=== PATIENT | male | born 1950 | race African-American/Black ===

== ENCOUNTER 2016-12-07 13:49 | Inpatient (IN) | payer BC, MEDICAID ==
[~2016-12-07] VITALS: Ht 170.2 cm; Wt 86.2 kg
[~2016-12-07 13:49] MED LIST: AMLODIPINE BESYL5 MG ORAL; ASPIRIN EC81 MG ORAL; CARVEDILOL3.125 MG ORAL; DICLOFENAC SODI75 MG ORAL; ERYTHROMYCIN3.5 GM LEFT EYE; FUROSEMIDE40 MG ORAL; IBUPROFEN600 MG ORAL; KLOR-CON 88 MEQ ORAL; LASIX40 MG ORAL; LISINOPRIL20 MG ORAL; NORCO 10/3251 EA ORAL; OMEPRAZOLE40 M1 ORAL; SOMA350 MG PO
--- NOTE | 2016-12-07 14:28 | Emergency Room Report ---
History of Present Illness General Chief Complaint: Dyspnea/Respdistress Source: Patient Present Illness HPI Patient is a 66-year-old male presented after increased difficulty breathing. Patient gradual onset of symptoms. Patient was noted to have prior history of congestive heart failure. Patient has been taking diuretics but had not taken his Lasix as per usual patient had previous a similar symptoms and was hospitalized approximately one month ago for similar episode. Patient noted have some increased leg swelling as well as increased difficulty breathing. He had some increased orthopnea. Allergies: Coded Allergies: No Known Allergies (Verified Allergy, Unknown, 09/19/07) Patient History Reviewed Nursing Documentation: PMH: Agreed, PSxH: Agreed Nursing Documentation-PMH Past Medical History: No History, Except For Hx Cardiac Problems: Yes Hx Hypertension: Yes Hx Pacemaker: Yes - AICD 09/16/2014 Hx COPD: Yes Hx Cancer: No Hx Gastrointestinal Problems: Yes - hernia Hx Neurological Problems: Yes Hx Cerebrovascular Accident: Yes - POSSIBLE MILD STROKE Review of Systems All Other Systems: negative except mentioned in HPI Physical Exam Vital Signs Date Time Temp Pulse Resp B/P Pulse Ox O2 Delivery O2 Flow Rate FiO2 12/07/16 14:06 97.5 123 22 104/55 97 Room Air Sp02 EP Interpretation: reviewed, normal General Appearance: normal inspection, alert, GCS 15, mild distress Head: atraumatic ENT: normal ENT inspection, hearing grossly normal, normal voice Neck: normal inspection, full range of motion, supple, no bony tend Respiratory: normal inspection, no respiratory distress, no retraction, no wheezing, rales Cardiovascular #1: tachycardia, edema Gastrointestinal: normal inspection, normal bowel sounds, non tender, soft, no guarding, no hernia Genitourinary: no CVA tenderness Musculoskeletal: normal inspection, back normal, normal range of motion Neurologic: normal inspection, alert, oriented x3, responsive, planning rn III-XII nml as tested, speech normal Psychiatric: normal inspection, judgement/insight normal, mood/affect normal Skin: normal inspection, normal color, no rash Medical Decision Making Diagnostic Impression: Primary Impression: CHF (congestive heart failure) Additional Impression: Atrial fibrillation with RVR ER Course Patient presented for shortness of breath.Differential included but was not limited to anemia, pneumonia, pneumothorax, myocardial infarction, pericardial effusion, congestive heart failure, acidosis. Because of complexity of patient' s case laboratory testing and imaging studies were ordered. Patient was noted to have evidence of heart failure as well as atrial fibrillation with rapid ventricular response. The patient was given IV digoxin as well as diuretics.The patient will be admitted for further control of atrial fibrillation as well as management of congestive heart failure. The patient was noted to have Dr. Guan primary. Dr. Nixon was contacted for inpatient management. Labs Test 12/07/16 14:46 12/07/16 14:53 White Blood Count 8.1 K/UL (4.8-10.8) Red Blood Count 4.05 M/UL (4.70-6.10) Hemoglobin 12.7 G/DL (14.2-18.0) Hematocrit 39.4 % (42.0-52.0) Mean Corpuscular Volume 97 FL (80-99) Mean Corpuscular Hemoglobin 31.3 PG (27.0-31.0) Mean Corpuscular Hemoglobin Concent 32.2 G/DL (32.0-36.0) Red Cell Distribution Width 13.0 % (11.6-14.8) Platelet Count 195 K/UL (150-450) Mean Platelet Volume 8.3 FL (6.5-10.1) Neutrophils (%) (Auto) 58.1 % (45.0-75.0) Lymphocytes (%) (Auto) 29.3 % (20.0-45.0) Monocytes (%) (Auto) 7.6 % (1.0-10.0) Eosinophils (%) (Auto) 4.2 % (0.0-3.0) Basophils (%) (Auto) 0.8 % (0.0-2.0) Sodium Level 140 mEQ/L (135-145) Potassium Level 4.8 mEQ/L (3.4-4.9) Chloride Level 102 mEQ/L (98-107) Carbon Dioxide Level 22 mEQ/L (20-30) Anion Gap 16 (5-15) Blood Urea Nitrogen 40 mg/dL (7-23) Creatinine 2.0 mg/dL (0.7-1.2) Estimat Glomerular Filtration Rate 40.6 mL/min (>60) Glucose Level 121 mg/dL (74-106) Calcium Level 10.3 mg/dL (8.6-10.2) Total Bilirubin 0.3 mg/dL (0.0-1.2) Aspartate Amino Transf (AST/SGOT) 35 U/L (5-40) Alanine Aminotransferase (ALT/SGPT) 45 U/L (3-41) Alkaline Phosphatase 70 U/L (40-129) Total Creatine Kinase 111 U/L (38-174) Creatine Kinase MB 3.6 ng/mL (< 6.7) Creatine Kinase MB Relative Index 3.2 Troponin I < 0.30 ng/mL (<=0.30) Pro-B-Type Natriuretic Peptide 25096 pg/mL (0-125) Total Protein 7.4 g/dL (6.6-8.7) Albumin 3.7 g/dL (3.5-5.2) Globulin 3.7 g/dL Albumin/Globulin Ratio 1.0 (1.0-2.7) Prothrombin Time 11.0 SEC (9.30-11.50) Prothromb Time International Ratio 1.1 (0.9-1.1) Activated Partial Thromboplast Time 26 SEC (23-33) EKG Diagnostic Results Rate: tachycardiac Rhythm: other - afib ST Segments: no acute changes ASA given to the pt in ED: No Rhythm Strip Diag. Results EP Interpretation: yes Rhythm: no PVC's, other - afib rvr, 130s Last Vital Signs Date Time Temp Pulse Resp B/P Pulse Ox O2 Delivery O2 Flow Rate FiO2 12/07/16 14:06 97.5 123 22 104/55 97 Room Air Status: improved Disposition: ADMITTED INPATIENT Condition: Serious Cory Julian Dec 07, 2016 14:27
[2016-12-07] MEDS ORDERED: Digoxin 0.5mg/2ml Inj IVP ONE (14:30)
[2016-12-07] MEDS ORDERED: Aspirin Baby 81mg ORAL ONE ×2 (14:30→19:00)
[2016-12-07 14:45] VITALS: BP 113/83
[2016-12-07] MEDS ORDERED: POTASSIUM CHLOR8 ME3 PO ×2 (15:06→15:20)
[2016-12-07 15:10] LABS: BASOPHILS % (AUTO) 0.8 % (0.0-2.0); EOSINOPHILS % (AUTO) 4.2 % (0.0-3.0); LYMPHOCYTES % (AUTO) 29.3 % (20.0-45.0); MEAN CORPUSCULAR HEMOGLOBIN 31.3 PG (27.0-31.0); MEAN CORPUSCULAR HGB CONC 32.2 G/DL (32.0-36.0); MEAN CORPUSCULAR VOLUME 97 FL (80-99); MEAN PLATELET VOLUME 8.3 FL (6.5-10.1); MONOCYTES % (AUTO) 7.6 % (1.0-10.0); NEUTROPHILS % (AUTO) 58.1 % (45.0-75.0); PLATELET COUNT 195 K/UL (150-450); RED BLOOD COUNT 4.05 M/UL (4.70-6.10); WHITE BLOOD COUNT 8.1 K/UL (4.8-10.8)
[2016-12-07 15:20] LABS: CALCIUM 10.3 mg/dL (8.6-10.2); GLOMERULAR FILTRATION RATE 40.6 mL/min (>60); POTASSIUM 4.8 mEQ/L (3.4-4.9); TOTAL PROTEIN 7.4 g/dL (6.6-8.7); TROPONIN I < 0.30 ng/mL (<=0.30)
[2016-12-07] MEDS ORDERED: OMEPRAZOLE40 M1 ORAL (15:21)
[2016-12-07] MEDS ORDERED: ALLOPURINOL100 M1 ORAL (15:22)
[2016-12-07] MEDS ORDERED: METOLAZONE5 MG PO (15:23)
[2016-12-07] MEDS ORDERED: DOCUSATE SODIU250 MG ORAL (15:25)
[2016-12-07] MEDS ORDERED: PROAIR HFA8.5 GM INH (15:29)
[2016-12-07 15:30] LABS: CKMB 3.6 ng/mL (< 6.7)
[2016-12-07] MEDS ORDERED: Diltiazem 25mg/5ml IV ONE (15:30)
[2016-12-07] MEDS ORDERED: PROMETH-CODEIN 65 ML PO (15:34)
[2016-12-07 15:37] VITALS: BP 118/75
[2016-12-07 15:39] LABS: INR 1.1 (0.9-1.1)
--- NOTE | 2016-12-07 17:11 | Diagnostic Imaging Report ---
Indication: Shortness of breath Technique: One view of the chest Comparison: 11/04/2015 Findings: There is a left chest bifocal AICD again demonstrated. Heart remains borderline enlarged. Lungs and pleural spaces are clear. No significant change Impression: No acute process
[2016-12-07] MEDS ORDERED: Norco 10mg/325mg tab ORAL PRN (18:00)
[2016-12-07] MEDS ORDERED: Promethazine/Codeine 5ml UD ORAL PRN (18:00)
[2016-12-07 18:27] VITALS: BP 121/97
[2016-12-07] MEDS ORDERED: Lisinopril 10mg tab ORAL ONE (18:30)
[2016-12-07] MEDS ORDERED: Allopurinol 100mg Tab ORAL ONE (19:00)
[2016-12-07] MEDS ORDERED: Docusate 250mg cap ORAL ONE (19:00)
[2016-12-07 20:00] VITALS: BP 144/99
[2016-12-07 20:01] VITALS: BP 112/91
[2016-12-07] MEDS ORDERED: Heparin 5000 units/ml inj SUBQ ONE (21:00)
[2016-12-08 00:23] VITALS: BP 134/76
[2016-12-08 04:20] VITALS: BP 139/75
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
[2016-12-08 08:00] VITALS: BP 120/66
[2016-12-08] MEDS: Carvedilol 6.25mg Tab ORAL SCH ×2 (09:00→21:34)
[2016-12-08] MEDS ORDERED: Heparin 5000 units/ml inj SUBQ SCH (09:00)
[2016-12-08] MEDS: Lisinopril 20mg tab ORAL SCH (09:36)
[2016-12-08 12:00] VITALS: BP 120/72
[2016-12-08] MEDS: Allopurinol 100mg Tab ORAL SCH (14:57)
[2016-12-08 16:00] VITALS: BP 124/68
[2016-12-08 20:00] VITALS: BP 136/71
--- NOTE | 2016-12-08 20:11 | Cardiology Report ---
APPROVED REPORT EXAM: Two-dimensional and M-mode echocardiogram with Doppler and color Doppler. INDICATION Congestive Heart Failure M-Mode DIMENSIONS IVSd1.5 (0.7-1.1cm)Left Atrium (MM)4.1 (1.6-4.0cm) LVDd6.1 (3.5-5.6cm)Aortic Root3.2 (2.0-3.7cm) PWd1.0 (0.7-1.1cm)Aortic Cusp Exc.2.1 (1.5-2.0cm) LVDs5.0 (2.5-4.0cm) PWs1.3 cm Technically difficult study due to poor acoustic windows. Mild left ventricular enlargement. Global left ventricular hypokinesis. Mid anterior and mid lateral akinesis. Left ventricular ejection fraction estimated to be 30%. Mild left ventricular hypertrophy. No evidence of pericardial fat or effusion. Moderate bi-atrial enlargement by 2D. Focal aortic valve sclerosis with adequate cusp excursion Thickened mitral valve leaflets with normal excursion. Mitral annulus and aortic root calcification. Pulmonic valve not well visualized. Normal tricuspid valve structure. IVC dilated at 2.3cm with physiologic collapse. RA pressure of 10mmHg. Probable pacemaker wire present in the right side chambers possibley in coronary sinus . A color flow and spectral Doppler study was performed and revealed: Trace aortic regurgitation. Moderate mitral regurgitation. Left ventricular diastolic dysfunction not obtainable due to arrhythmia. Mild tricuspid regurgitation. Tricuspid systolic velocities suggests peak right ventricular systolic pressure of 44 mmHg Consistent with mild pulmonary hypertension.
[2016-12-09] VITALS: BP 107/74
[2016-12-09 04:19] VITALS: BP 123/79
[2016-12-09 06:10] LABS: BASOPHILS % (AUTO) 0.5 % (0.0-2.0); EOSINOPHILS % (AUTO) 6.2 % (0.0-3.0); LYMPHOCYTES % (AUTO) 22.2 % (20.0-45.0); MEAN CORPUSCULAR HEMOGLOBIN 31.2 PG (27.0-31.0); MEAN CORPUSCULAR VOLUME 97 FL (80-99); MEAN PLATELET VOLUME 8.5 FL (6.5-10.1); MONOCYTES % (AUTO) 8.1 % (1.0-10.0); NEUTROPHILS % (AUTO) 63.1 % (45.0-75.0); PLATELET COUNT 164 K/UL (150-450); RED BLOOD COUNT 3.54 M/UL (4.70-6.10); RED CELL DISTRIBUTION WIDTH 13.2 % (11.6-14.8); WHITE BLOOD COUNT 7.4 K/UL (4.8-10.8)
[2016-12-09 07:24] LABS: ALANINE AMINOTRANSFERASE 29 U/L (3-41); ANION GAP 17 (5-15); ASPARTATE AMINO TRANSFERASE 16 U/L (5-40); CALCIUM 9.4 mg/dL (8.6-10.2); CARBON DIOXIDE 24 mEQ/L (20-30); CHLORIDE 100 mEQ/L (98-107); CREATININE 2.1 mg/dL (0.7-1.2); GLOMERULAR FILTRATION RATE 38.4 mL/min (>60); HEMOLYSIS 12; MAGNESIUM 1.5 mg/dL (1.7-2.5); POTASSIUM 3.9 mEQ/L (3.4-4.9); SODIUM 141 mEQ/L (135-145); TOTAL PROTEIN 6.2 g/dL (6.6-8.7)
[2016-12-09 07:58] VITALS: BP 113/72
[2016-12-09] MEDS: Carvedilol 6.25mg Tab ORAL SCH (08:50)
[2016-12-09] MEDS: Allopurinol 100mg Tab ORAL SCH (08:50)
[2016-12-09] MEDS: Lisinopril 20mg tab ORAL SCH (08:51)
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
[2016-12-09 11:28] VITALS: BP 120/70
[2016-12-09] MEDS ORDERED: Furosemide 40mg tab ORAL SCH (11:30)
[2016-12-09] MEDS ORDERED: LISINOPRIL20 MG ORAL (11:48)
[2016-12-09] MEDS ORDERED: COREG6.25 MG ORAL (11:48)
[2016-12-09] MEDS ORDERED: FUROSEMIDE40 MG ORAL (11:48)
[2016-12-09] MEDS ORDERED: Tubing IV Secondary IV ONE (13:54)
[2016-12-09] MEDS ORDERED: NS 275ml ONE (13:54)
--- NOTE | 2016-12-10 01:08 | Progress Note ---
DATE: 12/09/2016 CARDIOLOGY PROGRESS NOTE SUBJECTIVE: The patient is without shortness of breath. He was able to sleep last night. His diuretic dose was held yesterday due to rising renal function, but it is resumed today. OBJECTIVE: VITAL SIGNS: Blood pressure 124/68, pulse 60, respiratory rate 18, and afebrile. Monitored rhythm pace. NECK: Supple. Jugular venous pressure is slightly elevated. LUNGS: Clear. CARDIAC: Regular rhythm rate. Normal S1, S2. A 1/6 systolic apical murmur. ABDOMEN: Soft. EXTREMITIES: Without edema. LABORATORY DATA: Pro-natriuretic peptide has decreased from admission 10,000 to 3000 today. BUN 49 and creatinine 2.1. Potassium 3.9. White count 7.4 and hemoglobin 11. Echocardiogram yesterday confirmed ejection fraction of about 30% with global hypokinesis. IMPRESSION: 1. Acute on chronic systolic congestive heart failure. 2. Chronic kidney disease with exacerbation due to diuresis. 3. Hypertensive heart disease. 4. Cardiac defibrillator. 5. Anemia due to chronic kidney disease. PLAN: Oral diuretic maintenance dose with furosemide . Continue beta-aria and angiotensin-converting enzyme inhibitor. Outpatient interrogation of defibrillator. The patient was counseled again regarding salt restriction, fluid restriction, and medication compliance as well as diuretic titration with daily weights. Ronnell Nixon M.D. DR: PETER JOB#: [id number] CC:
--- NOTE | 2016-12-10 08:48 | Progress Note ---
CARDIOLOGY PROGRESS NOTE Late entry for 12/08/2016 SUBJECTIVE: The patient is up in chair. He feels better. He is anxious to go home. The patient states that his defibrillator has not been checked for at least a year. He has not had any shock. The patient is unaware of how to restrict his salt intake at home and has recently been changing the dose of his diuretic therapy. He is unsure what to do about that to keep from fluid buildup. OBJECTIVE: VITAL SIGNS: Blood pressure is 120/72, pulse 66, respirations 18, afebrile, and room air oxygen 98%. NECK: Jugular venous pressure slightly elevated. LUNGS: Few rales. CARDIAC: Regular rhythm and rate. Normal S1 and paradoxically split S2, 1/6 systolic apical murmur. ABDOMEN: Soft. EXTREMITIES: Trace edema. IMPRESSION: 1. Acute on chronic systolic congestive heart failure. 2. Cardiac defibrillator. 3. Hypertensive heart disease. 4. Chronic kidney disease. PLAN: 1. Continue diuresis. 2. Recheck renal function before next dose of furosemide. 3. We will titrate 01:27 and antihypertensives. 4. Defibrillator interrogation may be considered. 5. We will try to find out the type of device he has, otherwise it will be arranged as an outpatient. 6. The patient was counseled extensively regarding fluid restriction, salt restriction, and diuretic titration. Ronnell Nixon M.D. DR: BROOKS JOB#: [id number] CC:
--- NOTE | 2016-12-10 15:24 | Discharge Summary ---
Discharge Summary Hospital Course Date of Admission Dec 07, 2016 at 14:54 Date of Discharge Dec 09, 2016 at 13:55 Admitting Diagnosis atrial fibrillation with rapid ventricular rate HPI Juan Rod is a 66 year old male who was admitted on Dec 07, 2016 at 14:54 for Atrial Fibrillation With Rapid Ventricular Rate Hospital Course [id number] Discharge Discharge Disposition Patient was discharged to Home (01) Discharge Diagnoses: Nuiba Crawford NP Dec 10, 2016 15:24
--- NOTE | 2016-12-11 02:38 | Discharge Summary 2 SIG ---
DATE OF ADMISSION: 12/07/2016 DATE OF DISCHARGE: 12/09/2016 BRIEF HOSPITAL COURSE: The patient is a 66-year-old male with history of congestive heart failure, hypertension, and asthma. He presented with complaints of shortness of breath and palpitations. He was noted to be in atrial fibrillation with rapid ventricular response and converted after being given Cardizem. He was noted to have a renal insufficiency on presentation. He has a known history of dilated nonischemic cardiomyopathy and has a biventricular cardiac defibrillator. He admits to eating salty foods and drink lots of fluids. He has not had any chest pain or shock from his device. He was given diuresis. Anti-failure regimen was maximized. He was given dietary counseling and fluid restriction and compliance with medications as well as diuretic titration and daily weights. He was eventually discharged home. FINAL DIAGNOSES: 1. Acute on chronic systolic congestive heart failure. 2. Cardiac defibrillator. 3. Hypertensive heart disease. 4. Chronic kidney disease. 5. Anemia due to chronic kidney disease. 6. Paroxysmal atrial fibrillation with rapid ventricular response. Ronnell Nixon M.D. I have been assigned to dictate discharge summary on this account and I was not involved in the patient's management. Nubia Crawford N.P. DR: EMILY JOB#: [id number] CC:
[2016-12-27] MEDS ORDERED: DIGOXIN125 MCG ORAL (09:35)
[2016-12-27] MEDS ORDERED: XARELTO10 MG ORAL (09:35)
[2016-12-27] MEDS ORDERED: COREG25 MG ORAL (09:35)
[2016-12-27] MEDS ORDERED: SPIRONOLACTONE25 MG ORAL (09:35)
== END 2016-12-09 13:55 | disposition home or self-care (01) | DRG 291 ==
LOC: EMR 14:25 → 2E 14:54 → EDBEDREQ 19:45
DX: I13.0 Hypertensive heart and chronic kidney disease with heart failure and stage 1 through stage 4 chronic kidney disease, or unspecified chronic kidney disease (principal); I50.43 Acute on chronic combined systolic (congestive) and diastolic (congestive) heart failure; N17.0 Acute kidney failure with tubular necrosis; I48.91 Unspecified atrial fibrillation; J45.909 Unspecified asthma, uncomplicated; N18.9 Chronic kidney disease, unspecified; Z95.810 Presence of automatic (implantable) cardiac defibrillator; D63.1 Anemia in chronic kidney disease; I48.0 Paroxysmal atrial fibrillation; N40.0 Benign prostatic hyperplasia without lower urinary tract symptoms; Z91.11 Patient's noncompliance with dietary regimen; I42.0 Dilated cardiomyopathy
CPT/HCPCS: 36415; 71010; 80053; 82550; 82553; 83735; 83880; 84484; 85025; 85610; 85730; 93005; 93306

== ENCOUNTER 2016-12-22 12:36 | Inpatient (IN) | payer BC, MEDICAID ==
[~2016-12-22] VITALS: Ht 172.7 cm; Wt 86.6 kg
[2016-12-22] VITALS (7 sets, daily range): BP systolic 96–150; BP diastolic 55–89
[~2016-12-22 12:36] MED LIST changes: +ALLOPURINOL100 M1 ORAL; +COREG6.25 MG ORAL; +DOCUSATE SODIU250 MG ORAL; +METOLAZONE5 MG PO; +POTASSIUM CHLOR8 ME3 PO; +PROAIR HFA8.5 GM INH; +PROMETH-CODEIN 65 ML PO
[2016-12-22] MEDS ORDERED: Calcium Gluconate 1gm/10ml vial IVP ONE (13:15)
[2016-12-22] MEDS ORDERED: Diltiazem 25mg/5ml IV ONE (13:15)
[2016-12-22 13:16] LABS: BASOPHILS % (AUTO) 0.5 % (0.0-2.0); EOSINOPHILS % (AUTO) 3.5 % (0.0-3.0); LYMPHOCYTES % (AUTO) 21.1 % (20.0-45.0); MEAN CORPUSCULAR HEMOGLOBIN 30.4 PG (27.0-31.0); MEAN CORPUSCULAR HGB CONC 30.2 G/DL (32.0-36.0); MEAN CORPUSCULAR VOLUME 101 FL (80-99); MEAN PLATELET VOLUME 7.9 FL (6.5-10.1); MONOCYTES % (AUTO) 7.4 % (1.0-10.0); NEUTROPHILS % (AUTO) 67.5 % (45.0-75.0); PLATELET COUNT 203 K/UL (150-450); RED BLOOD COUNT 3.98 M/UL (4.70-6.10); RED CELL DISTRIBUTION WIDTH 13.9 % (11.6-14.8); WHITE BLOOD COUNT 7.3 K/UL (4.8-10.8)
[2016-12-22 13:29] LABS: ALBUMIN/GLOBULIN RATIO 1.1 (1.0-2.7); CALCIUM 9.9 mg/dL (8.6-10.2); CREATININE 1.8 mg/dL (0.7-1.2); GLOMERULAR FILTRATION RATE 45.8 mL/min (>60); POTASSIUM 4.3 mEQ/L (3.4-4.9); TOTAL PROTEIN 6.6 g/dL (6.6-8.7); TROPONIN I < 0.30 ng/mL (<=0.30)
[2016-12-22 13:40] LABS: CKMB 4.4 ng/mL (< 6.7)
--- NOTE | 2016-12-22 15:15 | Emergency Room Report ---
History of Present Illness General Chief Complaint: Upper Respiratory Illness Source: Patient Present Illness HPI 66-year-old male presents to ED for evaluation. States the last 2 days he's been having increased shortness of breath while at rest. Denies any chest pain. Notes leg swelling. States the last time this happened he had "fluid" in the lungs. Denies any fevers or chills. Denies cough. PMD is Dr. Guan. Notes history of CHF and A. fib. States he is compliant with his medications. No other aggravating or relieving factors. Denies any other associated symptoms Allergies: Coded Allergies: No Known Allergies (Verified Allergy, Unknown, 09/19/07) Patient History Past Medical History: HTN, CHF, AFib, CVA/TIA Past Surgical History: pacemaker, other - hernia Pertinent Family History: none Social History: Denies: alcohol use, drug use, smoking Immunizations: UTD Reviewed Nursing Documentation: PMH: Agreed, PSxH: Agreed Nursing Documentation-PMH Hx Cardiac Problems: Yes Hx Hypertension: Yes Hx Pacemaker: Yes - AICD 09/16/2014 Hx COPD: Yes Hx Cancer: No Hx Gastrointestinal Problems: Yes - ventral hernia (repaired) Hx Neurological Problems: Yes Hx Cerebrovascular Accident: Yes - POSSIBLE MILD STROKE Review of Systems All Other Systems: negative except mentioned in HPI Physical Exam Vital Signs Date Time Temp Pulse Resp B/P Pulse Ox O2 Delivery O2 Flow Rate FiO2 12/22/16 12:49 97.5 94 20 125/84 99 Room Air Sp02 EP Interpretation: reviewed, normal General Appearance: no apparent distress, alert, GCS 15, non-toxic Head: normocephalic, atraumatic Eyes: bilateral eye PERRL, bilateral eye normal inspection ENT: hearing grossly normal, normal pharynx, no angioedema, normal voice Neck: full range of motion, supple/symm/no masses Respiratory: chest non-tender, lungs clear, normal breath sounds, speaking full sentences Cardiovascular #1: regular rate, rhythm, no edema Cardiovascular #2: 2+ carotid (R), 2+ carotid (L), 2+ radial (R), 2+ radial (L) , 2+ dorsalis pedis (R), 2+ dorsalis pedis (L) Gastrointestinal: normal bowel sounds, non tender, soft, non-distended, no guarding, no rebound Rectal: deferred Genitourinary: normal inspection, no CVA tenderness Musculoskeletal: back normal, gait/station normal, normal range of motion, non- tender, swelling - 1+ pitting edema b/l LE Neurologic: alert, oriented x3, responsive, motor strength/tone normal, sensory intact, speech normal Psychiatric: judgement/insight normal, memory normal, mood/affect normal, no suicidal/homicidal ideation Reflexes: 3+ bicep (R), 3+ bicep (L), 3+ tricep (R), 3+ tricep (L), 3+ knee (R) , 3+ knee (L) Skin: normal color, no rash, warm/dry, well hydrated Lymphatic: no adenopathy Medical Decision Making Diagnostic Impression: Primary Impression: Atrial fibrillation with rapid ventricular response Additional Impressions: CHF exacerbation Qualified Codes: I50.9 - Heart failure, unspecified CKD (chronic kidney disease) Qualified Codes: N18.9 - Chronic kidney disease, unspecified ER Course Hospital Course 66-year-old M presents ED complaining of SOB, leg swelling Differential diagnoses include: NC/unstable angina, CHF, PTX Clinical course Patient placed on stretcher. on cardiac surgeon which shows A. fib with RVR. 10mg Cardizem given with cardioversion. After initial history and physical I ordered labs, EKG, chest x-ray labs reviewed- no leukocytosis, hemoglobin/hematocrit ok, BUN/Cr 36/1.8, troponins negative, BNP > 11,000 EKG-atrial fibrillation with RVR, no acute changes Chest x-ray- cardiomegaly. pacemaker because of insurance patient will be treated I. I feel this is a highly complex case requiring extensive working including EKG/Rhythm strip, Xray/CT/US, Blood/urine lab work, repeat exams while in ED, and administration of strong opiates/narcotics for pain control, admission to hospital or close patient follow up. Diagnosis - afib with RVR, CHF exacerbation, CKD Transferred in serious condition Labs Test 12/22/16 13:00 White Blood Count 7.3 K/UL (4.8-10.8) Red Blood Count 3.98 M/UL (4.70-6.10) Hemoglobin 12.1 G/DL (14.2-18.0) Hematocrit 40.0 % (42.0-52.0) Mean Corpuscular Volume 101 FL (80-99) Mean Corpuscular Hemoglobin 30.4 PG (27.0-31.0) Mean Corpuscular Hemoglobin Concent 30.2 G/DL (32.0-36.0) Red Cell Distribution Width 13.9 % (11.6-14.8) Platelet Count 203 K/UL (150-450) Mean Platelet Volume 7.9 FL (6.5-10.1) Neutrophils (%) (Auto) 67.5 % (45.0-75.0) Lymphocytes (%) (Auto) 21.1 % (20.0-45.0) Monocytes (%) (Auto) 7.4 % (1.0-10.0) Eosinophils (%) (Auto) 3.5 % (0.0-3.0) Basophils (%) (Auto) 0.5 % (0.0-2.0) Sodium Level 145 mEQ/L (135-145) Potassium Level 4.3 mEQ/L (3.4-4.9) Chloride Level 107 mEQ/L (98-107) Carbon Dioxide Level 23 mEQ/L (20-30) Anion Gap 15 (5-15) Blood Urea Nitrogen 36 mg/dL (7-23) Creatinine 1.8 mg/dL (0.7-1.2) Estimat Glomerular Filtration Rate 45.8 mL/min (>60) Glucose Level 134 mg/dL (74-106) Calcium Level 9.9 mg/dL (8.6-10.2) Total Bilirubin 0.5 mg/dL (0.0-1.2) Aspartate Amino Transf (AST/SGOT) 42 U/L (5-40) Alanine Aminotransferase (ALT/SGPT) 63 U/L (3-41) Alkaline Phosphatase 70 U/L (40-129) Total Creatine Kinase 89 U/L (38-174) Creatine Kinase MB 4.4 ng/mL (< 6.7) Creatine Kinase MB Relative Index 4.9 Troponin I < 0.30 ng/mL (<=0.30) Pro-B-Type Natriuretic Peptide 47542 pg/mL (0-125) Total Protein 6.6 g/dL (6.6-8.7) Albumin 3.5 g/dL (3.5-5.2) Globulin 3.1 g/dL Albumin/Globulin Ratio 1.1 (1.0-2.7) EKG Diagnostic Results Rate: tachycardiac Rhythm: other - afib with RVR ST Segments: no acute changes ASA given to the pt in ED: No Rhythm Strip Diag. Results EP Interpretation: yes Rhythm: no PVC's, no ectopy Chest X-Ray Diagnostic Results EP Interpretation: Yes Findings: no pneumothorax, no acute cardiopulmonary disease, other - cardiomegaly. pacemaker. effusion Number of Views: 1 Last Vital Signs Date Time Temp Pulse Resp B/P Pulse Ox O2 Delivery O2 Flow Rate FiO2 12/22/16 15:08 120 19 96/55 99 Room Air 12/22/16 14:11 97.5 Status: improved Disposition: XFER SHT-TRM HOSP Condition: Serious Referrals: [facility],REFERRING (PCP) IWONA SCHMID M.D. Dec 22, 2016 15:15
[2016-12-22] MEDS ORDERED: NORCO 10-325 T1 EACH ORAL (15:23)
[2016-12-22] MEDS ORDERED: CARVEDILOL3.125 MG ORAL (15:39)
--- NOTE | 2016-12-22 16:16 | Diagnostic Imaging Report ---
Indication: SOB Technique: One view of the chest Comparison: 12/07/2016 Findings: Patient's chin slightly obscures the upper mediastinum. The heart is enlarged. Left hemidiaphragm is elevated. Lungs and pleural spaces are clear. There is a left chest AICD again demonstrated. No significant change Impression: No acute process. Findings as noted
[2016-12-22] MEDS ORDERED: Zolpidem 5mg tab ORAL PRN (19:15)
[2016-12-22] MEDS ORDERED: Norco 5mg/325mg tab ORAL PRN (19:15)
[2016-12-22] MEDS ORDERED: Digoxin 0.5mg/2ml Inj IVP ONE (19:30)
[2016-12-22] MEDS ORDERED: Heparin 5000 units/ml inj SUBQ SCH (21:00)
[2016-12-23] MEDS ORDERED: Digoxin 0.5mg/2ml Inj IVP ONE (00:30)
[2016-12-23 00:36] VITALS: BP 135/76
[2016-12-23] MEDS: Xarelto 15mg tab ORAL SCH ×2 (00:45→17:48)
--- NOTE | 2016-12-23 01:58 | History and Physical Report ---
DATE OF ADMISSION: 12/22/2016 REASON FOR CONSULT: Atrial fibrillation with rapid ventricular response. HISTORY OF PRESENT ILLNESS: This is a 66-year-old, male with a known history of an ischemic and hypertensive cardiomyopathy with cardiac defibrillator and chronic systolic congestive heart failure. The patient notes compliance with his medications. He was last seen here in this hospital approximately two weeks ago. He is yet to get Cardiology follow up even though it was stressed by me that this was required at time of discharge. The patient has had increasing shortness of breath and palpitations for the past day or two. He has had a little bit of leg swelling. He was seen in the emergency room and noted to have a rapid atrial fibrillation. PAST MEDICAL HISTORY: Hypertension, ischemic heart disease, cardiac defibrillator, chronic obstructive pulmonary disease and prior cerebrovascular accident status post repair of ventral hernia. SOCIAL HISTORY: No current smoking, alcohol, or substance abuse. FAMILY HISTORY: Noncontributory. MEDICATIONS: Reviewed and reconciled. ALLERGIES: None known. REVIEW OF SYSTEMS: A 10-point review of systems was performed, pertinent data outlined above. Otherwise all systems negative. He did have an echocardiogram here two weeks ago confirming an ejection fraction of 30% to 35%. His defibrillator was placed in 2013. It has not been interrogated for sometime but he has not had any discharges/shock. PHYSICAL EXAMINATION: GENERAL: He is in mild respiratory distress. VITAL SIGNS: Blood pressure 100/74, pulse 121, respirations 20, and afebrile. Oxygen saturation on room air 96%. HEENT: Normocephalic and atraumatic. Conjunctivae are pink. Oropharynx is clear. Mucous membranes are moist. NECK: Supple. Jugular venous pressure elevated. LUNGS: With diminished breath sounds. Few rales. CARDIAC: Irregularly irregular. Normal S1, paradoxically split S2. A 1/6 early systolic apical murmur. ABDOMEN: Soft and nontender. EXTREMITIES: Trace bilateral lower extremity edema. LABORATORY AND DIAGNOSTIC DATA: White count 7.3 and hemoglobin 12. Potassium 4.3, BUN 36, and creatinine 1.8. Pro-natriuretic peptide is 11,600. Troponin is negative. Chest x-ray reveals cardiomegaly and mild pulmonary venous congestion. EKG reveals atrial fibrillation with rapid ventricular response and nonspecific ST-T wave change. IMPRESSIONS: 1. Paroxysmal atrial fibrillation now with rapid ventricular response. 2. Cardiomyopathy with acute on chronic systolic congestive heart failure. 3. Cardiac defibrillator. 4. Acute on chronic kidney injury. PLAN: 1. Digitalize for rate control. 2. Intravenous diuresis and maximization of anti-failure regimen with beta blockers and angiotensin-converting enzyme inhibitors. 3. Cardioembolic prophylaxis with Rivaroxaban. Ronnell Nixon M.D. DR: CORRIE JOB#: [id number] CC:
[2016-12-23 04:00] VITALS: BP 126/59
[2016-12-23 07:50] LABS: BASOPHILS % (AUTO) 0.7 % (0.0-2.0); EOSINOPHILS % (AUTO) 4.9 % (0.0-3.0); LYMPHOCYTES % (AUTO) 20.4 % (20.0-45.0); MEAN CORPUSCULAR HEMOGLOBIN 31.3 PG (27.0-31.0); MEAN CORPUSCULAR HGB CONC 31.4 G/DL (32.0-36.0); MEAN CORPUSCULAR VOLUME 99 FL (80-99); MEAN PLATELET VOLUME 8.3 FL (6.5-10.1); MONOCYTES % (AUTO) 8.6 % (1.0-10.0); NEUTROPHILS % (AUTO) 65.4 % (45.0-75.0); PLATELET COUNT 197 K/UL (150-450); RED BLOOD COUNT 3.74 M/UL (4.70-6.10); RED CELL DISTRIBUTION WIDTH 13.9 % (11.6-14.8); WHITE BLOOD COUNT 6.7 K/UL (4.8-10.8)
[2016-12-23 08:05] LABS: CALCIUM 9.6 mg/dL (8.6-10.2); CREATININE 1.9 mg/dL (0.7-1.2); MAGNESIUM 1.7 mg/dL (1.7-2.5); POTASSIUM 4.2 mEQ/L (3.4-4.9); TOTAL PROTEIN 6.6 g/dL (6.6-8.7)
[2016-12-23 08:19] LABS: THYROID STIMULATING HORMONE 1.14 uIU/mL (0.300-4.500)
[2016-12-23] MEDS: Allopurinol 100mg Tab ORAL SCH (08:29)
[2016-12-23] MEDS: Digoxin 0.125mg tab ORAL SCH (08:30)
[2016-12-23] MEDS: Spironolactone 25mg tab ORAL SCH (08:30)
[2016-12-23] MEDS: Carvedilol 12.5mg tab ORAL SCH ×2 (08:30→20:31)
[2016-12-23] MEDS: Lisinopril 20mg tab ORAL SCH (08:30)
[2016-12-23 08:38] VITALS: BP 130/88
[2016-12-23] MEDS ORDERED: Aspirin Baby 81mg ORAL SCH (09:00)
[2016-12-23 11:52] VITALS: BP 131/77
[2016-12-23 16:00] VITALS: BP 115/70
[2016-12-23 20:00] VITALS: BP 136/89
[2016-12-24] VITALS: BP 136/79
--- NOTE | 2016-12-24 03:18 | Progress Note ---
DATE: 12/23/2016 CARDIOLOGY PROGRESS NOTE SUBJECTIVE: The patient with digitalized rate control achieved. She remains with atrial fibrillation and ventricular pacing. Shortness of breath is better, but not resolved. Leg swelling persists. OBJECTIVE: VITAL SIGNS: Blood pressure 136/79, pulse 102, respiration 20, and afebrile. NECK: Supple. LUNGS: With diminished breath sounds and few rales. CARDIAC: Irregularly irregular. Normal S1 and paradoxically split S2. A 1/6 systolic apical murmur. ABDOMEN: Soft. EXTREMITIES: A 1+ dependent edema. LABORATORY DATA: White count 6.7 and hemoglobin 11.7. Potassium 4.2, BUN 37, and creatinine 1.9. Pro-natriuretic peptide 9900. IMPRESSION: 1. Acute on chronic systolic congestive heart failure. 2. Cardiac defibrillator. 3. Paroxysmal atrial fibrillation with rapid ventricular response. 4. Ischemic and hypertensive cardiomyopathy. PLAN: 1. Rivaroxaban for cardioembolic prophylaxis. 2. Digitalize and titrate beta-aria for rate control. 3. Diuresis by IV route until euvolemic. Ronnell Nixon M.D. DR: Luúl JOB#: [id number] CC:
[2016-12-24 04:00] VITALS: BP 130/78
[2016-12-24 08:13] VITALS: BP 121/72
[2016-12-24] MEDS: Allopurinol 100mg Tab ORAL SCH (09:02)
[2016-12-24] MEDS: Digoxin 0.125mg tab ORAL SCH (09:02)
[2016-12-24] MEDS: Lisinopril 20mg tab ORAL SCH (09:02)
[2016-12-24] MEDS: Spironolactone 25mg tab ORAL SCH (09:02)
[2016-12-24] MEDS: Carvedilol 12.5mg tab ORAL SCH (09:02)
[2016-12-24 11:21] VITALS: BP 120/78
[2016-12-24 16:00] VITALS: BP 114/82
[2016-12-24] MEDS ORDERED: Carvedilol 25mg Tab ORAL SCH (21:00)
[2016-12-24] MEDS ORDERED: Furosemide 40mg tab ORAL SCH (21:00)
--- NOTE | 2016-12-25 00:47 | Progress Note ---
DATE: 12/24/2016 CARDIOLOGY PROGRESS NOTE SUBJECTIVE: The patient has less shortness of breath. No chest pain. Less leg swelling. No palpitations. Monitored rhythm, atrial fibrillation with demand pacing, rate controlled. PHYSICAL EXAMINATION: . Jugular venous pressure is slightly elevated. CARDIAC: Irregularly irregular. Normal S1, paradoxically split S2, and 1/6 early systolic apical murmur. ABDOMEN: Soft. No ascites. EXTREMITIES: With trace to 1+ pretibial edema. IMPRESSION: 1. Leltr-vc-[id number] systolic congestive heart failure. 2. Atrial fibrillation with rapid ventricular response, now rate controlled. 3. Severe cardiomyopathy with cardiac defibrillator. 4. History of ventricular arrhythmias. 5. Hyperuricemia. PLAN: 1. Transition from IV to oral diuretics. 2. Furosemide b.i.d. now 40 mg. 3. Discussed with . 4. Aldactone for potassium-sparing effect. 5. Rivaroxaban for cardioembolic prophylaxis. 6. Digitalis maintenance for rate control including carvedilol at advanced dosage as well for anti-failure and rate control benefit. 7. Outpatient followup. 8. Strict dietary and restriction of sodium and fluid. 9. All discussed in detail with the patient and his . Ronnell Nixon M.D. DR: DELMIS JOB#: [id number] CC:
--- NOTE | 2016-12-27 09:31 | Discharge Summary ---
Discharge Summary Hospital Course Date of Admission Dec 22, 2016 at 15:30 Date of Discharge Dec 24, 2016 at 16:20 Admitting Diagnosis atrial fibrillation EVE Rod is a 66 year old male who was admitted on Dec 22, 2016 at 15:30 for Atrial Fibrillation Hospital Course dc summary #[id number] Discharge Medications New Medications: Carvedilol (Coreg) 25 Mg Tablet 25 MG ORAL EVERY 12 HOURS, #60 TAB Digoxin* (Digoxin*) 125 Mcg Tablet 125 MCG ORAL DAILY, #30 TAB Rivaroxaban (Xarelto*) 10 Mg Tablet 15 MG ORAL DAILY, #30 TAB 0 Refills Spironolactone* (Aldactone*) 25 Mg Tablet 25 MG ORAL DAILY, #30 TAB Continued Medications: Allopurinol* (Allopurinol*) 100 Mg Tablet 100 MG ORAL DAILY, TAB Docusate Sodium* (Docusate Sodium*) 250 Mg Capsule 250 MG ORAL TWICE A DAY, CAP Furosemide* (Lasix*) 40 Mg Tablet 40 MG ORAL DAILY, TAB Hydrocodone/Acetaminophen (Hydrocodon-Acetaminophn 10-325) 1 Ea Tab 1 TAB ORAL BID PRN for For Pain, #30 TAB 0 Refills Lisinopril (Lisinopril*) 20 Mg Tablet 20 MG ORAL DAILY, TAB Omeprazole (Omeprazole) 40 Mg Capsule.dr 40 MG ORAL DAILY, CAP Discontinued Medications: Carvedilol* (Carvedilol*) 3.125 Mg Tablet 3.125 MG ORAL EVERY 12 HOURS, % Potassium Chloride (Potassium Chloride) 8 Meq Tablet.er 8 MEQ PO DAILY, TAB Discharge Condition Upon Discharge: stable Discharge Disposition Patient was discharged to Home () Discharge Diagnoses: Discharge Instructions Discharge Instructions Special Instructions I have been assigned to complete a D/C Summary on this account. I was not involved in the patient management Tala Reyes NP (Vanchtein) Dec 27, 2016 09:31
[2016-12-27] MEDS ORDERED: DIGOXIN125 MCG ORAL (09:35)
[2016-12-27] MEDS ORDERED: COREG25 MG ORAL (09:35)
[2016-12-27] MEDS ORDERED: XARELTO10 MG ORAL (09:35)
[2016-12-27] MEDS ORDERED: SPIRONOLACTONE25 MG ORAL (09:35)
--- NOTE | 2016-12-28 01:18 | Discharge Summary 2 SIG ---
DATE OF ADMISSION: 12/22/2016 DATE OF DISCHARGE: 12/24/2016 REASON FOR ADMISSION: 66-year-old male presented to emergency room with increased shortness of breath for two days while at rest. He denied chest pain. He noted leg swelling. The patient has a known history of hypertensive and ischemic cardiomyopathy. Last ejection fraction on 12/08/2016 was 30%. The patient has a defibrillator. In emergency room, it was found the patient has atrial fibrillation with rapid ventricular response. The patient was given 10 mg Cardizem with cardioversion. No leukocytosis. Stable hemoglobin and hematocrit. Troponin negative. Pro BNP was above 11,000. BUN -36 and creatinine -1.8. Chest x-ray revealed cardiomyopathy and pacemaker. The patient admitted for further management. ADMITTING DIAGNOSES: 1. Atrial fibrillation with rapid ventricular response. 2. Acute congestive heart failure exacerbation. 3. Chronic kidney disease. 4. Cardiomyopathy. HOSPITAL COURSE: The patient admitted to telemetry floor. The patient started on Cardizem for rate control. Digoxin added to achieve rate control, which was achieved with Cardizem, beta-aria, and digoxin. Antiembolic prophylaxis with Xarelto was continued. The patient initially on intravenous diuretic. Intake and output , renal parameters and electrolytes were closely monitored. When the patient was euvolemic, IV Lasix was changed to oral Lasix. Aldactone was added for potassium sparing effect. The patient was continued on the medical management for systolic heart failure , which was optimized as per linen supervisor , including beta aria , BRITNI inhibitor, diuretic, Lasix, Aldactone, and digoxin. The patient to follow up as outpatient with his primary medical doctor. The patient was advised to be compliant with the medication regimen as well as the strict dietary instruction and restriction of sodium and fluid. Allopurinol was continued. at the bedside was given detailed explanation by the doctor. DISCHARGE DIAGNOSES: 1. Atrial fibrillation with rapid ventricular response, - now controlled. 2. Acute on chronic systolic congestive heart failure. 3. Severe cardiomyopathy, ischemic and hypertensive. 4. AICD. 5. History of ventricular arrhythmia. 6. Hyperuremia. DISCHARGE MEDICATIONS: See medication reconciliation list. DISCHARGE INSTRUCTIONS: The patient to follow up with the primary medical doctor. Ronnell Nixon M.D. I have been assigned to dictate discharge summary on this account and I was not involved in the patient's management. Tala Reyes (Vanchtein) NMeghana DR: ABIGAIL JOB#: [id number] CC: HERIBERTO
== END 2016-12-24 16:20 | disposition home or self-care (01) | DRG 308 ==
LOC: EMR 12:56 → 2E 15:30 → EDBEDREQ 17:09
DX: I48.0 Paroxysmal atrial fibrillation (principal); I50.23 Acute on chronic systolic (congestive) heart failure; N17.9 Acute kidney failure, unspecified; I13.0 Hypertensive heart and chronic kidney disease with heart failure and stage 1 through stage 4 chronic kidney disease, or unspecified chronic kidney disease; I25.5 Ischemic cardiomyopathy; Z95.810 Presence of automatic (implantable) cardiac defibrillator; N18.9 Chronic kidney disease, unspecified; J44.9 Chronic obstructive pulmonary disease, unspecified; Z86.73 Personal history of transient ischemic attack (TIA), and cerebral infarction without residual deficits
CPT/HCPCS: 36415; 71010; 80053; 82550; 82553; 83735; 83880; 84443; 84484; 84550; 85025; 87081; 93005

== ENCOUNTER 2019-05-03 08:52 | Emergency (ER) | payer MEDICARE, MEDICAID ==
[~2019-05-03] VITALS: Ht 172.7 cm; Wt 81.6 kg
[~2019-05-03 08:52] MED LIST changes: +COREG25 MG ORAL; +DIGOXIN125 MCG ORAL; +NORCO 10-325 T1 EACH ORAL; +SPIRONOLACTONE25 MG ORAL; +XARELTO10 MG ORAL
[2019-05-03] MEDS ORDERED: UNOBMED (09:10)
[2019-05-03 09:14] VITALS: BP 123/67
--- NOTE | 2019-05-03 09:30 | Emergency Room Report ---
History of Present Illness General Chief Complaint: Pain Source: Patient Present Illness HPI Disclaimer: Please note that this report is being documented using DRAGON technology. This can lead to erroneous entry secondary to incorrect interpretation by the dictating instrument. HPI: 69-year-old male with a history of cardiomyopathy status post pacemaker, systolic and diastolic heart failure on Lasix, hypertension, hyperlipidemia. Gout presents for evaluation of right ankle pain and swelling. Patient was recently admitted to [facility] on 04/28 for CHF exacerbation and discharged home on 04/30. He notes that he had some right ankle pain and swelling beginning prior to his admission and is been present for approximately 7 days. He is able to ambulate though notes worsening pain. Initially believed it was a gout flare and was treating himself with NSAIDs the pain is worsening over the past few days. He currently denies any chest pain, shortness of breath, cough, fever, chills, vomiting, diarrhea, skin rash. He does note some warmth over the medial aspect of the right ankle. Cannot recall a specific trauma or injury. States he has been compliant with his medications. PMH: Gout, hypertension, hyperlipidemia, cardiomyopathy, CHF PSH: Pacemaker placement Allergies: Denies Social Hx: Denies drug or alcohol abuse Allergies: Coded Allergies: No Known Allergies (Verified Allergy, Unknown, 09/19/07) Nursing Documentation-PMH Past Medical History: No History, Except For Hx Cardiac Problems: Yes Hx Hypertension: Yes Hx Pacemaker: Yes - AICD 09/16/2014 Hx COPD: Yes Hx Cancer: No Hx Gastrointestinal Problems: Yes - ventral hernia (repaired) Hx Neurological Problems: Yes Hx Cerebrovascular Accident: Yes - POSSIBLE MILD STROKE Review of Systems All Other Systems: negative except mentioned in HPI Physical Exam Vital Signs Date Time Temp Pulse Resp B/P (MAP) Pulse Ox O2 Delivery O2 Flow Rate FiO2 05/03/19 09:03 98.1 62 18 117/76 (90) 97 Room Air General: Awake and alert, no acute distress HEENT: NC/AT. EOMI. moist mucous membranes Neck: Supple, trachea midline Chest Wall: No tenderness, no deformity. Pacemaker palpable in left upper chest wall Cardiovascular: Bradycardia, rate in the 50s. S1 and S2 normal. No murmur appreciated Resp: Normal work of breathing. No cough, wheezing or crackles appreciated Abdomen: Abdomen is soft, nondistended. Nontender Skin: Intact. No abrasions, laceration or rash over the exposed skin. There is warmth over the medial aspect of the right ankle just proximal to the medial malleolus. No overlying skin breakdown or lesion MSK: Normal tone and bulk. Moving all extremities. No obvious deformity. The dorsum of the right foot as well as the ankle and distal gottlieb of the right leg are circumferentially enlarged and show nonpitting edema. Palpable DP and PT pulses bilaterally. Left lower extremity shows no significant edema, has full range of motion. The right lower extremity does have full range of motion of there is some tenderness palpation over the medial aspect just above the medial malleolus. No tenderness over the foot, lateral malleolus. No limitation of range of motion of the hips or knees. Homans sign is positive. There is no significant tenderness in the deep vein distribution. Neuro: Awake and alert. Mentating appropriately. Sensation is intact over the dermatomes of the lower extremity bilaterally. Medical Decision Making Diagnostic Impression: Primary Impression: Cellulitis of right leg Additional Impressions: HTN (hypertension) CHF (congestive heart failure) CKD (chronic kidney disease) ER Course 69-year-old male with a history of CHF and cardiomyopathy status post pacemaker presents for evaluation of right leg pain and swelling of approximately 1 week duration. Patient states his symptoms started prior to his hospital admission for CHF exacerbation but has been worsening. He cannot recall specific injury. He does have circumferential swelling of the right lower extremity. Differential includes but is not limited to occult fracture, abscess, cellulitis , gout, DVT. The patient states he was receiving DVT prophylaxis while he was admitted to the hospital he does not recall whether or not he is taking an anticoagulant at home for his atrial fibrillation. States his usually handles the medications. Review of his previous medications show that he was taking Xarelto. Unknown if this is continued or not. Will obtain a lower extremity Doppler, x-ray of the right leg though my strong suspicion is for an early cellulitis. If lab work and imaging are negative he may be discharged home with outpatient antibiotics. He is otherwise stable and no other complaints at this time. No respiratory distress and is denying chest pain. Laboratory Tests Test 05/03/19 09:40 White Blood Count 6.6 K/UL (4.8-10.8) Red Blood Count 3.56 M/UL (4.70-6.10) L Hemoglobin 11.2 G/DL (14.2-18.0) L Hematocrit 35.2 % (42.0-52.0) L Mean Corpuscular Volume 99 FL (80-99) Mean Corpuscular Hemoglobin 31.6 PG (27.0-31.0) H Mean Corpuscular Hemoglobin Concent 31.9 G/DL (32.0-36.0) L Red Cell Distribution Width 12.8 % (11.6-14.8) Platelet Count 197 K/UL (150-450) Mean Platelet Volume 8.3 FL (6.5-10.1) Neutrophils (%) (Auto) 68.2 % (45.0-75.0) Lymphocytes (%) (Auto) 16.9 % (20.0-45.0) L Monocytes (%) (Auto) 10.5 % (1.0-10.0) H Eosinophils (%) (Auto) 3.9 % (0.0-3.0) H Basophils (%) (Auto) 0.5 % (0.0-2.0) Sodium Level 142 MMOL/L (136-145) Potassium Level 4.4 MMOL/L (3.5-5.1) Chloride Level 109 MMOL/L (98-107) H Carbon Dioxide Level 28 MMOL/L (21-32) Anion Gap 5 mmol/L (5-15) Blood Urea Nitrogen 49 mg/dL (7-18) H Creatinine 2.4 MG/DL (0.55-1.30) H Estimat Glomerular Filtration Rate 32.6 mL/min (>60) Glucose Level 118 MG/DL (74-106) H Calcium Level 9.8 MG/DL (8.5-10.1) Total Bilirubin 0.4 MG/DL (0.2-1.0) Aspartate Amino Transf (AST/SGOT) 20 U/L (15-37) Alanine Aminotransferase (ALT/SGPT) 22 U/L (12-78) Alkaline Phosphatase 64 U/L (46-116) Troponin I 0.060 ng/mL (0.000-0.056) Pro-B-Type Natriuretic Peptide 1617 pg/mL (0-125) H Total Protein 7.4 G/DL (6.4-8.2) Albumin 3.3 G/DL (3.4-5.0) L Globulin 4.1 g/dL Albumin/Globulin Ratio 0.8 (1.0-2.7) L EKG Diagnostic Results EKG Time: : Other Impression Paced rhythm. Bradycardia, rate in the 50s. Wide QRS 136 ms. Normal axis. Rhythm Strip Diag. Results Rhythm Strip Time: Rate: 50s Other Impression Paced rhythm. Bradycardic. Chest X-Ray Diagnostic Results Chest X-Ray Diagnostic Results : # of Views/Limited/Complete: 1 View Indication: Shortness of Breath EP Interpretation: Yes Interpretation: no consolidation, no effusion, no pneumothorax Impression: No acute disease Electronically Signed by: Electronically signed by Dr. Elder Adair Other X-Ray Diagnostic Results Other X-Ray Diagnostic Results : X-Ray ordered: Right ankle # of Views/Limited Vs Complete: 3 View Indication: Pain EP Interpretation: Yes Impression: No acute disease Electronically Signed by: Electronically signed by Dr. Elder Adair Reevaluation Time: 13:22 Last Vital Signs Date Time Temp Pulse Resp B/P (MAP) Pulse Ox O2 Delivery O2 Flow Rate FiO2 05/03/19 09:14 98.1 66 18 123/67 98 Room Air Reevaluation Impression Ultrasound negative for DVT but did show some local edema possibly consistent with cellulitis. Lab work showed an elevated creatinine consistent with the patient's disease as well as a slightly elevated troponin just above the upper limit of normal. Obtained lab results from [facility] on his recent discharge. His creatinine is near his baseline and his troponin is improved today as compared to his discharge. Troponin on discharge was 1.35 () with an upper limit of normal at 0.056. The patient is denying any chest pain or shortness of breath. No infiltrate on chest x-ray. His peptide is elevated though the patient has no respiratory complaints and is denying any chest pain at this time. I do believe he has a cellulitis over the medial aspect of the left lower leg and will require antibiotics. Will start on Keflex. His renal creatinine credence does not require dose adjustment at this time will go home on 500 mg 4 times daily for 10 days. I have updated his by telephone. She will arrange wade follow-up with his PMD and he already has an appoint with his contract manager. The patient was bradycardic throughout his emergency department stay in the 50s and is paced. This is his baseline and states that his contract manager is aware of his bradycardia. There are no plans to change his rate at this time and he is asymptomatic. We did discuss reasons for return to the emergency department and I have discussed these reasons with his as well. They both understand and agree with treatment plan will be discharged home. Disposition: HOME, SELF-CARE Condition: Improved Scripts Cephalexin* (KEFLEX*) 500 Mg Capsule 500 MG ORAL EVERY 6 HOURS for 10 Days, #40 CAP Prov: Elder Adair MD 05/03/19 Referrals: NON PHYSICIAN (PCP) Elder Adair MD May 03, 2019 09:30
[2019-05-03 09:51] LABS: BASOPHILS % (AUTO) 0.5 % (0.0-2.0); EOSINOPHILS % (AUTO) 3.9 % (0.0-3.0); HEMATOCRIT 35.2 % (42.0-52.0); HEMOGLOBIN 11.2 G/DL (14.2-18.0); LYMPHOCYTES % (AUTO) 16.9 % (20.0-45.0); MEAN CORPUSCULAR VOLUME 99 FL (80-99); MONOCYTES % (AUTO) 10.5 % (1.0-10.0); NEUTROPHILS % (AUTO) 68.2 % (45.0-75.0); PLATELET COUNT 197 K/UL (150-450); RED BLOOD COUNT 3.56 M/UL (4.70-6.10); RED CELL DISTRIBUTION WIDTH 12.8 % (11.6-14.8); WHITE BLOOD COUNT 6.6 K/UL (4.8-10.8)
[2019-05-03 10:04] LABS: ANION GAP 5 mmol/L (5-15); BLOOD UREA NITROGEN 49 mg/dL (7-18); CALCIUM 9.8 MG/DL (8.5-10.1); CARBON DIOXIDE 28 MMOL/L (21-32); CHLORIDE 109 MMOL/L (98-107); CREATININE 2.4 MG/DL (0.55-1.30); POTASSIUM 4.4 MMOL/L (3.5-5.1); SODIUM 142 MMOL/L (136-145)
[2019-05-03 10:15] LABS: ALANINE AMINOTRANSFERASE 22 U/L (12-78); ALBUMIN 3.3 G/DL (3.4-5.0); ALBUMIN/GLOBULIN RATIO 0.8 (1.0-2.7); ALKALINE PHOSPHATASE 64 U/L (46-116); ASPARTATE AMINO TRANSFERASE 20 U/L (15-37); BILIRUBIN,TOTAL 0.4 MG/DL (0.2-1.0)
[2019-05-03 11:20] VITALS: BP 131/68
--- NOTE | 2019-05-03 11:49 | Diagnostic Imaging Report ---
Indication: Right leg swelling and right leg pain Technique: Grayscale and duplex images of the right lower extremity veins Comparison: none Findings: On the right, grayscale and duplex images demonstrate no evidence of intraluminal thrombus. Normal phasic Doppler waveforms, demonstrating normal augmentation response and no evidence of valvular insufficiency. Normal compressibility. There is some edema of the subcutaneous fat distally Impression: Negative for evidence of right lower extremity venous thrombosis
--- NOTE | 2019-05-03 11:50 | Diagnostic Imaging Report ---
Indication: Right ankle pain and swelling Technique: 3 views of the right ankle Comparison: none Findings: There is some edema of the subcutaneous fat. No acute fractures. No dislocations. No osteolytic lesion or osseous erosion. Impression: Negative
[2019-05-03 13:19] VITALS: BP 118/71
[2019-05-03] MEDS ORDERED: CEPHALEXIN500 MG ORAL (13:21)
[2019-05-03 13:42] VITALS: BP 122/76
--- NOTE | 2019-05-03 17:03 | Diagnostic Imaging Report ---
Indication: Chest pain Technique: One view of the chest Comparison: 12/22/2016 Findings: Left hemidiaphragm is elevated. There is a left chest bifocal AICD. Lungs and pleural spaces are clear. The heart is borderline enlarged. Impression: No acute process
--- NOTE | 2019-05-05 14:55 | Cardiology Report ---
APPROVED REPORT EKG Measurement Heart [id number] A-paced rhythm with occasional premature ventricular complexes Nonspecific intraventricular block T wave abnormality, consider lateral ischemia Abnormal ECG
== END 2019-05-03 13:42 | disposition home or self-care (01) ==
LOC: EMR 09:21
DX: L03.115 Cellulitis of right lower limb (principal); I12.9 Hypertensive chronic kidney disease with stage 1 through stage 4 chronic kidney disease, or unspecified chronic kidney disease; I11.0 Hypertensive heart disease with heart failure; I50.9 Heart failure, unspecified; N18.9 Chronic kidney disease, unspecified; J44.9 Chronic obstructive pulmonary disease, unspecified; Z95.810 Presence of automatic (implantable) cardiac defibrillator; E78.5 Hyperlipidemia, unspecified; M10.9 Gout, unspecified; I48.91 Unspecified atrial fibrillation; R07.9 Chest pain, unspecified; M79.89 Other specified soft tissue disorders
CPT/HCPCS: 36415; 71045; 80053; 83880; 84484; 85025; 93005; 93971; 99284

== ENCOUNTER 2019-06-27 09:56 | Emergency (ER) | payer BC, MEDICAID ==
[~2019-06-27] VITALS: Ht 172.7 cm; Wt 81.6 kg
[~2019-06-27 09:56] MED LIST changes: +CEPHALEXIN500 MG ORAL; +UNOBMED
[2019-06-27 09:59] VITALS: BP 112/79
--- NOTE | 2019-06-27 10:05 | NUR ---
ED Nurse Note: Patient walked into ED from home c/o right knee pain and swelling radiating down to his right foot for 1 week. patient denies any injury or trauma. patient reports his PMD wanted him to follow in ED. patient is alert awake x4 ambulatory without assistance, breathing unlabored and even, speaking in full sentences. patient placed on hospital gown.
[2019-06-27] MEDS ORDERED: Acetaminophen 500mg (ES) tab PO ONE (10:30)
[2019-06-27] MEDS ORDERED: TYLENOL EXTRA500 MG ORAL (11:48)
[2019-06-27] MEDS ORDERED: CEPHALEXIN500 MG ORAL (11:48)
[2019-06-27 11:53] VITALS: BP 128/75
--- NOTE | 2019-06-27 11:53 | NUR ---
ER DISCHARGE NOTE: Patient is cleared to be discharged per ERMD, pt is aox4, on room air, with stable vital signs. pt was given dc and prescription instructions, pt was able to verbalize understanding, pt id band removed without complications. pt is able to ambulate with steady gait. pt took all belongings.
--- NOTE | 2019-06-27 15:17 | Emergency Room Report ---
History of Present Illness General Chief Complaint: Abdominal Pain Source: Patient Present Illness HPI 46-year-old male presents ED for evaluation. Complaining of swelling to the right lower extremity and right knee. Started a few days ago. States that his right leg feels warm. He is a diabetic. States that he was seen here a few months ago for similar presentation. Was prescribed a "green pill" and states that it cleared up. Denies fevers or chills. Patient also notes swelling to the right knee. Denies any fall or injury. Denies any pain. No other aggravating relieving factors. Denies any other associated symptoms Allergies: Coded Allergies: No Known Allergies (Verified Allergy, Unknown, 09/19/07) Patient History Past Medical History: HTN, CVA/TIA Past Surgical History: none, other - AICD Pertinent Family History: none Social History: Denies: smoking, alcohol use, drug use Immunizations: UTD Reviewed Nursing Documentation: PMH: Agreed; PSxH: Agreed Nursing Documentation-PMH Past Medical History: No History, Except For Hx Cardiac Problems: Yes Hx Hypertension: Yes Hx Pacemaker: Yes - AICD 09/16/2014 Hx COPD: Yes Hx Cancer: No Hx Gastrointestinal Problems: Yes - ventral hernia (repaired) Hx Neurological Problems: Yes Hx Cerebrovascular Accident: Yes - POSSIBLE MILD STROKE Review of Systems All Other Systems: negative except mentioned in HPI Physical Exam Vital Signs Date Time Temp Pulse Resp B/P (MAP) Pulse Ox O2 Delivery O2 Flow Rate FiO2 06/27/19 09:59 98.1 58 16 112/79 (90) 96 Room Air Sp02 EP Interpretation: reviewed, normal General Appearance: no apparent distress, alert, GCS 15, non-toxic Head: normocephalic Eyes: bilateral eye normal inspection, bilateral eye PERRL ENT: normal ENT inspection Neck: normal inspection Respiratory: normal inspection Cardiovascular #1: normal inspection Gastrointestinal: normal inspection Rectal: deferred Musculoskeletal: normal range of motion, swelling - RLE, R knee Neurologic: alert, oriented x3, responsive, motor strength/tone normal, sensory intact, speech normal Psychiatric: normal inspection Skin: other - erythema/induration RLE Lymphatic: normal inspection Medical Decision Making Diagnostic Impression: Primary Impression: Arthritis Additional Impression: Cellulitis of right leg ER Course Hospital Course 69 yo M presents to ED c/o R knee/leg swellling Differential diagnoses include: Fracture, dislocation, sprain, contusion Clinical course Patient placed on stretcher. After initial history, reveals elderly male in no acute distress. On exam there is some mild erythema and induration to the right lower extremity. Some swelling has been noted in the right knee. Denies pain. Not pitting. No calf tenderness. Vital stable. Afebrile. Nontoxic-appearing. Patient was seen here 2 months ago with similar presentation. Had a extensive work-up at that time including a venous duplex which was negative. Patient was discharged on Keflex which she states resolved his symptoms. Knee x-ray shows no evidence of fracture or dislocation. However significant DJD Findings with patient. Will discharge to home with prescription for Keflex. Also provide Ortho referrals. Safe for discharge with close outpatient follow- up Diagnosis - arthritis, cellulitis of R leg Stable and discharged to home with prescription for Keflex, Tylenol. weight bear as tolerated. Followup with PMD/ortho. Return to ED if symptoms recur or worsen Other X-Ray Diagnostic Results Other X-Ray Diagnostic Results : X-Ray ordered: R knee # of Views/Limited Vs Complete: 3 View Indication: Pain EP Interpretation: Yes Interpretation: no dislocation, no soft tissue swelling, no fractures Impression: Other - DJD R knee Electronically Signed by: Electronically signed by Roger Blanc MD Last Vital Signs Date Time Temp Pulse Resp B/P (MAP) Pulse Ox O2 Delivery O2 Flow Rate FiO2 06/27/19 11:53 98.6 68 15 128/75 100 Room Air Status: improved Disposition: HOME, SELF-CARE Condition: Stable Scripts Acetaminophen* (TYLENOL EXTRA STRENGTH*) 500 Mg Tablet 500 MG ORAL Q8H PRN for Prn Headache/Temp > 101, #30 TAB 0 Refills Prov: Roger Blanc MD 06/27/19 Cephalexin* (KEFLEX*) 500 Mg Capsule 500 MG ORAL EVERY 6 HOURS for 7 Days, CAP Prov: Roger Blanc MD 06/27/19 Referrals: Ronnell Nieto MD NON PHYSICIAN (PCP) Patient Instructions: Arthritis, [id number] Roger Blanc MD Jun 27, 2019 15:17
== END 2019-06-27 12:00 | disposition home or self-care (01) ==
LOC: EMR 11:15
DX: L03.115 Cellulitis of right lower limb (principal); M13.861 Other specified arthritis, right knee; I10 Essential (primary) hypertension; Z95.810 Presence of automatic (implantable) cardiac defibrillator; J44.9 Chronic obstructive pulmonary disease, unspecified
CPT/HCPCS: 99283

== ENCOUNTER 2020-01-21 12:58 | Inpatient (IN) | payer MEDICARE, MEDICAID ==
[~2020-01-21] VITALS: Ht 172.7 cm; Wt 84.8 kg
[~2020-01-21 12:58] MED LIST changes: +TYLENOL EXTRA500 MG ORAL
--- NOTE | 2020-01-21 13:17 | NUR ---
ED Nurse Note: pt walked in to ed for C/O palpitation and feels dizzy when he stands up and walk. pt been feeing this way since 01/17/20. HR at triage is 44. 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
--- NOTE | 2020-01-21 13:22 | Emergency Room Report ---
History of Present Illness General Chief Complaint: Palpitations Source: Patient Present Illness HPI Patient presents with complaints of palpitation sensation Reports that 3 days ago he had a sharp shocking pain was concerned that his defibrillator had shocked him Since then he has been feeling somewhat lightheaded and dizzy at times denies any active chest pain denies any shortness of breath Denies any vomiting or diarrhea denies any fevers or chills Patient has significant cardiac disease with atrial fibrillation Allergies: Coded Allergies: No Known Allergies (Verified Allergy, Unknown, 09/19/07) COVID-19 Screening Contact w/high risk pt: No Recent Travel to affected area: No Experienced COVID-19 symptoms?: No Patient History Past Medical History: see triage record Reviewed Nursing Documentation: PMH: Agreed; PSxH: Agreed Nursing Documentation-PMH Hx Cardiac Problems: Yes - defib 08/2014 Hx Hypertension: Yes Hx Pacemaker: Yes - AICD 09/16/2014 Hx COPD: Yes Hx Diabetes: Yes Hx Cancer: No Hx Gastrointestinal Problems: Yes - ventral hernia (repaired) Hx Neurological Problems: Yes Hx Cerebrovascular Accident: Yes - POSSIBLE MILD STROKE Review of Systems All Other Systems: negative except mentioned in HPI Physical Exam Vital Signs Date Time Temp Pulse Resp B/P (MAP) Pulse Ox O2 Delivery O2 Flow Rate FiO2 01/21/20 13:04 98.2 44 18 110/64 (79) 97 Room Air Sp02 EP Interpretation: reviewed, normal General Appearance: well appearing, no apparent distress Head: normocephalic, atraumatic Eyes: bilateral eye PERRL, bilateral eye EOMI ENT: hearing grossly normal, normal pharynx, TMs + canals normal, uvula midline Neck: full range of motion, supple, no meningismus, no bony tend Respiratory: lungs clear, normal breath sounds, no rhonchi, no respiratory distress, no retraction, no accessory muscle use Cardiovascular #1: normal peripheral pulses, no gallop, no JVD, no murmur, irregularly irregular Gastrointestinal: normal bowel sounds, non tender, soft, no mass, no organomegaly, non-distended, no guarding, no hernia, no pulsatile mass, no rebound Genitourinary: no CVA tenderness Musculoskeletal: normal inspection Neurologic: motor strength/tone 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, 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, oriented x3 , sensory intact, responsive Psychiatric: mood/affect normal Skin: no rash, other - Some edema noted Lymphatic: normal inspection, no adenopathy Procedures Critical Care Time Critical Care Time 40 minutes for multiple re-evaluations critical presentation with concerning EKG findings multiple discussions with consultants not including any procedural time Medical Decision Making Diagnostic Impression: Primary Impression: Arrhythmia Additional Impression: A-fib ER Course Patient is a fairly complex patient with multiple differential to consideration including but not limited to cardiac cardiopulmonary and vascular emergencies Patient's EKG shows nonspecific ST changes with atrial fibrillation EKG was shared with the patient's primary operations clerk Blood work also reveals worsening renal function Patient's heart rate is better controlled Remains hemodynamically improved and at this time admitted for further care Labs Test 01/21/20 13:46 White Blood Count 7.4 K/UL (4.8-10.8) Red Blood Count 3.74 M/UL (4.70-6.10) Hemoglobin 11.0 G/DL (14.2-18.0) Hematocrit 33.2 % (42.0-52.0) Mean Corpuscular Volume 89 FL (80-99) Mean Corpuscular Hemoglobin 29.4 PG (27.0-31.0) Mean Corpuscular Hemoglobin Concent 33.1 G/DL (32.0-36.0) Red Cell Distribution Width 14.6 % (11.6-14.8) Platelet Count 191 K/UL (150-450) Mean Platelet Volume 6.2 FL (6.5-10.1) Neutrophils (%) (Auto) 70.2 % (45.0-75.0) Lymphocytes (%) (Auto) 18.7 % (20.0-45.0) Monocytes (%) (Auto) 8.7 % (1.0-10.0) Eosinophils (%) (Auto) 1.8 % (0.0-3.0) Basophils (%) (Auto) 0.6 % (0.0-2.0) Sodium Level 148 MMOL/L (136-145) Potassium Level 3.7 MMOL/L (3.5-5.1) Chloride Level 108 MMOL/L (98-107) Carbon Dioxide Level 33 MMOL/L (21-32) Anion Gap 7 mmol/L (5-15) Blood Urea Nitrogen 56 mg/dL (7-18) Creatinine 2.8 MG/DL (0.55-1.30) Estimat Glomerular Filtration Rate 27.3 mL/min (>60) Glucose Level 103 MG/DL (74-106) Calcium Level 9.6 MG/DL (8.5-10.1) Total Bilirubin 0.4 MG/DL (0.2-1.0) Aspartate Amino Transf (AST/SGOT) 34 U/L (15-37) Alanine Aminotransferase (ALT/SGPT) 71 U/L (12-78) Alkaline Phosphatase 65 U/L (46-116) Total Creatine Kinase 110 U/L (26-308) Troponin I 0.052 ng/mL (0.000-0.056) Pro-B-Type Natriuretic Peptide 7650 pg/mL (0-125) Total Protein 7.2 G/DL (6.4-8.2) Albumin 3.2 G/DL (3.4-5.0) Globulin 4.0 g/dL Albumin/Globulin Ratio 0.8 (1.0-2.7) Lipase 253 U/L (73-393) EKG Diagnostic Results Rate: normal Rhythm: other - Irregularly irregular ST Segments: other - Nonspecific ST changes Rhythm Strip Diag. Results EP Interpretation: yes Rate: 88 Rhythm: no PVC's, no ectopy, other - Irregularly irregular Chest X-Ray Diagnostic Results Chest X-Ray Diagnostic Results : Chest X-Ray Ordered: Yes # of Views/Limited/Complete: 1 View Indication: Chest Pain EP Interpretation: Yes Interpretation: no consolidation, no effusion, no pneumothorax, other - Mild pulmonary congestion cardiomegaly Impression: Other - CHF Electronically Signed by: Diego West DO Last Vital Signs Date Time Temp Pulse Resp B/P (MAP) Pulse Ox O2 Delivery O2 Flow Rate FiO2 01/21/20 13:04 98.2 44 18 110/64 (79) 97 Room Air Status: improved Disposition: ADMITTED INPATIENT Condition: Critical Referrals: NON PHYSICIAN (PCP) Diego Wets DO January 21, 2020 13:22
[2020-01-21] MEDS ORDERED: ISOSORBIDE DINIT5 MG ORAL (13:26)
[2020-01-21] MEDS ORDERED: HYDRALAZINE HCL50 MG ORAL (13:26)
[2020-01-21] MEDS ORDERED: ELIQUIS2.5 MG PO (13:26)
[2020-01-21] MEDS ORDERED: DOCUSATE SODIU100 MG ORAL (13:26)
[2020-01-21] MEDS ORDERED: FUROSEMIDE40 MG ORAL (13:26)
[2020-01-21] MEDS ORDERED: JANUVIA25 MG ORAL (13:26)
[2020-01-21] MEDS ORDERED: CARVEDILOL3.125 MG ORAL (13:26)
--- NOTE | 2020-01-21 13:48 | NUR ---
ED Nurse Note: All labs sent
[2020-01-21 13:49] VITALS: BP 97/68
[2020-01-21 13:58] LABS: BASOPHILS % (AUTO) 0.6 % (0.0-2.0); EOSINOPHILS % (AUTO) 1.8 % (0.0-3.0); HEMATOCRIT 33.2 % (42.0-52.0); LYMPHOCYTES % (AUTO) 18.7 % (20.0-45.0); MEAN CORPUSCULAR VOLUME 89 FL (80-99); MONOCYTES % (AUTO) 8.7 % (1.0-10.0); NEUTROPHILS % (AUTO) 70.2 % (45.0-75.0); PLATELET COUNT 191 K/UL (150-450); RED BLOOD COUNT 3.74 M/UL (4.70-6.10); RED CELL DISTRIBUTION WIDTH 14.6 % (11.6-14.8); WHITE BLOOD COUNT 7.4 K/UL (4.8-10.8)
--- NOTE | 2020-01-21 13:58 | NUR ---
ED Nurse Note: HR 51 on manual. HR 91 on opal miner.
[2020-01-21 14:18] LABS: ANION GAP 7 mmol/L (5-15); BLOOD UREA NITROGEN 56 mg/dL (7-18); CALCIUM 9.6 MG/DL (8.5-10.1); CARBON DIOXIDE 33 MMOL/L (21-32); CHLORIDE 108 MMOL/L (98-107); CREATININE 2.8 MG/DL (0.55-1.30); POTASSIUM 3.7 MMOL/L (3.5-5.1); SODIUM 148 MMOL/L (136-145)
--- NOTE | 2020-01-21 14:23 | Diagnostic Imaging Report ---
Indication: Chest pain Technique: One view of the chest Comparison: 05/03/2019 Findings: The heart is enlarged. There is elevation of the left hemidiaphragm minimal atelectasis at the left lung base.. There is a left chest AICD. Lungs and pleural spaces are clear. There is no significant interim change Impression: Cardiomegaly. Elevated left hemidiaphragm with minimal resultant atelectasis. No definite acute process
--- NOTE | 2020-01-21 14:26 | Cardiac Electrophysiology PN ---
Subjective Subjective [id number] Objective Last 24 Hour Vital Signs Date Time Temp Pulse Resp B/P (MAP) Pulse Ox O2 Delivery O2 Flow Rate FiO2 01/21/20 13:49 98.2 51 22 97/68 97 Room Air 01/21/20 13:04 98.2 44 18 110/64 (79) 97 Room Air Laboratory Tests Test 01/21/20 13:46 White Blood Count 7.4 K/UL (4.8-10.8) Red Blood Count 3.74 M/UL (4.70-6.10) L Hemoglobin 11.0 G/DL (14.2-18.0) L Hematocrit 33.2 % (42.0-52.0) L Mean Corpuscular Volume 89 FL (80-99) Mean Corpuscular Hemoglobin 29.4 PG (27.0-31.0) Mean Corpuscular Hemoglobin Concent 33.1 G/DL (32.0-36.0) Red Cell Distribution Width 14.6 % (11.6-14.8) Platelet Count 191 K/UL (150-450) Mean Platelet Volume 6.2 FL (6.5-10.1) L Neutrophils (%) (Auto) 70.2 % (45.0-75.0) Lymphocytes (%) (Auto) 18.7 % (20.0-45.0) L Monocytes (%) (Auto) 8.7 % (1.0-10.0) Eosinophils (%) (Auto) 1.8 % (0.0-3.0) Basophils (%) (Auto) 0.6 % (0.0-2.0) Sodium Level 148 MMOL/L (136-145) H Potassium Level 3.7 MMOL/L (3.5-5.1) Chloride Level 108 MMOL/L (98-107) H Carbon Dioxide Level 33 MMOL/L (21-32) H Anion Gap 7 mmol/L (5-15) Blood Urea Nitrogen 56 mg/dL (7-18) H Creatinine 2.8 MG/DL (0.55-1.30) H Estimat Glomerular Filtration Rate 27.3 mL/min (>60) Glucose Level 103 MG/DL (74-106) Calcium Level 9.6 MG/DL (8.5-10.1) Total Bilirubin Pending Aspartate Amino Transf (AST/SGOT) Pending Alanine Aminotransferase (ALT/SGPT) Pending Alkaline Phosphatase Pending Total Creatine Kinase Pending Troponin I 0.052 ng/mL (0.000-0.056) Pro-B-Type Natriuretic Peptide Pending Total Protein Pending Albumin Pending Globulin Pending Lipase Pending Cruz Donovan MD January 21, 2020 14:26
[2020-01-21 14:28] LABS: ALANINE AMINOTRANSFERASE 71 U/L (12-78); ALBUMIN 3.2 G/DL (3.4-5.0); ALBUMIN/GLOBULIN RATIO 0.8 (1.0-2.7); ALKALINE PHOSPHATASE 65 U/L (46-116); ASPARTATE AMINO TRANSFERASE 34 U/L (15-37); BILIRUBIN,TOTAL 0.4 MG/DL (0.2-1.0); CREATINE KINASE 110 U/L (26-308)
[2020-01-21] MEDS ORDERED: Milk of Magnesia 30ml Ud ORAL PRN (15:00)
[2020-01-21] MEDS ORDERED: Miralax 17gm pkt ORAL PRN (15:00)
--- NOTE | 2020-01-21 15:12 | History and Physical ---
History of Present Illness General Reason for Hospitalization: Palpitations Present Illness HPI 69-year-old male with PMH of COPD, A. fib, CHF s/p ICD who presents with palpitations and SOB. Pt notes for the last 5-7 days increasing LUKE with walking and worsening b/l LE edema. Pt was brushing his teeth on 01/16 and felt his AICD shock him. Pt sat down and proceeded to "rest" and did not come to the ED at that time. Pt stated he saw his PCP who gave him metolazone. He stated metolazone and lasix significantly improved his LE edema however he continues to feel SOB, palpitations with ambulations. Pt denies any f/c, n/v, diaphoresis or CP. Patient does note he has been eating very poorly, consuming foods with high sodium content. Patient denies any recent sick contacts, TORIBIO, vision changes, abdominal pain, dysuria, hematuria/hematochezia. On admission, EKG was done which revealed atrial flutter with variable AV block with PVCs, HR 91. Cr elevated 2.9. Pt admitted for further treatment and evaluation. Cardiology: Dr. Donovan PCP/Administrative Services Specialist: Dr. Hdz PMH: COPD, A. fib, CHF s/p ICD FH: Reviewed and not pertinent Sx: ventral hernia repain,AICD placement 2013 SH: denies tobacco/ETOH allergies: NKDA Allergies: Coded Allergies: No Known Allergies (Verified Allergy, Unknown, 09/19/07) COVID-19 Screening Contact w/high risk pt: No Recent Travel to affected area: No Experienced COVID-19 symptoms?: No Medication History Scheduled Allopurinol* (Allopurinol*), 100 MG ORAL DAILY, (Reported) Aspirin Ec* (Aspirin Ec*), 81 MG ORAL DAILY, (Reported) Carvedilol (Coreg), 25 MG ORAL EVERY 12 HOURS Carvedilol* (Carvedilol*), 10 MG ORAL DAILY, (Reported) Cephalexin* (Keflex*), 500 MG ORAL EVERY 6 HOURS Cephalexin* (Keflex*), 500 MG ORAL EVERY 6 HOURS Digoxin* (Digoxin*), 125 MCG ORAL DAILY Docusate Sodium* (Docusate Sodium*), 250 MG ORAL TWICE A DAY, (Reported) Docusate Sodium* (Docusate Sodium*), 100 MG ORAL TWICE A DAY, (Reported) Furosemide* (Lasix*), 40 MG ORAL DAILY, (Reported) Furosemide* (Lasix*), 40 MG ORAL DAILY, (Reported) Hydralazine Hcl* (Hydralazine Hcl*), 50 MG ORAL BID, (Reported) Isosorbide Dinitrate (Isosorbide Dinitrate*), 20 MG ORAL BID, (Reported) Lisinopril (Lisinopril*), 20 MG ORAL DAILY, (Reported) Omeprazole (Omeprazole), 40 MG ORAL DAILY, (Reported) Rivaroxaban (Xarelto*), 15 MG ORAL DAILY Sitagliptin* (Januvia*), 25 MG ORAL DAILY, (Reported) Spironolactone* (Aldactone*), 25 MG ORAL DAILY Scheduled PRN Acetaminophen* (Tylenol Extra Strength*), 500 MG ORAL Q8H PRN for Prn Headache/ Temp > 101 Hydrocodone/Acetaminophen (Hydrocodon-Acetaminophn 10-325), 1 TAB ORAL BID PRN for For Pain, (Reported) Miscellaneous Medications Apixaban (Eliquis), 2.5 MG PO, (Reported) Unable to Obtain Medications (Unable To Obtain Meds), (Reported) Patient History Healthcare decision maker Resuscitation status Advanced Directive on File Review of Systems Constitutional: Denies: no symptoms, see HPI, chills, sweats, fever, malaise, weakness, other Eye: Denies: no symptoms, see HPI, eye pain, blurred vision, tearing, double vision, nose pain, nose congestion, acuity changes, discharge, other ENT: Denies: no symptoms, see HPI, ear pain, ear discharge, nose pain, nose congestion, throat pain, throat swelling, mouth pain, hearing loss, nasal discharge, other Respiratory: Reports: shortness of breath, LUKE Cardiovascular: Reports: palpitations Gastrointestinal: Denies: no symptoms, see HPI, abdominal pain, constipation, diarrhea, nausea, vomiting, melena, hematemesis, other Genitourinary: Denies: no symptoms, see HPI, discharge, dysuria, frequency, hematuria, pain, retention, incontinence, urgency, vag bleed/dc, other Musculoskeletal: Denies: no symptoms, see HPI, back pain, gout, joint pain, joint swelling, muscle pain, muscle stiffness, other Skin: Denies: no symptoms, see HPI, rash, change in color, change in hair/nails , dryness, lesions, other Psychiatric: Denies: no symptoms, see HPI, prior hx, anxiety, depressed feelings, emotional problems, SI, HI, hallucinations, other Neurological: Denies: no symptoms, see HPI, headache, numbness, paresthesia, seizure, tingling, tremors, focal weakness, syncope, dizziness, other Endocrine: Denies: no symptoms, see HPI, excessive sweating, flushing, intolerance to temperature, increased thirst, increased urine, unexplained weight loss, other Hematologic/Lymphatic: Denies: no symptoms, see HPI, anemia, blood clots, easy bleeding, easy bruising, swollen glands, diathesis, other Physical Exam Physical Exam Narrative General: NAD, A&O x 3, lying comfortably in bed HEENT: NCAT, EOMi, MMM CV: Irregularly irregular, no murmurs appreciated Pulm: CTAB, No wheezes, rhonchi, or rales, no accessory muscle usage or conversational dyspnea GI: Soft, nontender, nondistended, bowel sounds present Ext: Trace LE edema b/l Skin: no rashes lesions or ulcers Msk: Joints symmetrical in upper extremity and lower extremity bilaterally, no joint swelling. Neuro: CN 2-12 grossly intact bilaterally, no focal signs. Last 24 Hour Vital Signs Date Time Temp Pulse Resp B/P (MAP) Pulse Ox O2 Delivery O2 Flow Rate FiO2 01/21/20 13:49 98.2 51 22 97/68 97 Room Air 01/21/20 13:04 98.2 44 18 110/64 (79) 97 Room Air Laboratory Tests Test 01/21/20 13:46 White Blood Count 7.4 K/UL (4.8-10.8) Red Blood Count 3.74 M/UL (4.70-6.10) L Hemoglobin 11.0 G/DL (14.2-18.0) L Hematocrit 33.2 % (42.0-52.0) L Mean Corpuscular Volume 89 FL (80-99) Mean Corpuscular Hemoglobin 29.4 PG (27.0-31.0) Mean Corpuscular Hemoglobin Concent 33.1 G/DL (32.0-36.0) Red Cell Distribution Width 14.6 % (11.6-14.8) Platelet Count 191 K/UL (150-450) Mean Platelet Volume 6.2 FL (6.5-10.1) L Neutrophils (%) (Auto) 70.2 % (45.0-75.0) Lymphocytes (%) (Auto) 18.7 % (20.0-45.0) L Monocytes (%) (Auto) 8.7 % (1.0-10.0) Eosinophils (%) (Auto) 1.8 % (0.0-3.0) Basophils (%) (Auto) 0.6 % (0.0-2.0) Sodium Level 148 MMOL/L (136-145) H Potassium Level 3.7 MMOL/L (3.5-5.1) Chloride Level 108 MMOL/L (98-107) H Carbon Dioxide Level 33 MMOL/L (21-32) H Anion Gap 7 mmol/L (5-15) Blood Urea Nitrogen 56 mg/dL (7-18) H Creatinine 2.8 MG/DL (0.55-1.30) H Estimat Glomerular Filtration Rate 27.3 mL/min (>60) Glucose Level 103 MG/DL (74-106) Calcium Level 9.6 MG/DL (8.5-10.1) Total Bilirubin 0.4 MG/DL (0.2-1.0) Aspartate Amino Transf (AST/SGOT) 34 U/L (15-37) Alanine Aminotransferase (ALT/SGPT) 71 U/L (12-78) Alkaline Phosphatase 65 U/L (46-116) Total Creatine Kinase 110 U/L (26-308) Troponin I 0.052 ng/mL (0.000-0.056) Pro-B-Type Natriuretic Peptide 7650 pg/mL (0-125) H Total Protein 7.2 G/DL (6.4-8.2) Albumin 3.2 G/DL (3.4-5.0) L Globulin 4.0 g/dL Albumin/Globulin Ratio 0.8 (1.0-2.7) L Lipase 253 U/L (73-393) Height (Feet): 5 Height (Inches): 8.00 Weight (Pounds): 180 Medications Current Medications Medications (Trade) Dose Ordered Sig/Kena Route PRN Reason Start Time Stop Time Status Last Admin Dose Admin Acetaminophen (Tylenol) 650 mg Q4H PRN ORAL Mild Pain (Pain Scale 1-3) 01/21/20 15:00 02/20/20 14:59 UNV Acetaminophen (Tylenol) 650 mg Q4H PRN ORAL Temp >100.5 01/21/20 15:00 02/20/20 14:59 UNV Bisacodyl (Dulcolax) 10 mg DAILYPRN PRN RECTAL Constipation 01/21/20 15:00 04/20/20 14:59 UNV Dextrose (Dextrose 50%) 25 ml Q30M PRN IV Hypoglycemia 01/21/20 15:00 04/20/20 14:59 UNV Dextrose (Dextrose 50%) 50 ml Q30M PRN IV Hypoglycemia 01/21/20 15:00 04/20/20 14:59 UNV Docusate Sodium (Colace) 100 mg EVERY 12 HOURS ORAL 01/21/20 21:00 02/20/20 20:59 UNV Enoxaparin Sodium (Lovenox) 40 mg Q24H SUBQ 01/21/20 16:00 04/20/20 15:59 UNV Magnesium Hydroxide (Mom) 30 ml HSPRN PRN ORAL Constipation 01/21/20 15:00 02/20/20 14:59 UNV Ondansetron HCl (Zofran) 4 mg Q6H PRN IVP Nausea & Vomiting 01/21/20 15:00 02/20/20 14:59 UNV Polyethylene Glycol (Miralax) 17 gm DAILYPRN PRN ORAL Constipation 01/21/20 15:00 02/20/20 14:59 UNV Assessment/Plan Assessment/Plan: 69-year-old male with PMH of COPD, A. 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 On admission, EKG was done which revealed atrial flutter with variable AV block with PVCs, HR 91. Cr elevated 2.9. Pt admitted for further treatment and evaluation. #Palpitations #Atrial Flutter #Atrial Fibrillation #Acute on Chronic Systolic Heart Failure -admit to tele -EKG reviewed, atrial flutter -CXR cardiomegaly, elevated left hemidiaphragm with minimal resultant atelectasis, no definite acute process -BNP 7000 -trop 0.053, cont. to monitor -currently rate controlled -cont. lasix 40 IV BID -cont. home Eliquis 2.5 mg PO BID, carvedilol 3.125 mg BID -2d echo ordered -AICD interrogation -Cardio following, Dr. Donovan #CARMEN on CKD -Cr 2.9 on admission -last Cr 2.3, unknown b/l -Nephro consulted, recs appreciated #Hypernatremia -Na 146 on admission -Nephro consulted, recs appreciated #COPD -does not appear to be in COPD exacerbation at this time -Pulm, Dr Langston consulted, recs appreciated #DMT2 -Cont. home sitagliptan -ISS, victor manuel qac/hs #HTN -cont home hydralazine 50 mg PO BID, carvediolol, lasix -clonidine 0.1 PRN for SBP >160 DVT PPx: eliquis Time spent on encounter: 76 mins, >50% on counseling, coordination of care. Additional 31 mins spent discussing case w/Dr. Donovan, Dr. Hdz, and Dr. Tipton. Time of note doesn't reflect time of encounter. Tyra Gooden M.D. January 21, 2020 15:12
--- NOTE | 2020-01-21 16:47 | Consultation ---
History of Present Illness General Chief Complaint: Palpitations Present Illness HPI This is a 69 year old male with past medical history of COPD, A. fib, CHF s/p ICD who presents with palpitations and SOB. Pt notes for the last 5-7 days increasing LUKE with walking and worsening b/l LE edema. Pt was brushing his teeth on 01/16 and felt his AICD shock him. Pt sat down and proceeded to "rest" and did not come to the ED at that time. Pt stated he saw his PCP who gave him metolazone. He stated metolazone and lasix significantly improved his LE edema however he continues to feel SOB, palpitations with ambulations. He has been noncompliant with low sodium diet. I had instructed him to add metolazone 5mg daily last week.-- baseline cr in mid 2s. I Allergies: Coded Allergies: No Known Allergies (Verified Allergy, Unknown, 09/19/07) Medication History Scheduled Allopurinol* (Allopurinol*), 100 MG ORAL DAILY, (Reported) Aspirin Ec* (Aspirin Ec*), 81 MG ORAL DAILY, (Reported) Carvedilol (Coreg), 25 MG ORAL EVERY 12 HOURS Carvedilol* (Carvedilol*), 10 MG ORAL DAILY, (Reported) Cephalexin* (Keflex*), 500 MG ORAL EVERY 6 HOURS Cephalexin* (Keflex*), 500 MG ORAL EVERY 6 HOURS Digoxin* (Digoxin*), 125 MCG ORAL DAILY Docusate Sodium* (Docusate Sodium*), 250 MG ORAL TWICE A DAY, (Reported) Docusate Sodium* (Docusate Sodium*), 100 MG ORAL TWICE A DAY, (Reported) Furosemide* (Lasix*), 40 MG ORAL DAILY, (Reported) Furosemide* (Lasix*), 40 MG ORAL DAILY, (Reported) Hydralazine Hcl* (Hydralazine Hcl*), 50 MG ORAL BID, (Reported) Isosorbide Dinitrate (Isosorbide Dinitrate*), 20 MG ORAL BID, (Reported) Lisinopril (Lisinopril*), 20 MG ORAL DAILY, (Reported) Omeprazole (Omeprazole), 40 MG ORAL DAILY, (Reported) Rivaroxaban (Xarelto*), 15 MG ORAL DAILY Sitagliptin* (Januvia*), 25 MG ORAL DAILY, (Reported) Spironolactone* (Aldactone*), 25 MG ORAL DAILY Scheduled PRN Acetaminophen* (Tylenol Extra Strength*), 500 MG ORAL Q8H PRN for Prn Headache/ Temp > 101 Hydrocodone/Acetaminophen (Hydrocodon-Acetaminophn 10-325), 1 TAB ORAL BID PRN for For Pain, (Reported) Miscellaneous Medications Apixaban (Eliquis), 2.5 MG PO, (Reported) Unable to Obtain Medications (Unable To Obtain Meds), (Reported) Patient History Healthcare decision maker Resuscitation status Advanced Directive on File Review of Systems All Other Systems: negative except mentioned in HPI Physical Exam General Appearance: WD/WN, no apparent distress Lines, tubes and drains: peripheral HEENT: normocephalic, atraumatic Cardiovascular/Chest: normal peripheral pulses, JVD, bradycardia, gallop/S3 Abdomen: normal bowel sounds, non tender Extremities: non-tender, normal inspection, moderate edema Neurologic: alert, oriented x 3 Last 24 Hour Vital Signs Date Time Temp Pulse Resp B/P (MAP) Pulse Ox O2 Delivery O2 Flow Rate FiO2 01/21/20 13:49 98.2 51 22 97/68 97 Room Air 01/21/20 13:04 98.2 44 18 110/64 (79) 97 Room Air Laboratory Tests Test 01/21/20 13:46 White Blood Count 7.4 K/UL (4.8-10.8) Red Blood Count 3.74 M/UL (4.70-6.10) L Hemoglobin 11.0 G/DL (14.2-18.0) L Hematocrit 33.2 % (42.0-52.0) L Mean Corpuscular Volume 89 FL (80-99) Mean Corpuscular Hemoglobin 29.4 PG (27.0-31.0) Mean Corpuscular Hemoglobin Concent 33.1 G/DL (32.0-36.0) Red Cell Distribution Width 14.6 % (11.6-14.8) Platelet Count 191 K/UL (150-450) Mean Platelet Volume 6.2 FL (6.5-10.1) L Neutrophils (%) (Auto) 70.2 % (45.0-75.0) Lymphocytes (%) (Auto) 18.7 % (20.0-45.0) L Monocytes (%) (Auto) 8.7 % (1.0-10.0) Eosinophils (%) (Auto) 1.8 % (0.0-3.0) Basophils (%) (Auto) 0.6 % (0.0-2.0) Sodium Level 148 MMOL/L (136-145) H Potassium Level 3.7 MMOL/L (3.5-5.1) Chloride Level 108 MMOL/L (98-107) H Carbon Dioxide Level 33 MMOL/L (21-32) H Anion Gap 7 mmol/L (5-15) Blood Urea Nitrogen 56 mg/dL (7-18) H Creatinine 2.8 MG/DL (0.55-1.30) H Estimat Glomerular Filtration Rate 27.3 mL/min (>60) Glucose Level 103 MG/DL (74-106) Calcium Level 9.6 MG/DL (8.5-10.1) Total Bilirubin 0.4 MG/DL (0.2-1.0) Aspartate Amino Transf (AST/SGOT) 34 U/L (15-37) Alanine Aminotransferase (ALT/SGPT) 71 U/L (12-78) Alkaline Phosphatase 65 U/L (46-116) Total Creatine Kinase 110 U/L (26-308) Troponin I 0.052 ng/mL (0.000-0.056) Pro-B-Type Natriuretic Peptide 7650 pg/mL (0-125) H Total Protein 7.2 G/DL (6.4-8.2) Albumin 3.2 G/DL (3.4-5.0) L Globulin 4.0 g/dL Albumin/Globulin Ratio 0.8 (1.0-2.7) L Lipase 253 U/L (73-393) Height (Feet): 5 Height (Inches): 8.00 Weight (Pounds): 180 Medications Current Medications Medications (Trade) Dose Ordered Sig/Kena Route PRN Reason Start Time Stop Time Status Last Admin Dose Admin Acetaminophen (Tylenol) 650 mg Q4H PRN ORAL Mild Pain (Pain Scale 1-3) 01/21/20 15:00 02/20/20 14:59 Acetaminophen (Tylenol) 650 mg Q4H PRN ORAL Temp >100.5 01/21/20 15:00 02/20/20 14:59 Apixaban (Eliquis) 2.5 mg BID ORAL 01/21/20 18:00 04/20/20 17:59 UNV Bisacodyl (Dulcolax) 10 mg DAILYPRN PRN RECTAL Constipation 01/21/20 15:00 04/20/20 14:59 Carvedilol (Coreg) 3.125 mg DAILY ORAL 01/22/20 09:00 02/21/20 08:59 UNV Dextrose (Dextrose 50%) 25 ml Q30M PRN IV Hypoglycemia 01/21/20 15:00 04/20/20 14:59 Dextrose (Dextrose 50%) 50 ml Q30M PRN IV Hypoglycemia 01/21/20 15:00 04/20/20 14:59 Docusate Sodium (Colace) 100 mg EVERY 12 HOURS ORAL 01/21/20 21:00 02/20/20 20:59 Enoxaparin Sodium (Lovenox) 30 mg Q24H SUBQ 01/21/20 18:00 04/20/20 17:59 Furosemide (Lasix) 40 mg BID IV 01/21/20 18:00 02/20/20 17:59 Hydralazine HCl (Apresoline) 50 mg BID ORAL 01/21/20 18:00 04/20/20 17:59 Magnesium Hydroxide (Mom) 30 ml HSPRN PRN ORAL Constipation 01/21/20 15:00 02/20/20 14:59 Ondansetron HCl (Zofran) 4 mg Q6H PRN IVP Nausea & Vomiting 01/21/20 15:00 02/20/20 14:59 Polyethylene Glycol (Miralax) 17 gm DAILYPRN PRN ORAL Constipation 01/21/20 15:00 02/20/20 14:59 Sitagliptin Phosphate (Januvia) 25 mg DAILY ORAL 01/22/20 09:00 02/21/20 08:59 UNV Assessment/Plan Diagnosis [place] I: #CARMEN on CKD due to CRS1 #acute on chronic combined decompensated CHF #hypernatremia due to free water deficit #s/p AICD #COPD #HTN #HLD #DM - check urine chem - continue lasix 40 IV BID - strict I&Os - daily weights - avoid nephrotoxins - target net neg 1-1.5L daily - hold lisinopril and aldactone - consider staring entresto when cr close to baseline - resume coreg - resume hydralazine with holding parameters - cardiology eval - pulm eval - ICD interrogation - continue coreg - BG control Total time spent 70 min- greater than 50% on care coordination and counseling Prateek Hdz M.D. January 21, 2020 16:47
[2020-01-21] MEDS: HydrALAZINE 50mg tab ORAL SCH (17:52)
[2020-01-21] MEDS ORDERED: Enoxaparin 30mg Inj SUBQ SCH (18:00)
--- NOTE | 2020-01-21 18:09 | NUR ---
ED Nurse Note: dinner tray provided to the patient. patient tolerated without complications.
[2020-01-21] MEDS: Eliquis 2.5mg tablet ORAL SCH (18:54)
--- NOTE | 2020-01-21 19:10 | NUR ---
HAND-OFF: Report given to JACIEL Rodriguez.
[2020-01-21 19:15] VITALS: BP 109/83
--- NOTE | 2020-01-21 19:15 | NUR ---
ED Nurse Note: Report received from JACIEL Cuello. Pt is resting in bed. NAD. Pt VSS. Safety measures in place, will cont. to monitor.
--- NOTE | 2020-01-21 19:30 | Consultation ---
DATE OF CONSULTATION: 01/21/2020 CARDIOLOGY CONSULTATION CONSULTING PHYSICIAN: Cruz Donovan MD. REFERRING PHYSICIAN: Dr. Gooden. ADDITIONAL REFERRING PHYSICIAN: Marcio Jones MD. REASON FOR CONSULTATION: Evaluation of the patient's defibrillator and management of congestive heart failure. HISTORY OF PRESENT ILLNESS: The patient is a very pleasant gentleman who I am quite familiar from multiple previous hospitalizations. He is 69 years old and he has history of severe cardiomyopathy as well as history of paroxysmal atrial flutter as well as ventricular tachycardia that I implanted defibrillator for him in [facility]. The patient reported to me that he is having palpitation and feels that he get shock from his defibrillator and he was sent to the emergency room. The patient states that three days ago he had sharp pain that he was concerned about his defibrillator. He saw his general wafer mounter as an outpatient who had some laboratory work done for atrial fibrillation as well as ventricular tachycardia. However, because of his symptoms, he was sent to the emergency room for further evaluation. REVIEW OF SYSTEMS: Review of systems was negative other than what was mentioned in the history of present illness. PAST MEDICAL HISTORY: As mentioned above. FAMILY HISTORY: Noncontributory. SOCIAL HISTORY: He lives at home with the family. Does not smoke or drink alcohol. MEDICATIONS: Per reconciliation. PHYSICAL EXAMINATION: VITAL SIGNS: Show blood pressure of 97/68, pulse is 51, respirations 18, and temperature 98.2. HEAD AND NECK: Mild JVD. LUNGS: Decreased breath sounds. CARDIOVASCULAR: Irregular S1 and S2 with no gallop or murmur. Defibrillator in the left subclavian. ABDOMEN: Soft. EXTREMITIES: A 2+ pitting edema. ASSESSMENT AND PLAN: 1. Status post defibrillator shock per patient. We will interrogate defibrillator after we interrogate device. We will also repeat the echocardiogram to evaluate for ejection fraction and wall motion abnormality. Resume Lasix 40 mg IV b.i.d. as well as his Coreg, , and nitrate. 2. Atrial fibrillation. Resume Coreg 25 mg b.i.d. The patient is also on anticoagulation with Xarelto, it will be resumed. 3. History of hypertension. Continue current heart failure therapy first. 4. History of ventricular tachycardia, ICD was interrogated. Of note, the patient is on Eliquis 2.5 mg b.i.d. His laboratories also show creatinine of 2.8 and we will hold off on the BRITNI inhibitor and angiotensin-receptor blockers. 5. Hypernatremia. Sodium 148. Thank very much for allowing me to participate in the care of this patient. Please do not hesitate to contact me for any questions regarding my evaluation. Sincerely, Cruz Donovan M.D. DR: Demetrio JOB#: [id number] CC:
[2020-01-21 21:00] VITALS: BP 113/80
--- NOTE | 2020-01-21 21:00 | NUR ---
ED Nurse Note: Pt is sitting in chair bedside talking on phone with family member. No acute distress noted. Pt denies any pain. Pt remains connected to satellite project site monitor. Will cont. to monitor. VSS.
[2020-01-21] MEDS: Docusate 100mg cap ORAL SCH (21:22)
[2020-01-21 23:15] VITALS: BP 116/78
--- NOTE | 2020-01-21 23:15 | NUR ---
ED Nurse Note: Pt ambulated with steady gait and placed back into bed with safety measures in place. Pt repositioned and given warm blankets. No acute distress noted. Will cont. to monitor. Vitals signs stable.
--- NOTE | 2020-01-21 23:30 | NUR ---
ED Nurse Note: Pt placed in marshall bed.
[2020-01-22] VITALS (8 sets, daily range): BP systolic 96–133; BP diastolic 66–103
--- NOTE | 2020-01-22 01:30 | NUR ---
ED Nurse Note: Pt is sleeping in bed, appears comfortable. Pt is in no distress. Will continue monitoring.
--- NOTE | 2020-01-22 03:30 | NUR ---
ED Nurse Note: Pt used urinal at bedside without complications. Pt then repositioned in bed. VSGraciela. BHARTI.
--- NOTE | 2020-01-22 03:50 | NUR ---
ED Nurse Note: AM labs drawn by RN and sent to lab. Urine specimen also sent to lab.
[2020-01-22 04:06] LABS: BASOPHILS % (AUTO) 0.9 % (0.0-2.0); EOSINOPHILS % (AUTO) 3.4 % (0.0-3.0); HEMATOCRIT 32.3 % (42.0-52.0); HEMOGLOBIN 10.7 G/DL (14.2-18.0); MEAN CORPUSCULAR VOLUME 89 FL (80-99); MONOCYTES % (AUTO) 10.3 % (1.0-10.0); NEUTROPHILS % (AUTO) 56.4 % (45.0-75.0); PLATELET COUNT 182 K/UL (150-450); RED BLOOD COUNT 3.63 M/UL (4.70-6.10); RED CELL DISTRIBUTION WIDTH 14.8 % (11.6-14.8); WHITE BLOOD COUNT 6.7 K/UL (4.8-10.8)
[2020-01-22 04:26] LABS: % IRON SATURATION 9 % (15-50); IRON 23 ug/dL (50-175); TOTAL IRON BINDING CAPACITY 262 ug/dL (250-450)
[2020-01-22 04:40] LABS: ANION GAP 8 mmol/L (5-15); BLOOD UREA NITROGEN 53 mg/dL (7-18); CALCIUM 9.3 MG/DL (8.5-10.1); CARBON DIOXIDE 31 MMOL/L (21-32); CHLORIDE 111 MMOL/L (98-107); CREATININE 2.6 MG/DL (0.55-1.30); FERRITIN 17 NG/ML (8-388); POTASSIUM 4.1 MMOL/L (3.5-5.1); SODIUM 150 MMOL/L (136-145)
--- NOTE | 2020-01-22 05:35 | NUR ---
ED Nurse Note: Pt is awake and alert, resting in bed. No acute distress. Pt is breathing normal, VSS.
--- NOTE | 2020-01-22 06:10 | NUR ---
ED Nurse Note: Pt own meds locked in medication box in ED med room.
--- NOTE | 2020-01-22 07:10 | NUR ---
HAND-OFF: Report given to JACIEL King and endorsed plan of care for admission. Pt is aaox4, sitting in chair. No acute distress.
--- NOTE | 2020-01-22 07:11 | NUR ---
ED Nurse Note: Handoff report received from Jennifer GRISSOM. Patient resting in bed, no s/s of acute distress. Patient AxO x 4, breathing even and unlabored. VSS stable, will continue to monitor.
--- NOTE | 2020-01-22 07:15 | NUR ---
ED Nurse Note: gear milling machine set up operator showing A-fib/A-flutter, HR fluctuating between 80s and mid 90s. Patient had short 3 beat run of non-sustained v-tach, patient asymptomatic. Will continue to monitor.
--- NOTE | 2020-01-22 08:10 | NUR ---
ED Nurse Note: Report given to certified professional ergonomist Faye on Telemetry.
--- NOTE | 2020-01-22 08:15 | NUR ---
TRANSFER TO FLOOR: Patient transferred to Telemetry by RN and digital performance analyst. Patient stable upon transfer, no s/s of acute distress. Patient VSS. Patient received by Mandy GRISSOM. Belongings sent with patient.
[2020-01-22] MEDS ORDERED: Furosemide 40mg tab ORAL SCH (09:00)
--- NOTE | 2020-01-22 09:09 | NUR ---
NURSE NOTES: ok to have off tele order from Dr. Gooden Addendum: 01/22/20 at 0927 by Mandy Harper RN NURSE NOTES: pt arrived via gurney in stable condition. pt AOx4. belonging signed by pt. pt has cell phone LG rhinestone setter and head set by side table. pt is on polymerization oven tender no signs of cardiac or respiratory distress at this time. Bed is locked and in lowest position. Call light is within reach. Reported latest labs to DR. Flores Will continue to monitor.
--- NOTE | 2020-01-22 09:29 | General Progress Note ---
Assessment/Plan Assessment/Plan: 69-year-old male with PMH of COPD, A. fib, CHF s/p ICD who presents with palpitations and SOB, pt noted ACID shock 3 days HOSPICE TEAM LEAD. On admission, EKG was done which revealed atrial flutter with variable AV block with PVCs, HR 91. Cr elevated 2.9. Pt admitted for further treatment and evaluation. #Palpitations #Atrial Flutter #Atrial Fibrillation #Acute on Chronic Systolic Heart Failure #Vtach -cont. in-pt medical care -on admission EKG w/atrial flutter -now rate controlled -CXR cardiomegaly, elevated left hemidiaphragm with minimal resultant atelectasis, no definite acute process -BNP 7000, trop 0.053, 0.071, likely due to demand ischemia/CHF -TTE EF 15-20% -cont. lasix 40 IV BID -cont. home Eliquis 2.5 mg PO BID, carvedilol 3.125 mg BID, hydralazine 25 BID and isordil -hold ACEi 2/2 CARMEN -AICD interrogation pending -Cardio following, Dr. Donovan #CARMEN on CKD -Cr 2.9 on admission -unknown b/l -Nephro consulted, recs appreciated #Hypernatremia -Na 146 on admission -Nephro consulted, recs appreciated #COPD -does not appear to be in COPD exacerbation at this time -Pulm, Dr Langston consulted, recs appreciated #DMT2 -Cont. home sitagliptan -ISS, accuchecks qac/hs #HTN -cont home hydralazine 50 mg PO BID, carvediolol, lasix -clonidine 0.1 PRN for SBP >160 DVT PPx: eliquis Time spent on encounter: 36 mins, >50% on counseling, coordination of care. Time of note doesn't reflect time of encounter. Subjective Allergies: Coded Allergies: No Known Allergies (Verified Allergy, Unknown, 09/19/07) Subjective F/u for AICD shock. Pt denies any pain, SOB, or shocks at this time. Tele w/Vtach 12 pt ROS neg except as above Objective Last 24 Hour Vital Signs Date Time Temp Pulse Resp B/P (MAP) Pulse Ox O2 Delivery O2 Flow Rate FiO2 01/22/20 08:15 97.2 92 19 111/86 100 Room Air 01/22/20 07:11 97.2 80 20 109/83 100 Room Air 01/22/20 05:30 97.2 105 20 106/86 99 Room Air 01/22/20 03:30 97.2 91 22 132/96 100 Room Air 01/22/20 01:30 66 18 96/66 97 Room Air 01/21/20 23:15 98.4 78 18 116/78 100 Room Air 01/21/20 21:00 98.2 95 22 113/80 100 Room Air 01/21/20 19:15 98.2 86 22 109/83 100 Room Air 01/21/20 17:52 97/57 01/21/20 13:49 98.2 51 22 97/68 97 Room Air 01/21/20 13:04 98.2 44 18 110/64 (79) 97 Room Air Laboratory Tests 01/21/20 13:46: White Blood Count 7.4, Red Blood Count 3.74L, Hemoglobin 11.0L, Hematocrit 33.2L , Mean Corpuscular Volume 89, Mean Corpuscular Hemoglobin 29.4, Mean Corpuscular Hemoglobin Concent 33.1, Red Cell Distribution Width 14.6, Platelet Count 191, Mean Platelet Volume 6.2L, Neutrophils (%) (Auto) 70.2, Lymphocytes ( %) (Auto) 18.7L, Monocytes (%) (Auto) 8.7, Eosinophils (%) (Auto) 1.8, Basophils (%) (Auto) 0.6, Sodium Level 148H, Potassium Level 3.7, Chloride Level 108H, Carbon Dioxide Level 33H, Anion Gap 7, Blood Urea Nitrogen 56H, Creatinine 2.8H, Estimat Glomerular Filtration Rate 27.3, Glucose Level 103, Calcium Level 9.6, Total Bilirubin 0.4, Aspartate Amino Transf (AST/SGOT) 34, Alanine Aminotransferase (ALT/SGPT) 71, Alkaline Phosphatase 65, Total Creatine Kinase 110, Troponin I 0.052, Pro-B-Type Natriuretic Peptide 7650H, Total Protein 7.2, Albumin 3.2L, Globulin 4.0, Albumin/Globulin Ratio 0.8L, Lipase 253 01/22/20 03:55: White Blood Count 6.7, Red Blood Count 3.63L, Hemoglobin 10.7L, Hematocrit 32.3L , Mean Corpuscular Volume 89, Mean Corpuscular Hemoglobin 29.6, Mean Corpuscular Hemoglobin Concent 33.3, Red Cell Distribution Width 14.8, Platelet Count 182, Mean Platelet Volume 6.4L, Neutrophils (%) (Auto) 56.4, Lymphocytes ( %) (Auto) 29.0, Monocytes (%) (Auto) 10.3H, Eosinophils (%) (Auto) 3.4H, Basophils (%) (Auto) 0.9, Sodium Level 150H, Potassium Level 4.1, Chloride Level 111H, Carbon Dioxide Level 31, Anion Gap 8, Blood Urea Nitrogen 53H, Creatinine 2.6H, Estimat Glomerular Filtration Rate 29.7, Glucose Level 87, Calcium Level 9.3, Troponin I 0.071H, Phosphorus Level 3.6, Ferritin 17, Digoxin Level < 0.2L 01/22/20 04:00: Urine Creatinine 73.1, Iron Level 23L, Total Iron Binding Capacity 262, Percent Iron Saturation 9L, Unsaturated Iron Binding 239 01/22/20 04:14: Pro-B-Type Natriuretic Peptide 6745H, Urine Osmolality 416L, Urine Random Total Protein 8, Urine Random Sodium 71 01/22/20 06:50: Calcium (Send out) [Pending], Vitamin D 25-Hydroxy [Pending], 25-Hydroxy Vitamin D2 [Pending], 25-Hydroxy Vitamin D3 [Pending], Parathyroid Hormone ( Intact) [Pending] Height (Feet): 5 Height (Inches): 8.00 Weight (Pounds): 180 Tyra Gooden M.D. January 22, 2020 09:29
[2020-01-22] MEDS: Docusate 100mg cap ORAL SCH ×2 (10:01→21:23)
[2020-01-22] MEDS: sitaGLIPtin 25mg tab ORAL SCH (10:02)
[2020-01-22] MEDS: HydrALAZINE 50mg tab ORAL SCH ×2 (10:02→17:54)
[2020-01-22] MEDS: Eliquis 2.5mg tablet ORAL SCH ×2 (10:02→17:54)
--- NOTE | 2020-01-22 10:06 | NUR ---
*-* INSURANCE *-* ALL AVAILABLE CLINICALS HAVE BEEN FAXED TO: [facility] # [phone] fax#[phone] Addendum: 01/22/20 at 1320 by [address] CM [facility] ref#[id number] TOM: Moe # [phone] fax#[phone]
--- NOTE | 2020-01-22 10:44 | NUR ---
CASE MANAGEMENT:REVIEW 69 YR OLD MALE WALKED IN TO ER CC: PALPITATIONS AND DIZZINESS WITH STANDING AND WALKING PMH: SEVERE CARDIOMYOPATHY W/ICD SI: PALPITATIONS. VENTRICULAR ARRHYTHMIA 98.2 44 22 97/68 97% ON RA H/H-11.0/33.2 NA+148 CO2+33 BUN+56 CR+2.8 BNP+7650 TROPONIN(-) IS: ASA PO X1 IV LASIX HYDRALAZINE PO LOVENOX SQ ELIQUIS PO : ADMITTED TO TELEMETRY DCP: FROM HOME 01/22/20 SI: S/P ICD SHOCK. AFIB 97.2 92 19 133/103 100% ON RA NA+150 BUN+53 CR+2.6 TROPONIN(+) 0.071 BNP+6745 IS: IV VENOFER QHS COREG PO QD ELIQUIS PO BID HYDRALAZINE PO BID IV LASIX BID : TELEMETRY STATUS DCP: FROM HOME Addendum: 01/22/20 at 1105 by LAURA ENCINAS LVN LVN PLAN: INTERROGATE ICD CONTINUOUS CARDIAC MONITORING
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
--- NOTE | 2020-01-22 11:04 | Cardiac Electrophysiology PN ---
Assessment/Plan Assessment/Plan 1. Status post Biotronic ICD ( implanted at [facility] by Dr Arreguin in [address] Jarvis) shock per patient. We will interrogate defibrillator. 2. CHF exacerbation with EF 15%. On Lasix 40 mg IV b.i.d. Coreg 3.125 bid, Hydralazine 25 bid and isordil 2. Atrial fibrillation. On Coreg 3.125 mg b.i.d. and eliquis 2.5 bid 3. History of hypertension. Continue current heart failure therapy first. 4. History of ventricular tachycardia, ICD will be interrogated. 5. Renal failure with creatinine of 2.8 and we will hold off on the BRITNI inhibitor and angiotensin-receptor blockers. 6. Hypernatremia. Sodium 148. Subjective Subjective Had VT again overnight. No CP. Less SOB Objective Last 24 Hour Vital Signs Date Time Temp Pulse Resp B/P (MAP) Pulse Ox O2 Delivery O2 Flow Rate FiO2 01/22/20 10:02 133/103 01/22/20 09:58 98.1 63 20 133/103 (113) 98 01/22/20 08:15 97.2 92 19 111/86 100 Room Air 01/22/20 07:11 97.2 80 20 109/83 100 Room Air 01/22/20 05:30 97.2 105 20 106/86 99 Room Air 01/22/20 03:30 97.2 91 22 132/96 100 Room Air 01/22/20 01:30 66 18 96/66 97 Room Air 01/21/20 23:15 98.4 78 18 116/78 100 Room Air 01/21/20 21:00 98.2 95 22 113/80 100 Room Air 01/21/20 19:15 98.2 86 22 109/83 100 Room Air 01/21/20 17:52 97/57 01/21/20 13:49 98.2 51 22 97/68 97 Room Air 01/21/20 13:04 98.2 44 18 110/64 (79) 97 Room Air Laboratory Tests Test 01/21/20 13:46 01/22/20 03:55 01/22/20 04:00 01/22/20 04:14 White Blood Count 7.4 K/UL (4.8-10.8) 6.7 K/UL (4.8-10.8) Red Blood Count 3.74 M/UL (4.70-6.10) L 3.63 M/UL (4.70-6.10) L Hemoglobin 11.0 G/DL (14.2-18.0) L 10.7 G/DL (14.2-18.0) L Hematocrit 33.2 % (42.0-52.0) L 32.3 % (42.0-52.0) L Mean Corpuscular Volume 89 FL (80-99) 89 FL (80-99) Mean Corpuscular Hemoglobin 29.4 PG (27.0-31.0) 29.6 PG (27.0-31.0) Mean Corpuscular Hemoglobin Concent 33.1 G/DL (32.0-36.0) 33.3 G/DL (32.0-36.0) Red Cell Distribution Width 14.6 % (11.6-14.8) 14.8 % (11.6-14.8) Platelet Count 191 K/UL (150-450) 182 K/UL (150-450) Mean Platelet Volume 6.2 FL (6.5-10.1) L 6.4 FL (6.5-10.1) L Neutrophils (%) (Auto) 70.2 % (45.0-75.0) 56.4 % (45.0-75.0) Lymphocytes (%) (Auto) 18.7 % (20.0-45.0) L 29.0 % (20.0-45.0) Monocytes (%) (Auto) 8.7 % (1.0-10.0) 10.3 % (1.0-10.0) H Eosinophils (%) (Auto) 1.8 % (0.0-3.0) 3.4 % (0.0-3.0) H Basophils (%) (Auto) 0.6 % (0.0-2.0) 0.9 % (0.0-2.0) Sodium Level 148 MMOL/L (136-145) H 150 MMOL/L (136-145) H Potassium Level 3.7 MMOL/L (3.5-5.1) 4.1 MMOL/L (3.5-5.1) Chloride Level 108 MMOL/L (98-107) H 111 MMOL/L (98-107) H Carbon Dioxide Level 33 MMOL/L (21-32) H 31 MMOL/L (21-32) Anion Gap 7 mmol/L (5-15) 8 mmol/L (5-15) Blood Urea Nitrogen 56 mg/dL (7-18) H 53 mg/dL (7-18) H Creatinine 2.8 MG/DL (0.55-1.30) H 2.6 MG/DL (0.55-1.30) H Estimat Glomerular Filtration Rate 27.3 mL/min (>60) 29.7 mL/min (>60) Glucose Level 103 MG/DL (74-106) 87 MG/DL (74-106) Calcium Level 9.6 MG/DL (8.5-10.1) 9.3 MG/DL (8.5-10.1) Total Bilirubin 0.4 MG/DL (0.2-1.0) Aspartate Amino Transf (AST/SGOT) 34 U/L (15-37) Alanine Aminotransferase (ALT/SGPT) 71 U/L (12-78) Alkaline Phosphatase 65 U/L (46-116) Total Creatine Kinase 110 U/L (26-308) Troponin I 0.052 ng/mL (0.000-0.056) 0.071 ng/mL (0.000-0.056) Pro-B-Type Natriuretic Peptide 7650 pg/mL (0-125) H 6745 pg/mL (0-125) H Total Protein 7.2 G/DL (6.4-8.2) Albumin 3.2 G/DL (3.4-5.0) L Globulin 4.0 g/dL Albumin/Globulin Ratio 0.8 (1.0-2.7) L Lipase 253 U/L (73-393) Phosphorus Level 3.6 MG/DL (2.5-4.9) Ferritin 17 NG/ML (8-388) Digoxin Level < 0.2 NG/ML (0.5-2.0) L Urine Creatinine 73.1 MG/DL (30.0-125.0) Iron Level 23 ug/dL (50-175) L Total Iron Binding Capacity 262 ug/dL (250-450) Percent Iron Saturation 9 % (15-50) L Unsaturated Iron Binding 239 ug/dL (112-346) Urine Osmolality 416 mOsm/kg (429-449) L Urine Random Total Protein 8 MG/DL (< 11.9) Urine Random Sodium 71 mmol/L (20-110) Test 01/22/20 06:50 Calcium (Send out) Pending Vitamin D 25-Hydroxy Pending 25-Hydroxy Vitamin D2 Pending 25-Hydroxy Vitamin D3 Pending Parathyroid Hormone (Intact) Pending Objective HEAD AND NECK: Mild JVD. LUNGS: Decreased breath sounds. CARDIOVASCULAR: Irregular S1 and S2 with no gallop or murmur. Defibrillator in the left subclavian. ABDOMEN: Soft. EXTREMITIES: 2+ pitting edema. Cruz Donovan MD January 22, 2020 11:04
[2020-01-22] MEDS ORDERED: Albuterol/Ipratropium 3ml neb HHN PRN (11:15)
--- NOTE | 2020-01-22 12:51 | Nephrology Progress Note ---
Assessment/Plan Plan #CARMEN on CKD due to CRS1 #acute on chronic combined decompensated CHF #hypernatremia due to free water deficit #s/p AICD #COPD #HTN #HLD #DM - check urine chem - continue lasix 40 IV BID - strict I&Os - daily weights - avoid nephrotoxins - target net neg 1-1.5L daily - hold lisinopril and aldactone - consider staring entresto when cr close to baseline - resume coreg - resume hydralazine with holding parameters - cardiology eval - pulm eval - ICD interrogation - continue coreg - BG control Total time spent 70 min- greater than 50% on care coordination and counseling Subjective ROS Limited/Unobtainable: No Constitutional: Denies: no symptoms, chills, diaphoresis, fever, malaise, weakness, other HEENT: Denies: no symptoms, eye pain, blurred vision, tearing, double vision, ear pain, ear discharge, nose pain, nose congestion, throat pain, throat swelling, mouth pain, mouth swelling, other Genitourinary: Denies: no symptoms, burning, discharge, frequency, flank pain, hematuria, incontinence, pain, urgency, other Neurologic/Psychiatric: Denies: no symptoms, anxiety, depressed, emotional problems, headache, numbness, paresthesia, pre-existing deficit, seizure, tingling, tremors, weakness, other Objective Objective Last 24 Hour Vital Signs Date Time Temp Pulse Resp B/P (MAP) Pulse Ox O2 Delivery O2 Flow Rate FiO2 01/22/20 10:02 133/103 01/22/20 09:58 98.1 63 20 133/103 (113) 98 01/22/20 08:15 97.2 92 19 111/86 100 Room Air 01/22/20 07:11 97.2 80 20 109/83 100 Room Air 01/22/20 05:30 97.2 105 20 106/86 99 Room Air 01/22/20 03:30 97.2 91 22 132/96 100 Room Air 01/22/20 01:30 66 18 96/66 97 Room Air 01/21/20 23:15 98.4 78 18 116/78 100 Room Air 01/21/20 21:00 98.2 95 22 113/80 100 Room Air 01/21/20 19:15 98.2 86 22 109/83 100 Room Air 01/21/20 17:52 97/57 01/21/20 13:49 98.2 51 22 97/68 97 Room Air 01/21/20 13:04 98.2 44 18 110/64 (79) 97 Room Air Laboratory Tests 01/21/20 13:46: White Blood Count 7.4, Red Blood Count 3.74L, Hemoglobin 11.0L, Hematocrit 33.2L , Mean Corpuscular Volume 89, Mean Corpuscular Hemoglobin 29.4, Mean Corpuscular Hemoglobin Concent 33.1, Red Cell Distribution Width 14.6, Platelet Count 191, Mean Platelet Volume 6.2L, Neutrophils (%) (Auto) 70.2, Lymphocytes ( %) (Auto) 18.7L, Monocytes (%) (Auto) 8.7, Eosinophils (%) (Auto) 1.8, Basophils (%) (Auto) 0.6, Sodium Level 148H, Potassium Level 3.7, Chloride Level 108H, Carbon Dioxide Level 33H, Anion Gap 7, Blood Urea Nitrogen 56H, Creatinine 2.8H, Estimat Glomerular Filtration Rate 27.3, Glucose Level 103, Calcium Level 9.6, Total Bilirubin 0.4, Aspartate Amino Transf (AST/SGOT) 34, Alanine Aminotransferase (ALT/SGPT) 71, Alkaline Phosphatase 65, Total Creatine Kinase 110, Troponin I 0.052, Pro-B-Type Natriuretic Peptide 7650H, Total Protein 7.2, Albumin 3.2L, Globulin 4.0, Albumin/Globulin Ratio 0.8L, Lipase 253 01/22/20 03:55: White Blood Count 6.7, Red Blood Count 3.63L, Hemoglobin 10.7L, Hematocrit 32.3L , Mean Corpuscular Volume 89, Mean Corpuscular Hemoglobin 29.6, Mean Corpuscular Hemoglobin Concent 33.3, Red Cell Distribution Width 14.8, Platelet Count 182, Mean Platelet Volume 6.4L, Neutrophils (%) (Auto) 56.4, Lymphocytes ( %) (Auto) 29.0, Monocytes (%) (Auto) 10.3H, Eosinophils (%) (Auto) 3.4H, Basophils (%) (Auto) 0.9, Sodium Level 150H, Potassium Level 4.1, Chloride Level 111H, Carbon Dioxide Level 31, Anion Gap 8, Blood Urea Nitrogen 53H, Creatinine 2.6H, Estimat Glomerular Filtration Rate 29.7, Glucose Level 87, Calcium Level 9.3, Troponin I 0.071H, Phosphorus Level 3.6, Ferritin 17, Digoxin Level < 0.2L 01/22/20 04:00: Urine Creatinine 73.1, Iron Level 23L, Total Iron Binding Capacity 262, Percent Iron Saturation 9L, Unsaturated Iron Binding 239 01/22/20 04:14: Pro-B-Type Natriuretic Peptide 6745H, Urine Osmolality 416L, Urine Random Total Protein 8, Urine Random Sodium 71 01/22/20 06:50: Calcium (Send out) [Pending], Vitamin D 25-Hydroxy [Pending], 25-Hydroxy Vitamin D2 [Pending], 25-Hydroxy Vitamin D3 [Pending], Parathyroid Hormone ( Intact) [Pending] Height (Feet): 5 Height (Inches): 8.00 Weight (Pounds): 180 Prateek Hdz M.D. January 22, 2020 12:51
--- NOTE | 2020-01-22 13:08 | Nephrology Progress Note ---
Assessment/Plan Plan #CARMEN on CKD due to CRS1 #acute on chronic combined decompensated CHF #hypernatremia due to free water deficit #s/p AICD #COPD #HTN #HLD #DM - continue lasix 40 IV BID - strict I&Os - daily weights - avoid nephrotoxins - target net neg 1-1.5L daily - hold lisinopril and aldactone - consider staring entresto when cr close to baseline - resume coreg - resume hydralazine with holding parameters - cardiology eval - pulm eval - ICD interrogation - continue coreg - BG control -on sitagliptin 25mg daily - continue IV iron Subjective ROS Limited/Unobtainable: No Constitutional: Denies: no symptoms, chills, diaphoresis, fever, malaise, weakness, other Genitourinary: Denies: no symptoms, burning, discharge, frequency, flank pain, hematuria, incontinence, pain, urgency, other Neurologic/Psychiatric: Denies: no symptoms, anxiety, depressed, emotional problems, headache, numbness, paresthesia, pre-existing deficit, seizure, tingling, tremors, weakness, other Subjective Breathing stable no chest pain Cr 2.6 iron def noted Objective Objective Last 24 Hour Vital Signs Date Time Temp Pulse Resp B/P (MAP) Pulse Ox O2 Delivery O2 Flow Rate FiO2 01/22/20 10:02 133/103 01/22/20 09:58 98.1 63 20 133/103 (113) 98 01/22/20 08:15 97.2 92 19 111/86 100 Room Air 01/22/20 07:11 97.2 80 20 109/83 100 Room Air 01/22/20 05:30 97.2 105 20 106/86 99 Room Air 01/22/20 03:30 97.2 91 22 132/96 100 Room Air 01/22/20 01:30 66 18 96/66 97 Room Air 01/21/20 23:15 98.4 78 18 116/78 100 Room Air 01/21/20 21:00 98.2 95 22 113/80 100 Room Air 01/21/20 19:15 98.2 86 22 109/83 100 Room Air 01/21/20 17:52 97/57 01/21/20 13:49 98.2 51 22 97/68 97 Room Air 5/4/20 13:04 98.2 44 18 110/64 (79) 97 Room Air Laboratory Tests 01/21/20 13:46: White Blood Count 7.4, Red Blood Count 3.74L, Hemoglobin 11.0L, Hematocrit 33.2L , Mean Corpuscular Volume 89, Mean Corpuscular Hemoglobin 29.4, Mean Corpuscular Hemoglobin Concent 33.1, Red Cell Distribution Width 14.6, Platelet Count 191, Mean Platelet Volume 6.2L, Neutrophils (%) (Auto) 70.2, Lymphocytes ( %) (Auto) 18.7L, Monocytes (%) (Auto) 8.7, Eosinophils (%) (Auto) 1.8, Basophils (%) (Auto) 0.6, Sodium Level 148H, Potassium Level 3.7, Chloride Level 108H, Carbon Dioxide Level 33H, Anion Gap 7, Blood Urea Nitrogen 56H, Creatinine 2.8H, Estimat Glomerular Filtration Rate 27.3, Glucose Level 103, Calcium Level 9.6, Total Bilirubin 0.4, Aspartate Amino Transf (AST/SGOT) 34, Alanine Aminotransferase (ALT/SGPT) 71, Alkaline Phosphatase 65, Total Creatine Kinase 110, Troponin I 0.052, Pro-B-Type Natriuretic Peptide 7650H, Total Protein 7.2, Albumin 3.2L, Globulin 4.0, Albumin/Globulin Ratio 0.8L, Lipase 253 01/22/20 03:55: White Blood Count 6.7, Red Blood Count 3.63L, Hemoglobin 10.7L, Hematocrit 32.3L , Mean Corpuscular Volume 89, Mean Corpuscular Hemoglobin 29.6, Mean Corpuscular Hemoglobin Concent 33.3, Red Cell Distribution Width 14.8, Platelet Count 182, Mean Platelet Volume 6.4L, Neutrophils (%) (Auto) 56.4, Lymphocytes ( %) (Auto) 29.0, Monocytes (%) (Auto) 10.3H, Eosinophils (%) (Auto) 3.4H, Basophils (%) (Auto) 0.9, Sodium Level 150H, Potassium Level 4.1, Chloride Level 111H, Carbon Dioxide Level 31, Anion Gap 8, Blood Urea Nitrogen 53H, Creatinine 2.6H, Estimat Glomerular Filtration Rate 29.7, Glucose Level 87, Calcium Level 9.3, Troponin I 0.071H, Phosphorus Level 3.6, Ferritin 17, Digoxin Level < 0.2L 01/22/20 04:00: Urine Creatinine 73.1, Iron Level 23L, Total Iron Binding Capacity 262, Percent Iron Saturation 9L, Unsaturated Iron Binding 239 01/22/20 04:14: Pro-B-Type Natriuretic Peptide 6745H, Urine Osmolality 416L, Urine Random Total Protein 8, Urine Random Sodium 71 01/22/20 06:50: Calcium (Send out) [Pending], Vitamin D 25-Hydroxy [Pending], 25-Hydroxy Vitamin D2 [Pending], 25-Hydroxy Vitamin D3 [Pending], Parathyroid Hormone ( Intact) [Pending] Height (Feet): 5 Height (Inches): 8.00 Weight (Pounds): 180 General Appearance: no apparent distress, alert EENT: PERRL/EOMI, normal ENT inspection Neck: non-tender, normal alignment Cardiovascular: normal rate, regular rhythm, bradycardia Respiratory/Chest: chest wall non-tender, lungs clear Extremities: normal range of motion, non-tender Neurologic: alert, oriented x 3 Prateek Hdz M.D. January 22, 2020 13:08
--- NOTE | 2020-01-22 19:26 | NUR ---
NURSE NOTES: Received report from JACIEL Galvan. Pt is AAOX4, resting in bed at this time. Megan well. No sob, no apparent acute CV c/o noted at this time. updated board info, instructed to call anytime for assistance.
--- NOTE | 2020-01-22 19:45 | NUR ---
HAND-OFF: Report given to Johnny/rn, pt in stable condition.
[2020-01-22] MEDS: Iron Sucrose 100 MG in NS 55 ML IV SCH (22:02)
[2020-01-23] VITALS (7 sets, daily range): BP systolic 108–137; BP diastolic 66–79
--- NOTE | 2020-01-23 01:30 | NUR ---
NURSE NOTES: Pt has episode of 8 and 10 run in VTachs, pt c/o dizziness and sob when getting up. 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 12 lead EKG obtained A Flutter, BP 137/77, HR 86, resp 20, temp 98.1, O2 sat 97%, BG 120. blood draw for AM labs w/ chem is drawing.Pt remains AAOX4, sitting up on bed, place O2 2L NC. Christin, charge nurse placed a call and texted Dr. Donovan. continuen to monitor pt.
--- NOTE | 2020-01-23 01:35 | NUR ---
Placed a call out and texted Dr. Donovan regarding pt's episode of symptomatic, sustained run in [facility]. No return call received from him. However, Dr. Copeland was in the unit and addressed meds /electrolytes replacement ordered and reviewed EKG and strips. Pt recovered to his baseline A-Flutter 85-95 HR, denies chest pain and remains AAOX4 w/ VS in normal range.
[2020-01-23 02:05] LABS: BASOPHILS % (AUTO) 0.3 % (0.0-2.0); HEMATOCRIT 32.9 % (42.0-52.0); HEMOGLOBIN 11.1 G/DL (14.2-18.0); LYMPHOCYTES % (AUTO) 19.3 % (20.0-45.0); MEAN CORPUSCULAR VOLUME 89 FL (80-99); MONOCYTES % (AUTO) 10.6 % (1.0-10.0); NEUTROPHILS % (AUTO) 66.8 % (45.0-75.0); PLATELET COUNT 194 K/UL (150-450); RED BLOOD COUNT 3.71 M/UL (4.70-6.10); RED CELL DISTRIBUTION WIDTH 14.7 % (11.6-14.8); WHITE BLOOD COUNT 7.5 K/UL (4.8-10.8)
--- NOTE | 2020-01-23 02:08 | NUR ---
NURSE NOTES: Spoke to Dr. Copeland who was in the unit regarding pt's sustained run in VTachs episode, informed MD of BLUEPRINT CUTTER seen & evaluated pt as he was c/o of SOB and dizziness getting up to the bathroom. MD reviewed 12 leads EKG and strips. latest rhythm is on AFlutter 103. pt remains AAOX4, resp even, c/o palpitation earlier but denies chest pain. MD ordered Ativan 1 mg PO X1, will continue to monitor pt.
[2020-01-23 02:15] LABS: ANION GAP 9 mmol/L (5-15); BLOOD UREA NITROGEN 56 mg/dL (7-18); CALCIUM 9.5 MG/DL (8.5-10.1); CARBON DIOXIDE 30 MMOL/L (21-32); CHLORIDE 108 MMOL/L (98-107); CREATININE 2.7 MG/DL (0.55-1.30); POTASSIUM 3.4 MMOL/L (3.5-5.1); SODIUM 147 MMOL/L (136-145)
[2020-01-23] MEDS ORDERED: LORazepam 1mg tab ORAL SCH (02:30)
--- NOTE | 2020-01-23 07:32 | NUR ---
NURSE NOTES: pt in stable condition on shelter monitor, no signs of cardiac or respiratory distress. Call light within reach, bed in lowest position and locked. pt reports no pain. educated pt on staying in bed and using call light and urinal. Pt stated last night he gets dizzy when he gets up from bed and starts having Vtach. Will continue to monitor pt.
[2020-01-23] MEDS: Eliquis 2.5mg tablet ORAL SCH ×2 (09:38→18:01)
[2020-01-23] MEDS: Docusate 100mg cap ORAL SCH ×2 (09:39→21:08)
[2020-01-23] MEDS: sitaGLIPtin 25mg tab ORAL SCH (09:39)
[2020-01-23] MEDS: HydrALAZINE 50mg tab ORAL SCH ×2 (09:39→18:00)
--- NOTE | 2020-01-23 09:45 | General Progress Note ---
Assessment/Plan Assessment/Plan: 69-year-old male with PMH of COPD, A. 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 On admission, EKG was done which revealed atrial flutter with variable AV block with PVCs, HR 91. Cr elevated 2.9. Pt admitted for further treatment and evaluation. #Palpitations #Atrial Flutter #Atrial Fibrillation #Acute on Chronic Systolic Heart Failure #Vtach -cont. in-pt medical care -on admission EKG w/atrial flutter -now rate controlled -CXR cardiomegaly, elevated left hemidiaphragm with minimal resultant atelectasis, no definite acute process -BNP 7000, trop 0.053, 0.071, likely due to demand ischemia/CHF -TTE EF 15-20% -cont. lasix 40 IV BID -cont. home Eliquis 2.5 mg PO BID, carvedilol 3.125 mg BID, hydralazine 25 BID and isordil -hold ACEi 2/2 CARMEN -AICD interrogation - v tach -Cardio following, Dr. Donovan - plan for transfer to [facility] for higher level of care, pt will need ablation #CARMEN on CKD -Cr 2.9 on admission -unknown b/l -Nephro consulted, recs appreciated #Hypernatremia -Na 146 on admission -Nephro consulted, recs appreciated #COPD -does not appear to be in COPD exacerbation at this time -Pulm, Dr Langston consulted, recs appreciated #DMT2 -Cont. home sitagliptan -ISS, accuchecks qac/hs #HTN -cont home hydralazine 50 mg PO BID, carvediolol, lasix -clonidine 0.1 PRN for SBP >160 DVT PPx: eliquis Time spent on encounter: 36 mins, >50% on counseling, coordination of care. Time of note doesn't reflect time of encounter. Subjective Allergies: Coded Allergies: No Known Allergies (Verified Allergy, Unknown, 09/19/07) Subjective F/u for AICD shock. Pt w/rapid response overnight, noted 30 secs of V tach/atrial flutter. D/w dr Donovan, plan for transfer to [facility] for ablation 12 pt ROS neg except as above Objective Last 24 Hour Vital Signs Date Time Temp Pulse Resp B/P (MAP) Pulse Ox O2 Delivery O2 Flow Rate FiO2 01/23/20 09:39 94 120/76 01/23/20 09:39 120/76 01/23/20 08:00 97.9 114 20 108/70 (83) 97 01/23/20 04:00 Room Air 01/23/20 04:00 97 01/23/20 04:00 97.1 74 18 119/66 (83) 99 01/23/20 01:30 98.1 86 20 137/79 (98) 97 01/23/20 00:00 Room Air 01/23/20 00:00 75 01/23/20 00:00 98.1 79 18 128/75 (92) 98 01/22/20 21:24 75 113/77 01/22/20 21:00 97.9 75 18 113/77 (89) 98 01/22/20 21:00 Room Air 01/22/20 20:00 104 01/22/20 17:54 117/76 01/22/20 16:00 97.1 126 20 125/93 (104) 98 01/22/20 16:00 109 01/22/20 12:56 105 120/91 01/22/20 12:00 105 01/22/20 12:00 98.1 63 20 133/103 (113) 98 01/22/20 10:02 133/103 01/22/20 09:58 98.1 63 20 133/103 (113) 98 Intake and Output 01/22/20 01/23/20 19:00 07:00 Intake Total 324 ml 600 ml Balance 324 ml 600 ml Intake Oral 324 ml 600 ml # Voids 3 3 # Bowel Movements 1 Laboratory Tests 01/23/20 02:01: White Blood Count 7.5, Red Blood Count 3.71L, Hemoglobin 11.1L, Hematocrit 32.9L , Mean Corpuscular Volume 89, Mean Corpuscular Hemoglobin 30.0, Mean Corpuscular Hemoglobin Concent 33.9, Red Cell Distribution Width 14.7, Platelet Count 194, Mean Platelet Volume 5.8L, Neutrophils (%) (Auto) 66.8, Lymphocytes ( %) (Auto) 19.3L, Monocytes (%) (Auto) 10.6H, Eosinophils (%) (Auto) 3.0, Basophils (%) (Auto) 0.3, Sodium Level 147H, Potassium Level 3.4L, Chloride Level 108H, Carbon Dioxide Level 30, Anion Gap 9, Blood Urea Nitrogen 56H, Creatinine 2.7H, Estimat Glomerular Filtration Rate 28.5, Glucose Level 147H, Calcium Level 9.5, Phosphorus Level 3.2, Magnesium Level 1.9 Height (Feet): 5 Height (Inches): 8.00 Weight (Pounds): 177 Tyra Gooden M.D. January 23, 2020 09:45
--- NOTE | 2020-01-23 09:54 | NUR ---
TRANSFER UPDATE TRANSFER TO [facility] ORDER NOTED THIS PATIENT BELONGS TO [facility] AND IS CAPITATED TO [facility] CALLED THE IPA'S ENVIRONMENT COORDINATOR AND REQUESTED TRANSFER FOR ABLATION. [facility] TOP TILE DECORATOR WILL REVIEW THE REQUEST AND CALL EITHER DR GRACE OR DR GODFREY DOUBT THEY WILL AUTHORIZE CEDARS TRANSFER
--- NOTE | 2020-01-23 10:22 | NUR ---
TRANSFER UPDATE FAXED FACESHEET AND CLINICALS TO [facility] T: [phone] CALLED [facility], SPOKE WITH SEAN, AND OBTAINED AUTHORIZATION TO TRANSFER TO [facility] TRANSFER AUTH # [id number] [place] AMBULANCE AUTH # [id number] [place] 02 CALLED [facility] AND SPOKE WITH KISHOR WHO STATED PATIENT HAS NOT BEEN PLACED ON THE LIST BY A PHYSICIAN OF YET MESSAGE LEFT FOR DR GRACE
--- NOTE | 2020-01-23 10:48 | Nephrology Progress Note ---
Assessment/Plan Plan #CARMEN on CKD due to CRS1 #acute on chronic combined decompensated CHF #hypernatremia due to free water deficit #s/p AICD #COPD #HTN #HLD #DM - continue lasix 40 IV BID - strict I&Os - daily weights - avoid nephrotoxins - target net neg 1-1.5L daily - hold lisinopril and aldactone - consider staring entresto when cr close to baseline Interrogated the ICD that showed he had slow VT that did not terminate with the shock but terminated on its own-> plan to transfer to [facility] - resume coreg - resume hydralazine with holding parameters - cardiology eval - pulm eval - BG control -on sitagliptin 25mg daily - continue IV iron Subjective ROS Limited/Unobtainable: No Constitutional: Denies: no symptoms, chills, diaphoresis, fever, malaise, weakness, other Genitourinary: Denies: no symptoms, burning, discharge, frequency, flank pain, hematuria, incontinence, pain, urgency, other Neurologic/Psychiatric: Denies: no symptoms, anxiety, depressed, emotional problems, headache, numbness, paresthesia, pre-existing deficit, seizure, tingling, tremors, weakness, other Subjective Breathing stable no chest pain Cr 2.6 iron def noted Interrogated the ICD that showed he had slow VT that did not terminate with the shock but terminated on its own Objective Objective Last 24 Hour Vital Signs Date Time Temp Pulse Resp B/P (MAP) Pulse Ox O2 Delivery O2 Flow Rate FiO2 01/23/20 09:39 94 120/76 01/23/20 09:39 120/76 01/23/20 08:00 97.9 114 20 108/70 (83) 97 01/23/20 04:00 Room Air 01/23/20 04:00 97 01/23/20 04:00 97.1 74 18 119/66 (83) 99 01/23/20 01:30 98.1 86 20 137/79 (98) 97 01/23/20 00:00 Room Air 01/23/20 00:00 75 01/23/20 00:00 98.1 79 18 128/75 (92) 98 01/22/20 21:24 75 113/77 01/22/20 21:00 97.9 75 18 113/77 (89) 98 01/22/20 21:00 Room Air 01/22/20 20:00 104 01/22/20 17:54 117/76 01/22/20 16:00 97.1 126 20 125/93 (104) 98 01/22/20 16:00 109 01/22/20 12:56 105 120/91 01/22/20 12:00 105 01/22/20 12:00 98.1 63 20 133/103 (113) 98 Intake and Output 01/22/20 01/23/20 19:00 07:00 Intake Total 324 ml 600 ml Balance 324 ml 600 ml Intake Oral 324 ml 600 ml # Voids 3 3 # Bowel Movements 1 Laboratory Tests 01/23/20 02:01: White Blood Count 7.5, Red Blood Count 3.71L, Hemoglobin 11.1L, Hematocrit 32.9L , Mean Corpuscular Volume 89, Mean Corpuscular Hemoglobin 30.0, Mean Corpuscular Hemoglobin Concent 33.9, Red Cell Distribution Width 14.7, Platelet Count 194, Mean Platelet Volume 5.8L, Neutrophils (%) (Auto) 66.8, Lymphocytes ( %) (Auto) 19.3L, Monocytes (%) (Auto) 10.6H, Eosinophils (%) (Auto) 3.0, Basophils (%) (Auto) 0.3, Sodium Level 147H, Potassium Level 3.4L, Chloride Level 108H, Carbon Dioxide Level 30, Anion Gap 9, Blood Urea Nitrogen 56H, Creatinine 2.7H, Estimat Glomerular Filtration Rate 28.5, Glucose Level 147H, Calcium Level 9.5, Phosphorus Level 3.2, Magnesium Level 1.9 Height (Feet): 5 Height (Inches): 8.00 Weight (Pounds): 177 Prateek Hdz M.D. January 23, 2020 10:48
--- NOTE | 2020-01-23 11:14 | NUR ---
CASE MANAGEMENT:REVIEW 01/23/20 SI: AC/CHR RENAL FAILURE AC/CHR CHF. AFLUTTER/FIB. COPD 97.9 114 20 108/70 97% ON RA IS: IV VENOFER QHS COREG PO Q12 JANUVIA PO QD ELIQUIS PO BID HYDRALAZINE PO BID IV LASIX BID : TELEMETRY STATUS PLAN: CLINICALS FAXED TO [facility] ~ NEEDS TRANSFER FOR ABLATION RECEIVED TRANSFER AUTHORIZATION FROM [facility] WILL TRANSFER AUTH ~ [id number] AMBULANCE AUTH ~ [id number]
[2020-01-23] MEDS ORDERED: LORazepam 0.5mg tab ORAL PRN (11:15)
--- NOTE | 2020-01-23 11:48 | Cardiac Electrophysiology PN ---
Assessment/Plan Assessment/Plan 1. Status post Biotronic ICD ( implanted at [facility] by Dr Arreguin in [address] Jarvis) shock per patient. Interrogated the ICD that showed he had slow VT that did not terminate with the shock but terminated on its own 2. CHF exacerbation with EF 15%. On Lasix 40 mg IV b.i.d. Coreg 3.125 bid, Hydralazine 25 bid and isordil 3. Recurrent Atrial flutter. On Coreg 3.125 mg b.i.d. and Eliquis 2.5 bid. Will transfer to [facility] for flutter ablation Insurance authorized per case management 4. History of hypertension. Continue current heart failure therapy first. 5. Recurrent ventricular tachycardia, will start Amiodarone 400 daily 6. Renal failure with creatinine of 2.8 and we will hold off on the BRITNI inhibitor and angiotensin-receptor blockers. 7. Hypernatremia. Sodium 148. DW Dr Gooden and [facility] Subjective Subjective Had VT again overnight as well as persistent atrial flutter. No CP. Less SOB Objective Last 24 Hour Vital Signs Date Time Temp Pulse Resp B/P (MAP) Pulse Ox O2 Delivery O2 Flow Rate FiO2 01/23/20 09:39 94 120/76 01/23/20 09:39 120/76 01/23/20 09:00 Room Air 01/23/20 08:00 97.9 114 20 108/70 (83) 97 01/23/20 04:00 Room Air 01/23/20 04:00 97 01/23/20 04:00 97.1 74 18 119/66 (83) 99 01/23/20 01:30 98.1 86 20 137/79 (98) 97 01/23/20 00:00 Room Air 01/23/20 00:00 75 01/23/20 00:00 98.1 79 18 128/75 (92) 98 01/22/20 21:24 75 113/77 01/22/20 21:00 97.9 75 18 113/77 (89) 98 01/22/20 21:00 Room Air 01/22/20 20:00 104 01/22/20 17:54 117/76 01/22/20 16:00 97.1 126 20 125/93 (104) 98 01/22/20 16:00 109 01/22/20 12:56 105 120/91 01/22/20 12:00 105 01/22/20 12:00 98.1 63 20 133/103 (113) 98 Intake and Output 01/22/20 01/23/20 19:00 07:00 Intake Total 324 ml 600 ml Balance 324 ml 600 ml Intake Oral 324 ml 600 ml # Voids 3 3 # Bowel Movements 1 Laboratory Tests Test 01/23/20 02:01 White Blood Count 7.5 K/UL (4.8-10.8) Red Blood Count 3.71 M/UL (4.70-6.10) L Hemoglobin 11.1 G/DL (14.2-18.0) L Hematocrit 32.9 % (42.0-52.0) L Mean Corpuscular Volume 89 FL (80-99) Mean Corpuscular Hemoglobin 30.0 PG (27.0-31.0) Mean Corpuscular Hemoglobin Concent 33.9 G/DL (32.0-36.0) Red Cell Distribution Width 14.7 % (11.6-14.8) Platelet Count 194 K/UL (150-450) Mean Platelet Volume 5.8 FL (6.5-10.1) L Neutrophils (%) (Auto) 66.8 % (45.0-75.0) Lymphocytes (%) (Auto) 19.3 % (20.0-45.0) L Monocytes (%) (Auto) 10.6 % (1.0-10.0) H Eosinophils (%) (Auto) 3.0 % (0.0-3.0) Basophils (%) (Auto) 0.3 % (0.0-2.0) Sodium Level 147 MMOL/L (136-145) H Potassium Level 3.4 MMOL/L (3.5-5.1) L Chloride Level 108 MMOL/L (98-107) H Carbon Dioxide Level 30 MMOL/L (21-32) Anion Gap 9 mmol/L (5-15) Blood Urea Nitrogen 56 mg/dL (7-18) H Creatinine 2.7 MG/DL (0.55-1.30) H Estimat Glomerular Filtration Rate 28.5 mL/min (>60) Glucose Level 147 MG/DL (74-106) H Calcium Level 9.5 MG/DL (8.5-10.1) Phosphorus Level 3.2 MG/DL (2.5-4.9) Magnesium Level 1.9 MG/DL (1.8-2.4) Objective HEAD AND NECK: Mild JVD. LUNGS: Decreased breath sounds. CARDIOVASCULAR: Irregular S1 and S2 with no gallop or murmur. Defibrillator in the left subclavian. ABDOMEN: Soft. EXTREMITIES: 2+ pitting edema. Cruz Donovan MD January 23, 2020 11:48
--- NOTE | 2020-01-23 13:37 | Pulmonology Progress Note ---
Tala Reyes CUFF SETTER OVERLOCK 01/23/20 1337: Assessment/Plan Assessment/Plan ASSESSMENT SOB Acute on chronic systolic and diastolic CHF COPD ( no evidence of exacerbation ) History of respiratory failure, s/p tracheostomy ( now closed) Severe cardiomyopathy Moderate pulmonary HTN A Fib with RVR HTN CARMEN, possibly on CKI DM Anemia PLAN OF CARE tele supplemental O2 titrate to keep sat above 90%, pulm toilet as needed no evidence of COPD exacerbation at this time CXR reviewed, minimal ATX, no acute process otehrwise / no evidence of infectious process agree with diuresis, monitor volumes, cardiorenal parameters, electrolytes ECHO with severely rEF 15-20%; moderate MR, grade 3 diastolic dysfunction, moderate pulmonary HTN guideline directed medical therapy as per cardio ( no ARB/BRITNI given renal failure) BB, Hydralazine, nitrates SOB most likely due to CHF exacerbation, edema BLE subsided a/coagulation for A fib rate control with BB BP management with current regimen-per cardio AICD interrogation - done, see cardio notes monitor renal parameters, avoid nephrotoxics; nephro follows anemia w/up revealed low ferritin, started on IV Venofer monitor HH with goal to keep Hgb above 7 GI prophylaxis BS management with Januvia, diabetic diet supportive care student success counselor on abstinence from illicit street drugs case discussed and evaluated by supervising physician Subjective ROS Limited/Unobtainable: No Allergies: Coded Allergies: No Known Allergies (Verified Allergy, Unknown, 09/19/07) Subjective on RA no signs of resp distress on IV diuresis no further palpitations, no CP Objective Last 24 Hour Vital Signs Date Time Temp Pulse Resp B/P (MAP) Pulse Ox O2 Delivery O2 Flow Rate FiO2 01/23/20 09:39 94 120/76 01/23/20 09:39 120/76 01/23/20 09:00 Room Air 01/23/20 08:00 97.9 114 20 108/70 (83) 97 01/23/20 04:00 Room Air 01/23/20 04:00 97 01/23/20 04:00 97.1 74 18 119/66 (83) 99 01/23/20 01:30 98.1 86 20 137/79 (98) 97 01/23/20 00:00 Room Air 01/23/20 00:00 75 01/23/20 00:00 98.1 79 18 128/75 (92) 98 01/22/20 21:24 75 113/77 01/22/20 21:00 97.9 75 18 113/77 (89) 98 01/22/20 21:00 Room Air 01/22/20 20:00 104 01/22/20 17:54 117/76 01/22/20 16:00 97.1 126 20 125/93 (104) 98 01/22/20 16:00 109 Intake and Output 01/22/20 01/23/20 19:00 07:00 Intake Total 324 ml 600 ml Balance 324 ml 600 ml Intake Oral 324 ml 600 ml # Voids 3 3 # Bowel Movements 1 Objective General Appearance: awake, alert, responsive male in NAD Lines, tubes and drains: peripheral HEENT: normocephalic, atraumatic, EOMI, supple, status post trach - now closed Neck: non-tender, supple Respiratory/Chest: lungs clear, no respiratory distress, no accessory muscle use, Left chest AICD Cardiovascular/Chest: normal peripheral pulses, normal rate, other - A flutter on tele Abdomen: normal bowel sounds, non tender, soft Extremities: normal range of motion, no calf tenderness, normal capillary refill, no peripheral edema Skin Exam: normal pigmentation, warm/dry, healed abdominal scar Musculoskeletal: normal muscle bulk Laboratory Tests 01/23/20 02:01: White Blood Count 7.5, Red Blood Count 3.71L, Hemoglobin 11.1L, Hematocrit 32.9L , Mean Corpuscular Volume 89, Mean Corpuscular Hemoglobin 30.0, Mean Corpuscular Hemoglobin Concent 33.9, Red Cell Distribution Width 14.7, Platelet Count 194, Mean Platelet Volume 5.8L, Neutrophils (%) (Auto) 66.8, Lymphocytes ( %) (Auto) 19.3L, Monocytes (%) (Auto) 10.6H, Eosinophils (%) (Auto) 3.0, Basophils (%) (Auto) 0.3, Sodium Level 147H, Potassium Level 3.4L, Chloride Level 108H, Carbon Dioxide Level 30, Anion Gap 9, Blood Urea Nitrogen 56H, Creatinine 2.7H, Estimat Glomerular Filtration Rate 28.5, Glucose Level 147H, Calcium Level 9.5, Phosphorus Level 3.2, Magnesium Level 1.9 Current Medications Medications (Trade) Dose Ordered Sig/Kena Route PRN Reason Start Time Stop Time Status Last Admin Dose Admin Acetaminophen (Tylenol) 650 mg Q4H PRN ORAL Mild Pain (Pain Scale 1-3) 01/21/20 15:00 02/20/20 14:59 Acetaminophen (Tylenol) 650 mg Q4H PRN ORAL Temp >100.5 01/21/20 15:00 02/20/20 14:59 Albuterol/ Ipratropium (Albuterol/ Ipratropium) 3 ml Q4H PRN HHN Shortness of Breath 01/22/20 11:15 01/27/20 11:14 Apixaban (Eliquis) 2.5 mg BID ORAL 01/21/20 19:00 04/20/20 18:59 01/23/20 09:38 Bisacodyl (Dulcolax) 10 mg DAILYPRN PRN RECTAL Constipation 01/21/20 15:00 04/20/20 14:59 Carvedilol (Coreg) 3.125 mg Q12HR ORAL 01/22/20 12:25 02/21/20 12:24 01/23/20 09:39 Dextrose (Dextrose 50%) 25 ml Q30M PRN IV Hypoglycemia 01/21/20 15:00 04/20/20 14:59 Dextrose (Dextrose 50%) 50 ml Q30M PRN IV Hypoglycemia 01/21/20 15:00 04/20/20 14:59 Docusate Sodium (Colace) 100 mg EVERY 12 HOURS ORAL 01/21/20 21:00 02/20/20 20:59 01/23/20 09:39 Furosemide (Lasix) 40 mg BID IV 01/21/20 18:00 02/20/20 17:59 01/23/20 09:38 Hydralazine HCl (Apresoline) 50 mg BID ORAL 01/21/20 18:00 04/20/20 17:59 01/23/20 09:39 Iron Sucrose 100 mg/Sodium Chloride 60 ml @ 240 mls/hr BEDTIME IV 01/22/20 21:00 01/26/20 21:14 01/22/20 22:02 Lorazepam (Ativan) 0.5 mg Q4H PRN ORAL For Anxiety 01/23/20 11:15 01/30/20 11:14 Magnesium Hydroxide (Mom) 30 ml HSPRN PRN ORAL Constipation 01/21/20 15:00 02/20/20 14:59 Ondansetron HCl (Zofran) 4 mg Q6H PRN IVP Nausea & Vomiting 01/21/20 15:00 02/20/20 14:59 Polyethylene Glycol (Miralax) 17 gm DAILYPRN PRN ORAL Constipation 01/21/20 15:00 02/20/20 14:59 Sitagliptin Phosphate (Januvia) 25 mg DAILY ORAL 01/22/20 09:00 02/21/20 08:59 01/23/20 09:39 Shoaib Tipton MD 01/23/20 1827: Assessment/Plan Assessment/Plan PATIENT SEEN AND EXAMINED WITH CUFF SETTER OVERLOCK, AGREE WITH ABOVE A&P IT REFLECTS OUR JOINT DELIBERATIONS. Subjective Allergies: Coded Allergies: No Known Allergies (Verified Allergy, Unknown, 09/19/07) Tala Reyes NP January 23, 2020 13:37 Shoaib Tipton MD January 23, 2020 18:27
[2020-01-23] MEDS ORDERED: COREG3.125 MG ORAL (14:26)
--- NOTE | 2020-01-23 14:28 | Discharge Summary ---
Discharge Summary Hospital Course Date of Admission January 21, 2020 at 16:04 Date of Discharge 01/23/20 Admitting Diagnosis afib rvr, acs tele HPI Juan Rod is a 69 year old male who was admitted on January 21, 2020 at 16: 04 for Atrial Fibrillation With Rapid Ventricular Respons Hospital Course 69-year-old male with PMH of COPD, A. fib, CHF s/p ICD who presents with palpitations and SOB, pt noted ACID shock 3 days TUBE MOLDER FIBERGLASS. On admission, EKG was done which revealed atrial flutter with variable AV block with PVCs, HR 91. Cr elevated 2.9. CXR negative for signs of infection, BNP 7000, TTE showed EF 15-20 %, pt started on lasix 40 BID. Overnight pt had 30 seconds of v tach. AICD was interogated which showed V tach and afib. Cardio, Dr. Donovan, on board and recommended transfer to [facility] for higher level of care, pt will need an ablation. D/c diagnosis: #Palpitations #Atrial Flutter #Atrial Fibrillation #Acute on Chronic Systolic Heart Failure #Vtach #CARMEN on CKD #Hypernatremia #COPD #DMT2 #HTN D/c planing >30 mins. Spent an additional 30 mins discussing POC w/pt and family member over the phone. Discharge Medications New Medications: Carvedilol (Coreg) 3.125 Mg Tablet 3.125 MG ORAL Q12HR for 30 Days, #30 TAB 3 Refills Continued Medications: Allopurinol* (Allopurinol*) 100 Mg Tablet 100 MG ORAL DAILY, TAB Apixaban (Eliquis) 2.5 Mg Tablet 2.5 MG PO for A FLUTTER, TAB Aspirin Ec* (Aspirin Ec*) 81 Mg Tablet.dr 81 MG ORAL DAILY, TAB Docusate Sodium* (Docusate Sodium*) 250 Mg Capsule 250 MG ORAL TWICE A DAY, CAP Furosemide* (Lasix*) 40 Mg Tablet 40 MG ORAL DAILY for , TAB Hydralazine Hcl* (Hydralazine Hcl*) 50 Mg Tablet 50 MG ORAL BID for HTN, TAB Hydrocodone/Acetaminophen (Hydrocodon-Acetaminophn 10-325) 1 Ea Tab 1 TAB ORAL BID PRN for For Pain, #30 TAB 0 Refills Isosorbide Dinitrate (Isosorbide Dinitrate*) 5 Mg Tablet 20 MG ORAL BID for ANGINA, #30 TAB 0 Refills Lisinopril (Lisinopril*) 20 Mg Tablet 20 MG ORAL DAILY, TAB Omeprazole (Omeprazole) 40 Mg Capsule.dr 40 MG ORAL DAILY, CAP Sitagliptin* (Januvia*) 25 Mg Tablet 25 MG ORAL DAILY for DM, TAB Spironolactone* (Aldactone*) 25 Mg Tablet 25 MG ORAL DAILY, #30 TAB Discontinued Medications: Acetaminophen* (Tylenol Extra Strength*) 500 Mg Tablet 500 MG ORAL Q8H PRN for Prn Headache/Temp > 101, #30 TAB 0 Refills Carvedilol (Coreg) 25 Mg Tablet 25 MG ORAL EVERY 12 HOURS, #60 TAB Carvedilol* (Carvedilol*) 3.125 Mg Tablet 10 MG ORAL DAILY for HTN, TAB Cephalexin* (Keflex*) 500 Mg Capsule 500 MG ORAL EVERY 6 HOURS for 10 Days, #40 CAP Cephalexin* (Keflex*) 500 Mg Capsule 500 MG ORAL EVERY 6 HOURS for 7 Days, CAP Digoxin* (Digoxin*) 125 Mcg Tablet 125 MCG ORAL DAILY, #30 TAB Docusate Sodium* (Docusate Sodium*) 100 Mg Capsule 100 MG ORAL TWICE A DAY for BM MANAGE, CAP Furosemide* (Lasix*) 40 Mg Tablet 40 MG ORAL DAILY, TAB Rivaroxaban (Xarelto*) 10 Mg Tablet 15 MG ORAL DAILY, #30 TAB 0 Refills Discharge Condition Upon Discharge: stable Discharge Vital Signs Last Vital Signs Date Time Temp Pulse Resp B/P (MAP) Pulse Ox O2 Delivery O2 Flow Rate FiO2 01/23/20 09:39 94 120/76 01/23/20 09:00 Room Air 01/23/20 08:00 97.9 20 97 Discharge Disposition Patient was discharged to [facility] Tyra Gooden M.D. January 23, 2020 14:28
--- NOTE | 2020-01-23 14:40 | NUR ---
TRANSFER UPDATE PLEASE READ POWER PRESS SUPERVISOR CALLED [facility] AND SPOKE WITH KISHOR WHO CONFIRMED PATIENT HAS CLEARED FINANCIALS AND IS CURRENTLY ON THE LIST TO TRANSFER SOON A TELEMETRY BED BECOMES AVAILABLE [employer] WILL CALL OUR NURSES STATION ONCE WE HAVE A CONFIRMED BED PLEASE CALL [facility] AND [facility]. PROVIDE [facility] WITH AUTHORIZATION NUMBER [id number] ENTIRE CHART NEEDS TO GO WITH PATIENT
--- NOTE | 2020-01-23 14:47 | NUR ---
*-* INSURANCE *-* ALL AVAILABLE CLINICALS HAVE BEEN FAXED TO: [facility] ref#[id number] CM: Moe # [phone] fax#[phone] Addendum: 01/23/20 at 1448 by CHARLENE GROSSMAN CM DISCHARGE SUMMARY FAXED ALSO
--- NOTE | 2020-01-23 20:00 | NUR ---
HAND-OFF: Report given to Ilda/JACIEL, pt in stable condition waiting for a bed to be transfer to [facility].
--- NOTE | 2020-01-23 20:06 | NUR ---
NURSE NOTES: Received report from JACIEL Galvan. Patient is awake lying semi-vaughn's; resting comfortably. No signs of acute distress noted; denies pain at this time. AOx4; able to make needs known. Checked IV site; patent and flushed. No erythema, bleeding, or infiltration noted. Urinal easily accessible. Bed at lowest position, brakes on, siderails up x2. Call light within reach. Will continue to monitor.
[2020-01-23] MEDS: Iron Sucrose 100 MG in NS 55 ML IV SCH (21:07)
--- NOTE | 2020-01-23 22:37 | NUR ---
NURSE NOTES: Received orders from Dr. Copeland for CBC, BMP, Mag, and Phos STAT. Noted and carried out. Addendum: 01/23/20 at 2303 by IVAN SOLANO RN RN Per Dr. Copeland, he will notify Dr. Donovan of the situation.
--- NOTE | 2020-01-23 22:38 | NUR ---
NURSE NOTES: Patient noted to have frequent V-tach, the highest being 40 beats and occurring one minute within of each other on the monitor. Ilda, primary RN, immediately came to assess the patient and noted that patient was complaining of shaking. Patient also observed to be reacting to two shocks from his defibrillator. Rapid response called. V/S taken: bp is 138/105, 100% oxygen saturation on 2L nasal cannula, 107 bpm, 20 breaths per minute, 96.[address] Copeland to inform him of the situation. Awaiting callback.
[2020-01-23 23:00] LABS: BASOPHILS % (AUTO) 1.2 % (0.0-2.0); EOSINOPHILS % (AUTO) 2.5 % (0.0-3.0); HEMATOCRIT 35.6 % (42.0-52.0); HEMOGLOBIN 10.9 G/DL (14.2-18.0); LYMPHOCYTES % (AUTO) 21.6 % (20.0-45.0); MEAN CORPUSCULAR VOLUME 96 FL (80-99); MONOCYTES % (AUTO) 10.7 % (1.0-10.0); PLATELET COUNT 192 K/UL (150-450); RED BLOOD COUNT 3.72 M/UL (4.70-6.10); RED CELL DISTRIBUTION WIDTH 16.6 % (11.6-14.8); WHITE BLOOD COUNT 8.3 K/UL (4.8-10.8)
[2020-01-23 23:12] LABS: ANION GAP 10 mmol/L (5-15); BLOOD UREA NITROGEN 60 mg/dL (7-18); CALCIUM 9.5 MG/DL (8.5-10.1); CARBON DIOXIDE 27 MMOL/L (21-32); CHLORIDE 108 MMOL/L (98-107); CREATININE 2.5 MG/DL (0.55-1.30); POTASSIUM 3.8 MMOL/L (3.5-5.1); SODIUM 145 MMOL/L (136-145)
[2020-01-23 23:15] LABS: PHOSPHORUS 3.6 MG/DL (2.5-4.9)
--- NOTE | 2020-01-23 23:24 | NUR ---
NURSE NOTES: Received callback from Dr. Copeland with an order for 1gm Magnesium. Noted and carried out.
[2020-01-24] VITALS: BP 118/94
--- NOTE | 2020-01-24 01:18 | NUR ---
NURSE NOTES: Received call from [facility] to inform that there is no bed available yet.
--- NOTE | 2020-01-24 03:22 | NUR ---
NURSE NOTES: Patient is asleep lying semi-vaughn's; resting comfortably. No signs of acute distress or pain noted at this time.
[2020-01-24 04:00] VITALS: BP 132/89
--- NOTE | 2020-01-24 07:46 | NUR ---
HAND-OFF: Report given to JACIEL Maradiaga. Patient is awake lying semi-vaughn's; resting comfortably. In stable condition. Addendum: 01/24/20 at 0747 by IVAN SOLANO RN RN Report given to JACIEL Gomez.
[2020-01-24 07:49] LABS: BASOPHILS % (AUTO) 0.5 % (0.0-2.0); EOSINOPHILS % (AUTO) 3.3 % (0.0-3.0); HEMATOCRIT 30.2 % (42.0-52.0); LYMPHOCYTES % (AUTO) 20.5 % (20.0-45.0); MEAN CORPUSCULAR VOLUME 90 FL (80-99); MONOCYTES % (AUTO) 11.2 % (1.0-10.0); NEUTROPHILS % (AUTO) 64.5 % (45.0-75.0); PLATELET COUNT 169 K/UL (150-450); RED BLOOD COUNT 3.35 M/UL (4.70-6.10); RED CELL DISTRIBUTION WIDTH 14.9 % (11.6-14.8); WHITE BLOOD COUNT 7.1 K/UL (4.8-10.8)
[2020-01-24 08:00] VITALS: BP 107/74
--- NOTE | 2020-01-24 08:00 | NUR ---
NURSE NOTES: Patient received from Ilda Fuller RN. Patient stable currently in SR w/ BBB. No more episodes of V tach. AOx4 with no complaints and no s/sx of pain or distress. RR even and unlabored on RA. Side rails upx2, call light within reach, bed low and locked. Will continue to monitor.
[2020-01-24 08:20] LABS: ANION GAP 8 mmol/L (5-15); BLOOD UREA NITROGEN 53 mg/dL (7-18); CALCIUM 9.2 MG/DL (8.5-10.1); CARBON DIOXIDE 29 MMOL/L (21-32); CHLORIDE 111 MMOL/L (98-107); CREATININE 2.4 MG/DL (0.55-1.30); POTASSIUM 3.5 MMOL/L (3.5-5.1); SODIUM 148 MMOL/L (136-145)
[2020-01-24] MEDS: sitaGLIPtin 25mg tab ORAL SCH (08:55)
[2020-01-24 08:56] VITALS: BP 107/74
[2020-01-24] MEDS: HydrALAZINE 50mg tab ORAL SCH (08:56)
[2020-01-24] MEDS: Eliquis 2.5mg tablet ORAL SCH (08:56)
[2020-01-24] MEDS: Docusate 100mg cap ORAL SCH (08:56)
--- NOTE | 2020-01-24 09:03 | Pulmonology Progress Note ---
Subjective ROS Limited/Unobtainable: No Allergies: Coded Allergies: No Known Allergies (Verified Allergy, Unknown, 09/19/07) Subjective on RA no signs of resp distress remains afebrile, no leukocytosis on IV diuresis no further palpitations, no CP creat down to 2.4 Objective Last 24 Hour Vital Signs Date Time Temp Pulse Resp B/P (MAP) Pulse Ox O2 Delivery O2 Flow Rate FiO2 01/24/20 08:56 60 107/74 01/24/20 08:56 107/74 01/24/20 08:00 98.1 60 20 107/74 (85) 97 01/24/20 04:00 60 01/24/20 04:00 96.6 71 18 132/89 (103) 98 01/24/20 00:00 74 01/24/20 00:00 96.4 75 18 118/94 (102) 100 01/23/20 21:08 95 123/75 01/23/20 21:00 Room Air 01/23/20 20:00 103 01/23/20 20:00 97.5 128 20 123/75 (91) 96 01/23/20 18:00 116/81 01/23/20 16:00 94 01/23/20 16:00 98.7 70 20 127/66 (86) 96 01/23/20 12:00 97.6 76 20 121/78 (92) 97 01/23/20 12:00 108 01/23/20 09:39 94 120/76 01/23/20 09:39 120/76 01/23/20 09:00 Room Air Intake and Output 01/23/20 01/24/20 19:00 07:00 Intake Total 960 ml 510 ml Output Total 400 ml 410 ml Balance 560 ml 100 ml Intake Oral 960 ml 350 ml IV Total 160 ml Output Urine Total 400 ml 410 ml # Voids 1 1 Objective General Appearance: awake, alert, responsive male in NAD Lines, tubes and drains: peripheral HEENT: normocephalic, atraumatic, EOMI, supple, status post trach - now closed Neck: non-tender, supple Respiratory/Chest: lungs clear, no respiratory distress, no accessory muscle use, Left chest AICD Cardiovascular/Chest: normal peripheral pulses, normal rate, A flutter on tele Abdomen: normal bowel sounds, non tender, soft Extremities: normal range of motion, no calf tenderness, normal capillary refill, no peripheral edema Skin Exam: normal pigmentation, warm/dry, healed abdominal scar Musculoskeletal: normal muscle bulk Laboratory Tests 01/23/20 22:40: White Blood Count 8.3, Red Blood Count 3.72L, Hemoglobin 10.9L, Hematocrit 35.6L , Mean Corpuscular Volume 96, Mean Corpuscular Hemoglobin 29.2, Mean Corpuscular Hemoglobin Concent 30.6L, Red Cell Distribution Width 16.6H, Platelet Count 192, Mean Platelet Volume 7.8, Neutrophils (%) (Auto) 64.0, Lymphocytes (%) (Auto) 21.6, Monocytes (%) (Auto) 10.7H, Eosinophils (%) (Auto) 2.5, Basophils (%) (Auto) 1.2, Sodium Level 145, Potassium Level 3.8, Chloride Level 108H, Carbon Dioxide Level 27, Anion Gap 10, Blood Urea Nitrogen 60H, Creatinine 2.5H, Estimat Glomerular Filtration Rate 31.1, Glucose Level 148H, Calcium Level 9.5, Phosphorus Level 3.6, Magnesium Level 2.0 01/24/20 07:04: White Blood Count 7.1, Red Blood Count 3.35L, Hemoglobin 10.0L, Hematocrit 30.2L , Mean Corpuscular Volume 90, Mean Corpuscular Hemoglobin 29.8, Mean Corpuscular Hemoglobin Concent 33.1, Red Cell Distribution Width 14.9H, Platelet Count 169, Mean Platelet Volume 6.4L, Neutrophils (%) (Auto) 64.5, Lymphocytes (%) (Auto) 20.5, Monocytes (%) (Auto) 11.2H, Eosinophils (%) (Auto) 3.3H, Basophils (%) (Auto) 0.5, Sodium Level 148H, Potassium Level 3.5, Chloride Level 111H, Carbon Dioxide Level 29, Anion Gap 8, Blood Urea Nitrogen 53H, Creatinine 2.4H, Estimat Glomerular Filtration Rate 32.6, Glucose Level 91 , Calcium Level 9.2, Phosphorus Level [Pending], Magnesium Level [Pending] Current Medications Medications (Trade) Dose Ordered Sig/Kena Route PRN Reason Start Time Stop Time Status Last Admin Dose Admin Acetaminophen (Tylenol) 650 mg Q4H PRN ORAL Mild Pain (Pain Scale 1-3) 01/21/20 15:00 02/20/20 14:59 Acetaminophen (Tylenol) 650 mg Q4H PRN ORAL Temp >100.5 01/21/20 15:00 02/20/20 14:59 Albuterol/ Ipratropium (Albuterol/ Ipratropium) 3 ml Q4H PRN HHN Shortness of Breath 01/22/20 11:15 01/27/20 11:14 Apixaban (Eliquis) 2.5 mg BID ORAL 01/21/20 19:00 04/20/20 18:59 01/24/20 08:56 Bisacodyl (Dulcolax) 10 mg DAILYPRN PRN RECTAL Constipation 01/21/20 15:00 04/20/20 14:59 Carvedilol (Coreg) 3.125 mg Q12HR ORAL 01/22/20 12:25 02/21/20 12:24 01/23/20 21:08 Dextrose (Dextrose 50%) 25 ml Q30M PRN IV Hypoglycemia 01/21/20 15:00 04/20/20 14:59 Dextrose (Dextrose 50%) 50 ml Q30M PRN IV Hypoglycemia 01/21/20 15:00 04/20/20 14:59 Docusate Sodium (Colace) 100 mg EVERY 12 HOURS ORAL 01/21/20 21:00 02/20/20 20:59 01/24/20 08:56 Furosemide (Lasix) 40 mg BID IV 01/21/20 18:00 02/20/20 17:59 01/24/20 08:57 Hydralazine HCl (Apresoline) 50 mg BID ORAL 01/21/20 18:00 04/20/20 17:59 01/23/20 18:00 Iron Sucrose 100 mg/Sodium Chloride 60 ml @ 240 mls/hr BEDTIME IV 01/22/20 21:00 01/26/20 21:14 01/23/20 21:07 Lorazepam (Ativan) 0.5 mg Q4H PRN ORAL For Anxiety 01/23/20 11:15 01/30/20 11:14 01/23/20 23:18 Magnesium Hydroxide (Mom) 30 ml HSPRN PRN ORAL Constipation 01/21/20 15:00 02/20/20 14:59 Ondansetron HCl (Zofran) 4 mg Q6H PRN IVP Nausea & Vomiting 01/21/20 15:00 02/20/20 14:59 Polyethylene Glycol (Miralax) 17 gm DAILYPRN PRN ORAL Constipation 01/21/20 15:00 02/20/20 14:59 Sitagliptin Phosphate (Januvia) 25 mg DAILY ORAL 01/22/20 09:00 02/21/20 08:59 01/24/20 08:55 Assessment/Plan Assessment/Plan ASSESSMENT SOB Acute on chronic systolic and diastolic CHF COPD ( no evidence of exacerbation ) History of respiratory failure, s/p tracheostomy ( now closed) Severe cardiomyopathy Moderate pulmonary HTN A Fib with RVR HTN CARMEN, possibly on CKI DM Anemia of iron deficiency PLAN OF CARE tele supplemental O2 titrate to keep sat above 90%, pulm toilet as needed no evidence of COPD exacerbation at this time CXR reviewed, minimal ATX, no acute process otherwise / no evidence of infectious process agree with diuresis, monitor volumes, cardiorenal parameters, electrolytes ECHO with severely rEF 15-20%; moderate MR, grade 3 diastolic dysfunction, moderate pulmonary HTN guideline directed medical therapy as per cardio ( no ARB/BRITNI given renal failure) BB, Hydralazine, nitrates SOB most likely due to CHF exacerbation, edema BLE subsided, trend pro BNP, edema resolved, no SOB consider switching to routine po diuresis - per cardio a/coagulation for A fib rate control with BB BP management with current regimen-per cardio AICD interrogation - done, see cardio notes monitor renal parameters, avoid nephrotoxics; nephro follows anemia w/up revealed low ferritin, started on IV Venoferx 5 days monitor HH with goal to keep Hgb above 7 GI prophylaxis BS management with Januvia, diabetic diet supportive care prenatal genetic counselor on abstinence from illicit street drugs case discussed and evaluated by supervising physician Tala Reyes NP January 24, 2020 09:03
[2020-01-24 09:18] LABS: PHOSPHORUS 3.6 MG/DL (2.5-4.9)
--- NOTE | 2020-01-24 10:21 | Nephrology Progress Note ---
Assessment/Plan Plan #CARMEN on CKD due to CRS1 #acute on chronic combined decompensated CHF #hypernatremia due to free water deficit #s/p AICD #COPD #HTN #HLD #DM - continue lasix 40 IV BID - strict I&Os - daily weights - avoid nephrotoxins - target net neg 1-1.5L daily - hold lisinopril and aldactone - consider staring entresto when cr close to baseline Interrogated the ICD that showed he had slow VT that did not terminate with the shock but terminated on its own-> plan to transfer to [facility] - resume coreg - resume hydralazine with holding parameters - cardiology eval - pulm eval - BG control -on sitagliptin 25mg daily - continue IV iron Subjective ROS Limited/Unobtainable: No Constitutional: Denies: no symptoms, chills, diaphoresis, fever, malaise, weakness, other HEENT: Denies: no symptoms, eye pain, blurred vision, tearing, double vision, ear pain, ear discharge, nose pain, nose congestion, throat pain, throat swelling, mouth pain, mouth swelling, other Genitourinary: Denies: no symptoms, burning, discharge, frequency, flank pain, hematuria, incontinence, pain, urgency, other Neurologic/Psychiatric: Denies: no symptoms, anxiety, depressed, emotional problems, headache, numbness, paresthesia, pre-existing deficit, seizure, tingling, tremors, weakness, other Subjective Breathing stable no chest pain continues to have episodes of v tach iron def noted Interrogated the ICD that showed he had slow VT that did not terminate with the shock but terminated on its own Objective Objective Last 24 Hour Vital Signs Date Time Temp Pulse Resp B/P (MAP) Pulse Ox O2 Delivery O2 Flow Rate FiO2 01/24/20 08:56 60 107/74 01/24/20 08:56 107/74 01/24/20 08:00 98.1 60 20 107/74 (85) 97 01/24/20 04:00 60 01/24/20 04:00 96.6 71 18 132/89 (103) 98 01/24/20 00:00 74 01/24/20 00:00 96.4 75 18 118/94 (102) 100 01/23/20 21:08 95 123/75 01/23/20 21:00 Room Air 01/23/20 20:00 103 01/23/20 20:00 97.5 128 20 123/75 (91) 96 01/23/20 18:00 116/81 01/23/20 16:00 94 01/23/20 16:00 98.7 70 20 127/66 (86) 96 01/23/20 12:00 97.6 76 20 121/78 (92) 97 01/23/20 12:00 108 Intake and Output 01/23/20 01/24/20 19:00 07:00 Intake Total 960 ml 510 ml Output Total 400 ml 410 ml Balance 560 ml 100 ml Intake Oral 960 ml 350 ml IV Total 160 ml Output Urine Total 400 ml 410 ml # Voids 1 1 Laboratory Tests 01/23/20 22:40: White Blood Count 8.3, Red Blood Count 3.72L, Hemoglobin 10.9L, Hematocrit 35.6L , Mean Corpuscular Volume 96, Mean Corpuscular Hemoglobin 29.2, Mean Corpuscular Hemoglobin Concent 30.6L, Red Cell Distribution Width 16.6H, Platelet Count 192, Mean Platelet Volume 7.8, Neutrophils (%) (Auto) 64.0, Lymphocytes (%) (Auto) 21.6, Monocytes (%) (Auto) 10.7H, Eosinophils (%) (Auto) 2.5, Basophils (%) (Auto) 1.2, Sodium Level 145, Potassium Level 3.8, Chloride Level 108H, Carbon Dioxide Level 27, Anion Gap 10, Blood Urea Nitrogen 60H, Creatinine 2.5H, Estimat Glomerular Filtration Rate 31.1, Glucose Level 148H, Calcium Level 9.5, Phosphorus Level 3.6, Magnesium Level 2.0 01/24/20 07:04: White Blood Count 7.1, Red Blood Count 3.35L, Hemoglobin 10.0L, Hematocrit 30.2L , Mean Corpuscular Volume 90, Mean Corpuscular Hemoglobin 29.8, Mean Corpuscular Hemoglobin Concent 33.1, Red Cell Distribution Width 14.9H, Platelet Count 169, Mean Platelet Volume 6.4L, Neutrophils (%) (Auto) 64.5, Lymphocytes (%) (Auto) 20.5, Monocytes (%) (Auto) 11.2H, Eosinophils (%) (Auto) 3.3H, Basophils (%) (Auto) 0.5, Sodium Level 148H, Potassium Level 3.5, Chloride Level 111H, Carbon Dioxide Level 29, Anion Gap 8, Blood Urea Nitrogen 53H, Creatinine 2.4H, Estimat Glomerular Filtration Rate 32.6, Glucose Level 91 , Calcium Level 9.2, Phosphorus Level 3.6, Magnesium Level 2.3 Height (Feet): 5 Height (Inches): 8.00 Weight (Pounds): 186 Prateek Hdz M.D. January 24, 2020 10:21
--- NOTE | 2020-01-24 10:29 | NUR ---
TRANSFER UPDATE BANQUET SET UP PERSON CALLED [facility] AND SPOKE WITH JADEN THEY ANTICIPATE A BED BECOMING AVAILABLE LATER TODAY SOON A TELEMETRY BED BECOMES AVAILABLE [place]ED[place] WILL CALL OUR NURSES STATION ONCE WE HAVE A CONFIRMED BED PLEASE CALL [facility] AND [facility]. PROVIDE [facility] WITH AUTHORIZATION NUMBER [id number] ENTIRE CHART NEEDS TO GO WITH PATIENT
--- NOTE | 2020-01-24 11:00 | NUR ---
NURSE NOTES: Stat EKG performed per Dr. Marie after it was reported that patient had another episode of v tach at around 0930 and that an LEAD DRIVER was called on him last night for sustained v tach.
--- NOTE | 2020-01-24 11:20 | NUR ---
TRANSFER PLANNED PATIENT IS TRANSFERRING TO [address] T: [phone] FOR NURSE TO GIVE REPORT [facility] HAS BEEN ARRANGED FOR 1230 [employer] SPECIALIST
--- NOTE | 2020-01-24 12:13 | Cardiac Electrophysiology PN ---
Assessment/Plan Assessment/Plan 1. Status post Biotronic ICD ( implanted at [facility] by Dr Arreguin in [address] Jarvis) shock per patient. Interrogated the ICD that showed he had slow VT that did not terminate with the shock but terminated on its own 2. CHF exacerbation with EF 15%. On Lasix 40 mg IV b.i.d. Coreg 3.125 bid, Hydralazine 25 bid and isordil 3. Recurrent Atrial flutter. On Coreg 3.125 mg b.i.d. and Eliquis 2.5 bid. Going to [facility] today for flutter ablation Insurance authorized per case management 4. History of hypertension. Continue current heart failure therapy first. 5. Recurrent ventricular tachycardia, despite Amiodarone 400 daily After flutter ablation, will need VT ablation in a separate session 6. Renal failure with creatinine of 2.8 and we will hold off on the BRITNI inhibitor and angiotensin-receptor blockers. 7. Hypernatremia. Sodium 148. DW Dr Gooden and [facility] Subjective Subjective Had VT again overnight as well as parozysmal atrial flutter. ECG today NSR Objective Last 24 Hour Vital Signs Date Time Temp Pulse Resp B/P (MAP) Pulse Ox O2 Delivery O2 Flow Rate FiO2 01/24/20 09:00 Room Air 01/24/20 08:56 60 107/74 01/24/20 08:56 107/74 01/24/20 08:00 62 01/24/20 08:00 98.1 60 20 107/74 (85) 97 01/24/20 04:00 60 01/24/20 04:00 96.6 71 18 132/89 (103) 98 01/24/20 00:00 74 01/24/20 00:00 96.4 75 18 118/94 (102) 100 01/23/20 21:08 95 123/75 01/23/20 21:00 Room Air 01/23/20 20:00 103 01/23/20 20:00 97.5 128 20 123/75 (91) 96 01/23/20 18:00 116/81 01/23/20 16:00 94 01/23/20 16:00 98.7 70 20 127/66 (86) 96 Intake and Output 01/23/20 01/24/20 19:00 07:00 Intake Total 960 ml 510 ml Output Total 400 ml 410 ml Balance 560 ml 100 ml Intake Oral 960 ml 350 ml IV Total 160 ml Output Urine Total 400 ml 410 ml # Voids 1 1 Laboratory Tests Test 01/23/20 22:40 01/24/20 07:04 White Blood Count 8.3 K/UL (4.8-10.8) 7.1 K/UL (4.8-10.8) Red Blood Count 3.72 M/UL (4.70-6.10) L 3.35 M/UL (4.70-6.10) L Hemoglobin 10.9 G/DL (14.2-18.0) L 10.0 G/DL (14.2-18.0) L Hematocrit 35.6 % (42.0-52.0) L 30.2 % (42.0-52.0) L Mean Corpuscular Volume 96 FL (80-99) 90 FL (80-99) Mean Corpuscular Hemoglobin 29.2 PG (27.0-31.0) 29.8 PG (27.0-31.0) Mean Corpuscular Hemoglobin Concent 30.6 G/DL (32.0-36.0) L 33.1 G/DL (32.0-36.0) Red Cell Distribution Width 16.6 % (11.6-14.8) H 14.9 % (11.6-14.8) H Platelet Count 192 K/UL (150-450) 169 K/UL (150-450) Mean Platelet Volume 7.8 FL (6.5-10.1) 6.4 FL (6.5-10.1) L Neutrophils (%) (Auto) 64.0 % (45.0-75.0) 64.5 % (45.0-75.0) Lymphocytes (%) (Auto) 21.6 % (20.0-45.0) 20.5 % (20.0-45.0) Monocytes (%) (Auto) 10.7 % (1.0-10.0) H 11.2 % (1.0-10.0) H Eosinophils (%) (Auto) 2.5 % (0.0-3.0) 3.3 % (0.0-3.0) H Basophils (%) (Auto) 1.2 % (0.0-2.0) 0.5 % (0.0-2.0) Sodium Level 145 MMOL/L (136-145) 148 MMOL/L (136-145) H Potassium Level 3.8 MMOL/L (3.5-5.1) 3.5 MMOL/L (3.5-5.1) Chloride Level 108 MMOL/L (98-107) H 111 MMOL/L (98-107) H Carbon Dioxide Level 27 MMOL/L (21-32) 29 MMOL/L (21-32) Anion Gap 10 mmol/L (5-15) 8 mmol/L (5-15) Blood Urea Nitrogen 60 mg/dL (7-18) H 53 mg/dL (7-18) H Creatinine 2.5 MG/DL (0.55-1.30) H 2.4 MG/DL (0.55-1.30) H Estimat Glomerular Filtration Rate 31.1 mL/min (>60) 32.6 mL/min (>60) Glucose Level 148 MG/DL (74-106) H 91 MG/DL (74-106) Calcium Level 9.5 MG/DL (8.5-10.1) 9.2 MG/DL (8.5-10.1) Phosphorus Level 3.6 MG/DL (2.5-4.9) 3.6 MG/DL (2.5-4.9) Magnesium Level 2.0 MG/DL (1.8-2.4) 2.3 MG/DL (1.8-2.4) Objective HEAD AND NECK: Mild JVD. LUNGS: Decreased breath sounds. CARDIOVASCULAR: Irregular S1 and S2 with no gallop or murmur. Defibrillator in the left subclavian. ABDOMEN: Soft. EXTREMITIES: 2+ pitting edema. Cruz Donovan MD January 24, 2020 12:13
--- NOTE | 2020-01-24 13:10 | NUR ---
NURSE NOTES: Patient discharged via [facility]. Patient stable. Report given to Patricia at [facility]. IV site left in place. radiation monitor discontinued. All belongings with pt including $20, cell phone and 2 bags of home medications that were not opened from pharmacy.
== END 2020-01-24 13:00 | disposition short-term general hospital (02) | DRG 291 ==
LOC: EMR 13:19 → 2E 16:04 → EDBEDREQ 01-22 05:37 → 2E 01-22 05:50
DX: I13.0 Hypertensive heart and chronic kidney disease with heart failure and stage 1 through stage 4 chronic kidney disease, or unspecified chronic kidney disease (principal); I50.23 Acute on chronic systolic (congestive) heart failure; I48.92 Unspecified atrial flutter; N17.9 Acute kidney failure, unspecified; E87.0 Hyperosmolality and hypernatremia; I47.2 Ventricular tachycardia; I48.91 Unspecified atrial fibrillation; N18.9 Chronic kidney disease, unspecified; I44.30 Unspecified atrioventricular block; J44.9 Chronic obstructive pulmonary disease, unspecified; Z95.810 Presence of automatic (implantable) cardiac defibrillator; I27.20 Pulmonary hypertension, unspecified; I34.0 Nonrheumatic mitral (valve) insufficiency; Z79.01 Long term (current) use of anticoagulants; Z79.82 Long term (current) use of aspirin; D50.9 Iron deficiency anemia, unspecified; E11.22 Type 2 diabetes mellitus with diabetic chronic kidney disease
CPT/HCPCS: 36415; 71045; 80048; 80053; 80162; 82044; 82306; 82550; 82570; 82728; 82962; 83540; 83550; 83690; 83735; 83880; 83935; 83970; 84100; 84300; 84484; 85025; 93005; 93306; 99285; J8499

== ENCOUNTER 2020-02-18 18:56 | Emergency (ER) | payer MEDICARE, MEDICAID ==
[~2020-02-18] VITALS: Ht 172.7 cm; Wt 83.9 kg
[~2020-02-18 18:56] MED LIST changes: +COREG3.125 MG ORAL; +DOCUSATE SODIU100 MG ORAL; +ELIQUIS2.5 MG PO; +HYDRALAZINE HCL50 MG ORAL; +ISOSORBIDE DINIT5 MG ORAL; +JANUVIA25 MG ORAL
[2020-02-18 19:45] VITALS: BP 129/80
--- NOTE | 2020-02-18 19:45 | NUR ---
ED Nurse Note: Pt brought into ED for c/o R groin pain that radiates down R leg. Pt had angiogram done on January 24 and and is reporting increased amounts of pain at the site on R groin. Pt also reports shortness of breath when he walks due to pain. Pt is breathing normal and unlabored, speaking in full sentences. Pt denies trauma to the area. Pt is aaox4, no acute distress. Pt states angiogram [facility]. Safety measures in place, will cont. to monitor.
[2020-02-18] MEDS ORDERED: Morphine Sulfate 2mg/ml Inj(IV/IM USE ONLY) IVP ONE ×2 (20:00→23:30)
--- NOTE | 2020-02-18 20:07 | NUR ---
ED Nurse Note: Blood sample obtained and sent to lab. [facility] bedside.
--- NOTE | 2020-02-18 20:15 | Emergency Room Report ---
History of Present Illness General Chief Complaint: Pain Source: Patient Present Illness HPI Patient is a 70-year-old male presents after increased right lower extremity pain. Reports of increased pain and swelling to the right lower extremity after cardiac catheterization done in middle of January. Patient had noticed some improvement in the swelling over time but had noticed increase swelling to the left lower extremity as well. Any prior history of CHF. Had not been having any shortness of breath except with exertion. Prior history of CHF. Had reportedly had a procedure which sounds like may have been an ablation. Increased pain with ambulation. Allergies: Coded Allergies: No Known Allergies (Verified , 09/19/07) COVID-19 Screening Contact w/high risk pt: No Recent Travel to affected area: No Experienced COVID-19 symptoms?: Yes COVID-19 symptoms experienced: Shortness of Breath COVID-19 Testing performed LEATHER ROLLER: No Patient History Past Medical History: see triage record Reviewed Nursing Documentation: PMH: Agreed; PSxH: Agreed Nursing Documentation-PMH Past Medical History: No History, Except For Hx Cardiac Problems: Yes - CHF Hx Hypertension: Yes Hx Pacemaker: Yes - AICD 09/16/2014 Hx COPD: Yes Hx Diabetes: Yes Hx Cancer: No Hx Gastrointestinal Problems: Yes - ventral hernia (repaired) Hx Neurological Problems: Yes Hx Cerebrovascular Accident: Yes - POSSIBLE MILD STROKE Review of Systems All Other Systems: negative except mentioned in HPI Physical Exam Vital Signs Date Time Temp Pulse Resp B/P (MAP) Pulse Ox O2 Delivery O2 Flow Rate FiO2 02/18/20 18:50 98.4 71 19 129/80 (96) 95 Room Air Sp02 EP Interpretation: reviewed, normal General Appearance: normal inspection, well appearing, no apparent distress, alert, GCS 15, non-toxic Head: atraumatic ENT: normal ENT inspection, hearing grossly normal, normal voice Neck: normal inspection, full range of motion, supple, no bony tend Respiratory: normal inspection, lungs clear, normal breath sounds, no respiratory distress, no retraction, no wheezing Cardiovascular #1: regular rate, rhythm, no edema Gastrointestinal: normal inspection, normal bowel sounds, non tender, soft, no guarding, no hernia Genitourinary: no CVA tenderness Musculoskeletal: back normal, swelling - Right lower extremity swelling greater than left, firm area to the right thigh with diffuse tenderness, normal dorsalis pedis pulse, normal skin color Neurologic: alert, oriented, DTRs symmetric, oriented x3, responsive, speech normal, normal inspection Psychiatric: normal inspection, judgement/insight normal, mood/affect normal Skin: Ecchymosis/Bruising Medical Decision Making Diagnostic Impression: Primary Impression: CKD (chronic kidney disease) Additional Impressions: Acute on chronic congestive heart failure CHF (congestive heart failure) ER Course Patient presented for right-sided lower extremity pain and swelling. Differential diagnosis include is not limited to hematoma, DVT, arterial injury among others. Because of complexity of patient's case laboratory tests and imaging studies were ordered. Patient had prior history of right-sided angiogram and has some concerning risk factors for possible DVT versus arterial injury. Ultrasound of the right lower extremity showed possible hematoma to the right lower extremity. See radiology report for full details. Patient advised risk benefits alternatives of leaving AGAINST MEDICAL ADVICE and he indicated understanding including possible and loss of current lifestyle. He was aware of abdominal aneurysm as well as hematoma. Patient states he wants to leave the hospital. All questions were answered. Patient was advised to return at any time. He was noted to be diuresing in the emergency department. Labs Test 02/18/20 20:05 White Blood Count 9.4 K/UL (4.8-10.8) Red Blood Count 2.95 M/UL (4.70-6.10) Hemoglobin 8.8 G/DL (14.2-18.0) Hematocrit 29.8 % (42.0-52.0) Mean Corpuscular Volume 101 FL (80-99) Mean Corpuscular Hemoglobin 29.7 PG (27.0-31.0) Mean Corpuscular Hemoglobin Concent 29.4 G/DL (32.0-36.0) Red Cell Distribution Width 18.1 % (11.6-14.8) Platelet Count 217 K/UL (150-450) Mean Platelet Volume 7.5 FL (6.5-10.1) Neutrophils (%) (Auto) 78.7 % (45.0-75.0) Lymphocytes (%) (Auto) 10.7 % (20.0-45.0) Monocytes (%) (Auto) 8.6 % (1.0-10.0) Eosinophils (%) (Auto) 1.1 % (0.0-3.0) Basophils (%) (Auto) 1.0 % (0.0-2.0) Sodium Level 144 MMOL/L (136-145) Potassium Level 4.0 MMOL/L (3.5-5.1) Chloride Level 108 MMOL/L (98-107) Carbon Dioxide Level 29 MMOL/L (21-32) Anion Gap 7 mmol/L (5-15) Blood Urea Nitrogen 31 mg/dL (7-18) Creatinine 2.5 MG/DL (0.55-1.30) Estimat Glomerular Filtration Rate 31.0 mL/min (>60) Glucose Level 131 MG/DL (74-106) Calcium Level 9.7 MG/DL (8.5-10.1) Total Bilirubin 0.7 MG/DL (0.2-1.0) Aspartate Amino Transf (AST/SGOT) 22 U/L (15-37) Alanine Aminotransferase (ALT/SGPT) 19 U/L (12-78) Alkaline Phosphatase 66 U/L (46-116) Troponin I 0.040 ng/mL (0.000-0.056) Pro-B-Type Natriuretic Peptide 10870 pg/mL (0-125) Total Protein 7.2 G/DL (6.4-8.2) Albumin 3.0 G/DL (3.4-5.0) Globulin 4.2 g/dL Albumin/Globulin Ratio 0.7 (1.0-2.7) Last Vital Signs Date Time Temp Pulse Resp B/P (MAP) Pulse Ox O2 Delivery O2 Flow Rate FiO2 02/18/20 18:50 98.4 71 19 129/80 (96) 95 Room Air Status: improved Disposition: AGAINST MEDICAL ADVICE Condition: Serious Cory Julian MD Feb 18, 2020 20:15
[2020-02-18 20:27] LABS: EOSINOPHILS % (AUTO) 1.1 % (0.0-3.0); HEMATOCRIT 29.8 % (42.0-52.0); HEMOGLOBIN 8.8 G/DL (14.2-18.0); LYMPHOCYTES % (AUTO) 10.7 % (20.0-45.0); MEAN CORPUSCULAR VOLUME 101 FL (80-99); MONOCYTES % (AUTO) 8.6 % (1.0-10.0); NEUTROPHILS % (AUTO) 78.7 % (45.0-75.0); PLATELET COUNT 217 K/UL (150-450); RED BLOOD COUNT 2.95 M/UL (4.70-6.10); RED CELL DISTRIBUTION WIDTH 18.1 % (11.6-14.8); WHITE BLOOD COUNT 9.4 K/UL (4.8-10.8)
[2020-02-18 20:38] LABS: ANION GAP 7 mmol/L (5-15); BLOOD UREA NITROGEN 31 mg/dL (7-18); CALCIUM 9.7 MG/DL (8.5-10.1); CARBON DIOXIDE 29 MMOL/L (21-32); CHLORIDE 108 MMOL/L (98-107); CREATININE 2.5 MG/DL (0.55-1.30); SODIUM 144 MMOL/L (136-145)
[2020-02-18 20:59] LABS: ALANINE AMINOTRANSFERASE 19 U/L (12-78); ALBUMIN/GLOBULIN RATIO 0.7 (1.0-2.7); ALKALINE PHOSPHATASE 66 U/L (46-116); ASPARTATE AMINO TRANSFERASE 22 U/L (15-37); BILIRUBIN,TOTAL 0.7 MG/DL (0.2-1.0)
[2020-02-18 22:00] VITALS: BP 130/81
--- NOTE | 2020-02-18 22:00 | NUR ---
ED Nurse Note: Pt provided with nourishment, OK'd by KRISTIN.
--- NOTE | 2020-02-18 22:25 | Diagnostic Imaging Report ---
EXAM: US Duplex Right Lower Extremity Veins CLINICAL HISTORY: PAIN TECHNIQUE: Real-time duplex ultrasound scan of the right lower extremity veins integrating B-mode two-dimensional vascular structure, Doppler spectral analysis, color flow Doppler imaging and compression. COMPARISON: No relevant prior studies available. FINDINGS: See Impression. IMPRESSION: 1. No DVT involving the right leg. 2. Possible large incompletely imaged hematoma noted adjacent to the right common femoral vein and artery with no internal flow identified. 3. 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 of the right proximal superficial femoral artery measuring up to 4.3 cm with some internal flow and some thrombus suspected to be present. <MYCVCSECTION> Communications: 02/18/20 22:29 Verify Receipt Verified receipt with SOLOMON Sosa given to Eliel Wei MD on 02/17 22:29 (-07:00)
--- NOTE | 2020-02-18 22:30 | NUR ---
ED Nurse Note: KRISTIN bedside speaking with pt regarding admission with transfer to another hospital. Pt is stating he may want to leave AMA amongst talk with KRISTIN.
--- NOTE | 2020-02-18 22:35 | NUR ---
ED Nurse Note: Pt is resting in bed, NAD.
[2020-02-18 23:45] VITALS: BP 128/78
--- NOTE | 2020-02-18 23:45 | NUR ---
AMA: Pt has made decision to leave AMA at this time. Pt informed of risks related to leaving AMA by KRISTIN. Pt spoke with ERMMaria E and RN multiple times. Pt stated "I want to leave if I can't stay at [facility]". Pt does not want to be transferred to another hospital. Pt is aaox4 and in no acute distress. Pt can make own decisions at this time and vital signs are stable. SEE AMA FORM.
--- NOTE | 2020-02-18 23:45 | NUR ---
ED Nurse Note: Pt IV line removed without complications at this time and ID band removed.
--- NOTE | 2020-02-19 01:30 | NUR ---
ED Nurse Note: Pt assisted into taxi that son called for him by staff.
--- NOTE | 2020-02-19 09:07 | Diagnostic Imaging Report ---
Procedure: XRAY Chest 1v Reason for study: Reason For Exam: SOB Comparison films: 01/21/2020. FINDINGS: ICD remains in place. Left hemidiaphragm is elevated. Vascularity is normal. The lung dumont are clear bilaterally. Cardiac and mediastinal silhouette are within normal limits. CP angles are sharp. The bony thorax appear unremarkable. IMPRESSION: NO SIGNIFICANT CHANGE COMPARED TO PREVIOUS EXAM.
== END 2020-02-18 23:45 | disposition left against medical advice (07) ==
LOC: EDBD 18:56 → EMR 19:45 → CANBEDREQ 23:50
DX: I13.0 Hypertensive heart and chronic kidney disease with heart failure and stage 1 through stage 4 chronic kidney disease, or unspecified chronic kidney disease (principal); E11.22 Type 2 diabetes mellitus with diabetic chronic kidney disease; N18.9 Chronic kidney disease, unspecified; I50.9 Heart failure, unspecified; Z95.810 Presence of automatic (implantable) cardiac defibrillator; J44.9 Chronic obstructive pulmonary disease, unspecified; R06.02 Shortness of breath
CPT/HCPCS: 36415; 71045; 80053; 83880; 84484; 85025; 93005; 93971; 96374; 96375; 96376; 99284; J1940; J2270

== ENCOUNTER 2020-02-23 16:22 | Inpatient (IN) | payer MEDICARE, MEDICAID ==
[~2020-02-23] VITALS: Ht 175.3 cm; Wt 86.6 kg
[2020-02-23] MEDS ORDERED: Morphine Sulfate 4mg/ml Inj (IV USE ONLY) IVP ONE ×2 (16:30→18:45)
--- NOTE | 2020-02-23 16:30 | Emergency Room Report ---
History of Present Illness General Chief Complaint: Pain Source: Patient, Medical Record, EMS Present Illness HPI Patient presents with increased right leg pain. Both legs are swollen but the right leg is more swollen. He had cardiac ablation done at [facility] January 21 or January 24. They accessed through the right groin. He says he sat up too quickly and had a hematoma. He had to be transfused at that time. The underlying rhythm was atrial fibrillation with poor rate control. According to the med recon patient is on Eliquis. Patient rates the pain 9/10, constant worse when the leg is dependent. He says he is taking Eliquis. Also he took 1/2 percocet today which helped minimally. The patient was seen here February 17 for similar symptoms. Doppler was done of the right leg. The patient signed out AGAINST MEDICAL ADVICE. These were the results: IMPRESSION: 1. No DVT involving the right leg. 2. Possible large incompletely imaged hematoma noted adjacent to the right common femoral vein and artery with no internal flow identified. 3. 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 of the right proximal superficial femoral artery measuring up to 4.3 cm with some internal flow and some thrombus suspected to be present. No fevers, chills, sore throat, chest pain, palpitations, nausea, vomiting, diarrhea, dysuria, hematuria, abdominal pain, rashes, depression, anxiety, visual changes, dizziness, headache. Allergies: Coded Allergies: No Known Allergies (Verified , 09/19/07) COVID-19 Screening Contact w/high risk pt: No Recent Travel to affected area: No Experienced COVID-19 symptoms?: No COVID-19 symptoms experienced: Shortness of Breath COVID-19 Testing performed ORGANIZATIONAL EFFECTIVENESS DIRECTOR: No Patient History Past Medical History: see triage record, old chart reviewed Past Surgical History: pacemaker Social History: Reports: smoking - Prior, drug use - Cocaine and marijuana in the past Social History Narrative Patient from home Reviewed Nursing Documentation: PMH: Agreed; PSxH: Agreed Nursing Documentation-PMH Past Medical History: No History, Except For Hx Cardiac Problems: Yes - CHF Hx Hypertension: Yes Hx Pacemaker: Yes - AICD 09/16/2014 Hx COPD: Yes Hx Diabetes: Yes Hx Cancer: No Hx Gastrointestinal Problems: Yes - ventral hernia (repaired) Hx Neurological Problems: Yes Hx Cerebrovascular Accident: Yes - POSSIBLE MILD STROKE Review of Systems All Other Systems: negative except mentioned in HPI Physical Exam Vital Signs Date Time Temp Pulse Resp B/P (MAP) Pulse Ox O2 Delivery O2 Flow Rate FiO2 02/23/20 16:19 98.6 72 18 102/60 (74) 98 Room Air Sp02 EP Interpretation: reviewed, normal General Appearance: no apparent distress, GCS 15, Chronically Ill Head: normocephalic Eyes: bilateral eye PERRL, bilateral eye conjunctivae pale ENT: moist mucus membranes Neck: supple Respiratory: lungs clear, normal breath sounds, other - Barrel chest Cardiovascular #1: normal peripheral pulses, regular rate, rhythm, edema - Right greater than left Cardiovascular #2: 2+ radial (R), 2+ dorsalis pedis (R), 2+ dorsalis pedis (L) Gastrointestinal: normal inspection, normal bowel sounds, non tender, no mass, non-distended, overweight Rectal: heme positive stool - TRACE - brown/orange color Musculoskeletal: normal range of motion, calf tenderness - Right greater than right and the left Neurologic: alert, oriented x3, grossly normal Psychiatric: mood/affect normal - Slightly anxious Skin: warm/dry, pallor, other - Venous disease bilaterally Procedures Critical Care Time Critical Care Time Total Critical Care Time: 45 min bedside evaluation and treatment excludes procedures (EKG). Reason for critical care: critical anemia, evaluation of DVT and GI bleed Possible complications: hypotension, hypertension, ME, shock, arrhythmias, metabolic acidosis, end organ damage, respiratory failure. Interventions: blood transfusions, pain control, repeat evaluations Course: Patient presented with right leg pain and edema. Evaluation for DVT. Review of old records and venous plethysmography. Treatment for pain. Multiple discussions with HMO doctor. Due to critical H&H patient patient made non-transferable. Discussion with blood bank for transfusion. Discussion with patient with informed consent for transfusion. Multiple discussions with patient regarding findings and treatment plan. Repeat evaluation after blood transfusions which were tolerated with improvement. Consultations: nursing staff, EMS, blood bank, HMO physician, admitting physician, identification technician Performed by: Dr. Roman Tolerated well condition = critical but improved Medical Decision Making Diagnostic Impression: Primary Impression: Profound anemia Qualified Codes: D64.9 - Anemia, unspecified Additional Impressions: Pseudoaneurysm Thrombosis Edema Qualified Codes: R60.9 - Edema, unspecified ER Course Patient presents with history of pseudoaneurysm and thrombus in the right femoral region after ablation. His complaint is increased pain and swelling. Differential includes hematoma, DVT, pseudoaneurysm, vascular insufficiency amongst others. Patient will be evaluated with EKG, chest x-ray, noninvasive vascular study of the right leg and labs. The patient will be treated with analgesia. Patient is placed on a document control supervisor. EKG paced and occasional PVCs. Chest x-ray COPD. CMP with chronic renal disease. Troponin negative. BNP elevated. Called with low H/H. Blood transfusion ordered. Patient made transferable. Discussion of this with O physician. Discussion with identification technician. Pseudoaneurysm with thrombus. Leg with edema no evidence of hematoma. Protonix administered for trace positive blood in stool. Discussed with Dr. Hdz who requests admission to him. Blood transfusions completed and patient with decreased dyspnea and clinically improved. Multiple discussions with patient about treatment plan. Laboratory Tests Test 02/23/20 16:45 White Blood Count 14.1 K/UL (4.8-10.8) H Red Blood Count 1.76 M/UL (4.70-6.10) L Hemoglobin 5.1 G/DL (14.2-18.0) *L Hematocrit 17.2 % (42.0-52.0) L Mean Corpuscular Volume 98 FL (80-99) Mean Corpuscular Hemoglobin 29.0 PG (27.0-31.0) Mean Corpuscular Hemoglobin Concent 29.6 G/DL (32.0-36.0) L Red Cell Distribution Width 16.8 % (11.6-14.8) H Platelet Count 275 K/UL (150-450) Mean Platelet Volume 6.5 FL (6.5-10.1) Neutrophils (%) (Auto) % (45.0-75.0) Lymphocytes (%) (Auto) % (20.0-45.0) Monocytes (%) (Auto) % (1.0-10.0) Eosinophils (%) (Auto) % (0.0-3.0) Basophils (%) (Auto) % (0.0-2.0) Differential Total Cells Counted 100 Neutrophils % (Manual) 82 % (45-75) H Lymphocytes % (Manual) 11 % (20-45) L Monocytes % (Manual) 5 % (1-10) Eosinophils % (Manual) 1 % (0-3) Basophils % (Manual) 0 % (0-2) Band Neutrophils 1 % (0-8) Platelet Estimate Adequate Platelet Morphology Normal Hypochromasia 3+ Anisocytosis 1+ Macrocytosis 1+ Prothrombin Time 11.8 SEC (9.30-11.50) H Prothrombin Time INR 1.1 (0.9-1.1) Activated Partial Thromboplast Time 26 SEC (23-33) Sodium Level 145 MMOL/L (136-145) Potassium Level 4.3 MMOL/L (3.5-5.1) Chloride Level 107 MMOL/L (98-107) Carbon Dioxide Level 30 MMOL/L (21-32) Anion Gap 8 mmol/L (5-15) Blood Urea Nitrogen 51 mg/dL (7-18) H Creatinine 2.8 MG/DL (0.55-1.30) H Estimated Glomerular Filtration Rate 27.3 mL/min (>60) Glucose Level 143 MG/DL (74-106) H Calcium Level 9.4 MG/DL (8.5-10.1) Total Bilirubin 0.8 MG/DL (0.2-1.0) Aspartate Amino Transferase (AST) 42 U/L (15-37) H Alanine Aminotransferase (ALT) < 6 U/L (12-78) L Alkaline Phosphatase 52 U/L (46-116) Troponin I 0.040 ng/mL (0.000-0.056) C-Reactive Protein, Quantitative < 0.4 mg/dL (0.00-0.90) Pro-B-Type Natriuretic Peptide 8325 pg/mL (0-125) H Total Protein 7.0 G/DL (6.4-8.2) Albumin 2.5 G/DL (3.4-5.0) L Globulin 4.5 g/dL Albumin/Globulin Ratio 0.6 (1.0-2.7) L EKG Diagnostic Results Rate: normal, other - Paced Rhythm: other - Paced ST Segments: no acute changes Rhythm Strip Diag. Results EP Interpretation: yes Rhythm: other - Paced with PVC and some episodes of sinus Chest X-Ray Diagnostic Results Chest X-Ray Diagnostic Results : Chest X-Ray Ordered: Yes # of Views/Limited/Complete: 1 View Indication: Shortness of Breath EP Interpretation: Yes Interpretation: no consolidation, no effusion, no pneumothorax, other - pacer CT/MRI/US Diagnostic Results CT/MRI/US Diagnostic Results : Imaging Test Ordered: doppler R leg Impression According to tech: pseudoaneurysm with thrombus edema vs hematoma FINDINGS: Deep veins: Unremarkable. No DVT in the visualized common femoral, femoral, proximal deep femoral or popliteal veins. The veins demonstrate normal color flow, are normally compressible, with normal phasic flow and/or augmentation response. Superficial veins: Unremarkable. No thrombus in the visualized great saphenous vein. Soft tissues: Nonspecific edema involving the right lower extremity. No popliteal cyst. IMPRESSION: No ultrasonographic evidence of deep venous thrombosis involving the right lower extremity. Last Vital Signs Date Time Temp Pulse Resp B/P (MAP) Pulse Ox O2 Delivery O2 Flow Rate FiO2 02/23/20 22:05 98.6 76 20 106/68 98 Room Air Status: improved Disposition: ADMITTED INPATIENT Condition: Serious Ronnell Roman MD Feb 23, 2020 16:30
--- NOTE | 2020-02-23 16:35 | NUR ---
ED Nurse Note: Recieved pt BIBA from home with c/o right leg pain and swelling, pain at 8/10 and throbbing, pt was in hospital here and left ama yesterday, pt is awake, alert and oriented x 4, denies cp, no sob or labored breathing noted, immediately assisted to gowning and placed on monitoring, pt has defibrilator, in nsr, also placed IV line and labs drawn, will medicate as ordered and monitor for effeectiveness.
[2020-02-23 17:00] VITALS: BP 103/64
--- NOTE | 2020-02-23 17:04 | Diagnostic Imaging Report ---
EXAM: XR Chest, 1 View CLINICAL HISTORY: PAIN TECHNIQUE: Frontal view of the chest. COMPARISON: 02/18/2020. FINDINGS: Lungs: The bilateral lung dumont are clear. Pleural space: Unremarkable. No pneumothorax. Heart: There is mild cardiomegaly. Mediastinum: Unremarkable. Bones/joints: Degenerative disease of the shoulders and spine noted. Tubes, lines and devices: There is a left-sided dual-lumen catheter in place. Upper abdomen: There is elevation of the left hemidiaphragm. IMPRESSION: No acute cardiopulmonary disease.
[2020-02-23 17:08] LABS: INR 1.1 (0.9-1.1)
[2020-02-23 17:11] LABS: ANION GAP 8 mmol/L (5-15); BLOOD UREA NITROGEN 51 mg/dL (7-18); CALCIUM 9.4 MG/DL (8.5-10.1); CARBON DIOXIDE 30 MMOL/L (21-32); CHLORIDE 107 MMOL/L (98-107); CREATININE 2.8 MG/DL (0.55-1.30); POTASSIUM 4.3 MMOL/L (3.5-5.1); SODIUM 145 MMOL/L (136-145)
[2020-02-23 17:24] LABS: ALBUMIN 2.5 G/DL (3.4-5.0); ALBUMIN/GLOBULIN RATIO 0.6 (1.0-2.7); ALKALINE PHOSPHATASE 52 U/L (46-116); ASPARTATE AMINO TRANSFERASE 42 U/L (15-37); BILIRUBIN,TOTAL 0.8 MG/DL (0.2-1.0)
[2020-02-23 17:27] LABS: HEMATOCRIT 17.2 % (42.0-52.0); MEAN CORPUSCULAR VOLUME 98 FL (80-99); PLATELET COUNT 275 K/UL (150-450); RED BLOOD COUNT 1.76 M/UL (4.70-6.10); RED CELL DISTRIBUTION WIDTH 16.8 % (11.6-14.8); WHITE BLOOD COUNT 14.1 K/UL (4.8-10.8)
[2020-02-23 17:28] LABS: HEMOGLOBIN 5.1 G/DL (14.2-18.0)
--- NOTE | 2020-02-23 17:30 | NUR ---
ED Nurse Note: Pt having bedside ultrasound.
[2020-02-23 17:35] LABS: ALANINE AMINOTRANSFERASE < 6 U/L (12-78)
--- NOTE | 2020-02-23 18:35 | NUR ---
ED Nurse Note: Bedside ultrasound completed, -for DVT,will place larger IV line for blood transfusion, MD aware pt is hard stick, has patent 22g.
[2020-02-23 19:00] VITALS: BP 101/64
--- NOTE | 2020-02-23 19:14 | Diagnostic Imaging Report ---
EXAM: US Duplex Right Lower Extremity Veins CLINICAL HISTORY: DVT TECHNIQUE: Real-time duplex ultrasound scan of the right lower extremity veins integrating B-mode two-dimensional vascular structure, Doppler spectral analysis, color flow Doppler imaging and compression. COMPARISON: 02/18/2020. FINDINGS: Deep veins: Unremarkable. No DVT in the visualized common femoral, femoral, proximal deep femoral or popliteal veins. The veins demonstrate normal color flow, are normally compressible, with normal phasic flow and/or augmentation response. Superficial veins: Unremarkable. No thrombus in the visualized great saphenous vein. Soft tissues: Nonspecific edema involving the right lower extremity. No popliteal cyst. IMPRESSION: No ultrasonographic evidence of deep venous thrombosis involving the right lower extremity.
[2020-02-23] MEDS ORDERED: DiphenhydrAMINE 25mg Tab ORAL PRN (19:30)
[2020-02-23] MEDS ORDERED: Pantoprazole Inj IVP ONE (19:30)
[2020-02-23] MEDS ORDERED: Mylanta II UD 30ml ORAL PRN (19:30)
--- NOTE | 2020-02-23 19:33 | NUR ---
ED Nurse Note: PRBCs infusing per order, VSS. pt sitting in chair for comfort.will continue to monitor.
--- NOTE | 2020-02-23 19:48 | NUR ---
ED Nurse Note: 15min monitoring blood transfusion, pt tolerating well. will continue monitoring
[2020-02-23 21:00] VITALS: BP 106/68
--- NOTE | 2020-02-23 21:23 | NUR ---
ED Nurse Note: 2nd unit or PRBCs started, 15 min monitoring started, pt tolerating well. VSS. will continue to monitor
--- NOTE | 2020-02-23 22:05 | NUR ---
TRANSFER TO FLOOR: Patient transferred to as ordered, per Dr Hdz. Report given to JACIEL Argueta . Belongings and medications given to . Family and or S/O informed of transfer.
--- NOTE | 2020-02-23 22:20 | NUR ---
NURSE NOTES: Received report from SOLOMON Meredith RN. Patient was transferred to Telemetry unit from ER via [facility] without incident. No signs of acute distress noted; denies pain at this time. AOx4; able to make needs known. Checked IV site; patent and flushed. No erythema, bleeding, or infiltration noted. 2nd unit of PRBC's currently running. Patient put on Tele box; sinus rhythm on the monitor (80s). Belongings list checked with patient and transferring RN. Skin assessment performed; skin intact. No wounds noted. Left chest AICD noted. Right leg also noted to be noticeably more edematous than left leg. Bed at lowest position, brakes on, siderails up x3. Call light within reach. Will continue to monitor.
[2020-02-23 22:25] VITALS: BP 105/66
[2020-02-23 22:50] LABS: APPEARANCE,URINE CLEAR; BILIRUBIN, URINE NEGATIVE (NEGATIVE); GLUCOSE, URINE (UA) NEGATIVE (NEGATIVE); KETONES,URINE NEGATIVE (NEGATIVE); LEUKOCYTE ESTERASE ,URINE NEGATIVE (NEGATIVE); NITRITE,URINE NEGATIVE (NEGATIVE); PH,URINE 5 (4.5-8.0); PROTEIN,URINE 2+ (NEGATIVE); UROBILINOGEN,URINE 4 MG/DL (0.0-1.0)
[2020-02-23 23:20] LABS: COLOR,URINE YELLOW
[2020-02-23] MEDS ORDERED: COREG CR10 MG ORAL (23:51)
[2020-02-23] MEDS ORDERED: AMIODARONE HCL400 M1 ORAL (23:51)
[2020-02-24] VITALS: BP 95/56
--- NOTE | 2020-02-24 00:50 | NUR ---
NURSE NOTES: 2nd unit of PRBC's successfully transfused. No adverse reaction noted. Patient appears to have tolerated well.
[2020-02-24 04:00] VITALS: BP 93/55
--- NOTE | 2020-02-24 07:26 | NUR ---
HAND-OFF: Report given to JACIEL Gomez. Patient is awake eating breakfast. In stable condition.
--- NOTE | 2020-02-24 07:32 | NUR ---
NURSE NOTES: Patient stable AOx4 with no complaints and no s/sx of pain or distress. RR even and unlabored on RA. Side rails up x2, call light within reach, bed low and locked. Will continue to monitor.
[2020-02-24 07:45] LABS: HEMATOCRIT 17.4 % (42.0-52.0); MEAN CORPUSCULAR VOLUME 87 FL (80-99); PLATELET COUNT 218 K/UL (150-450); RED BLOOD COUNT 2.01 M/UL (4.70-6.10); RED CELL DISTRIBUTION WIDTH 14.8 % (11.6-14.8); WHITE BLOOD COUNT 11.9 K/UL (4.8-10.8)
[2020-02-24 07:57] LABS: HEMOGLOBIN 5.9 G/DL (14.2-18.0)
[2020-02-24 08:00] VITALS: BP 92/56
--- NOTE | 2020-02-24 08:04 | NUR ---
NURSE NOTES: Dr. Donovan notified of innappropriate pacing. Dr. Hdz called and notified on 5.9 hgb and order received for 1 unit PRBC. Will transfuse as soon as possible.
[2020-02-24 08:18] LABS: ANION GAP 7 mmol/L (5-15); BLOOD UREA NITROGEN 54 mg/dL (7-18); CALCIUM 8.9 MG/DL (8.5-10.1); CARBON DIOXIDE 29 MMOL/L (21-32); CHLORIDE 109 MMOL/L (98-107); CREATININE 2.9 MG/DL (0.55-1.30); SODIUM 145 MMOL/L (136-145)
--- NOTE | 2020-02-24 08:50 | History and Physical ---
History of Present Illness General Date patient seen: Feb 24, 2020 Reason for Hospitalization: Pain Present Illness HPI Juan Monroe a 69 year oldmalewho presents with PMH of HTN,COPD, CHF s/p ICD( implanted [facility] by [facility] Arreguin in [address] Jarvis), A. Fib and A Flutter s/p recent cardiac ablation at [facility] on 01/28/20, presented to ED with complaints of RLE cramping pain, worse with ambulation, worsening edema. Pt recently evaluated in ED for same complaints, US during that time with hematoma and poss R prox superficial femoral artery pseudoaneurysm, pt signed out AMA. Repeat US this admission was negative for hematoma or DVT. Pt noted to have severe anemia, receiving transfusion, and admitted to medicine service for further management. Allergies: Coded Allergies: No Known Allergies (Verified , 09/19/07) COVID-19 Screening Contact w/high risk pt: No Recent Travel to affected area: No Experienced COVID-19 symptoms?: No COVID-19 symptoms experienced: Shortness of Breath Medication History Scheduled Amiodarone Hcl* (Amiodarone Hcl*), 400 MG ORAL DAILY, (Reported) Apixaban (Eliquis), 2.5 MG PO BID, (Reported) Carvedilol Phosphate (Coreg Cr), 10 MG ORAL DAILY, (Reported) Docusate Sodium* (Docusate Sodium*), 100 MG ORAL TWICE A DAY, (Reported) Furosemide* (Lasix*), 40 MG ORAL TWICE A DAY, (Reported) Hydralazine Hcl* (Hydralazine Hcl*), 50 MG ORAL BID, (Reported) Isosorbide Dinitrate (Isosorbide Dinitrate*), 20 MG ORAL BID, (Reported) Sitagliptin* (Januvia*), 25 MG ORAL DAILY, (Reported) Patient History Healthcare decision maker Resuscitation status Advanced Directive on File Review of Systems Musculoskeletal: Reports: other - R thing swelling Physical Exam General Appearance: no apparent distress, alert HEENT: normocephalic, atraumatic Neck: non-tender, normal alignment Respiratory/Chest: chest wall non-tender, lungs clear Cardiovascular/Chest: normal peripheral pulses, normal rate Abdomen: normal bowel sounds, non tender, soft Extremities: other - R thigh swelling, +1 edema in RLE, LLE unremarkable Skin Exam: warm/dry Neurologic: 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 administrator II-XII grossly normal Last 24 Hour Vital Signs Date Time Temp Pulse Resp B/P (MAP) Pulse Ox O2 Delivery O2 Flow Rate FiO2 02/24/20 04:00 71 02/24/20 04:00 98.1 68 18 93/55 (68) 93 02/24/20 02:08 Room Air 02/24/20 00:00 86 02/24/20 00:00 99.7 82 19 95/56 (69) 94 02/23/20 22:54 81 02/23/20 22:25 97.9 85 22 105/66 (79) 93 02/23/20 22:05 98.6 76 20 106/68 98 Room Air 02/23/20 21:00 98.6 76 20 106/68 98 Room Air 02/23/20 19:35 98.6 02/23/20 19:00 98.6 88 18 101/64 98 Room Air 02/23/20 17:30 98.6 02/23/20 17:00 98.6 85 18 103/64 98 Room Air 02/23/20 16:19 98.6 72 18 102/60 (74) 98 Room Air Intake and Output 02/23/20 02/24/20 19:00 07:00 Intake Total 295 ml Output Total 300 ml Balance -5 ml Intake Oral 295 ml Output Urine Total 300 ml Laboratory Tests Test 02/23/20 16:45 02/23/20 21:20 02/24/20 06:40 White Blood Count 14.1 K/UL (4.8-10.8) H 11.9 K/UL (4.8-10.8) H Red Blood Count 1.76 M/UL (4.70-6.10) L 2.01 M/UL (4.70-6.10) L Hemoglobin 5.1 G/DL (14.2-18.0) *L 5.9 G/DL (14.2-18.0) *L Hematocrit 17.2 % (42.0-52.0) L 17.4 % (42.0-52.0) L Mean Corpuscular Volume 98 FL (80-99) 87 FL (80-99) # Mean Corpuscular Hemoglobin 29.0 PG (27.0-31.0) 29.1 PG (27.0-31.0) Mean Corpuscular Hemoglobin Concent 29.6 G/DL (32.0-36.0) L 33.6 G/DL (32.0-36.0) Red Cell Distribution Width 16.8 % (11.6-14.8) H 14.8 % (11.6-14.8) Platelet Count 275 K/UL (150-450) 218 K/UL (150-450) Mean Platelet Volume 6.5 FL (6.5-10.1) 5.4 FL (6.5-10.1) L Neutrophils (%) (Auto) % (45.0-75.0) % (45.0-75.0) Lymphocytes (%) (Auto) % (20.0-45.0) % (20.0-45.0) Monocytes (%) (Auto) % (1.0-10.0) % (1.0-10.0) Eosinophils (%) (Auto) % (0.0-3.0) % (0.0-3.0) Basophils (%) (Auto) % (0.0-2.0) % (0.0-2.0) Differential Total Cells Counted 100 Neutrophils % (Manual) 82 % (45-75) H Pending Lymphocytes % (Manual) 11 % (20-45) L Pending Monocytes % (Manual) 5 % (1-10) Eosinophils % (Manual) 1 % (0-3) Basophils % (Manual) 0 % (0-2) Band Neutrophils 1 % (0-8) Platelet Estimate Adequate Pending Platelet Morphology Normal Pending Hypochromasia 3+ Anisocytosis 1+ Macrocytosis 1+ Prothrombin Time 11.8 SEC (9.30-11.50) H Prothromb Time International Ratio 1.1 (0.9-1.1) Activated Partial Thromboplast Time 26 SEC (23-33) Sodium Level 145 MMOL/L (136-145) 145 MMOL/L (136-145) Potassium Level 4.3 MMOL/L (3.5-5.1) 4.0 MMOL/L (3.5-5.1) Chloride Level 107 MMOL/L (98-107) 109 MMOL/L (98-107) H Carbon Dioxide Level 30 MMOL/L (21-32) 29 MMOL/L (21-32) Anion Gap 8 mmol/L (5-15) 7 mmol/L (5-15) Blood Urea Nitrogen 51 mg/dL (7-18) H 54 mg/dL (7-18) H Creatinine 2.8 MG/DL (0.55-1.30) H 2.9 MG/DL (0.55-1.30) H Estimat Glomerular Filtration Rate 27.3 mL/min (>60) 26.2 mL/min (>60) Glucose Level 143 MG/DL (74-106) H 116 MG/DL (74-106) H Calcium Level 9.4 MG/DL (8.5-10.1) 8.9 MG/DL (8.5-10.1) Total Bilirubin 0.8 MG/DL (0.2-1.0) Aspartate Amino Transf (AST/SGOT) 42 U/L (15-37) H Alanine Aminotransferase (ALT/SGPT) < 6 U/L (12-78) L Alkaline Phosphatase 52 U/L (46-116) Troponin I 0.040 ng/mL (0.000-0.056) C-Reactive Protein, Quantitative < 0.4 mg/dL (0.00-0.90) Pro-B-Type Natriuretic Peptide 8325 pg/mL (0-125) H 9077 pg/mL (0-125) H Total Protein 7.0 G/DL (6.4-8.2) Albumin 2.5 G/DL (3.4-5.0) L Globulin 4.5 g/dL Albumin/Globulin Ratio 0.6 (1.0-2.7) L Urine Color Yellow Urine Appearance Clear Urine pH 5 (4.5-8.0) Urine Specific [place] 1.015 (1.005-1.035) Urine Protein 2+ (NEGATIVE) H Urine Glucose (UA) Negative (NEGATIVE) Urine Ketones Negative (NEGATIVE) Urine Blood Negative (NEGATIVE) Urine Nitrite Negative (NEGATIVE) Urine Bilirubin Negative (NEGATIVE) Urine Urobilinogen 4 MG/DL (0.0-1.0) H Urine Leukocyte Esterase Negative (NEGATIVE) Urine RBC 0-2 /HPF (0 - 0) H Urine WBC 0-2 /HPF (0 - 0) Urine Squamous Epithelial Cells None /LPF (NONE/OCC) Urine Bacteria Few /HPF (NONE) Height (Feet): 5 Height (Inches): 9.00 Weight (Pounds): 190 Medications Current Medications Medications (Trade) Dose Ordered Sig/Kena Route PRN Reason Start Time Stop Time Status Last Admin Dose Admin Acetaminophen (Tylenol) 650 mg Q4H PRN ORAL Mild Pain (Pain Scale 1-3) 02/23/20 19:30 03/24/20 19:29 Acetaminophen (Tylenol) 650 mg Q4H PRN ORAL Temp >100.5 02/23/20 19:30 03/24/20 19:29 Al Hydroxide/Mg Hydroxide (Mylanta II) 30 ml Q6H PRN ORAL dyspepsia 02/23/20 19:30 03/24/20 19:29 Dextrose (Dextrose 50%) 25 ml Q30M PRN IV Hypoglycemia 02/23/20 19:30 05/23/20 19:29 Dextrose (Dextrose 50%) 50 ml Q30M PRN IV Hypoglycemia 02/23/20 19:30 05/23/20 19:29 Diphenhydramine HCl (Benadryl) 25 mg Q6H PRN ORAL Itching/Pruritis 02/23/20 19:30 03/24/20 19:29 Furosemide (Lasix) 40 mg Q12H IV 02/23/20 19:30 03/24/20 19:29 02/24/20 08:15 Ondansetron HCl (Zofran) 4 mg Q6H PRN IVP Nausea & Vomiting 02/23/20 19:30 03/24/20 19:29 Pantoprazole (Protonix) 40 mg DAILY IV 02/24/20 09:00 03/25/20 08:59 Assessment/Plan Assessment/Plan: Juan Monroe a 69 year oldmalewho presents with PMH of HTN,COPD, CHF s/p ICD( [facility] Arreguin in [address] Jarvis), A. Fib and A Flutter s/p recent cardiac ablation at [facility] on 01/28/20, presented to ED admitted for severe anemia suspect 2/2 femoral artery bleed. #Atrial Flutter #Atrial Fibrillation #Acute on Chronic Systolic Heart Failure #Vtach s/p VT ablation #Hx of R groin hematoma #Acute blood loss anemia likely 2/2 R groin hematoma -cont. in-pt medical care -Hemodynamically stable -TTE EF 15-20% -cont. lasix 40 IV BID -Holdhome Eliquis 2.5 mg PO BID. -Coreg/ amiodarone per cardiology -repeat US with no hematoma -Unable to do CTA due to renal function -transfuse with goal HGB >7 -Cardiology consult appreciated -GI consulted -Surgery consulted (Dr. Abad) #CARMEN on CKD3 #CKD3 -Cr 2.9 on admission. -baseline 1.4~1.5 -Nephro consulted, recs appreciated -hold ACEi/ARB -Continue diuresis as above. -Trend BMP daily. -Avoid nephrotoxin medications #COPD -does not appear to be in COPD exacerbation at this time -pulmonary consult Dr. Tipton appreciated. #DMT2 -Holdhome sitagliptan -ISS, accuchecks qac/hs #HTN - -Hold hydralazine 50 mg PO BID, carvediolol- restart once BP improves -clonidine 0.1 PRN for SBP >160 Dispo: home with Reason for Continued Hospitalization: acute anemia 76 minutes spent on this encounter. Discussed with RN at bedside and consultants named above. 29 spent on counseling and care coordination. In additional 36 min in addition to the usual care above I spent additional time reviewing records in the EMR including physician documentation, nursing documentation, laboratory results, imaging and other clinical documentation. Time of note may not reflect time patient was seen. Jelly Ibarra MD Feb 24, 2020 08:50
[2020-02-24] MEDS: Eliquis 2.5mg tablet ORAL SCH ×3 (09:00→11:02)
[2020-02-24] MEDS ORDERED: Docusate 250mg cap ORAL SCH (09:00)
[2020-02-24] MEDS: Pantoprazole Inj IV SCH (09:02)
[2020-02-24] MEDS: Docusate 100mg cap ORAL SCH ×2 (09:30→17:17)
--- NOTE | 2020-02-24 11:45 | Cardiac Electrophysiology PN ---
Subjective Subjective [id number] Objective Last 24 Hour Vital Signs Date Time Temp Pulse Resp B/P (MAP) Pulse Ox O2 Delivery O2 Flow Rate FiO2 02/24/20 04:00 71 02/24/20 04:00 98.1 68 18 93/55 (68) 93 02/24/20 02:08 Room Air 02/24/20 00:00 86 02/24/20 00:00 99.7 82 19 95/56 (69) 94 02/23/20 22:54 81 02/23/20 22:25 97.9 85 22 105/66 (79) 93 02/23/20 22:05 98.6 76 20 106/68 98 Room Air 02/23/20 21:00 98.6 76 20 106/68 98 Room Air 02/23/20 19:35 98.6 02/23/20 19:00 98.6 88 18 101/64 98 Room Air 02/23/20 17:30 98.6 02/23/20 17:00 98.6 85 18 103/64 98 Room Air 02/23/20 16:19 98.6 72 18 102/60 (74) 98 Room Air Intake and Output 02/23/20 02/24/20 19:00 07:00 Intake Total 295 ml Output Total 300 ml Balance -5 ml Intake Oral 295 ml Output Urine Total 300 ml Laboratory Tests Test 02/23/20 16:45 02/23/20 21:20 02/24/20 06:40 White Blood Count 14.1 K/UL (4.8-10.8) H 11.9 K/UL (4.8-10.8) H Red Blood Count 1.76 M/UL (4.70-6.10) L 2.01 M/UL (4.70-6.10) L Hemoglobin 5.1 G/DL (14.2-18.0) *L 5.9 G/DL (14.2-18.0) *L Hematocrit 17.2 % (42.0-52.0) L 17.4 % (42.0-52.0) L Mean Corpuscular Volume 98 FL (80-99) 87 FL (80-99) # Mean Corpuscular Hemoglobin 29.0 PG (27.0-31.0) 29.1 PG (27.0-31.0) Mean Corpuscular Hemoglobin Concent 29.6 G/DL (32.0-36.0) L 33.6 G/DL (32.0-36.0) Red Cell Distribution Width 16.8 % (11.6-14.8) H 14.8 % (11.6-14.8) Platelet Count 275 K/UL (150-450) 218 K/UL (150-450) Mean Platelet Volume 6.5 FL (6.5-10.1) 5.4 FL (6.5-10.1) L Neutrophils (%) (Auto) % (45.0-75.0) % (45.0-75.0) Lymphocytes (%) (Auto) % (20.0-45.0) % (20.0-45.0) Monocytes (%) (Auto) % (1.0-10.0) % (1.0-10.0) Eosinophils (%) (Auto) % (0.0-3.0) % (0.0-3.0) Basophils (%) (Auto) % (0.0-2.0) % (0.0-2.0) Differential Total Cells Counted 100 100 Neutrophils % (Manual) 82 % (45-75) H 82 % (45-75) H Lymphocytes % (Manual) 11 % (20-45) L 11 % (20-45) L Monocytes % (Manual) 5 % (1-10) 6 % (1-10) Eosinophils % (Manual) 1 % (0-3) 1 % (0-3) Basophils % (Manual) 0 % (0-2) 0 % (0-2) Band Neutrophils 1 % (0-8) 0 % (0-8) Platelet Estimate Adequate Adequate Platelet Morphology Normal Normal Hypochromasia 3+ 2+ Anisocytosis 1+ 1+ Macrocytosis 1+ Prothrombin Time 11.8 SEC (9.30-11.50) H Prothromb Time International Ratio 1.1 (0.9-1.1) Activated Partial Thromboplast Time 26 SEC (23-33) Sodium Level 145 MMOL/L (136-145) 145 MMOL/L (136-145) Potassium Level 4.3 MMOL/L (3.5-5.1) 4.0 MMOL/L (3.5-5.1) Chloride Level 107 MMOL/L (98-107) 109 MMOL/L (98-107) H Carbon Dioxide Level 30 MMOL/L (21-32) 29 MMOL/L (21-32) Anion Gap 8 mmol/L (5-15) 7 mmol/L (5-15) Blood Urea Nitrogen 51 mg/dL (7-18) H 54 mg/dL (7-18) H Creatinine 2.8 MG/DL (0.55-1.30) H 2.9 MG/DL (0.55-1.30) H Estimat Glomerular Filtration Rate 27.3 mL/min (>60) 26.2 mL/min (>60) Glucose Level 143 MG/DL (74-106) H 116 MG/DL (74-106) H Calcium Level 9.4 MG/DL (8.5-10.1) 8.9 MG/DL (8.5-10.1) Total Bilirubin 0.8 MG/DL (0.2-1.0) Aspartate Amino Transf (AST/SGOT) 42 U/L (15-37) H Alanine Aminotransferase (ALT/SGPT) < 6 U/L (12-78) L Alkaline Phosphatase 52 U/L (46-116) Troponin I 0.040 ng/mL (0.000-0.056) C-Reactive Protein, Quantitative < 0.4 mg/dL (0.00-0.90) Pro-B-Type Natriuretic Peptide 8325 pg/mL (0-125) H 9077 pg/mL (0-125) H Total Protein 7.0 G/DL (6.4-8.2) Albumin 2.5 G/DL (3.4-5.0) L Globulin 4.5 g/dL Albumin/Globulin Ratio 0.6 (1.0-2.7) L Urine Color Yellow Urine Appearance Clear Urine pH 5 (4.5-8.0) Urine Specific [place] 1.015 (1.005-1.035) Urine Protein 2+ (NEGATIVE) H Urine Glucose (UA) Negative (NEGATIVE) Urine Ketones Negative (NEGATIVE) Urine Blood Negative (NEGATIVE) Urine Nitrite Negative (NEGATIVE) Urine Bilirubin Negative (NEGATIVE) Urine Urobilinogen 4 MG/DL (0.0-1.0) H Urine Leukocyte Esterase Negative (NEGATIVE) Urine RBC 0-2 /HPF (0 - 0) H Urine WBC 0-2 /HPF (0 - 0) Urine Squamous Epithelial Cells None /LPF (NONE/OCC) Urine Bacteria Few /HPF (NONE) Cruz Donovan MD Feb 24, 2020 11:45
[2020-02-24 12:00] VITALS: BP 96/63
--- NOTE | 2020-02-24 13:49 | Consultation ---
History of Present Illness General Chief Complaint: Pain Present Illness HPI This is a 69 year oldmale with past medical history of HTN,COPD, CHF s/p ICD ( [facility] by Dr Arreguin in [address] Jarvis), A. Fib and A Flutter s/p recent cardiac ablation at [facility] on 01/28/20, presented to ED with complaints of RLE cramping pain, worse with ambulation, worsening edema. Pt recently evaluated in ED for same complaints, US during that time with hematoma and poss R prox superficial femoral artery pseudoaneurysm, pt signed out AMA. Repeat US this admission was negative for hematoma or DVT. Pt noted to have severe anemia, receiving transfusion, and admitted to medicine service for further management. Allergies: Coded Allergies: No Known Allergies (Verified , 09/19/07) Medication History Scheduled Amiodarone Hcl* (Amiodarone Hcl*), 400 MG ORAL DAILY, (Reported) Apixaban (Eliquis), 2.5 MG PO BID, (Reported) Carvedilol Phosphate (Coreg Cr), 10 MG ORAL DAILY, (Reported) Docusate Sodium* (Docusate Sodium*), 100 MG ORAL TWICE A DAY, (Reported) Furosemide* (Lasix*), 40 MG ORAL TWICE A DAY, (Reported) Hydralazine Hcl* (Hydralazine Hcl*), 50 MG ORAL BID, (Reported) Isosorbide Dinitrate (Isosorbide Dinitrate*), 20 MG ORAL BID, (Reported) Sitagliptin* (Januvia*), 25 MG ORAL DAILY, (Reported) Patient History Healthcare decision maker Resuscitation status Advanced Directive on File Review of Systems All Other Systems: negative except mentioned in HPI Physical Exam General Appearance: no apparent distress Lines, tubes and drains: peripheral HEENT: normocephalic, atraumatic Neck: non-tender Respiratory/Chest: chest wall non-tender, lungs clear Cardiovascular/Chest: normal peripheral pulses, normal rate, regular rhythm Abdomen: normal bowel sounds, non tender, soft Extremities: other - + right leg pain and tenderness Neurologic: alert, oriented x 3 Lymphatic: anterior cervical Last 24 Hour Vital Signs Date Time Temp Pulse Resp B/P (MAP) Pulse Ox O2 Delivery O2 Flow Rate FiO2 02/24/20 04:00 71 6/7/20 04:00 98.1 68 18 93/55 (68) 93 02/24/20 02:08 Room Air 02/24/20 00:00 86 02/24/20 00:00 99.7 82 19 95/56 (69) 94 02/23/20 22:54 81 02/23/20 22:25 97.9 85 22 105/66 (79) 93 02/23/20 22:05 98.6 76 20 106/68 98 Room Air 02/23/20 21:00 98.6 76 20 106/68 98 Room Air 02/23/20 19:35 98.6 02/23/20 19:00 98.6 88 18 101/64 98 Room Air 02/23/20 17:30 98.6 02/23/20 17:00 98.6 85 18 103/64 98 Room Air 02/23/20 16:19 98.6 72 18 102/60 (74) 98 Room Air Intake and Output 02/23/20 02/24/20 19:00 07:00 Intake Total 295 ml Output Total 300 ml Balance -5 ml Intake Oral 295 ml Output Urine Total 300 ml Laboratory Tests Test 02/23/20 16:45 02/23/20 21:20 02/24/20 06:40 White Blood Count 14.1 K/UL (4.8-10.8) H 11.9 K/UL (4.8-10.8) H Red Blood Count 1.76 M/UL (4.70-6.10) L 2.01 M/UL (4.70-6.10) L Hemoglobin 5.1 G/DL (14.2-18.0) *L 5.9 G/DL (14.2-18.0) *L Hematocrit 17.2 % (42.0-52.0) L 17.4 % (42.0-52.0) L Mean Corpuscular Volume 98 FL (80-99) 87 FL (80-99) # Mean Corpuscular Hemoglobin 29.0 PG (27.0-31.0) 29.1 PG (27.0-31.0) Mean Corpuscular Hemoglobin Concent 29.6 G/DL (32.0-36.0) L 33.6 G/DL (32.0-36.0) Red Cell Distribution Width 16.8 % (11.6-14.8) H 14.8 % (11.6-14.8) Platelet Count 275 K/UL (150-450) 218 K/UL (150-450) Mean Platelet Volume 6.5 FL (6.5-10.1) 5.4 FL (6.5-10.1) L Neutrophils (%) (Auto) % (45.0-75.0) % (45.0-75.0) Lymphocytes (%) (Auto) % (20.0-45.0) % (20.0-45.0) Monocytes (%) (Auto) % (1.0-10.0) % (1.0-10.0) Eosinophils (%) (Auto) % (0.0-3.0) % (0.0-3.0) Basophils (%) (Auto) % (0.0-2.0) % (0.0-2.0) Differential Total Cells Counted 100 100 Neutrophils % (Manual) 82 % (45-75) H 82 % (45-75) H Lymphocytes % (Manual) 11 % (20-45) L 11 % (20-45) L Monocytes % (Manual) 5 % (1-10) 6 % (1-10) Eosinophils % (Manual) 1 % (0-3) 1 % (0-3) Basophils % (Manual) 0 % (0-2) 0 % (0-2) Band Neutrophils 1 % (0-8) 0 % (0-8) Platelet Estimate Adequate Adequate Platelet Morphology Normal Normal Hypochromasia 3+ 2+ Anisocytosis 1+ 1+ Macrocytosis 1+ Prothrombin Time 11.8 SEC (9.30-11.50) H Prothromb Time International Ratio 1.1 (0.9-1.1) Activated Partial Thromboplast Time 26 SEC (23-33) Sodium Level 145 MMOL/L (136-145) 145 MMOL/L (136-145) Potassium Level 4.3 MMOL/L (3.5-5.1) 4.0 MMOL/L (3.5-5.1) Chloride Level 107 MMOL/L (98-107) 109 MMOL/L (98-107) H Carbon Dioxide Level 30 MMOL/L (21-32) 29 MMOL/L (21-32) Anion Gap 8 mmol/L (5-15) 7 mmol/L (5-15) Blood Urea Nitrogen 51 mg/dL (7-18) H 54 mg/dL (7-18) H Creatinine 2.8 MG/DL (0.55-1.30) H 2.9 MG/DL (0.55-1.30) H Estimat Glomerular Filtration Rate 27.3 mL/min (>60) 26.2 mL/min (>60) Glucose Level 143 MG/DL (74-106) H 116 MG/DL (74-106) H Calcium Level 9.4 MG/DL (8.5-10.1) 8.9 MG/DL (8.5-10.1) Total Bilirubin 0.8 MG/DL (0.2-1.0) Aspartate Amino Transf (AST/SGOT) 42 U/L (15-37) H Alanine Aminotransferase (ALT/SGPT) < 6 U/L (12-78) L Alkaline Phosphatase 52 U/L (46-116) Troponin I 0.040 ng/mL (0.000-0.056) C-Reactive Protein, Quantitative < 0.4 mg/dL (0.00-0.90) Pro-B-Type Natriuretic Peptide 8325 pg/mL (0-125) H 9077 pg/mL (0-125) H Total Protein 7.0 G/DL (6.4-8.2) Albumin 2.5 G/DL (3.4-5.0) L Globulin 4.5 g/dL Albumin/Globulin Ratio 0.6 (1.0-2.7) L Urine Color Yellow Urine Appearance Clear Urine pH 5 (4.5-8.0) Urine Specific [place] 1.015 (1.005-1.035) Urine Protein 2+ (NEGATIVE) H Urine Glucose (UA) Negative (NEGATIVE) Urine Ketones Negative (NEGATIVE) Urine Blood Negative (NEGATIVE) Urine Nitrite Negative (NEGATIVE) Urine Bilirubin Negative (NEGATIVE) Urine Urobilinogen 4 MG/DL (0.0-1.0) H Urine Leukocyte Esterase Negative (NEGATIVE) Urine RBC 0-2 /HPF (0 - 0) H Urine WBC 0-2 /HPF (0 - 0) Urine Squamous Epithelial Cells None /LPF (NONE/OCC) Urine Bacteria Few /HPF (NONE) Height (Feet): 5 Height (Inches): 9.00 Weight (Pounds): 190 Medications Current Medications Medications (Trade) Dose Ordered Sig/Kena Route PRN Reason Start Time Stop Time Status Last Admin Dose Admin Acetaminophen (Tylenol) 650 mg Q4H PRN ORAL Mild Pain (Pain Scale 1-3) 02/23/20 19:30 03/24/20 19:29 Acetaminophen (Tylenol) 650 mg Q4H PRN ORAL Temp >100.5 02/23/20 19:30 03/24/20 19:29 Al Hydroxide/Mg Hydroxide (Mylanta II) 30 ml Q6H PRN ORAL dyspepsia 02/23/20 19:30 03/24/20 19:29 Dextrose (Dextrose 50%) 25 ml Q30M PRN IV Hypoglycemia 02/23/20 19:30 05/23/20 19:29 Dextrose (Dextrose 50%) 50 ml Q30M PRN IV Hypoglycemia 02/23/20 19:30 05/23/20 19:29 Diphenhydramine HCl (Benadryl) 25 mg Q6H PRN ORAL Itching/Pruritis 02/23/20 19:30 03/24/20 19:29 Docusate Sodium (Colace) 100 mg TWICE A DAY ORAL 02/24/20 09:15 03/25/20 08:59 02/24/20 09:30 Furosemide (Lasix) 40 mg Q12H IV 02/23/20 19:30 03/24/20 19:29 02/24/20 08:15 Ondansetron HCl (Zofran) 4 mg Q6H PRN IVP Nausea & Vomiting 02/23/20 19:30 03/24/20 19:29 Pantoprazole (Protonix) 40 mg DAILY IV 02/24/20 09:00 03/25/20 08:59 02/24/20 09:02 Assessment/Plan Diagnosis [place] [facility]: #CARMEN on CKD- due to CRS1 and acute anemia #Acute blood loss anemia #HTN #COPD #CHF s/p ICD( implanted at [facility] by Dr Arreguin in [address] Jarvis) #A. Fib and A Flutter s/p recent cardiac ablation at [facility] on 01/28/20 - prbc transfusion - surgery eval - monitor CBC - hold AC - cardiology eval - lasix 40 V BID - monitor cr - GI eval - iron panel - srtict I&Os - daily weights Prateek Hdz M.D. Feb 24, 2020 13:49
--- NOTE | 2020-02-24 14:10 | NUR ---
PT Note Acknowledged order for PT eval/tx. Attempted t see patient for eval/tx but patient was receiving blood transfusion. Will hold off on PT today; check again in AM. RN was notified and agreed.
--- NOTE | 2020-02-24 15:49 | General Progress Note ---
Assessment/Plan Assessment/Plan: GI CONSULT Dictated Patient want to wait / think about having any GI evaluation Thank you Michoacano iraheta MD Subjective Allergies: Coded Allergies: No Known Allergies (Verified , 09/19/07) Objective Last 24 Hour Vital Signs Date Time Temp Pulse Resp B/P (MAP) Pulse Ox O2 Delivery O2 Flow Rate FiO2 02/24/20 13:04 114 02/24/20 12:00 59 02/24/20 12:00 97.9 67 20 96/63 (74) 99 02/24/20 09:00 Room Air 02/24/20 08:00 98.1 68 20 92/56 (68) 98 02/24/20 08:00 66 02/24/20 04:00 71 02/24/20 04:00 98.1 68 18 93/55 (68) 93 02/24/20 02:08 Room Air 02/24/20 00:00 86 02/24/20 00:00 99.7 82 19 95/56 (69) 94 02/23/20 22:54 81 02/23/20 22:25 97.9 85 22 105/66 (79) 93 02/23/20 22:05 98.6 76 20 106/68 98 Room Air 02/23/20 21:00 98.6 76 20 106/68 98 Room Air 02/23/20 19:35 98.6 02/23/20 19:00 98.6 88 18 101/64 98 Room Air 02/23/20 17:30 98.6 02/23/20 17:00 98.6 85 18 103/64 98 Room Air 02/23/20 16:19 98.6 72 18 102/60 (74) 98 Room Air Intake and Output 02/23/20 02/24/20 19:00 07:00 Intake Total 295 ml Output Total 300 ml Balance -5 ml Intake Oral 295 ml Output Urine Total 300 ml Laboratory Tests 02/23/20 16:45: White Blood Count 14.1H, Red Blood Count 1.76L, Hemoglobin 5.1*L, Hematocrit 17.2L, Mean Corpuscular Volume 98, Mean Corpuscular Hemoglobin 29.0, Mean Corpuscular Hemoglobin Concent 29.6L, Red Cell Distribution Width 16.8H, Platelet Count 275, Mean Platelet Volume 6.5, Neutrophils (%) (Auto) , Lymphocytes (%) (Auto) , Monocytes (%) (Auto) , Eosinophils (%) (Auto) , Basophils (%) (Auto) , Differential Total Cells Counted 100, Neutrophils % ( Manual) 82H, Lymphocytes % (Manual) 11L, Monocytes % (Manual) 5, Eosinophils % ( Manual) 1, Basophils % (Manual) 0, Band Neutrophils 1, Platelet Estimate Adequate, Platelet Morphology Normal, Hypochromasia 3+, Anisocytosis 1+, Macrocytosis 1+, Prothrombin Time 11.8H, Prothromb Time International Ratio 1.1 , Activated Partial Thromboplast Time 26, Sodium Level 145, Potassium Level 4.3 , Chloride Level 107, Carbon Dioxide Level 30, Anion Gap 8, Blood Urea Nitrogen 51H, Creatinine 2.8H, Estimat Glomerular Filtration Rate 27.3, Glucose Level 143H, Calcium Level 9.4, Total Bilirubin 0.8, Aspartate Amino Transf (AST/SGOT) 42H, Alanine Aminotransferase (ALT/SGPT) < 6L, Alkaline Phosphatase 52, Troponin I 0.040, C-Reactive Protein, Quantitative < 0.4, Pro-B-Type Natriuretic Peptide 8325H, Total Protein 7.0, Albumin 2.5L, Globulin 4.5, Albumin/Globulin Ratio 0.6L 02/23/20 21:20: Urine Color Yellow, Urine Appearance Clear, Urine pH 5, Urine Specific [place] 1.015, Urine Protein 2+H, Urine Glucose (UA) Negative, Urine Ketones Negative, Urine Blood Negative, Urine Nitrite Negative, Urine Bilirubin Negative, Urine Urobilinogen 4H, Urine Leukocyte Esterase Negative, Urine RBC 0-2H, Urine WBC 0- 2, Urine Squamous Epithelial Cells None, Urine Bacteria Few 02/24/20 06:40: White Blood Count 11.9H, Red Blood Count 2.01L, Hemoglobin 5.9*L, Hematocrit 17.4L, Mean Corpuscular Volume 87#, Mean Corpuscular Hemoglobin 29.1, Mean Corpuscular Hemoglobin Concent 33.6, Red Cell Distribution Width 14.8, Platelet Count 218, Mean Platelet Volume 5.4L, Neutrophils (%) (Auto) , Lymphocytes (%) ( Auto) , Monocytes (%) (Auto) , Eosinophils (%) (Auto) , Basophils (%) (Auto) , Differential Total Cells Counted 100, Neutrophils % (Manual) 82H, Lymphocytes % (Manual) 11L, Monocytes % (Manual) 6, Eosinophils % (Manual) 1, Basophils % ( Manual) 0, Band Neutrophils 0, Platelet Estimate Adequate, Platelet Morphology Normal, Hypochromasia 2+, Anisocytosis 1+, Sodium Level 145, Potassium Level 4.0 , Chloride Level 109H, Carbon Dioxide Level 29, Anion Gap 7, Blood Urea Nitrogen 54H, Creatinine 2.9H, Estimat Glomerular Filtration Rate 26.2, Glucose Level 116H, Calcium Level 8.9, Pro-B-Type Natriuretic Peptide 9077H Height (Feet): 5 Height (Inches): 9.00 Weight (Pounds): 190 Michoacano Iraheta MD Feb 24, 2020 15:49
[2020-02-24 16:00] VITALS: BP 96/58
--- NOTE | 2020-02-24 16:45 | Consultation ---
DATE OF CONSULTATION: 02/24/2020 CARDIOLOGY CONSULTATION CONSULTING PHYSICIAN: Cruz Donovan M.D. REFERRING PHYSICIAN: Prateek Hdz MD REASON FOR CONSULTATION: Management of congestive heart failure, atrial flutter, evaluation of defibrillator. HISTORY OF PRESENT ILLNESS: The patient is a 70-year-old gentleman with history of severe cardiomyopathy, ejection fraction of 50% as well as history of recurrent atrial flutter as well as history of recurrent ventricular tachycardia. The patient also has renal failure and hypernatremia. The patient was then transferred to [facility] and underwent successful right-sided atrial flutter ablation by ok on 01/25/2020. The patient also had left atrial flutter and atrial fib that was cardioverted and was kept on amiodarone and Eliquis. The patient also had recurrent ICD shocks for ventricular tachycardia and underwent ablation of three different ventricular tachycardias all with right bundle-branch block morphology and right inferior axis morphology from left ventricular outflow tract on 01/28/2020. The patient was admitted to the hospital for increasing right leg pain, both legs are swollen. The patient was also on Eliquis. The patient was seen here on 02/18/2020 last week. Doppler of the right lower leg was suggestive of right proximal superficial femoral artery pseudoaneurysm of 4.3 cm; however, the patient signed out against medical advice. The patient was admitted and a Cardiology consultation was requested for further evaluation and management. REVIEW OF SYSTEMS: Review of systems was negative other than what was mentioned in history of present illness. PAST MEDICAL HISTORY: As mentioned above. FAMILY HISTORY: Noncontributory. SOCIAL HISTORY: He lives at home. Does not smoke or drink alcohol. PHYSICAL EXAMINATION: VITAL SIGNS: Blood pressure 93/55, pulse 68, respirations 18, afebrile. HEAD AND NECK: Positive JVD. LUNGS: Clear. CARDIOVASCULAR: Regular S1 and S2 with no gallop or murmur. ABDOMEN: Soft. EXTREMITIES: A 1+ pitting edema. LABORATORY AND DIAGNOSTIC DATA: White count of 11.9, hemoglobin of 5.1 and after two units of blood transfusion was only 5.9, hematocrit of 17, and platelet count of 218. Sodium 144, potassium 4.0, BUN of 54, creatinine of 2.9, and glucose of 116. Troponin negative x2. BNP is 9000. Digoxin level is less than 0.2. ASSESSMENT AND PLAN: 1. History of successful atrial flutter ablation on 01/25/2020 without recurrence. 2. History of left atrial flutter as well as atrial fibrillation that was cardioverted. Continue the patient on amiodarone 100 mg daily. Hold off on Eliquis in view of severe anemia. His hemoglobin of only 5. 3. Recurrent ventricular tachycardia with multiple defibrillator shocks, status post ablation of three different ventricular tachycardia from left ventricular outflow tract and aortic valve by me on 01/28/2020. 4. 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 Resume Coreg, hydralazine, Isordil, Lasix, and Aldactone. 5. Chronic kidney disease with creatinine around 2.5. Followup with Dr. Hdz. 6. Profound anemia. The patient received blood transfusion. I agree with more blood transfusion. Stool OB is pending. 7. History of right femoral artery pseudoaneurysm. A venous duplex from yesterday showed no DVT in the common femoral artery and there was no thrombus. No evidence of DVT. It seems like pseudoaneurysm was reported on 02/18/2020 on the venous duplex, as a result will need vascular surgery to evaluate the patient. Thank you very much for allowing me to participate in the care of this patient. Please do not hesitate to contact me if you have any questions regarding my evaluation. Sincerely, Cruz Donovan M.D. DR: Demetrio JOB#: [id number] CC:
--- NOTE | 2020-02-24 17:20 | Consultation ---
History of Present Illness General Date patient seen: Feb 24, 2020 Reason for Hospitalization: Pain Present Illness HPI This is a pleasant 70-year-old male with history of severe cardiomyopathy EF 50%, recurrent atrial flutter, hx ventricular tachycardia, renal failure and hypernatremia who recently underwent successful right-sided atrial flutter ablation on 01/25/2020. The patient was also on Eliquis post procedure. He was seen here on 02/18/2020 last week. Doppler of the right lower leg was suggestive of right proximal superficial femoral artery pseudoaneurysm of 4.3 cm; however, the patient signed out against medical advice. He now returns with worsening right leg edema. states difficult to walk. cramping pain. no n/v/f/c. severe anemia. transfused. surgery called to evaluate. patient seen, chart reviewed, patient examined. Allergies: Coded Allergies: No Known Allergies (Verified , 09/19/07) COVID-19 Screening Contact w/high risk pt: No Recent Travel to affected area: No Experienced COVID-19 symptoms?: No COVID-19 symptoms experienced: Shortness of Breath Medication History Scheduled Amiodarone Hcl* (Amiodarone Hcl*), 400 MG ORAL DAILY, (Reported) Apixaban (Eliquis), 2.5 MG PO BID, (Reported) Carvedilol Phosphate (Coreg Cr), 10 MG ORAL DAILY, (Reported) Docusate Sodium* (Docusate Sodium*), 100 MG ORAL TWICE A DAY, (Reported) Furosemide* (Lasix*), 40 MG ORAL TWICE A DAY, (Reported) Hydralazine Hcl* (Hydralazine Hcl*), 50 MG ORAL BID, (Reported) Isosorbide Dinitrate (Isosorbide Dinitrate*), 20 MG ORAL BID, (Reported) Sitagliptin* (Januvia*), 25 MG ORAL DAILY, (Reported) Patient History History Provided By: Patient, Medical Record, PMD Healthcare decision maker Resuscitation status Advanced Directive on File Past Medical/Surgical History Past Medical/Surgical History: (1) Ventricular arrhythmia (2) Palpitations (3) Acute on chronic congestive heart failure (4) Edema (5) Thrombosis (6) Pseudoaneurysm (7) Profound anemia (8) Eye problem (9) Corneal injury (10) Adrenal gland lesion (11) Right kidney stone (12) Arrhythmia (13) Hemangioma (14) Toe pain (15) Toe pain, left (16) Bradycardia with 51-60 beats per minute (17) CHF (congestive heart failure) (18) HTN (hypertension) (19) CARMEN (acute kidney injury) (20) CKD (chronic kidney disease) (21) Arthritis (22) Cellulitis of right leg Review of Systems Review of Symptoms General ROS: no weight loss or fever Psychological ROS: no depression or mood changes, no memory loss Ophthalmic ROS: no visual changes or eye irritation ENT ROS: no nasal congestion, hearing loss, dizziness Allergy and Immunology ROS: no allergic symptoms or urticaria Hematological and Lymphatic ROS: no swollen glands, unusual bleeding or bruising Endocrine ROS: no polyuria, polydipsia, weight changes, temperature intolerance Respiratory ROS: no cough, shortness of breath, or wheezing Cardiovascular ROS: no chest pain or dyspnea on exertion Gastrointestinal ROS: denies abdominal pain, bright red blood in stool. Musculoskeletal ROS: no myalgias or arthralgias Neurological ROS: no TIA or stroke symptoms Dermatological ROS: no new or changing skin lesions, rashes or pruritis Physical Exam Physical Exam General appearance: alert, cooperative, no distress, appears stated age Head: Normocephalic, without obvious abnormality, atraumatic Eyes: conjunctivae/corneas clear. PERRL, EOM's intact. Fundi benign Throat: Lips, mucosa, and tongue normal. Teeth and gums normal Neck: supple, symmetrical, trachea midline, no adenopathy, thyroid: not enlarged, symmetric, no tenderness/mass/nodules, no carotid bruit and no JVD Lungs: clear to auscultation bilaterally Heart: regular rate and rhythm, S1, S2 normal, no murmur, click, rub or gallop Abdomen: soft, non-tender. Bowel sounds normal. No masses, no organomegaly Extremities: extremities right with edema from groin to foot. no fluid collection palpable Pulses: 1+ and somewhat symmetric Right less than left Skin: Skin color, texture, turgor normal. No rashes or lesions Neurologic: Grossly normal Last 24 Hour Vital Signs Date Time Temp Pulse Resp B/P (MAP) Pulse Ox O2 Delivery O2 Flow Rate FiO2 02/24/20 13:04 114 02/24/20 12:00 59 02/24/20 12:00 97.9 67 20 96/63 (74) 99 02/24/20 09:00 Room Air 02/24/20 08:00 98.1 68 20 92/56 (68) 98 02/24/20 08:00 66 02/24/20 04:00 71 02/24/20 04:00 98.1 68 18 93/55 (68) 93 02/24/20 02:08 Room Air 02/24/20 00:00 86 02/24/20 00:00 99.7 82 19 95/56 (69) 94 02/23/20 22:54 81 02/23/20 22:25 97.9 85 22 105/66 (79) 93 02/23/20 22:05 98.6 76 20 106/68 98 Room Air 02/23/20 21:00 98.6 76 20 106/68 98 Room Air 02/23/20 19:35 98.6 02/23/20 19:00 98.6 88 18 101/64 98 Room Air 02/23/20 17:30 98.6 Intake and Output 02/23/20 02/24/20 19:00 07:00 Intake Total 295 ml Output Total 300 ml Balance -5 ml Intake Oral 295 ml Output Urine Total 300 ml Laboratory Tests Test 02/23/20 21:20 02/24/20 06:40 Urine Color Yellow Urine Appearance Clear Urine pH 5 (4.5-8.0) Urine Specific [place] 1.015 (1.005-1.035) Urine Protein 2+ (NEGATIVE) H Urine Glucose (UA) Negative (NEGATIVE) Urine Ketones Negative (NEGATIVE) Urine Blood Negative (NEGATIVE) Urine Nitrite Negative (NEGATIVE) Urine Bilirubin Negative (NEGATIVE) Urine Urobilinogen 4 MG/DL (0.0-1.0) H Urine Leukocyte Esterase Negative (NEGATIVE) Urine RBC 0-2 /HPF (0 - 0) H Urine WBC 0-2 /HPF (0 - 0) Urine Squamous Epithelial Cells None /LPF (NONE/OCC) Urine Bacteria Few /HPF (NONE) White Blood Count 11.9 K/UL (4.8-10.8) H Red Blood Count 2.01 M/UL (4.70-6.10) L Hemoglobin 5.9 G/DL (14.2-18.0) *L Hematocrit 17.4 % (42.0-52.0) L Mean Corpuscular Volume 87 FL (80-99) # Mean Corpuscular Hemoglobin 29.1 PG (27.0-31.0) Mean Corpuscular Hemoglobin Concent 33.6 G/DL (32.0-36.0) Red Cell Distribution Width 14.8 % (11.6-14.8) Platelet Count 218 K/UL (150-450) Mean Platelet Volume 5.4 FL (6.5-10.1) L Neutrophils (%) (Auto) % (45.0-75.0) Lymphocytes (%) (Auto) % (20.0-45.0) Monocytes (%) (Auto) % (1.0-10.0) Eosinophils (%) (Auto) % (0.0-3.0) Basophils (%) (Auto) % (0.0-2.0) Differential Total Cells Counted 100 Neutrophils % (Manual) 82 % (45-75) H Lymphocytes % (Manual) 11 % (20-45) L Monocytes % (Manual) 6 % (1-10) Eosinophils % (Manual) 1 % (0-3) Basophils % (Manual) 0 % (0-2) Band Neutrophils 0 % (0-8) Platelet Estimate Adequate Platelet Morphology Normal Hypochromasia 2+ Anisocytosis 1+ Sodium Level 145 MMOL/L (136-145) Potassium Level 4.0 MMOL/L (3.5-5.1) Chloride Level 109 MMOL/L (98-107) H Carbon Dioxide Level 29 MMOL/L (21-32) Anion Gap 7 mmol/L (5-15) Blood Urea Nitrogen 54 mg/dL (7-18) H Creatinine 2.9 MG/DL (0.55-1.30) H Estimat Glomerular Filtration Rate 26.2 mL/min (>60) Glucose Level 116 MG/DL (74-106) H Calcium Level 8.9 MG/DL (8.5-10.1) Pro-B-Type Natriuretic Peptide 9077 pg/mL (0-125) H Height (Feet): 5 Height (Inches): 9.00 Weight (Pounds): 190 Medications Current Medications Medications (Trade) Dose Ordered Sig/Kena Route PRN Reason Start Time Stop Time Status Last Admin Dose Admin Acetaminophen (Tylenol) 650 mg Q4H PRN ORAL Mild Pain (Pain Scale 1-3) 02/23/20 19:30 03/24/20 19:29 Acetaminophen (Tylenol) 650 mg Q4H PRN ORAL Temp >100.5 02/23/20 19:30 03/24/20 19:29 Al Hydroxide/Mg Hydroxide (Mylanta II) 30 ml Q6H PRN ORAL dyspepsia 02/23/20 19:30 03/24/20 19:29 Dextrose (Dextrose 50%) 25 ml Q30M PRN IV Hypoglycemia 02/23/20 19:30 05/23/20 19:29 Dextrose (Dextrose 50%) 50 ml Q30M PRN IV Hypoglycemia 02/23/20 19:30 05/23/20 19:29 Diphenhydramine HCl (Benadryl) 25 mg Q6H PRN ORAL Itching/Pruritis 02/23/20 19:30 03/24/20 19:29 Docusate Sodium (Colace) 100 mg TWICE A DAY ORAL 02/24/20 09:15 03/25/20 08:59 02/24/20 09:30 Furosemide (Lasix) 40 mg Q12H IV 02/23/20 19:30 03/24/20 19:29 02/24/20 08:15 Ondansetron HCl (Zofran) 4 mg Q6H PRN IVP Nausea & Vomiting 02/23/20 19:30 03/24/20 19:29 Pantoprazole (Protonix) 40 mg DAILY IV 02/24/20 09:00 03/25/20 08:59 02/24/20 09:02 Potassium Chloride 40 meq/ Dextrose 570 ml @ 142.5 mls/ hr ONCE IV 02/24/20 20:00 03/25/20 19:59 Assessment/Plan Problem List: (1) Edema ICD Codes: R60.9 - Edema, unspecified SNOMED: 022419611, 325879606 Qualifiers: Qualified Codes: R60.9 - Edema, unspecified (2) Pseudoaneurysm ICD Codes: I72.9 - Aneurysm of unspecified site SNOMED: 120572478, 37356014, [id number] (3) Cellulitis of right leg Assessment & Plan: 70-year-old male right lower extremity significant edema patient recently had cardiac interventional procedure access to right groin on Eliquis developed pseudoaneurysm left AMA prior treatment now returns with significant right lower extremity edema. Diffuse edema from the groin down to the foot. Mainly in the thigh region. Hemoglobin noted severely anemic. There is a possibility that the aneurysm ruptured but currently stable. There is a possibility of persistent bleed and this is diffuse hematoma. No localized fluid collection for drainage identified. Recommend arterial duplex ultrasound. CT scan angio will be discussed with team given renal function. keep leg elevated hold blood thinner is possible / safe keep flat will follow with exam an recs thank you Deep veins: Unremarkable. No DVT in the visualized common femoral, femoral, proximal deep femoral or popliteal veins. The veins demonstrate normal color flow, are normally compressible, with normal phasic flow and/or augmentation response. Superficial veins: Unremarkable. No thrombus in the visualized great saphenous vein. Soft tissues: Nonspecific edema involving the right lower extremity. No popliteal cyst. IMPRESSION: No ultrasonographic evidence of deep venous thrombosis involving the right lower extremity. ICD Codes: L03.115 - Cellulitis of right lower limb SNOMED: 111444879 Jim Abad Feb 24, 2020 17:20
[2020-02-24 17:25] LABS: HEMATOCRIT 22.6 % (42.0-52.0); MEAN CORPUSCULAR VOLUME 94 FL (80-99); PLATELET COUNT 239 K/UL (150-450); WHITE BLOOD COUNT 11.7 K/UL (4.8-10.8)
[2020-02-24 17:30] LABS: MONOCYTES % (AUTO) 9.9 % (1.0-10.0); NEUTROPHILS % (AUTO) 77.6 % (45.0-75.0)
[2020-02-24 17:31] LABS: BASOPHILS % (AUTO) 0.5 % (0.0-2.0)
--- NOTE | 2020-02-24 19:20 | NUR ---
HAND-OFF: Report given to Ilda Fuller RN. Patient stable. Plan of care endorsed. Dr. Hdz notified of Hgb of 7.0. No new orders at this time.
--- NOTE | 2020-02-24 19:28 | NUR ---
NURSE NOTES: Received report from JACIEL Gomez. Patient is awake lying semi-vaughn's; resting comfortably. No signs of acute distress noted; denies pain at this time. AOx4; able to make needs known. Checked IV site; patent and flushed. No erythema, bleeding, or infiltration noted. Left chest AICD in place. Right leg still noticeably more edematous than left leg. Affected extremity elevated and educated patient on the importance of keeping right leg elevated. Urinal easily accessible. Bed at lowest position, brakes on, siderails up x3. Call light within reach. Will continue to monitor.
[2020-02-24 20:00] VITALS: BP 93/60
[2020-02-24] MEDS ORDERED: Potassium Chloride 40 MEQ in D5W 500ml 550 ML IV SCH (20:00)
--- NOTE | 2020-02-24 22:02 | NUR ---
NURSE NOTES: Called Dr. Hdz regarding patient's SBP of 80-83 and that patient is complaining of persistent burning on the IV site during Potassium 40mEq infusion. Received new order for K-Dur 40 mEq PO ONCE and to just monitor patient's blood pressure at this time. Noted and carried out.
[2020-02-25] VITALS: BP 103/75
--- NOTE | 2020-02-25 02:45 | Consultation ---
DATE OF CONSULTATION: 02/24/2020 CHIEF COMPLAINT: I was asked to see this patient by Dr. Hdz for evaluation of anemia. HISTORY OF PRESENT ILLNESS: The patient is a 70-year-old man who comes in to the hospital due to the right colon complications. He underwent a cardiac ablation at [facility] on 01/28/2020 and also developed complications in the right lower extremity arterial system. He was also found to have severe anemia, which generated this consultation. The patient has never had endoscopy or colonoscopy. He denies abdominal pain, nausea, vomiting, diarrhea, constipation, or hematochezia. I advised the patient that he needs to have a colonoscopy at minimum for screening purposes and also for the evaluation of the anemia. PAST MEDICAL HISTORY: History of atrial flutter, atrial fibrillation, heart failure, status post ventricular tachycardia ablation, right groin hematoma, anemia, poor ejection fraction at approximately 15% to 20%, on anticoagulation, which has been discontinued, renal insufficiency, COPD, diabetes, and hypertension. FAMILY HISTORY: Noncontributory. SOCIAL HISTORY: The patient has had a history of cocaine use and marijuana use. ALLERGIES: None. REVIEW OF SYSTEMS: Otherwise negative. MEDICATIONS: See the chart list for details. PHYSICAL EXAMINATION: GENERAL: Well-developed, well-nourished man seen in his room. HEENT: Normocephalic and atraumatic. Sclerae anicteric. Oropharynx is clear. Dentition is poor. NECK: Supple. CHEST: Clear to auscultation. CARDIOVASCULAR: Revealed regular rate. ABDOMEN: Soft and flat. Good bowel sounds. There is an old midline scar from his ventral hernia repair. EXTREMITIES: Revealed trace bilateral edema. NEUROLOGICAL: Grossly nonfocal. LABORATORY DATA: Noted. ASSESSMENT: This patient presents with right groin complication after recent catheterization, which may explain most of the anemia. The patient should be transfused, and if he is, blood count should be followed closely. However, the patient states that he has never had a colonoscopy and therefore at some point, overall clinical health permitting, to have a colonoscopy as well as an endoscopy. The indications for evaluation of the GI tract were explained to the patient at length and all questions were answered. RECOMMENDATIONS: 1. Transfuse as necessary. 2. Follow CBC. 3. Vascular evaluation. 4. Endoscopy and colonoscopy at a later date once the patient gives consent. Thank you for asking me to participate in the care of this patient. Michoacano Stewart M.D. DR: Stuart JOB#: [id number] CC: HERIBERTO
[2020-02-25 04:00] VITALS: BP 113/60
[2020-02-25 06:27] LABS: HEMATOCRIT 19.8 % (42.0-52.0); MEAN CORPUSCULAR VOLUME 87 FL (80-99); PLATELET COUNT 253 K/UL (150-450); RED BLOOD COUNT 2.29 M/UL (4.70-6.10); RED CELL DISTRIBUTION WIDTH 14.6 % (11.6-14.8); WHITE BLOOD COUNT 9.5 K/UL (4.8-10.8)
[2020-02-25] MEDS: NovoLOG Insulin Flexpen SUBQ SCH ×4 (06:30→21:00)
[2020-02-25 06:33] LABS: HEMOGLOBIN 6.7 G/DL (14.2-18.0)
[2020-02-25 06:37] LABS: ANION GAP 4 mmol/L (5-15); BLOOD UREA NITROGEN 51 mg/dL (7-18); CALCIUM 8.8 MG/DL (8.5-10.1); CARBON DIOXIDE 31 MMOL/L (21-32); CHLORIDE 109 MMOL/L (98-107); CREATININE 2.9 MG/DL (0.55-1.30); POTASSIUM 4.5 MMOL/L (3.5-5.1); SODIUM 144 MMOL/L (136-145)
--- NOTE | 2020-02-25 07:26 | NUR ---
HAND-OFF: Report given to JACIEL Gomez. Patient is awake lying semi-vaughn's; resting comfortably. Endorsed to oncoming shift regarding patient's hgb level of 6.7; verbalized understanding.
[2020-02-25 07:42] LABS: PHOSPHORUS 2.9 MG/DL (2.5-4.9)
--- NOTE | 2020-02-25 07:51 | General Progress Note ---
Assessment/Plan Problem List: (1) CKD (chronic kidney disease) ICD Codes: N18.9 - Chronic kidney disease, unspecified SNOMED: 656718300 (2) HTN (hypertension) ICD Codes: I10 - HTN (hypertension) SNOMED: 87157226 (3) CHF (congestive heart failure) ICD Codes: I50.9 - Congestive heart failure SNOMED: 45950569 (4) Arrhythmia ICD Codes: I49.9 - Arrhythmia SNOMED: 86356496 (5) Profound anemia ICD Codes: D64.9 - Anemia, unspecified SNOMED: 544583821 Qualifiers: Qualified Codes: D64.9 - Anemia, unspecified (6) Pseudoaneurysm ICD Codes: I72.9 - Aneurysm of unspecified site SNOMED: 771258354, 58741450, 12671790 Assessment/Plan: no active GIB bleeding most likely from right femoral artery pseudoaneurysm fu stool ob low EF of 15 % will fu Subjective Allergies: Coded Allergies: No Known Allergies (Verified , 09/19/07) Objective Last 24 Hour Vital Signs Date Time Temp Pulse Resp B/P (MAP) Pulse Ox O2 Delivery O2 Flow Rate FiO2 02/25/20 04:00 108 02/25/20 04:00 97.5 104 19 113/60 (77) 100 02/25/20 00:00 112 02/25/20 00:00 98.4 96 18 103/75 (84) 98 02/24/20 21:00 Room Air 02/24/20 20:00 98.1 102 21 93/60 (71) 99 02/24/20 20:00 102 02/24/20 16:00 97.9 79 20 96/58 (71) 98 02/24/20 16:00 106 02/24/20 13:04 114 02/24/20 12:00 59 02/24/20 12:00 97.9 67 20 96/63 (74) 99 02/24/20 09:00 Room Air 02/24/20 08:00 98.1 68 20 92/56 (68) 98 02/24/20 08:00 66 Intake and Output 02/24/20 02/25/20 19:00 07:00 Intake Total 400 ml 720.8 ml Output Total 1000 ml 975 ml Balance -600 ml -254.2 ml Intake Oral 400 ml 450 ml IV Total 270.8 ml Output Urine Total 1000 ml 975 ml # Voids 4 Laboratory Tests 02/24/20 17:00: White Blood Count 11.7H, Red Blood Count 2.40L, Hemoglobin 7.0L, Hematocrit 22.6L, Mean Corpuscular Volume 94#, Mean Corpuscular Hemoglobin 29.2, Mean Corpuscular Hemoglobin Concent 30.9L, Red Cell Distribution Width 16.0H, Platelet Count 239, Mean Platelet Volume 6.5, Neutrophils (%) (Auto) 77.6H, Lymphocytes (%) (Auto) 10.0L, Monocytes (%) (Auto) 9.9, Eosinophils (%) (Auto) 2.0, Basophils (%) (Auto) 0.5 02/25/20 05:35: White Blood Count 9.5, Red Blood Count 2.29L, Hemoglobin 6.7*L, Hematocrit 19.8L , Mean Corpuscular Volume 87, Mean Corpuscular Hemoglobin 29.4, Mean Corpuscular Hemoglobin Concent 33.8, Red Cell Distribution Width 14.6, Platelet Count 253, Mean Platelet Volume 5.1L, Neutrophils (%) (Auto) , Lymphocytes (%) ( Auto) , Monocytes (%) (Auto) , Eosinophils (%) (Auto) , Basophils (%) (Auto) , Neutrophils % (Manual) [Pending], Lymphocytes % (Manual) [Pending], Platelet Estimate [Pending], Platelet Morphology [Pending], Prothrombin Time 11.4, Prothromb Time International Ratio 1.0, Activated Partial Thromboplast Time 30, Sodium Level 144, Potassium Level 4.5, Chloride Level 109H, Carbon Dioxide Level 31, Anion Gap 4L, Blood Urea Nitrogen 51H, Creatinine 2.9H, Estimat Glomerular Filtration Rate 26.2, Glucose Level 110H, Calcium Level 8.8, Phosphorus Level 2.9, Magnesium Level 2.3 Height (Feet): 5 Height (Inches): 9.00 Weight (Pounds): 187 General Appearance: no apparent distress EENT: normal ENT inspection Neck: supple Cardiovascular: normal rate Respiratory/Chest: decreased breath sounds Abdomen: normal bowel sounds, non tender, soft Extremities: non-tender Silas Ramesh MD Feb 25, 2020 07:51
[2020-02-25 08:00] VITALS: BP 95/63
--- NOTE | 2020-02-25 08:13 | NUR ---
NURSE NOTES: Patient AOx4 with no complaints and no s/sx of distress. RR even and unlabored on RA. Dr. Hdz called and reported Hgb of 6.7. Awaiting call back. Side rails upx2, call light within reach, bed low and locked. Will continue to monitor.
--- NOTE | 2020-02-25 08:34 | Consultation ---
EricTala DATA CONVERSION DEVELOPER 02/25/20 0834: History of Present Illness General Date patient seen: Feb 25, 2020 Time patient seen: 07:30 Chief Complaint: Pain Referring physician: Dr Jones Reason for Consultation: COPD. CHF, Present Illness HPI 70 years old male with past medical history of CHF,severe cardiomyopathy, s/p AICD placement , atrial fibrillation/flutter , hypertension, COPD, hx of respiratory failure and tracheostomy, now closed, CKD, DM type 2, history of cocaine abuse, presented with complain of right leg pain and bilateral leg swelling, right more than left. Patient was hospitalized at [facility] from January 20 till January 23 and subsequently was transferred to [facility] for further cardiology work-up due to ongoing atrial fibrillation with rapid ventricular response. Patient undergone cardiac ablation via right groin. Echocardiogram on that admission revealed severe cardiomyopathy with ejection fraction 15 to 20%. Global left ventricular hypokinesia. Increased right atrial pressure. Moderate mitral and [id number] tricuspid regurgitation. Severely elevated left atrial pressure grade 3. Right ventricular systolic pressure of 57 consistent with a moderate pulmonary hypertension Upon current presentation patient required supplemental oxygen due to hypoxia. Patient was afebrile. Laboratory work-up revealed leukocytosis WBC 14.1, profound anemia with hemoglobin 5.1 ,hematocrit 17.2, platelet count 275. INR 1.1. Patient is on Eliquis at home. Stable electrolytes. BUN 51, creatinine 2.8. Glucose 143. Troponin negative, pro BNP 8325. EKG revealed paced rhythm with some PVC . Albumin 2.5. Stable LFT. Chest x-ray revealed no acute cardiopulmonary pathology. UA revealed + 2 protein, no evidence of UTI. Venous duplex right lower extremity revealed no evidence of DVT. Venous Duplex done on 02/17 showed possible large pseudoaneurysm of the right proximal superficial femoral artery measuring up to 4.3 cm with some internal flow and some thrombus suspected to be present. In emergency department patient typed and crossed , and received blood transfusion. Hypoxia improved with blood transfusion Patient subsequently admitted for further management. Allergies: Coded Allergies: No Known Allergies (Verified , 09/19/07) Medication History Scheduled Amiodarone Hcl* (Amiodarone Hcl*), 400 MG ORAL DAILY, (Reported) Apixaban (Eliquis), 2.5 MG PO BID, (Reported) Carvedilol Phosphate (Coreg Cr), 10 MG ORAL DAILY, (Reported) Docusate Sodium* (Docusate Sodium*), 100 MG ORAL TWICE A DAY, (Reported) Furosemide* (Lasix*), 40 MG ORAL TWICE A DAY, (Reported) Hydralazine Hcl* (Hydralazine Hcl*), 50 MG ORAL BID, (Reported) Isosorbide Dinitrate (Isosorbide Dinitrate*), 20 MG ORAL BID, (Reported) Sitagliptin* (Januvia*), 25 MG ORAL DAILY, (Reported) Patient History Healthcare decision maker Resuscitation status Full code Advanced Directive on File Past Medical/Surgical History Past Medical/Surgical History: (1) CKD (chronic kidney disease) (2) HTN (hypertension) (3) CHF (congestive heart failure) (4) Arrhythmia Review of Systems Eye: Reports: acuity changes - chronic ENT: Reports: no symptoms Respiratory: Reports: shortness of breath Cardiovascular: Reports: edema - RUE Gastrointestinal: Reports: no symptoms Genitourinary: Reports: no symptoms Musculoskeletal: Reports: other - leg pain Skin: Reports: see HPI Psychiatric: Reports: no symptoms Neurological: Reports: no symptoms Endocrine: Reports: other - DM Hematologic/Lymphatic: Reports: anemia Physical Exam General Appearance: WD/WN, no apparent distress, alert Lines, tubes and drains: peripheral HEENT: normocephalic, atraumatic, anicteric, mucous membranes moist, PERRL Neck: non-tender, supple Respiratory/Chest: lungs clear, no respiratory distress, no accessory muscle use Cardiovascular/Chest: normal rate Abdomen: normal bowel sounds, non tender, soft Extremities: other - BLE edema R>L +2, R inner thigh hard to touch, TTP Skin Exam: normal pigmentation, warm/dry Neurologic: linking machine operator II-XII grossly normal, no motor/sensory deficits, alert, oriented x 3, responsive Musculoskeletal: normal muscle bulk Last 24 Hour Vital Signs Date Time Temp Pulse Resp B/P (MAP) Pulse Ox O2 Delivery O2 Flow Rate FiO2 02/25/20 04:00 108 02/25/20 04:00 97.5 104 19 113/60 (77) 100 02/25/20 00:00 112 02/25/20 00:00 98.4 96 18 103/75 (84) 98 02/24/20 21:00 Room Air 02/24/20 20:00 98.1 102 21 93/60 (71) 99 02/24/20 20:00 102 02/24/20 16:00 97.9 79 20 96/58 (71) 98 02/24/20 16:00 106 02/24/20 13:04 114 02/24/20 12:00 59 02/24/20 12:00 97.9 67 20 96/63 (74) 99 02/24/20 09:00 Room Air Intake and Output 02/24/20 02/25/20 19:00 07:00 Intake Total 400 ml 720.8 ml Output Total 1000 ml 975 ml Balance -600 ml -254.2 ml Intake Oral 400 ml 450 ml IV Total 270.8 ml Output Urine Total 1000 ml 975 ml # Voids 4 Laboratory Tests Test 02/24/20 17:00 02/25/20 05:35 White Blood Count 11.7 K/UL (4.8-10.8) H 9.5 K/UL (4.8-10.8) Red Blood Count 2.40 M/UL (4.70-6.10) L 2.29 M/UL (4.70-6.10) L Hemoglobin 7.0 G/DL (14.2-18.0) L 6.7 G/DL (14.2-18.0) *L Hematocrit 22.6 % (42.0-52.0) L 19.8 % (42.0-52.0) L Mean Corpuscular Volume 94 FL (80-99) # 87 FL (80-99) Mean Corpuscular Hemoglobin 29.2 PG (27.0-31.0) 29.4 PG (27.0-31.0) Mean Corpuscular Hemoglobin Concent 30.9 G/DL (32.0-36.0) L 33.8 G/DL (32.0-36.0) Red Cell Distribution Width 16.0 % (11.6-14.8) H 14.6 % (11.6-14.8) Platelet Count 239 K/UL (150-450) 253 K/UL (150-450) Mean Platelet Volume 6.5 FL (6.5-10.1) 5.1 FL (6.5-10.1) L Neutrophils (%) (Auto) 77.6 % (45.0-75.0) H % (45.0-75.0) Lymphocytes (%) (Auto) 10.0 % (20.0-45.0) L % (20.0-45.0) Monocytes (%) (Auto) 9.9 % (1.0-10.0) % (1.0-10.0) Eosinophils (%) (Auto) 2.0 % (0.0-3.0) % (0.0-3.0) Basophils (%) (Auto) 0.5 % (0.0-2.0) % (0.0-2.0) Differential Total Cells Counted 100 Neutrophils % (Manual) 72 % (45-75) Lymphocytes % (Manual) 12 % (20-45) L Monocytes % (Manual) 8 % (1-10) Eosinophils % (Manual) 8 % (0-3) H Basophils % (Manual) 0 % (0-2) Band Neutrophils 0 % (0-8) Platelet Estimate Adequate Platelet Morphology Normal Hypochromasia 1+ Anisocytosis 1+ Prothrombin Time 11.4 SEC (9.30-11.50) Prothromb Time International Ratio 1.0 (0.9-1.1) Activated Partial Thromboplast Time 30 SEC (23-33) Sodium Level 144 MMOL/L (136-145) Potassium Level 4.5 MMOL/L (3.5-5.1) Chloride Level 109 MMOL/L (98-107) H Carbon Dioxide Level 31 MMOL/L (21-32) Anion Gap 4 mmol/L (5-15) L Blood Urea Nitrogen 51 mg/dL (7-18) H Creatinine 2.9 MG/DL (0.55-1.30) H Estimat Glomerular Filtration Rate 26.2 mL/min (>60) Glucose Level 110 MG/DL (74-106) H Calcium Level 8.8 MG/DL (8.5-10.1) Phosphorus Level 2.9 MG/DL (2.5-4.9) Magnesium Level 2.3 MG/DL (1.8-2.4) Height (Feet): 5 Height (Inches): 9.00 Weight (Pounds): 187 Medications Current Medications Medications (Trade) Dose Ordered Sig/Kena Route PRN Reason Start Time Stop Time Status Last Admin Dose Admin Acetaminophen (Tylenol) 650 mg Q4H PRN ORAL Mild Pain (Pain Scale 1-3) 02/23/20 19:30 03/24/20 19:29 Acetaminophen (Tylenol) 650 mg Q4H PRN ORAL Temp >100.5 02/23/20 19:30 03/24/20 19:29 Al Hydroxide/Mg Hydroxide (Mylanta II) 30 ml Q6H PRN ORAL dyspepsia 02/23/20 19:30 03/24/20 19:29 Dextrose (Dextrose 50%) 25 ml Q30M PRN IV Hypoglycemia 02/23/20 19:30 05/23/20 19:29 Dextrose (Dextrose 50%) 50 ml Q30M PRN IV Hypoglycemia 02/23/20 19:30 05/23/20 19:29 Diphenhydramine HCl (Benadryl) 25 mg Q6H PRN ORAL Itching/Pruritis 02/23/20 19:30 03/24/20 19:29 Docusate Sodium (Colace) 100 mg TWICE A DAY ORAL 02/24/20 09:15 03/25/20 08:59 02/24/20 17:17 Furosemide (Lasix) 40 mg Q12H IV 02/23/20 19:30 03/24/20 19:29 02/24/20 20:05 Insulin Aspart (NovoLOG) BEFORE MEALS AND HS SUBQ 02/25/20 06:30 05/25/20 06:29 Ondansetron HCl (Zofran) 4 mg Q6H PRN IVP Nausea & Vomiting 02/23/20 19:30 03/24/20 19:29 Pantoprazole (Protonix) 40 mg DAILY IV 02/24/20 09:00 03/25/20 08:59 02/24/20 09:02 Assessment/Plan Assessment/Plan: ASSESSMENT Profound anemia, requiring blood transfusion 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 CHF with systolic and diastolic dysfunction Severe dilated CN /EF 15-20% Moderate pulmonary HTN COPD Hx of respiratory failure with trach( now closed) A fib with RVR, s/p ablation January 2020 Chronic anticoagulation with Eliquis Suspected COVID 19 infection HTN DM type 2 CKD Hx of cocaine abuse PLAN OF CARE tele Eliquis stopped for now O2 titrate to keep sat above 90% pulm toilet CXR stable isolation for now f/up with SARS COV 2 by PCR leukocytosis resolve, possibly was reactive s/p 3 u PRBC, Hgb down to 6.7 this am , need another unit venous Duplex 02/18 with findings of possible large pseudoaneurysm of the right proximal SFA and some thrombus suspected to be present venous Duplex 02/22 NGT for acute DVT, no findings of pseudoaneurysm general surgeon seen and evaluated ; ? aneurysm rupture, elevate legs Arterial Duplex pending vascular surgery eval pending PPI GI on board, stool OB GI procedures-per GI recs guideline directed medical therapy fro CHF monitor volumes and cardiorenal parametrsz nephro on board BS management with SSI case discussed and evaluated by supervising physician Sukhjinder Barcenas MD 02/25/20 1554: History of Present Illness General Chief Complaint: Pain Present Illness Allergies: Coded Allergies: No Known Allergies (Verified , 09/19/07) Medication History Scheduled Amiodarone Hcl* (Amiodarone Hcl*), 400 MG ORAL DAILY, (Reported) Apixaban (Eliquis), 2.5 MG PO BID, (Reported) Carvedilol Phosphate (Coreg Cr), 10 MG ORAL DAILY, (Reported) Docusate Sodium* (Docusate Sodium*), 100 MG ORAL TWICE A DAY, (Reported) Furosemide* (Lasix*), 40 MG ORAL TWICE A DAY, (Reported) Hydralazine Hcl* (Hydralazine Hcl*), 50 MG ORAL BID, (Reported) Isosorbide Dinitrate (Isosorbide Dinitrate*), 20 MG ORAL BID, (Reported) Sitagliptin* (Januvia*), 25 MG ORAL DAILY, (Reported) Assessment/Plan Assessment/Plan: Patient seen and examined with DATA CONVERSION DEVELOPER. Agree with above A&P as it reflects our joint deliberations Tala Reyes NP Feb 25, 2020 08:34 Sukhjinder Barcenas MD Feb 25, 2020 15:54
--- NOTE | 2020-02-25 09:10 | NUR ---
*-* INSURANCE *-* NO INSURANCE INFORMATION IN THE BAR TO WHOM TO SEND CLINICALS OR WHOM TI CONTACT
[2020-02-25] MEDS: Docusate 100mg cap ORAL SCH ×2 (09:11→17:03)
[2020-02-25] MEDS: Pantoprazole Inj IV SCH (09:11)
--- NOTE | 2020-02-25 10:13 | NUR ---
*-* INSURANCE *-* ALL AVAILABLE CLINICALS HAVE BEEN FAXED TO: [facility]: SEAN P:[phone] F:[phone]
--- NOTE | 2020-02-25 10:18 | Cardiac Electrophysiology PN ---
Assessment/Plan Assessment/Plan 1. History of successful atrial flutter ablation on 01/25/2020 without recurrence. 2. History of left atrial flutter as well as atrial fibrillation that was cardioverted. Continue the patient on amiodarone 200 mg daily. Hold off on Eliquis in view of severe anemia. His hemoglobin of only 5. 3. Recurrent ventricular tachycardia with multiple defibrillator shocks, status post ablation of three different ventricular tachycardia from left ventricular outflow tract and aortic valve by me on 01/28/2020. 4. 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 Resume Coreg, hydralazine, Isordil, Lasix, and Aldactone. 5. Chronic kidney disease with creatinine around 2.5. Followup with Dr. Hdz. 6. Profound anemia. The patient received blood transfusion. I agree with more blood transfusion. Stool OB is pending. 7. History of right femoral artery pseudoaneurysm. A venous duplex from yesterday showed no DVT in the common femoral artery and there was no thrombus. No evidence of DVT. Will get Arterial duplex and get vascular surgery to evaluate the patient. DW Dr. Abad and Andreina Subjective Subjective Feeling better. Still has right thigh edema. Evaluated by Dr. Abad Objective Last 24 Hour Vital Signs Date Time Temp Pulse Resp B/P (MAP) Pulse Ox O2 Delivery O2 Flow Rate FiO2 02/25/20 08:00 97.7 114 20 95/63 (74) 100 02/25/20 08:00 110 02/25/20 04:00 108 02/25/20 04:00 97.5 104 19 113/60 (77) 100 02/25/20 00:00 112 02/25/20 00:00 98.4 96 18 103/75 (84) 98 02/24/20 21:00 Room Air 02/24/20 20:00 98.1 102 21 93/60 (71) 99 02/24/20 20:00 102 02/24/20 16:00 97.9 79 20 96/58 (71) 98 02/24/20 16:00 106 02/24/20 13:04 114 02/24/20 12:00 59 02/24/20 12:00 97.9 67 20 96/63 (74) 99 Intake and Output 02/24/20 02/25/20 19:00 07:00 Intake Total 400 ml 720.8 ml Output Total 1000 ml 975 ml Balance -600 ml -254.2 ml Intake Oral 400 ml 450 ml IV Total 270.8 ml Output Urine Total 1000 ml 975 ml # Voids 4 Laboratory Tests Test 02/24/20 17:00 02/25/20 05:35 White Blood Count 11.7 K/UL (4.8-10.8) H 9.5 K/UL (4.8-10.8) Red Blood Count 2.40 M/UL (4.70-6.10) L 2.29 M/UL (4.70-6.10) L Hemoglobin 7.0 G/DL (14.2-18.0) L 6.7 G/DL (14.2-18.0) *L Hematocrit 22.6 % (42.0-52.0) L 19.8 % (42.0-52.0) L Mean Corpuscular Volume 94 FL (80-99) # 87 FL (80-99) Mean Corpuscular Hemoglobin 29.2 PG (27.0-31.0) 29.4 PG (27.0-31.0) Mean Corpuscular Hemoglobin Concent 30.9 G/DL (32.0-36.0) L 33.8 G/DL (32.0-36.0) Red Cell Distribution Width 16.0 % (11.6-14.8) H 14.6 % (11.6-14.8) Platelet Count 239 K/UL (150-450) 253 K/UL (150-450) Mean Platelet Volume 6.5 FL (6.5-10.1) 5.1 FL (6.5-10.1) L Neutrophils (%) (Auto) 77.6 % (45.0-75.0) H % (45.0-75.0) Lymphocytes (%) (Auto) 10.0 % (20.0-45.0) L % (20.0-45.0) Monocytes (%) (Auto) 9.9 % (1.0-10.0) % (1.0-10.0) Eosinophils (%) (Auto) 2.0 % (0.0-3.0) % (0.0-3.0) Basophils (%) (Auto) 0.5 % (0.0-2.0) % (0.0-2.0) Differential Total Cells Counted 100 Neutrophils % (Manual) 72 % (45-75) Lymphocytes % (Manual) 12 % (20-45) L Monocytes % (Manual) 8 % (1-10) Eosinophils % (Manual) 8 % (0-3) H Basophils % (Manual) 0 % (0-2) Band Neutrophils 0 % (0-8) Platelet Estimate Adequate Platelet Morphology Normal Hypochromasia 1+ Anisocytosis 1+ Prothrombin Time 11.4 SEC (9.30-11.50) Prothromb Time International Ratio 1.0 (0.9-1.1) Activated Partial Thromboplast Time 30 SEC (23-33) Sodium Level 144 MMOL/L (136-145) Potassium Level 4.5 MMOL/L (3.5-5.1) Chloride Level 109 MMOL/L (98-107) H Carbon Dioxide Level 31 MMOL/L (21-32) Anion Gap 4 mmol/L (5-15) L Blood Urea Nitrogen 51 mg/dL (7-18) H Creatinine 2.9 MG/DL (0.55-1.30) H Estimat Glomerular Filtration Rate 26.2 mL/min (>60) Glucose Level 110 MG/DL (74-106) H Calcium Level 8.8 MG/DL (8.5-10.1) Phosphorus Level 2.9 MG/DL (2.5-4.9) Magnesium Level 2.3 MG/DL (1.8-2.4) Objective HEAD AND NECK: Positive JVD. LUNGS: Clear. CARDIOVASCULAR: Regular S1 and S2 with no gallop or murmur. ABDOMEN: Soft. EXTREMITIES: Right thigh edema. Cruz Donovan MD Feb 25, 2020 10:18
--- NOTE | 2020-02-25 11:25 | Surgery Progress Note ---
Surgery Progress Note Subjective Additional Comments afebrile tachycardic feels better today no n/v/f/c exam stable h/h noted Objective Last 24 Hour Vital Signs Date Time Temp Pulse Resp B/P (MAP) Pulse Ox O2 Delivery O2 Flow Rate FiO2 02/25/20 09:00 Room Air 02/25/20 08:00 97.7 114 20 95/63 (74) 100 02/25/20 08:00 110 02/25/20 04:00 108 02/25/20 04:00 97.5 104 19 113/60 (77) 100 02/25/20 00:00 112 02/25/20 00:00 98.4 96 18 103/75 (84) 98 02/24/20 21:00 Room Air 02/24/20 20:00 98.1 102 21 93/60 (71) 99 02/24/20 20:00 102 02/24/20 16:00 97.9 79 20 96/58 (71) 98 02/24/20 16:00 106 02/24/20 13:04 114 02/24/20 12:00 59 02/24/20 12:00 97.9 67 20 96/63 (74) 99 I&O Intake and Output 02/24/20 02/25/20 19:00 07:00 Intake Total 400 ml 720.8 ml Output Total 1000 ml 975 ml Balance -600 ml -254.2 ml Intake Oral 400 ml 450 ml IV Total 270.8 ml Output Urine Total 1000 ml 975 ml # Voids 4 Dressing: other Wound: other Drains: other Cardiovascular: RSR Respiratory: decreased breath sounds Abdomen: soft, non-tender, present bowel sounds Extremities: edema, tenderness, no cyanosis, pulses, other - right leg diffuse hematoma stable Laboratory Tests Test 02/24/20 17:00 02/25/20 05:35 White Blood Count 11.7 K/UL (4.8-10.8) H 9.5 K/UL (4.8-10.8) Red Blood Count 2.40 M/UL (4.70-6.10) L 2.29 M/UL (4.70-6.10) L Hemoglobin 7.0 G/DL (14.2-18.0) L 6.7 G/DL (14.2-18.0) *L Hematocrit 22.6 % (42.0-52.0) L 19.8 % (42.0-52.0) L Mean Corpuscular Volume 94 FL (80-99) # 87 FL (80-99) Mean Corpuscular Hemoglobin 29.2 PG (27.0-31.0) 29.4 PG (27.0-31.0) Mean Corpuscular Hemoglobin Concent 30.9 G/DL (32.0-36.0) L 33.8 G/DL (32.0-36.0) Red Cell Distribution Width 16.0 % (11.6-14.8) H 14.6 % (11.6-14.8) Platelet Count 239 K/UL (150-450) 253 K/UL (150-450) Mean Platelet Volume 6.5 FL (6.5-10.1) 5.1 FL (6.5-10.1) L Neutrophils (%) (Auto) 77.6 % (45.0-75.0) H % (45.0-75.0) Lymphocytes (%) (Auto) 10.0 % (20.0-45.0) L % (20.0-45.0) Monocytes (%) (Auto) 9.9 % (1.0-10.0) % (1.0-10.0) Eosinophils (%) (Auto) 2.0 % (0.0-3.0) % (0.0-3.0) Basophils (%) (Auto) 0.5 % (0.0-2.0) % (0.0-2.0) Differential Total Cells Counted 100 Neutrophils % (Manual) 72 % (45-75) Lymphocytes % (Manual) 12 % (20-45) L Monocytes % (Manual) 8 % (1-10) Eosinophils % (Manual) 8 % (0-3) H Basophils % (Manual) 0 % (0-2) Band Neutrophils 0 % (0-8) Platelet Estimate Adequate Platelet Morphology Normal Hypochromasia 1+ Anisocytosis 1+ Prothrombin Time 11.4 SEC (9.30-11.50) Prothromb Time International Ratio 1.0 (0.9-1.1) Activated Partial Thromboplast Time 30 SEC (23-33) Sodium Level 144 MMOL/L (136-145) Potassium Level 4.5 MMOL/L (3.5-5.1) Chloride Level 109 MMOL/L (98-107) H Carbon Dioxide Level 31 MMOL/L (21-32) Anion Gap 4 mmol/L (5-15) L Blood Urea Nitrogen 51 mg/dL (7-18) H Creatinine 2.9 MG/DL (0.55-1.30) H Estimat Glomerular Filtration Rate 26.2 mL/min (>60) Glucose Level 110 MG/DL (74-106) H Calcium Level 8.8 MG/DL (8.5-10.1) Phosphorus Level 2.9 MG/DL (2.5-4.9) Magnesium Level 2.3 MG/DL (1.8-2.4) Plan Problems: (1) Edema (2) Pseudoaneurysm (3) Cellulitis of right leg Assessment & Plan: 70-year-old male right lower extremity significant edema patient recently had cardiac interventional procedure access to right groin on Eliquis developed pseudoaneurysm left AMA prior treatment now returns with significant right lower extremity edema. Diffuse edema from the groin down to the foot. Mainly in the thigh region. Hemoglobin noted severely anemic. There is a possibility that the aneurysm ruptured but currently stable. There is a possibility of persistent bleed and this is diffuse hematoma. No localized fluid collection for drainage identified. Recommend arterial duplex ultrasound. CT scan angio will be discussed with team given renal function. keep leg elevated hold blood thinner is possible / safe keep flat will follow with exam an recs PENDING ARTERIAL DUPLEX thank you Deep veins: Unremarkable. No DVT in the visualized common femoral, femoral, proximal deep femoral or popliteal veins. The veins demonstrate normal color flow, are normally compressible, with normal phasic flow and/or augmentation response. Superficial veins: Unremarkable. No thrombus in the visualized great saphenous vein. Soft tissues: Nonspecific edema involving the right lower extremity. No popliteal cyst. IMPRESSION: No ultrasonographic evidence of deep venous thrombosis involving the right lower extremity. Jim Abad Feb 25, 2020 11:25
[2020-02-25 12:00] VITALS: BP 94/60
--- NOTE | 2020-02-25 12:59 | Nephrology Progress Note ---
Assessment/Plan Plan #CARMEN on CKD- due to CRS1 and acute anemia #Acute blood loss anemia #HTN #COPD #CHF s/p ICD( implanted at [facility] by Dr Arreguin in [address] Jarvis) #A. Fib and A Flutter s/p recent cardiac ablation at [facility] on 01/28/20 - prbc transfusion today - surgery eval - monitor CBC - hold AC - cardiology eval - decrease lasix to 40 daily - monitor cr - GI eval - iron panel - srtict I&Os - daily weights Subjective ROS Limited/Unobtainable: No Constitutional: Denies: no symptoms, chills, diaphoresis, fever, malaise, weakness, other HEENT: Denies: no symptoms, eye pain, blurred vision, tearing, double vision, ear pain, ear discharge, nose pain, nose congestion, throat pain, throat swelling, mouth pain, mouth swelling, other Genitourinary: Denies: no symptoms, burning, discharge, frequency, flank pain, hematuria, incontinence, pain, urgency, other Neurologic/Psychiatric: Denies: no symptoms, anxiety, depressed, emotional problems, headache, numbness, paresthesia, pre-existing deficit, seizure, tingling, tremors, weakness, other Subjective right swelling better prbc low today getting one unit of prbc will decrease lasix to 40 daily Objective Objective Last 24 Hour Vital Signs Date Time Temp Pulse Resp B/P (MAP) Pulse Ox O2 Delivery O2 Flow Rate FiO2 02/25/20 09:00 Room Air 02/25/20 08:00 97.7 114 20 95/63 (74) 100 02/25/20 08:00 110 02/25/20 04:00 108 02/25/20 04:00 97.5 104 19 113/60 (77) 100 02/25/20 00:00 112 02/25/20 00:00 98.4 96 18 103/75 (84) 98 02/24/20 21:00 Room Air 02/24/20 20:00 98.1 102 21 93/60 (71) 99 02/24/20 20:00 102 02/24/20 16:00 97.9 79 20 96/58 (71) 98 02/24/20 16:00 106 02/24/20 13:04 114 Intake and Output 02/24/20 02/25/20 19:00 07:00 Intake Total 400 ml 720.8 ml Output Total 1000 ml 975 ml Balance -600 ml -254.2 ml Intake Oral 400 ml 450 ml IV Total 270.8 ml Output Urine Total 1000 ml 975 ml # Voids 4 Laboratory Tests 02/24/20 17:00: White Blood Count 11.7H, Red Blood Count 2.40L, Hemoglobin 7.0L, Hematocrit 22.6L, Mean Corpuscular Volume 94#, Mean Corpuscular Hemoglobin 29.2, Mean Corpuscular Hemoglobin Concent 30.9L, Red Cell Distribution Width 16.0H, Platelet Count 239, Mean Platelet Volume 6.5, Neutrophils (%) (Auto) 77.6H, Lymphocytes (%) (Auto) 10.0L, Monocytes (%) (Auto) 9.9, Eosinophils (%) (Auto) 2.0, Basophils (%) (Auto) 0.5 02/25/20 05:35: White Blood Count 9.5, Red Blood Count 2.29L, Hemoglobin 6.7*L, Hematocrit 19.8L , Mean Corpuscular Volume 87, Mean Corpuscular Hemoglobin 29.4, Mean Corpuscular Hemoglobin Concent 33.8, Red Cell Distribution Width 14.6, Platelet Count 253, Mean Platelet Volume 5.1L, Neutrophils (%) (Auto) , Lymphocytes (%) ( Auto) , Monocytes (%) (Auto) , Eosinophils (%) (Auto) , Basophils (%) (Auto) , Differential Total Cells Counted 100, Neutrophils % (Manual) 72, Lymphocytes % ( Manual) 12L, Monocytes % (Manual) 8, Eosinophils % (Manual) 8H, Basophils % ( Manual) 0, Band Neutrophils 0, Platelet Estimate Adequate, Platelet Morphology Normal, Hypochromasia 1+, Anisocytosis 1+, Prothrombin Time 11.4, Prothromb Time International Ratio 1.0, Activated Partial Thromboplast Time 30, Sodium Level 144, Potassium Level 4.5, Chloride Level 109H, Carbon Dioxide Level 31, Anion Gap 4L, Blood Urea Nitrogen 51H, Creatinine 2.9H, Estimat Glomerular Filtration Rate 26.2, Glucose Level 110H, Calcium Level 8.8, Phosphorus Level 2.9, Magnesium Level 2.3 Height (Feet): 5 Height (Inches): 9.00 Weight (Pounds): 187 General Appearance: WD/WN, no apparent distress EENT: PERRL/EOMI Neck: non-tender, normal alignment Cardiovascular: normal peripheral pulses, normal rate, regular rhythm Respiratory/Chest: chest wall non-tender, lungs clear, normal breath sounds Abdomen: normal bowel sounds, non tender, soft Neurologic: alert, oriented x 3 Prateek Hdz M.D. Feb 25, 2020 12:59
--- NOTE | 2020-02-25 13:04 | General Progress Note ---
Assessment/Plan Problem List: (1) HTN (hypertension) ICD Codes: I10 - HTN (hypertension) SNOMED: 31183662 (2) CHF (congestive heart failure) ICD Codes: I50.9 - Congestive heart failure SNOMED: 60436438 Assessment/Plan: Juan Monroe a 69 year oldmalewho presents with PMH of HTN,COPD, CHF s/p ICD( implanted [facility] by [facility] Arreguin in [address] Jarvis), A. Fib and A Flutter s/p recent cardiac ablation at [facility] on 01/28/20, presented to ED admitted for severe anemia suspect 2/2 femoral artery bleed. #Atrial Flutter #Atrial Fibrillation #Acute on Chronic Systolic Heart Failure #Vtach s/p VT ablation #Hx of R groin hematoma #Acute blood loss anemia likely 2/2 R groin hematoma -Hemodynamically stable -TTE EF 15-20% -cont. lasix 40 IV BID -Holdhome Eliquis 2.5 mg PO BID. -Coreg/ amiodarone per cardiology -repeat US with no hematoma -Repeat vascular US today. -Will try to arrange x-zaid to [facility]. -Unable to do CTA due to renal function -transfuse with goal HGB >7. 1 more unit today. -Cardiology consult appreciated -GI consulted -Surgery consulted (Dr. Abad) #CARMEN on CKD3 #CKD3 -Cr 2.9 on admission. -baseline 1.4~1.5 -Nephro consulted, recs appreciated -hold ACEi/ARB -Continue diuresis as above. -Trend BMP daily. -Avoid nephrotoxin medications #COPD -does not appear to be in COPD exacerbation at this time -pulmonary consult Dr. Tipton appreciated. #DMT2 -Holdhome sitagliptan -ISS, accuchecks qac/hs #HTN - -Hold hydralazine 50 mg PO BID, carvediolol- restart once BP improves -clonidine 0.1 PRN for SBP >160 Dispo: home with Reason for Continued Hospitalization: acute anemia 36 minutes spent on this encounter. Discussed with RN at bedside and consultants named above. 29 spent on counseling and care coordination. In additional 36 min in addition to the usual care above I spent additional time reviewing records in the EMR including physician documentation, nursing documentation, laboratory results, imaging and other clinical documentation. Time of note may not reflect time patient was seen. Subjective Date patient seen: Feb 25, 2020 Time patient seen: 12:45 ROS Limited/Unobtainable: No Constitutional: Denies: no symptoms, chills, diaphoresis, fever, malaise, weakness, other HEENT: Denies: no symptoms, eye pain, blurred vision, tearing, double vision, ear pain, ear discharge, nose pain, nose congestion, throat pain, throat swelling, mouth pain, mouth swelling, other Cardiovascular: Denies: no symptoms, chest pain, edema, irregular heart rate, lightheadedness, palpitations, syncope, other Respiratory: Denies: no symptoms, cough, orthopnea, shortness of breath, SOB with excertion, SOB at rest, sputum, stridor, wheezing, other Gastrointestinal/Abdominal: Denies: no symptoms, abdomen distended, abdominal pain, black stools, tarry stools, blood in stool, constipated, diarrhea, difficulty swallowing, nausea, poor appetite, poor fluid intake, rectal bleeding , vomiting, other Genitourinary: Denies: no symptoms, burning, discharge, frequency, flank pain, hematuria, incontinence, pain, urgency, other Neurologic/Psychiatric: Denies: no symptoms, anxiety, depressed, emotional problems, headache, numbness, paresthesia, pre-existing deficit, seizure, tingling, tremors, weakness, other Endocrine: Denies: no symptoms, excessive sweating, flushing, intolerance to cold, intolerance to heat, increased hunger, increased thirst, increased urine, unexplained weight gain, unexplained weight loss, other Hematologic/Lymphatic: Denies: no symptoms, anemia, easy bleeding, easy bruising, other Allergies: Coded Allergies: No Known Allergies (Verified , 09/19/07) Subjective feels okay. slight SOB, right thigh tightness > pain. no chest pain, ICD shocks , cough or otherwise. ambulated to bathroom with a walker. Objective Last 24 Hour Vital Signs Date Time Temp Pulse Resp B/P (MAP) Pulse Ox O2 Delivery O2 Flow Rate FiO2 02/25/20 09:00 Room Air 02/25/20 08:00 97.7 114 20 95/63 (74) 100 02/25/20 08:00 110 02/25/20 04:00 108 02/25/20 04:00 97.5 104 19 113/60 (77) 100 02/25/20 00:00 112 02/25/20 00:00 98.4 96 18 103/75 (84) 98 02/24/20 21:00 Room Air 02/24/20 20:00 98.1 102 21 93/60 (71) 99 02/24/20 20:00 102 02/24/20 16:00 97.9 79 20 96/58 (71) 98 02/24/20 16:00 106 02/24/20 13:04 114 Intake and Output 02/24/20 02/25/20 19:00 07:00 Intake Total 400 ml 720.8 ml Output Total 1000 ml 975 ml Balance -600 ml -254.2 ml Intake Oral 400 ml 450 ml IV Total 270.8 ml Output Urine Total 1000 ml 975 ml # Voids 4 Laboratory Tests 02/24/20 17:00: White Blood Count 11.7H, Red Blood Count 2.40L, Hemoglobin 7.0L, Hematocrit 22.6L, Mean Corpuscular Volume 94#, Mean Corpuscular Hemoglobin 29.2, Mean Corpuscular Hemoglobin Concent 30.9L, Red Cell Distribution Width 16.0H, Platelet Count 239, Mean Platelet Volume 6.5, Neutrophils (%) (Auto) 77.6H, Lymphocytes (%) (Auto) 10.0L, Monocytes (%) (Auto) 9.9, Eosinophils (%) (Auto) 2.0, Basophils (%) (Auto) 0.5 02/25/20 05:35: White Blood Count 9.5, Red Blood Count 2.29L, Hemoglobin 6.7*L, Hematocrit 19.8L , Mean Corpuscular Volume 87, Mean Corpuscular Hemoglobin 29.4, Mean Corpuscular Hemoglobin Concent 33.8, Red Cell Distribution Width 14.6, Platelet Count 253, Mean Platelet Volume 5.1L, Neutrophils (%) (Auto) , Lymphocytes (%) ( Auto) , Monocytes (%) (Auto) , Eosinophils (%) (Auto) , Basophils (%) (Auto) , Differential Total Cells Counted 100, Neutrophils % (Manual) 72, Lymphocytes % ( Manual) 12L, Monocytes % (Manual) 8, Eosinophils % (Manual) 8H, Basophils % ( Manual) 0, Band Neutrophils 0, Platelet Estimate Adequate, Platelet Morphology Normal, Hypochromasia 1+, Anisocytosis 1+, Prothrombin Time 11.4, Prothromb Time International Ratio 1.0, Activated Partial Thromboplast Time 30, Sodium Level 144, Potassium Level 4.5, Chloride Level 109H, Carbon Dioxide Level 31, Anion Gap 4L, Blood Urea Nitrogen 51H, Creatinine 2.9H, Estimat Glomerular Filtration Rate 26.2, Glucose Level 110H, Calcium Level 8.8, Phosphorus Level 2.9, Magnesium Level 2.3 Height (Feet): 5 Height (Inches): 9.00 Weight (Pounds): 187 General Appearance: no apparent distress, alert EENT: PERRL/EOMI Neck: supple Cardiovascular: regular rhythm, no gallop/murmur Respiratory/Chest: lungs clear, normal breath sounds Abdomen: non tender, soft Extremities: other - Right thigh edema, mild tenderness Edema: severe edema - right thigh Sonu Ayoub MD Feb 25, 2020 13:04
--- NOTE | 2020-02-25 14:04 | NUR ---
P.T Note: P.T evaluation completed and tx initiated. Please refer to P.T evaluation for current functional status. Pt is alert, O x 4. Pt reports c/o pain and significant swelling of the entire RLE and generalized weakness limiting mobility performance and safety. Pt currently requires MIN A X 1 and extended time for bed mobility and transfer activities. Pt was able to ambulte using the FWW where distance is only limited to 10 ft due RLE pain and fatigue. Skilled P.T service is warranted to increase his strength , balance and endurance to facilitate safety and mobility independence towards return to PLOF. Recommend home P.T at [place]. Pt is cleared for OOB activities with nursing assist and FWW.
--- NOTE | 2020-02-25 14:31 | NUR ---
CASE MANAGEMENT:REVIEW 70 YR OLD MALE BIBA FROM HOME CC: RT LEG PAIN ABD SWELLING X3 WEEKS SI: PROFOUND ANEMIA. EDEMA 98.6 72 18 102/60 98% ON RA WBC+14.1 H/H-5.1/17.2 IS: IV PROTONIX IV MORPHINE X2 IV ZOFRAN TRANSFUSE 3 UNITS PRBC'S COVID 19 SWAB : TO TELEMETRY
--- NOTE | 2020-02-25 14:43 | NUR ---
CASE MANAGEMENT:REVIEW 02/25/20 SI: PROFOUND ANEMIA CHF. COPD AFIB W/RVR. 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
--- NOTE | 2020-02-25 14:51 | NUR ---
COVID TESTING INSURANCE COMPANY ~ [facility] ~ HAS REQUESTED 2 COVID NEGATIVE TEST TO BE DONE PATIENT IS OUT OF NETWORK AND BELONGS AT [facility]
--- NOTE | 2020-02-25 15:56 | NUR ---
NURSE NOTES: Obtained blood consent for JACIEL Russo.
[2020-02-25 16:00] VITALS: BP 113/65
--- NOTE | 2020-02-25 16:45 | NUR ---
NURSE NOTES: Blood administation begun and monitored patient for 15min. No adverse event. No change in status. VSS. Will continue to monitor.
--- NOTE | 2020-02-25 19:24 | NUR ---
HAND-OFF: Report given to Octaviano Macias RN. Patient stable. Plan of care endorsed. Addendum: 02/25/20 at 1927 by TURNER WHITTEN RN Blood completed now.
--- NOTE | 2020-02-25 19:25 | NUR ---
NURSE NOTES: Got report from Rafaela Dinero RN. Pt in stable condition. No s/s of distress or discomfort noted. Pt resting in bed comfortably. Bed in low and locked position, call light within reach, bedside table within reach. Continue to monitor.
[2020-02-25 20:00] VITALS: BP 114/74
[2020-02-26] VITALS: BP 100/65
[2020-02-26 04:00] VITALS: BP 100/61
[2020-02-26] MEDS: NovoLOG Insulin Flexpen SUBQ SCH ×4 (06:29→21:00)
[2020-02-26 06:59] LABS: HEMATOCRIT 21.4 % (42.0-52.0); HEMOGLOBIN 7.4 G/DL (14.2-18.0); MEAN CORPUSCULAR VOLUME 86 FL (80-99); PLATELET COUNT 283 K/UL (150-450); RED BLOOD COUNT 2.48 M/UL (4.70-6.10); RED CELL DISTRIBUTION WIDTH 14.8 % (11.6-14.8); WHITE BLOOD COUNT 11.1 K/UL (4.8-10.8)
--- NOTE | 2020-02-26 07:20 | General Progress Note ---
Assessment/Plan Problem List: (1) CKD (chronic kidney disease) ICD Codes: N18.9 - Chronic kidney disease, unspecified SNOMED: 591820395 (2) HTN (hypertension) ICD Codes: I10 - HTN (hypertension) SNOMED: 01239143 (3) CHF (congestive heart failure) ICD Codes: I50.9 - Congestive heart failure SNOMED: 37796350 (4) Arrhythmia ICD Codes: I49.9 - Arrhythmia SNOMED: 59916201 (5) Profound anemia ICD Codes: D64.9 - Anemia, unspecified SNOMED: 377778386 Qualifiers: Qualified Codes: D64.9 - Anemia, unspecified (6) Pseudoaneurysm ICD Codes: I72.9 - Aneurysm of unspecified site SNOMED: 256555942, 45248292, 41003216 Assessment/Plan: no active GIB bleeding most likely from right femoral artery pseudoaneurysm fu stool ob low EF of 15 % will fu Subjective ROS Limited/Unobtainable: Yes Allergies: Coded Allergies: No Known Allergies (Verified , 09/19/07) Objective Last 24 Hour Vital Signs Date Time Temp Pulse Resp B/P (MAP) Pulse Ox O2 Delivery O2 Flow Rate FiO2 02/26/20 04:00 98.9 62 18 100/61 (74) 95 02/26/20 04:00 76 02/26/20 00:00 97.9 65 20 100/65 (77) 97 02/26/20 00:00 67 02/25/20 21:00 Room Air 02/25/20 20:00 101 02/25/20 20:00 98.2 99 18 114/74 (87) 97 02/25/20 16:00 104 02/25/20 16:00 97.4 98 20 113/65 (81) 100 02/25/20 12:00 97.7 102 20 94/60 (71) 98 02/25/20 12:00 105 02/25/20 09:00 Room Air 02/25/20 08:00 97.7 114 20 95/63 (74) 100 02/25/20 08:00 110 Intake and Output 02/25/20 02/26/20 19:00 07:00 Intake Total 324 ml 240 ml Output Total 700 ml Balance 324 ml -460 ml Intake Oral 324 ml 240 ml Output Urine Total 700 ml # Voids 4 3 # Bowel Movements 1 Laboratory Tests 02/26/20 06:20: White Blood Count 11.1H, Red Blood Count 2.48L, Hemoglobin 7.4L, Hematocrit 21.4L, Mean Corpuscular Volume 86, Mean Corpuscular Hemoglobin 29.7, Mean Corpuscular Hemoglobin Concent 34.4, Red Cell Distribution Width 14.8, Platelet Count 283, Mean Platelet Volume 5.5L, Neutrophils (%) (Auto) , Lymphocytes (%) ( Auto) , Monocytes (%) (Auto) , Eosinophils (%) (Auto) , Basophils (%) (Auto) , Neutrophils % (Manual) [Pending], Lymphocytes % (Manual) [Pending], Platelet Estimate [Pending], Platelet Morphology [Pending], Sodium Level [Pending], Potassium Level [Pending], Chloride Level [Pending], Carbon Dioxide Level [ Pending], Blood Urea Nitrogen [Pending], Creatinine [Pending], Estimat Glomerular Filtration Rate [Pending], Glucose Level [Pending], Calcium Level [ Pending], Total Bilirubin [Pending], Aspartate Amino Transf (AST/SGOT) [Pending] , Alanine Aminotransferase (ALT/SGPT) [Pending], Alkaline Phosphatase [Pending] , Total Protein [Pending], Albumin [Pending], Globulin [Pending] Height (Feet): 5 Height (Inches): 9.00 Weight (Pounds): 187 General Appearance: alert EENT: PERRL/EOMI Neck: supple Cardiovascular: normal rate Respiratory/Chest: decreased breath sounds Abdomen: normal bowel sounds, non tender, soft Extremities: swelling Silas Ramesh MD Feb 26, 2020 07:20
--- NOTE | 2020-02-26 07:45 | NUR ---
HAND-OFF: Report given to Calixto GRISSOM.
--- NOTE | 2020-02-26 07:47 | NUR ---
NURSE NOTES: Received patient from Min GRISSOM in bed resting, denies any pain at this time. Noted patient has Left chest AICD and pacing. Endorsed that patient received 3 PRBC, hemoglobin is now 7.4. Patient is on contact and droplet precaution for PUI, all precautions noted and followed. Patient appeared to be anxious, encouraged to verbalize feelings. Will be collecting another covid swab and OB stool whenever patient has BM. Bed is on lowest level with bedside rails up x3, brakes engaged for safety, call light is within reach. IV on RFA 22G SL. flushed, intact and patent. Will continue with the plan of care.
[2020-02-26 07:51] LABS: ALANINE AMINOTRANSFERASE 18 U/L (12-78); ALBUMIN 2.1 G/DL (3.4-5.0); ALBUMIN/GLOBULIN RATIO 0.5 (1.0-2.7); ALKALINE PHOSPHATASE 46 U/L (46-116); ANION GAP 10 mmol/L (5-15); ASPARTATE AMINO TRANSFERASE 20 U/L (15-37); BILIRUBIN,TOTAL 0.8 MG/DL (0.2-1.0); BLOOD UREA NITROGEN 57 mg/dL (7-18); CALCIUM 8.9 MG/DL (8.5-10.1); CARBON DIOXIDE 27 MMOL/L (21-32); CHLORIDE 108 MMOL/L (98-107); CREATININE 2.5 MG/DL (0.55-1.30); POTASSIUM 4.1 MMOL/L (3.5-5.1); SODIUM 145 MMOL/L (136-145)
[2020-02-26 08:00] VITALS: BP 111/75
--- NOTE | 2020-02-26 08:04 | Nephrology Progress Note ---
Assessment/Plan Plan #CARMEN on CKD- due to CRS1 and acute anemia #Acute blood loss anemia #HTN #COPD #CHF s/p ICD( implanted [facility] Arreguin in [address] Jarvis) #A. Fib and A Flutter s/p recent cardiac ablation at [facility] on 01/28/20 - prbc transfusion today - surgery eval - monitor CBC - hold AC - cardiology eval - decrease lasix to 40 daily - monitor cr - GI eval - iron panel - srtict I&Os - daily weights Subjective ROS Limited/Unobtainable: No Constitutional: Denies: no symptoms, chills, diaphoresis, fever, malaise, weakness, other HEENT: Denies: no symptoms, eye pain, blurred vision, tearing, double vision, ear pain, ear discharge, nose pain, nose congestion, throat pain, throat swelling, mouth pain, mouth swelling, other Genitourinary: Denies: no symptoms, burning, discharge, frequency, flank pain, hematuria, incontinence, pain, urgency, other Subjective right swelling better hemoglobin stable Cr downtrending was shocked last night started on amiodarone Objective Objective Last 24 Hour Vital Signs Date Time Temp Pulse Resp B/P (MAP) Pulse Ox O2 Delivery O2 Flow Rate FiO2 02/26/20 04:00 98.9 62 18 100/61 (74) 95 02/26/20 04:00 76 02/26/20 00:00 97.9 65 20 100/65 (77) 97 02/26/20 00:00 67 02/25/20 21:00 Room Air 02/25/20 20:00 101 02/25/20 20:00 98.2 99 18 114/74 (87) 97 02/25/20 16:00 104 02/25/20 16:00 97.4 98 20 113/65 (81) 100 02/25/20 12:00 97.7 102 20 94/60 (71) 98 02/25/20 12:00 105 02/25/20 09:00 Room Air Intake and Output 02/25/20 02/26/20 18:59 06:59 Intake Total 324 ml 240 ml Output Total 700 ml Balance 324 ml -460 ml Intake Oral 324 ml 240 ml Output Urine Total 700 ml # Voids 4 3 # Bowel Movements 1 Laboratory Tests 02/26/20 06:20: White Blood Count 11.1H, Red Blood Count 2.48L, Hemoglobin 7.4L, Hematocrit 21.4L, Mean Corpuscular Volume 86, Mean Corpuscular Hemoglobin 29.7, Mean Corpuscular Hemoglobin Concent 34.4, Red Cell Distribution Width 14.8, Platelet Count 283, Mean Platelet Volume 5.5L, Neutrophils (%) (Auto) , Lymphocytes (%) ( Auto) , Monocytes (%) (Auto) , Eosinophils (%) (Auto) , Basophils (%) (Auto) , Neutrophils % (Manual) [Pending], Lymphocytes % (Manual) [Pending], Platelet Estimate [Pending], Platelet Morphology [Pending], Sodium Level 145, Potassium Level 4.1, Chloride Level 108H, Carbon Dioxide Level 27, Anion Gap 10, Blood Urea Nitrogen 57H, Creatinine 2.5H, Estimat Glomerular Filtration Rate 31.0, Glucose Level 129H, Calcium Level 8.9, Total Bilirubin 0.8, Aspartate Amino Transf (AST/SGOT) 20, Alanine Aminotransferase (ALT/SGPT) 18, Alkaline Phosphatase 46, Total Protein 6.2L, Albumin 2.1L, Globulin 4.1, Albumin/ Globulin Ratio 0.5L Height (Feet): 5 Height (Inches): 9.00 Weight (Pounds): 187 Prateek Hdz M.D. Feb 26, 2020 08:03
--- NOTE | 2020-02-26 08:39 | NUR ---
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
--- NOTE | 2020-02-26 08:54 | NUR ---
CASE MANAGEMENT:REVIEW 02/26/20 SI: PROFOUND ANEMIA...S/P 4 UNITS PRBC'S CHF. COPD AFIB W/RVR. COVID (-) X1 97.5 60 18 111/75 98% ON RA WBC+11.1 H/H-7.4/21.4 BUN+57 CR+2.5 IS: IV PROTONIX QD IV LASIX QD SS INSULIN AC+HS TRANSFUSE 1 UNIT PRBC'S : TELEMETRY STATUS DCP: FROM HOME PLAN: REPEAT COVID 19 SWAB....STILL PENDING ORDER NOTED TO TRANSFER TO CONTRACTED HOSPITAL
[2020-02-26] MEDS: Pantoprazole Inj IV SCH (09:32)
[2020-02-26] MEDS: Amiodarone 200mg tab ORAL SCH ×2 (09:32→21:00)
[2020-02-26] MEDS: Docusate 100mg cap ORAL SCH ×2 (09:32→18:22)
--- NOTE | 2020-02-26 09:35 | Cardiac Electrophysiology PN ---
Assessment/Plan Assessment/Plan 1. History of successful Typical isthmus dependent Right atrial flutter ablation on 01/25/2020 without recurrence. 2. Left atrial flutter as well as atrial fibrillation that was cardioverted. Increase amiodarone to 400 bid. Hold off on Eliquis in view of severe anemia and possible RFA pseudoaneurysm. His hemoglobin was only 5. 3. Recurrent ventricular tachycardia with multiple defibrillator shocks( [employer] ICD), status post ablation of three different ventricular tachycardia from left ventricular outflow tract and aortic valve by me on 01/28/2020 at [facility].Has now only 3 sustained episodes since ablation. Was getting numerous shocks before ablation. Resume Amiodarone 400 bid 4. 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 On Coreg, hydralazine, Isordil, Lasix, and Aldactone. 5. Chronic kidney disease with creatinine around 2.5. Followup with Dr. Hdz. 6. Profound anemia. The patient received blood transfusion. 7. History of small right femoral artery pseudoaneurysm at [facility] that was left alone per Vasc surgery for very small size. Venous duplex at [place] showed no DVT in the RLE. Arterial duplex still pending. No surgery indicated at this time by Dr Abad Likely needs transfer to [facility] for Vascular surgery evaluation. DW RN Dr. Abad and Andreina Subjective Subjective Had VT and ICD shock at 9.18 last night. ICD interrogation yesterday also showed 2 VT episodes that were ATP ed and had One shock also prior to admit Is being considered for transfer to [facility] for Vascular surgery evaluation for possible Right femoral artery pseudo aneurysm. Arterial Duplex result is still pending though Objective Last 24 Hour Vital Signs Date Time Temp Pulse Resp B/P (MAP) Pulse Ox O2 Delivery O2 Flow Rate FiO2 02/26/20 08:00 97.5 60 18 111/75 (87) 98 02/26/20 04:00 98.9 62 18 100/61 (74) 95 02/26/20 04:00 76 02/26/20 00:00 97.9 65 20 100/65 (77) 97 02/26/20 00:00 67 02/25/20 21:00 Room Air 02/25/20 20:00 101 02/25/20 20:00 98.2 99 18 114/74 (87) 97 02/25/20 16:00 104 02/25/20 16:00 97.4 98 20 113/65 (81) 100 02/25/20 12:00 97.7 102 20 94/60 (71) 98 02/25/20 12:00 105 Intake and Output 02/25/20 02/26/20 19:00 07:00 Intake Total 324 ml 240 ml Output Total 700 ml Balance 324 ml -460 ml Intake Oral 324 ml 240 ml Output Urine Total 700 ml # Voids 4 3 # Bowel Movements 1 Laboratory Tests Test 02/26/20 06:20 White Blood Count 11.1 K/UL (4.8-10.8) H Red Blood Count 2.48 M/UL (4.70-6.10) L Hemoglobin 7.4 G/DL (14.2-18.0) L Hematocrit 21.4 % (42.0-52.0) L Mean Corpuscular Volume 86 FL (80-99) Mean Corpuscular Hemoglobin 29.7 PG (27.0-31.0) Mean Corpuscular Hemoglobin Concent 34.4 G/DL (32.0-36.0) Red Cell Distribution Width 14.8 % (11.6-14.8) Platelet Count 283 K/UL (150-450) Mean Platelet Volume 5.5 FL (6.5-10.1) L Neutrophils (%) (Auto) % (45.0-75.0) Lymphocytes (%) (Auto) % (20.0-45.0) Monocytes (%) (Auto) % (1.0-10.0) Eosinophils (%) (Auto) % (0.0-3.0) Basophils (%) (Auto) % (0.0-2.0) Neutrophils % (Manual) Pending Lymphocytes % (Manual) Pending Platelet Estimate Pending Platelet Morphology Pending Sodium Level 145 MMOL/L (136-145) Potassium Level 4.1 MMOL/L (3.5-5.1) Chloride Level 108 MMOL/L (98-107) H Carbon Dioxide Level 27 MMOL/L (21-32) Anion Gap 10 mmol/L (5-15) Blood Urea Nitrogen 57 mg/dL (7-18) H Creatinine 2.5 MG/DL (0.55-1.30) H Estimat Glomerular Filtration Rate 31.0 mL/min (>60) Glucose Level 129 MG/DL (74-106) H Calcium Level 8.9 MG/DL (8.5-10.1) Total Bilirubin 0.8 MG/DL (0.2-1.0) Aspartate Amino Transf (AST/SGOT) 20 U/L (15-37) Alanine Aminotransferase (ALT/SGPT) 18 U/L (12-78) Alkaline Phosphatase 46 U/L (46-116) Total Protein 6.2 G/DL (6.4-8.2) L Albumin 2.1 G/DL (3.4-5.0) L Globulin 4.1 g/dL Albumin/Globulin Ratio 0.5 (1.0-2.7) L Microbiology Date/Time Source Procedure Growth Status 02/23/20 17:00 Nasopharynx Coronavirus COVID-19 PCR ([facility]) - Final Complete Objective HEAD AND NECK: Positive JVD. LUNGS: Clear. CARDIOVASCULAR: Regular S1 and S2 with no gallop or murmur.ICD left subclavian ABDOMEN: Soft. EXTREMITIES: Right thigh swollen. Cruz Donovan MD Feb 26, 2020 09:35
--- NOTE | 2020-02-26 09:47 | Pulmonology Progress Note ---
Tala Reyes [employer] 02/26/20 0947: Subjective ROS Limited/Unobtainable: No Allergies: Coded Allergies: No Known Allergies (Verified , 09/19/07) Subjective remains afebrile, mild leukocytosis this am pulse ox stable on RA c/o pain R leg no CP, no SOB Objective Last 24 Hour Vital Signs Date Time Temp Pulse Resp B/P (MAP) Pulse Ox O2 Delivery O2 Flow Rate FiO2 02/26/20 08:00 97.5 60 18 111/75 (87) 98 02/26/20 04:00 98.9 62 18 100/61 (74) 95 02/26/20 04:00 76 02/26/20 00:00 97.9 65 20 100/65 (77) 97 02/26/20 00:00 67 02/25/20 21:00 Room Air 02/25/20 20:00 101 02/25/20 20:00 98.2 99 18 114/74 (87) 97 02/25/20 16:00 104 02/25/20 16:00 97.4 98 20 113/65 (81) 100 02/25/20 12:00 97.7 102 20 94/60 (71) 98 02/25/20 12:00 105 Intake and Output 02/25/20 02/26/20 19:00 07:00 Intake Total 324 ml 240 ml Output Total 700 ml Balance 324 ml -460 ml Intake Oral 324 ml 240 ml Output Urine Total 700 ml # Voids 4 3 # Bowel Movements 1 Objective General Appearance: WD/WN, no apparent distress, alert Lines, tubes and drains: peripheral HEENT: normocephalic, atraumatic, anicteric, mucous membranes moist, PERRL Neck: non-tender, supple Respiratory/Chest: lungs clear, no respiratory distress, no accessory muscle use Cardiovascular/Chest: normal rate Abdomen: normal bowel sounds, non tender, soft Extremities: BLE edema with R> >L +2, edema from thigh to foot, TTP and hard to touch , specially at the area of R inner thigh Skin Exam: normal pigmentation, warm/dry 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, no motor/sensory deficits, alert, oriented x 3, responsive Musculoskeletal: normal muscle bulk Microbiology Date/Time Source Procedure Growth Status 02/23/20 17:00 Nasopharynx Coronavirus COVID-19 PCR ([facility]) - Final Complete Laboratory Tests 02/26/20 06:20: White Blood Count 11.1H, Red Blood Count 2.48L, Hemoglobin 7.4L, Hematocrit 21.4L, Mean Corpuscular Volume 86, Mean Corpuscular Hemoglobin 29.7, Mean Corpuscular Hemoglobin Concent 34.4, Red Cell Distribution Width 14.8, Platelet Count 283, Mean Platelet Volume 5.5L, Neutrophils (%) (Auto) , Lymphocytes (%) ( Auto) , Monocytes (%) (Auto) , Eosinophils (%) (Auto) , Basophils (%) (Auto) , Neutrophils % (Manual) [Pending], Lymphocytes % (Manual) [Pending], Platelet Estimate [Pending], Platelet Morphology [Pending], Sodium Level 145, Potassium Level 4.1, Chloride Level 108H, Carbon Dioxide Level 27, Anion Gap 10, Blood Urea Nitrogen 57H, Creatinine 2.5H, Estimat Glomerular Filtration Rate 31.0, Glucose Level 129H, Calcium Level 8.9, Total Bilirubin 0.8, Aspartate Amino Transf (AST/SGOT) 20, Alanine Aminotransferase (ALT/SGPT) 18, Alkaline Phosphatase 46, Total Protein 6.2L, Albumin 2.1L, Globulin 4.1, Albumin/ Globulin Ratio 0.5L Current Medications Medications (Trade) Dose Ordered Sig/Kena Route PRN Reason Start Time Stop Time Status Last Admin Dose Admin Acetaminophen (Tylenol) 650 mg Q4H PRN ORAL Mild Pain (Pain Scale 1-3) 02/23/20 19:30 03/24/20 19:29 Acetaminophen (Tylenol) 650 mg Q4H PRN ORAL Temp >100.5 02/23/20 19:30 03/24/20 19:29 Al Hydroxide/Mg Hydroxide (Mylanta II) 30 ml Q6H PRN ORAL dyspepsia 02/23/20 19:30 03/24/20 19:29 Amiodarone HCl (Cordarone) 400 mg EVERY 12 HOURS ORAL 02/26/20 09:30 05/26/20 09:29 02/26/20 09:32 Carvedilol (Coreg) 3.125 mg EVERY 12 HOURS ORAL 02/26/20 21:00 03/27/20 20:59 Dextrose (Dextrose 50%) 25 ml Q30M PRN IV Hypoglycemia 02/23/20 19:30 9/4/20 19:29 Dextrose (Dextrose 50%) 50 ml Q30M PRN IV Hypoglycemia 02/23/20 19:30 05/23/20 19:29 Diphenhydramine HCl (Benadryl) 25 mg Q6H PRN ORAL Itching/Pruritis 02/23/20 19:30 03/24/20 19:29 Docusate Sodium (Colace) 100 mg TWICE A DAY ORAL 02/24/20 09:15 03/25/20 08:59 02/26/20 09:32 Furosemide (Lasix) 40 mg DAILY IV 02/26/20 09:00 03/24/20 19:29 02/26/20 09:32 Hydralazine HCl (Apresoline) 10 mg BID ORAL 02/26/20 18:00 05/26/20 17:59 Insulin Aspart (NovoLOG) BEFORE MEALS AND HS SUBQ 02/25/20 06:30 05/25/20 06:29 Isosorbide Dinitrate (Isordil) 10 mg BID ORAL 02/26/20 18:00 03/27/20 17:59 Ondansetron HCl (Zofran) 4 mg Q6H PRN IVP Nausea & Vomiting 02/23/20 19:30 03/24/20 19:29 Pantoprazole (Protonix) 40 mg DAILY IV 02/24/20 09:00 03/25/20 08:59 02/26/20 09:32 Assessment/Plan Assessment/Plan ASSESSMENT Profound anemia, requiring blood transfusion 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 CHF with systolic and diastolic dysfunction Severe dilated CN /EF 15-20% Moderate pulmonary HTN COPD Hx of respiratory failure with trach( now closed) A fib with RVR, s/p ablation January 2020 Chronic anticoagulation with Eliquis Suspected COVID 19 infection HTN DM type 2 CKD Hx of cocaine abuse PLAN OF CARE tele Eliquis stopped for now O2 titrate to keep sat above 90% pulm toilet CXR stable isolation for now SARS COV 2 by PCR 02/22 not detected fup with anotehr SARS COV2 by PCR ( need 2 NGT for transfer to OSH) mild leukocytosis, likely reactive s/p total 4 u PRBC, Hgb 7/4, Hct 21.4 this am venous Duplex 02/18 with findings of possible large pseudoaneurysm of the right proximal SFA and some thrombus suspected to be present venous Duplex 02/22 NGT for acute DVT, no findings of pseudoaneurysm general surgeon seen and evaluated ; ? aneurysm rupture, elevate legs Arterial Duplex still pending, discussed with CN to do today while still waiting for transfer vascular surgery eval and possible intervention pending upon transfer to [facility] PPI GI on board, stool OB GI procedures-per GI recs on hold guideline directed medical therapy fro CHF monitor volumes and cardiorenal parameters , creat down to 2.5 this am nephro on board BS management with SSI case discussed and evaluated by supervising physician Sukhjinder Barcenas MD 02/26/20 1711: Subjective Allergies: Coded Allergies: No Known Allergies (Verified , 09/19/07) Assessment/Plan Assessment/Plan Patient seen and examined with [employer]. Agree with above A&P as it reflects our joint deliberations. Tala Reyes NP Feb 26, 2020 09:47 Sukhjinder Barcenas MD Feb 26, 2020 17:11
[2020-02-26 12:00] VITALS: BP 105/70
[2020-02-26] MEDS ORDERED: LORazepam Inj 2mg/ml 1ml IV ONE (12:45)
--- NOTE | 2020-02-26 13:06 | Diagnostic Imaging Report ---
Indication: Bilateral leg pain, history of recent right groin puncture for cardiac intervention Technique: Grayscale and duplex images of the right lower extremity arteries Comparison: none Findings: In the right groin region, there is a hypoechoic area overlying the common femoral and proximal superficial femoral artery. There is no evidence of pseudoaneurysm. At all levels, Doppler waveforms are triphasic with sharp systolic peaks Impression: Right groin region hypoechoic area, may represent a small hematoma given history of recent cardiac catheterization. No evidence of pseudoaneurysm No evidence of significant right lower extremity arterial insufficiency
--- NOTE | 2020-02-26 14:48 | General Progress Note ---
Assessment/Plan Problem List: (1) HTN (hypertension) ICD Codes: I10 - HTN (hypertension) SNOMED: 90240881 (2) CHF (congestive heart failure) ICD Codes: I50.9 - Congestive heart failure SNOMED: 03343834 (3) Ventricular arrhythmia ICD Codes: I49.9 - Cardiac arrhythmia, unspecified SNOMED: 35025062 Assessment/Plan: Juan Monroe a 69 year oldmalewho presents with PMH of HTN,COPD, CHF s/p ICD( implanted at [facility] by Dr Arreguin in [address] Jarvis), A. Fib and A Flutter s/p recent cardiac ablation at [facility] on 01/28/20, presented to ED admitted for severe anemia suspect 2/2 femoral artery bleed. #Atrial Flutter #Atrial Fibrillation #Acute on Chronic Systolic Heart Failure #Vtach s/p VT ablation #Hx of R groin hematoma #Acute blood loss anemia likely 2/2 R groin hematoma -Hemodynamically stable -TTE EF 15-20% -cont. lasix 40 IV BID -Holdhome Eliquis 2.5 mg PO BID. -Coreg/ amiodarone per cardiology -repeat US with no hematoma -Vascular US today showing no pseudoaneurysm, likely old blood. -x-zaid to [facility] ongoing. -Unable to do CTA due to renal function -transfuse with goal HGB >7. 1u Prbc (02/24). -Cardiology consult appreciated -GI consulted -Surgery consulted (Dr. Abad) #CARMEN on CKD3 #CKD3 -Cr 2.9 on admission. -baseline 1.4~1.5 -Nephro consulted, recs appreciated -hold ACEi/ARB -Continue diuresis as above. -Trend BMP daily. -Avoid nephrotoxin medications #COPD -does not appear to be in COPD exacerbation at this time -pulmonary consult Dr. Tipton appreciated. #DMT2 -Holdhome sitagliptan -ISS, accuchecks qac/hs #HTN - -Hold hydralazine 50 mg PO BID, carvediolol- restart once BP improves -clonidine 0.1 PRN for SBP >160 Dispo: home with hh Reason for Continued Hospitalization: acute anemia 37 minutes spent on this encounter. Discussed with RN at bedside and consultants named above. 24 spent on counseling and care coordination. Time of note may not reflect time patient was seen. Subjective Date patient seen: Feb 26, 2020 ROS Limited/Unobtainable: No Constitutional: Denies: no symptoms, chills, diaphoresis, fever, malaise, weakness, other HEENT: Denies: no symptoms, eye pain, blurred vision, tearing, double vision, ear pain, ear discharge, nose pain, nose congestion, throat pain, throat swelling, mouth pain, mouth swelling, other Cardiovascular: Denies: no symptoms, chest pain, edema, irregular heart rate, lightheadedness, palpitations, syncope, other Respiratory: Denies: no symptoms, cough, orthopnea, shortness of breath, SOB with excertion, SOB at rest, sputum, stridor, wheezing, other Gastrointestinal/Abdominal: Denies: no symptoms, abdomen distended, abdominal pain, black stools, tarry stools, blood in stool, constipated, diarrhea, difficulty swallowing, nausea, poor appetite, poor fluid intake, rectal bleeding , vomiting, other Genitourinary: Denies: no symptoms, burning, discharge, frequency, flank pain, hematuria, incontinence, pain, urgency, other Neurologic/Psychiatric: Denies: no symptoms, anxiety, depressed, emotional problems, headache, numbness, paresthesia, pre-existing deficit, seizure, tingling, tremors, weakness, other Endocrine: Denies: no symptoms, excessive sweating, flushing, intolerance to cold, intolerance to heat, increased hunger, increased thirst, increased urine, unexplained weight gain, unexplained weight loss, other Hematologic/Lymphatic: Denies: no symptoms, anemia, easy bleeding, easy bruising, other Allergies: Coded Allergies: No Known Allergies (Verified , 09/19/07) Subjective Feels about the same, leg tightness, swelling the same. denies any other issues. Objective Last 24 Hour Vital Signs Date Time Temp Pulse Resp B/P (MAP) Pulse Ox O2 Delivery O2 Flow Rate FiO2 02/26/20 12:00 62 02/26/20 12:00 97.7 59 18 105/70 (82) 97 02/26/20 09:00 Room Air Room Air 02/26/20 08:00 97.5 60 18 111/75 (87) 98 02/26/20 08:00 76 02/26/20 04:00 98.9 62 18 100/61 (74) 95 02/26/20 04:00 76 02/26/20 00:00 97.9 65 20 100/65 (77) 97 02/26/20 00:00 67 02/25/20 21:00 Room Air 02/25/20 20:00 101 02/25/20 20:00 98.2 99 18 114/74 (87) 97 02/25/20 16:00 104 02/25/20 16:00 97.4 98 20 113/65 (81) 100 Intake and Output 02/25/20 02/26/20 19:00 07:00 Intake Total 324 ml 240 ml Output Total 700 ml Balance 324 ml -460 ml Intake Oral 324 ml 240 ml Output Urine Total 700 ml # Voids 4 3 # Bowel Movements 1 Laboratory Tests 02/26/20 06:20: White Blood Count 11.1H, Red Blood Count 2.48L, Hemoglobin 7.4L, Hematocrit 21.4L, Mean Corpuscular Volume 86, Mean Corpuscular Hemoglobin 29.7, Mean Corpuscular Hemoglobin Concent 34.4, Red Cell Distribution Width 14.8, Platelet Count 283, Mean Platelet Volume 5.5L, Neutrophils (%) (Auto) , Lymphocytes (%) ( Auto) , Monocytes (%) (Auto) , Eosinophils (%) (Auto) , Basophils (%) (Auto) , Differential Total Cells Counted 100, Neutrophils % (Manual) 81H, Lymphocytes % (Manual) 11L, Monocytes % (Manual) 6, Eosinophils % (Manual) 2, Basophils % ( Manual) 0, Band Neutrophils 0, Platelet Estimate Adequate, Platelet Morphology Normal, Polychromasia 1+, Hypochromasia 1+, Anisocytosis 1+, Sodium Level 145, Potassium Level 4.1, Chloride Level 108H, Carbon Dioxide Level 27, Anion Gap 10 , Blood Urea Nitrogen 57H, Creatinine 2.5H, Estimat Glomerular Filtration Rate 31.0, Glucose Level 129H, Calcium Level 8.9, Total Bilirubin 0.8, Aspartate Amino Transf (AST/SGOT) 20, Alanine Aminotransferase (ALT/SGPT) 18, Alkaline Phosphatase 46, Total Protein 6.2L, Albumin 2.1L, Globulin 4.1, Albumin/ Globulin Ratio 0.5L Height (Feet): 5 Height (Inches): 9.00 Weight (Pounds): 187 General Appearance: no apparent distress, alert EENT: PERRL/EOMI Neck: supple Cardiovascular: normal rate, regular rhythm Respiratory/Chest: lungs clear, normal breath sounds Abdomen: non tender, soft Extremities: swelling Edema: 4+ Leg (R) Neurologic: alert, oriented x 3 Sonu Ayoub MD Feb 26, 2020 14:48
[2020-02-26 16:00] VITALS: BP 110/62
--- NOTE | 2020-02-26 16:25 | Surgery Progress Note ---
Surgery Progress Note Subjective Additional Comments arterial duplex noted doing better h/h stable no n/v/f/c Objective Last 24 Hour Vital Signs Date Time Temp Pulse Resp B/P (MAP) Pulse Ox O2 Delivery O2 Flow Rate FiO2 02/26/20 12:00 62 02/26/20 12:00 97.7 59 18 105/70 (82) 97 02/26/20 09:00 Room Air Room Air 02/26/20 08:00 97.5 60 18 111/75 (87) 98 02/26/20 08:00 76 02/26/20 04:00 98.9 62 18 100/61 (74) 95 02/26/20 04:00 76 02/26/20 00:00 97.9 65 20 100/65 (77) 97 02/26/20 00:00 67 02/25/20 21:00 Room Air 02/25/20 20:00 101 02/25/20 20:00 98.2 99 18 114/74 (87) 97 I&O Intake and Output 02/25/20 02/26/20 19:00 07:00 Intake Total 324 ml 240 ml Output Total 700 ml Balance 324 ml -460 ml Intake Oral 324 ml 240 ml Output Urine Total 700 ml # Voids 4 3 # Bowel Movements 1 Dressing: other Wound: other Drains: other Cardiovascular: RSR Respiratory: decreased breath sounds Abdomen: soft, non-tender, present bowel sounds, non-distended Extremities: edema, tenderness, no cyanosis, pulses, other Laboratory Tests Test 02/26/20 06:20 White Blood Count 11.1 K/UL (4.8-10.8) H Red Blood Count 2.48 M/UL (4.70-6.10) L Hemoglobin 7.4 G/DL (14.2-18.0) L Hematocrit 21.4 % (42.0-52.0) L Mean Corpuscular Volume 86 FL (80-99) Mean Corpuscular Hemoglobin 29.7 PG (27.0-31.0) Mean Corpuscular Hemoglobin Concent 34.4 G/DL (32.0-36.0) Red Cell Distribution Width 14.8 % (11.6-14.8) Platelet Count 283 K/UL (150-450) Mean Platelet Volume 5.5 FL (6.5-10.1) L Neutrophils (%) (Auto) % (45.0-75.0) Lymphocytes (%) (Auto) % (20.0-45.0) Monocytes (%) (Auto) % (1.0-10.0) Eosinophils (%) (Auto) % (0.0-3.0) Basophils (%) (Auto) % (0.0-2.0) Differential Total Cells Counted 100 Neutrophils % (Manual) 81 % (45-75) H Lymphocytes % (Manual) 11 % (20-45) L Monocytes % (Manual) 6 % (1-10) Eosinophils % (Manual) 2 % (0-3) Basophils % (Manual) 0 % (0-2) Band Neutrophils 0 % (0-8) Platelet Estimate Adequate Platelet Morphology Normal Polychromasia 1+ Hypochromasia 1+ Anisocytosis 1+ Sodium Level 145 MMOL/L (136-145) Potassium Level 4.1 MMOL/L (3.5-5.1) Chloride Level 108 MMOL/L (98-107) H Carbon Dioxide Level 27 MMOL/L (21-32) Anion Gap 10 mmol/L (5-15) Blood Urea Nitrogen 57 mg/dL (7-18) H Creatinine 2.5 MG/DL (0.55-1.30) H Estimat Glomerular Filtration Rate 31.0 mL/min (>60) Glucose Level 129 MG/DL (74-106) H Calcium Level 8.9 MG/DL (8.5-10.1) Total Bilirubin 0.8 MG/DL (0.2-1.0) Aspartate Amino Transf (AST/SGOT) 20 U/L (15-37) Alanine Aminotransferase (ALT/SGPT) 18 U/L (12-78) Alkaline Phosphatase 46 U/L (46-116) Total Protein 6.2 G/DL (6.4-8.2) L Albumin 2.1 G/DL (3.4-5.0) L Globulin 4.1 g/dL Albumin/Globulin Ratio 0.5 (1.0-2.7) L Plan Problems: (1) Edema (2) Pseudoaneurysm Assessment & Plan: Findings: In the right groin region, there is a hypoechoic area overlying the common femoral and proximal superficial femoral artery. There is no evidence of pseudoaneurysm. At all levels, Doppler waveforms are triphasic with sharp systolic peaks Impression: Right groin region hypoechoic area, may represent a small hematoma given history of recent cardiac catheterization. No evidence of pseudoaneurysm No evidence of significant right lower extremity arterial insufficiency (3) Cellulitis of right leg Assessment & Plan: 70-year-old male right lower extremity significant edema patient recently had cardiac interventional procedure access to right groin on Eliquis developed pseudoaneurysm left AMA prior treatment now returns with significant right lower extremity edema. Diffuse edema from the groin down to the foot. Mainly in the thigh region. Hemoglobin noted severely anemic. There is a possibility that the aneurysm ruptured but currently stable. There is a possibility of persistent bleed and this is diffuse hematoma. No localized fluid collection for drainage identified. Recommend arterial duplex ultrasound. CT scan angio will be discussed with team given renal function. keep leg elevated hold blood thinner is possible / safe keep flat will follow with exam an recs more ambulatory d/c planning noted ARTERIAL DUPLEX thank you Deep veins: Unremarkable. No DVT in the visualized common femoral, femoral, proximal deep femoral or popliteal veins. The veins demonstrate normal color flow, are normally compressible, with normal phasic flow and/or augmentation response. Superficial veins: Unremarkable. No thrombus in the visualized great saphenous vein. Soft tissues: Nonspecific edema involving the right lower extremity. No popliteal cyst. IMPRESSION: No ultrasonographic evidence of deep venous thrombosis involving the right lower extremity. Jim Abad Feb 26, 2020 16:25
--- NOTE | 2020-02-26 16:50 | NUR ---
*-* INSURANCE *-* ALL AVAILABLE CLINICALS HAVE BEEN FAXED TO: [facility]: SEAN P:[phone] F:[phone]
[2020-02-26] MEDS: HydrALAZINE 10mg Tab ORAL SCH (18:22)
--- NOTE | 2020-02-26 19:42 | NUR ---
HAND-OFF: Report given to Min GRISSOM. Patient is in stable condition.
--- NOTE | 2020-02-26 19:43 | NUR ---
NURSE NOTES: Got report from Calixto GRISSOM. Pt in stable condition. No s/s of distress or discomfort noted. Pt resting in bed comfortably. Bed in low and locked position, call light within reach, bedside table within reach. Continue to monitor.
[2020-02-26 20:00] VITALS: BP 104/67
[2020-02-27] VITALS: BP 106/69
[2020-02-27 04:00] VITALS: BP 110/61
[2020-02-27] MEDS: NovoLOG Insulin Flexpen SUBQ SCH ×4 (06:30→21:00)
[2020-02-27 07:27] LABS: HEMATOCRIT 21.4 % (42.0-52.0); HEMOGLOBIN 7.3 G/DL (14.2-18.0); MEAN CORPUSCULAR VOLUME 87 FL (80-99); PLATELET COUNT 296 K/UL (150-450); RED BLOOD COUNT 2.46 M/UL (4.70-6.10); RED CELL DISTRIBUTION WIDTH 14.5 % (11.6-14.8); WHITE BLOOD COUNT 10.9 K/UL (4.8-10.8)
--- NOTE | 2020-02-27 07:41 | Cardiac Electrophysiology PN ---
Assessment/Plan Assessment/Plan 1. History of successful Typical isthmus dependent Right atrial flutter ablation on 01/25/2020 without recurrence. 2. Left atrial flutter as well as atrial fibrillation that was cardioverted. On amiodarone 400 bid. Hold off on Eliquis in view of severe anemia and hemoglobin was only 5. 3. Recurrent ventricular tachycardia with multiple defibrillator shocks( [employer] ICD), status post ablation of three different ventricular tachycardia from left ventricular outflow tract and aortic valve by me on 01/28/2020 at [facility]. Has now only 3 sustained episodes since ablation. Was getting numerous shocks before ablation. On Amiodarone 400 bid 4. 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 On Coreg, hydralazine, Isordil, Lasix, and Aldactone. 5. Chronic kidney disease with creatinine around 2.5. Followup with Dr. Hdz. 6. Profound anemia. The patient received blood transfusion. 7. History of small right femoral artery pseudoaneurysm at [facility] that was left alone per Vasc surgery for very small size. Venous duplex at [facility] showed no DVT in the RLE. Arterial duplex no pseudo aneurysm. No surgery indicated at this time by Dr Abad Awaiting transfer to [facility] for Vascular surgery evaluation. DW RN Dr. Abad and Andreina Subjective Subjective Had VT and ICD shock at 9.18 last night. ICD interrogation yesterday also showed 2 VT episodes that were ATP ed and had One shock also prior to admit Being considered for transfer to [facility] for Vascular surgery evaluation for possible Right femoral artery pseudo aneurysm. Arterial Duplex however showed no psuedo aneurysm Objective Last 24 Hour Vital Signs Date Time Temp Pulse Resp B/P (MAP) Pulse Ox O2 Delivery O2 Flow Rate FiO2 02/27/20 04:00 56 02/27/20 04:00 98.0 60 18 110/61 (77) 97 02/27/20 00:00 64 02/27/20 00:00 99.0 57 20 106/69 (81) 98 02/26/20 21:00 Room Air Room Air 02/26/20 21:00 58 104/67 02/26/20 20:00 61 02/26/20 20:00 99.9 58 18 104/67 (79) 97 02/26/20 18:22 110/62 02/26/20 18:22 110/62 02/26/20 16:00 97.5 57 18 110/62 (78) 96 02/26/20 16:00 52 02/26/20 12:00 62 02/26/20 12:00 97.7 59 18 105/70 (82) 97 02/26/20 09:00 Room Air Room Air 02/26/20 08:00 97.5 60 18 111/75 (87) 98 02/26/20 08:00 76 Intake and Output 02/26/20 02/27/20 19:00 07:00 Intake Total 360 ml Output Total 500 ml Balance -140 ml Intake Oral 360 ml Output Urine Total 500 ml # Voids 2 Laboratory Tests Test 02/27/20 05:40 White Blood Count 10.9 K/UL (4.8-10.8) H Red Blood Count 2.46 M/UL (4.70-6.10) L Hemoglobin 7.3 G/DL (14.2-18.0) L Hematocrit 21.4 % (42.0-52.0) L Mean Corpuscular Volume 87 FL (80-99) Mean Corpuscular Hemoglobin 29.5 PG (27.0-31.0) Mean Corpuscular Hemoglobin Concent 34.0 G/DL (32.0-36.0) Red Cell Distribution Width 14.5 % (11.6-14.8) Platelet Count 296 K/UL (150-450) Mean Platelet Volume 5.2 FL (6.5-10.1) L Neutrophils (%) (Auto) % (45.0-75.0) Lymphocytes (%) (Auto) % (20.0-45.0) Monocytes (%) (Auto) % (1.0-10.0) Eosinophils (%) (Auto) % (0.0-3.0) Basophils (%) (Auto) % (0.0-2.0) Neutrophils % (Manual) Pending Lymphocytes % (Manual) Pending Platelet Estimate Pending Platelet Morphology Pending Objective HEAD AND NECK: Positive JVD. LUNGS: Clear. CARDIOVASCULAR: Regular S1 and S2 with no gallop or murmur.ICD left subclavian ABDOMEN: Soft. EXTREMITIES: Right thigh swollen. Cruz Donovan MD Feb 27, 2020 07:41
--- NOTE | 2020-02-27 07:45 | NUR ---
HAND-OFF: Report given to Polly GRISSOM.
--- NOTE | 2020-02-27 07:48 | NUR ---
NURSE NOTES: Patient received from Shaka GRISSOM. Patient is in stable condition. Alert and oriented x4. On room air. Not in distress and not in pain at this moment. IV site at right forearm 22G saline lock. Bed in lowest position and locked. Will continue plan of care.
[2020-02-27 08:00] VITALS: BP 123/88
--- NOTE | 2020-02-27 08:47 | NUR ---
CASE MANAGEMENT:REVIEW 02/27/20 SI: PROFOUND ANEMIA...S/P 4 UNITS PRBC'S CHF. COPD AFIB W/RVR. COVID (-) X1 T~ 99.9 LAST NIGHT 98.2 62 19 123/88 98% ON RA WBC+10.9 H/H-7.3/21.4 BUN+57 CR+2.5 GLUCOSE+129 IS: COREG PO Q12 HYDRALAZINE PO BID ISORDIL PO BID AMIODARONE PO Q12 IV PROTONIX QD IV LASIX QD SS INSULIN AC+HS : TELEMETRY STATUS DCP: FROM HOME PLAN: ORDER NOTED TO TRANSFER TO [facility] IS REQUESTING 2 COVID NEGATIVES PRIOR TO TRANSFER DIFFICULTY COLLECTING SECOND COVID SWAB D/T PATIENT REFUSAL AND BEING UNCOOPERATIVE WAS FINALLY ABLE TO OBTAIN SECOND SWAB YESTERDAY 02/26/20...RESULTS PENDING PATIENT WILL NEED EGD/COLONOSCOPY TO DETERMINE SOURCE OF BLEEDING
[2020-02-27] MEDS: HydrALAZINE 10mg Tab ORAL SCH ×2 (08:52→17:18)
[2020-02-27] MEDS: Pantoprazole Inj IV SCH (08:52)
[2020-02-27] MEDS: Docusate 100mg cap ORAL SCH ×2 (08:52→17:18)
[2020-02-27] MEDS: LORazepam 1mg tab ORAL PRN (09:03)
[2020-02-27] MEDS: Amiodarone 200mg tab ORAL SCH ×2 (09:19→21:00)
--- NOTE | 2020-02-27 09:22 | NUR ---
DISCHARGE PLANNING PLAN IS TO TRANSFER TO [facility] ONCE 2ND COVID HAS BEEN RESULTED
[2020-02-27 09:38] LABS: HEMATOCRIT 23.5 % (42.0-52.0); HEMOGLOBIN 7.9 G/DL (14.2-18.0); MEAN CORPUSCULAR VOLUME 87 FL (80-99); PLATELET COUNT 306 K/UL (150-450); RED CELL DISTRIBUTION WIDTH 14.7 % (11.6-14.8); WHITE BLOOD COUNT 11.6 K/UL (4.8-10.8)
[2020-02-27 09:40] LABS: ANION GAP 6 mmol/L (5-15); BLOOD UREA NITROGEN 45 mg/dL (7-18); CALCIUM 9.2 MG/DL (8.5-10.1); CARBON DIOXIDE 29 MMOL/L (21-32); CHLORIDE 109 MMOL/L (98-107); CREATININE 2.1 MG/DL (0.55-1.30); PHOSPHORUS 2.6 MG/DL (2.5-4.9); POTASSIUM 4.4 MMOL/L (3.5-5.1); SODIUM 144 MMOL/L (136-145)
--- NOTE | 2020-02-27 11:40 | General Progress Note ---
Assessment/Plan Problem List: (1) CKD (chronic kidney disease) ICD Codes: N18.9 - Chronic kidney disease, unspecified SNOMED: 422173634 (2) HTN (hypertension) ICD Codes: I10 - HTN (hypertension) SNOMED: 49736882 (3) CHF (congestive heart failure) ICD Codes: I50.9 - Congestive heart failure SNOMED: 63390977 (4) Arrhythmia ICD Codes: I49.9 - Arrhythmia SNOMED: 34562913 (5) Profound anemia ICD Codes: D64.9 - Anemia, unspecified SNOMED: 953083728 Qualifiers: Qualified Codes: D64.9 - Anemia, unspecified (6) Pseudoaneurysm ICD Codes: I72.9 - Aneurysm of unspecified site SNOMED: 567516172, 85589213, 95542273 Assessment/Plan: no active GIB bleeding most likely from right femoral artery pseudoaneurysm fu stool ob add colace and miralax low EF of 15 % will fu Subjective ROS Limited/Unobtainable: Yes Allergies: Coded Allergies: No Known Allergies (Verified , 09/19/07) Objective Last 24 Hour Vital Signs Date Time Temp Pulse Resp B/P (MAP) Pulse Ox O2 Delivery O2 Flow Rate FiO2 02/27/20 09:00 Room Air Room Air 02/27/20 08:52 123/88 02/27/20 08:52 123/88 02/27/20 08:51 62 123/88 02/27/20 08:00 98.2 62 19 123/88 (100) 98 02/27/20 08:00 62 02/27/20 04:00 56 02/27/20 04:00 98.0 60 18 110/61 (77) 97 02/27/20 00:00 64 02/27/20 00:00 99.0 57 20 106/69 (81) 98 02/26/20 21:00 Room Air Room Air 02/26/20 21:00 58 104/67 02/26/20 20:00 61 02/26/20 20:00 99.9 58 18 104/67 (79) 97 02/26/20 18:22 110/62 02/26/20 18:22 110/62 02/26/20 16:00 97.5 57 18 110/62 (78) 96 02/26/20 16:00 52 02/26/20 12:00 62 02/26/20 12:00 97.7 59 18 105/70 (82) 97 Intake and Output 02/26/20 02/27/20 19:00 07:00 Intake Total 360 ml Output Total 500 ml Balance -140 ml Intake Oral 360 ml Output Urine Total 500 ml # Voids 2 Laboratory Tests 02/27/20 05:40: White Blood Count 10.9H, Red Blood Count 2.46L, Hemoglobin 7.3L, Hematocrit 21.4L, Mean Corpuscular Volume 87, Mean Corpuscular Hemoglobin 29.5, Mean Corpuscular Hemoglobin Concent 34.0, Red Cell Distribution Width 14.5, Platelet Count 296, Mean Platelet Volume 5.2L, Neutrophils (%) (Auto) , Lymphocytes (%) ( Auto) , Monocytes (%) (Auto) , Eosinophils (%) (Auto) , Basophils (%) (Auto) , Neutrophils % (Manual) [Pending], Lymphocytes % (Manual) [Pending], Platelet Estimate [Pending], Platelet Morphology [Pending] 02/27/20 09:00: White Blood Count 11.6H, Red Blood Count 2.70L, Hemoglobin 7.9L, Hematocrit 23.5L, Mean Corpuscular Volume 87, Mean Corpuscular Hemoglobin 29.2, Mean Corpuscular Hemoglobin Concent 33.5, Red Cell Distribution Width 14.7, Platelet Count 306, Mean Platelet Volume 4.9L, Neutrophils (%) (Auto) , Lymphocytes (%) ( Auto) , Monocytes (%) (Auto) , Eosinophils (%) (Auto) , Basophils (%) (Auto) , Neutrophils % (Manual) [Pending], Lymphocytes % (Manual) [Pending], Platelet Estimate [Pending], Platelet Morphology [Pending], Sodium Level 144, Potassium Level 4.4, Chloride Level 109H, Carbon Dioxide Level 29, Anion Gap 6, Blood Urea Nitrogen 45H, Creatinine 2.1H, Estimat Glomerular Filtration Rate 37.9, Glucose Level 121H, Calcium Level 9.2, Phosphorus Level 2.6, Magnesium Level 2.3 Height (Feet): 5 Height (Inches): 9.00 Weight (Pounds): 191 General Appearance: alert EENT: normal ENT inspection Neck: supple Cardiovascular: normal rate Respiratory/Chest: decreased breath sounds Abdomen: normal bowel sounds, non tender, soft Extremities: non-tender Silas Ramesh MD Feb 27, 2020 11:40
[2020-02-27 12:00] VITALS: BP 111/75
--- NOTE | 2020-02-27 13:38 | Nephrology Progress Note ---
Assessment/Plan Plan #CARMEN on CKD- due to CRS1 and acute anemia #Acute blood loss anemia #HTN #COPD #CHF s/p ICD( implanted at [facility] by Dr Arreguin in [address] Jarvis) #A. Fib and A Flutter s/p recent cardiac ablation at [facility] on 01/28/20 - hemoglobin stable - Cr stable - monitor CBC - hold AC - cardiology eval - decrease lasix to 40 IV daily - monitor cr - GI eval - amiodarone 400mg BID - continue coreg - hyralazine 25mg BID - isordil 10mg TID - srtict I&Os - daily weights Subjective ROS Limited/Unobtainable: No Constitutional: Denies: no symptoms, chills, diaphoresis, fever, malaise, weakness, other HEENT: Denies: no symptoms, eye pain, blurred vision, tearing, double vision, ear pain, ear discharge, nose pain, nose congestion, throat pain, throat swelling, mouth pain, mouth swelling, other Genitourinary: Denies: no symptoms, burning, discharge, frequency, flank pain, hematuria, incontinence, pain, urgency, other Neurologic/Psychiatric: Denies: no symptoms, anxiety, depressed, emotional problems, headache, numbness, paresthesia, pre-existing deficit, seizure, tingling, tremors, weakness, other Subjective right swelling better hemoglobin stable Cr downtrending was shocked last night started on amiodarone Objective Objective Last 24 Hour Vital Signs Date Time Temp Pulse Resp B/P (MAP) Pulse Ox O2 Delivery O2 Flow Rate FiO2 02/27/20 12:00 97.7 54 20 111/75 (87) 98 02/27/20 12:00 60 02/27/20 09:00 Room Air Room Air 02/27/20 08:52 123/88 02/27/20 08:52 123/88 02/27/20 08:51 62 123/88 02/27/20 08:00 98.2 62 19 123/88 (100) 98 02/27/20 08:00 62 02/27/20 04:00 56 02/27/20 04:00 98.0 60 18 110/61 (77) 97 02/27/20 00:00 64 02/27/20 00:00 99.0 57 20 106/69 (81) 98 02/26/20 21:00 Room Air Room Air 02/26/20 21:00 58 104/67 02/26/20 20:00 61 02/26/20 20:00 99.9 58 18 104/67 (79) 97 02/26/20 18:22 110/62 02/26/20 18:22 110/62 02/26/20 16:00 97.5 57 18 110/62 (78) 96 02/26/20 16:00 52 Intake and Output 02/26/20 02/27/20 19:00 07:00 Intake Total 360 ml Output Total 500 ml Balance -140 ml Intake Oral 360 ml Output Urine Total 500 ml # Voids 2 Laboratory Tests 02/27/20 05:40: White Blood Count 10.9H, Red Blood Count 2.46L, Hemoglobin 7.3L, Hematocrit 21.4L, Mean Corpuscular Volume 87, Mean Corpuscular Hemoglobin 29.5, Mean Corpuscular Hemoglobin Concent 34.0, Red Cell Distribution Width 14.5, Platelet Count 296, Mean Platelet Volume 5.2L, Neutrophils (%) (Auto) , Lymphocytes (%) ( Auto) , Monocytes (%) (Auto) , Eosinophils (%) (Auto) , Basophils (%) (Auto) , Differential Total Cells Counted 100, Neutrophils % (Manual) 81H, Lymphocytes % (Manual) 11L, Monocytes % (Manual) 6, Eosinophils % (Manual) 2, Basophils % ( Manual) 0, Band Neutrophils 0, Platelet Estimate Adequate, Platelet Morphology Normal, Hypochromasia 3+, Anisocytosis 1+, Spherocytes 2+ 02/27/20 09:00: White Blood Count 11.6H, Red Blood Count 2.70L, Hemoglobin 7.9L, Hematocrit 23.5L, Mean Corpuscular Volume 87, Mean Corpuscular Hemoglobin 29.2, Mean Corpuscular Hemoglobin Concent 33.5, Red Cell Distribution Width 14.7, Platelet Count 306, Mean Platelet Volume 4.9L, Neutrophils (%) (Auto) , Lymphocytes (%) ( Auto) , Monocytes (%) (Auto) , Eosinophils (%) (Auto) , Basophils (%) (Auto) , Differential Total Cells Counted 100, Neutrophils % (Manual) 83H, Lymphocytes % (Manual) 10L, Monocytes % (Manual) 4, Eosinophils % (Manual) 3, Basophils % ( Manual) 0, Band Neutrophils 0, Platelet Estimate Adequate, Platelet Morphology Normal, Hypochromasia 3+, Anisocytosis 1+, Sodium Level 144, Potassium Level 4.4 , Chloride Level 109H, Carbon Dioxide Level 29, Anion Gap 6, Blood Urea Nitrogen 45H, Creatinine 2.1H, Estimat Glomerular Filtration Rate 37.9, Glucose Level 121H, Calcium Level 9.2, Phosphorus Level 2.6, Magnesium Level 2.3 Height (Feet): 5 Height (Inches): 9.00 Weight (Pounds): 191 Prateek Hdz M.D. Feb 27, 2020 13:38
--- NOTE | 2020-02-27 13:59 | NUR ---
*-*DISCHARGE PLANNING*-* PATIENT HAS BEEN REFERRED TO: [facility] P: [phone] S/W BRE , STATED NOT COVERED WITH [employer] CROSS INSURANCE, AND WILL SEND REFERRAL TO [facility], [facility], THEY WILL CONTACT GUNNER'S MATE. Addendum: 02/27/20 at 1556 by LAURA ENCINAS LVN LVN RECEIVED CALL FROM [facility] [employer] SUPERVISOR REGARDING DC PLAN FOR TOMORROW PER MARCIO PERSONNEL PLACEMENT SPECIALIST WE CANNOT USE [place] OR [facility] SINCE PATIENT IS CAPITATED TO [employer]. PATIENT NEEDS TO BE REFERRED TO [facility] T: [phone] F: [phone] NUCLEAR ENGINEER IS SIMÓN
--- NOTE | 2020-02-27 14:02 | Surgery Progress Note ---
Surgery Progress Note Subjective Symptoms: improved Additional Comments h/h stable doing well Objective Last 24 Hour Vital Signs Date Time Temp Pulse Resp B/P (MAP) Pulse Ox O2 Delivery O2 Flow Rate FiO2 02/27/20 12:00 97.7 54 20 111/75 (87) 98 02/27/20 12:00 60 02/27/20 09:00 Room Air Room Air 02/27/20 08:52 123/88 02/27/20 08:52 123/88 02/27/20 08:51 62 123/88 02/27/20 08:00 98.2 62 19 123/88 (100) 98 02/27/20 08:00 62 02/27/20 04:00 56 02/27/20 04:00 98.0 60 18 110/61 (77) 97 02/27/20 00:00 64 02/27/20 00:00 99.0 57 20 106/69 (81) 98 02/26/20 21:00 Room Air Room Air 02/26/20 21:00 58 104/67 02/26/20 20:00 61 02/26/20 20:00 99.9 58 18 104/67 (79) 97 02/26/20 18:22 110/62 02/26/20 18:22 110/62 02/26/20 16:00 97.5 57 18 110/62 (78) 96 02/26/20 16:00 52 I&O Intake and Output 02/26/20 02/27/20 19:00 07:00 Intake Total 360 ml Output Total 500 ml Balance -140 ml Intake Oral 360 ml Output Urine Total 500 ml # Voids 2 Dressing: other Wound: other Drains: other Cardiovascular: RSR Respiratory: decreased breath sounds Abdomen: soft, non-tender, present bowel sounds Extremities: edema, tenderness, no cyanosis, other Laboratory Tests Test 02/27/20 05:40 02/27/20 09:00 White Blood Count 10.9 K/UL (4.8-10.8) H 11.6 K/UL (4.8-10.8) H Red Blood Count 2.46 M/UL (4.70-6.10) L 2.70 M/UL (4.70-6.10) L Hemoglobin 7.3 G/DL (14.2-18.0) L 7.9 G/DL (14.2-18.0) L Hematocrit 21.4 % (42.0-52.0) L 23.5 % (42.0-52.0) L Mean Corpuscular Volume 87 FL (80-99) 87 FL (80-99) Mean Corpuscular Hemoglobin 29.5 PG (27.0-31.0) 29.2 PG (27.0-31.0) Mean Corpuscular Hemoglobin Concent 34.0 G/DL (32.0-36.0) 33.5 G/DL (32.0-36.0) Red Cell Distribution Width 14.5 % (11.6-14.8) 14.7 % (11.6-14.8) Platelet Count 296 K/UL (150-450) 306 K/UL (150-450) Mean Platelet Volume 5.2 FL (6.5-10.1) L 4.9 FL (6.5-10.1) L Neutrophils (%) (Auto) % (45.0-75.0) % (45.0-75.0) Lymphocytes (%) (Auto) % (20.0-45.0) % (20.0-45.0) Monocytes (%) (Auto) % (1.0-10.0) % (1.0-10.0) Eosinophils (%) (Auto) % (0.0-3.0) % (0.0-3.0) Basophils (%) (Auto) % (0.0-2.0) % (0.0-2.0) Differential Total Cells Counted 100 100 Neutrophils % (Manual) 81 % (45-75) H 83 % (45-75) H Lymphocytes % (Manual) 11 % (20-45) L 10 % (20-45) L Monocytes % (Manual) 6 % (1-10) 4 % (1-10) Eosinophils % (Manual) 2 % (0-3) 3 % (0-3) Basophils % (Manual) 0 % (0-2) 0 % (0-2) Band Neutrophils 0 % (0-8) 0 % (0-8) Platelet Estimate Adequate Adequate Platelet Morphology Normal Normal Hypochromasia 3+ 3+ Anisocytosis 1+ 1+ Spherocytes 2+ Sodium Level 144 MMOL/L (136-145) Potassium Level 4.4 MMOL/L (3.5-5.1) Chloride Level 109 MMOL/L (98-107) H Carbon Dioxide Level 29 MMOL/L (21-32) Anion Gap 6 mmol/L (5-15) Blood Urea Nitrogen 45 mg/dL (7-18) H Creatinine 2.1 MG/DL (0.55-1.30) H Estimat Glomerular Filtration Rate 37.9 mL/min (>60) Glucose Level 121 MG/DL (74-106) H Calcium Level 9.2 MG/DL (8.5-10.1) Phosphorus Level 2.6 MG/DL (2.5-4.9) Magnesium Level 2.3 MG/DL (1.8-2.4) Plan Problems: (1) Edema (2) Pseudoaneurysm Assessment & Plan: Findings: In the right groin region, there is a hypoechoic area overlying the common femoral and proximal superficial femoral artery. There is no evidence of pseudoaneurysm. At all levels, Doppler waveforms are triphasic with sharp systolic peaks Impression: Right groin region hypoechoic area, may represent a small hematoma given history of recent cardiac catheterization. No evidence of pseudoaneurysm No evidence of significant right lower extremity arterial insufficiency (3) Cellulitis of right leg Assessment & Plan: 70-year-old male right lower extremity significant edema patient recently had cardiac interventional procedure access to right groin on Eliquis developed pseudoaneurysm left AMA prior treatment now returns with significant right lower extremity edema. Diffuse edema from the groin down to the foot. Mainly in the thigh region. Hemoglobin noted severely anemic. There is a possibility that the aneurysm ruptured but currently stable. There is a possibility of persistent bleed and this is diffuse hematoma. No localized fluid collection for drainage identified. Recommend arterial duplex ultrasound. CT scan angio will be discussed with team given renal function. keep leg elevated hold blood thinner is possible / safe keep flat will follow with exam an recs more ambulatory d/c planning noted ARTERIAL DUPLEX thank you Deep veins: Unremarkable. No DVT in the visualized common femoral, femoral, proximal deep femoral or popliteal veins. The veins demonstrate normal color flow, are normally compressible, with normal phasic flow and/or augmentation response. Superficial veins: Unremarkable. No thrombus in the visualized great saphenous vein. Soft tissues: Nonspecific edema involving the right lower extremity. No popliteal cyst. IMPRESSION: No ultrasonographic evidence of deep venous thrombosis involving the right lower extremity. Jim Abad Feb 27, 2020 14:02
--- NOTE | 2020-02-27 15:13 | Pulmonology Progress Note ---
Tala Reyes MUSEUM GUIDE 02/27/20 1513: Subjective ROS Limited/Unobtainable: No Allergies: Coded Allergies: No Known Allergies (Verified , 09/19/07) Subjective remains afebrile, mild leukocytosis pulse ox stable on RA still with pain R leg no CP, no SOB Objective Last 24 Hour Vital Signs Date Time Temp Pulse Resp B/P (MAP) Pulse Ox O2 Delivery O2 Flow Rate FiO2 02/27/20 12:00 97.7 54 20 111/75 (87) 98 02/27/20 12:00 60 02/27/20 09:00 Room Air Room Air 02/27/20 08:52 123/88 02/27/20 08:52 123/88 02/27/20 08:51 62 123/88 02/27/20 08:00 98.2 62 19 123/88 (100) 98 02/27/20 08:00 62 02/27/20 04:00 56 02/27/20 04:00 98.0 60 18 110/61 (77) 97 02/27/20 00:00 64 02/27/20 00:00 99.0 57 20 106/69 (81) 98 02/26/20 21:00 Room Air Room Air 02/26/20 21:00 58 104/67 02/26/20 20:00 61 02/26/20 20:00 99.9 58 18 104/67 (79) 97 02/26/20 18:22 110/62 02/26/20 18:22 110/62 02/26/20 16:00 97.5 57 18 110/62 (78) 96 02/26/20 16:00 52 Intake and Output 02/26/20 02/27/20 19:00 07:00 Intake Total 360 ml Output Total 500 ml Balance -140 ml Intake Oral 360 ml Output Urine Total 500 ml # Voids 2 Objective General Appearance: WD/WN, no apparent distress, alert Lines, tubes and drains: peripheral HEENT: normocephalic, atraumatic, anicteric, mucous membranes moist, PERRL Neck: non-tender, supple Respiratory/Chest: lungs clear, no respiratory distress, no accessory muscle use Cardiovascular/Chest: normal rate Abdomen: normal bowel sounds, non tender, soft Extremities: BLE edema with R> >L +2, edema from thigh to foot, TTP and hard to touch , specially at the area of R inner thigh Skin Exam: normal pigmentation, warm/dry Neurologic: cork wirer II-XII grossly normal, no motor/sensory deficits, alert, oriented x 3, responsive Musculoskeletal: normal muscle bulk Microbiology Date/Time Source Procedure Growth Status 02/26/20 11:15 Nasopharynx Coronavirus COVID-19 PCR ([facility]) - Final Complete Laboratory Tests 02/27/20 05:40: White Blood Count 10.9H, Red Blood Count 2.46L, Hemoglobin 7.3L, Hematocrit 21.4L, Mean Corpuscular Volume 87, Mean Corpuscular Hemoglobin 29.5, Mean Corpuscular Hemoglobin Concent 34.0, Red Cell Distribution Width 14.5, Platelet Count 296, Mean Platelet Volume 5.2L, Neutrophils (%) (Auto) , Lymphocytes (%) ( Auto) , Monocytes (%) (Auto) , Eosinophils (%) (Auto) , Basophils (%) (Auto) , Differential Total Cells Counted 100, Neutrophils % (Manual) 81H, Lymphocytes % (Manual) 11L, Monocytes % (Manual) 6, Eosinophils % (Manual) 2, Basophils % ( Manual) 0, Band Neutrophils 0, Platelet Estimate Adequate, Platelet Morphology Normal, Hypochromasia 3+, Anisocytosis 1+, Spherocytes 2+ 02/27/20 09:00: White Blood Count 11.6H, Red Blood Count 2.70L, Hemoglobin 7.9L, Hematocrit 23.5L, Mean Corpuscular Volume 87, Mean Corpuscular Hemoglobin 29.2, Mean Corpuscular Hemoglobin Concent 33.5, Red Cell Distribution Width 14.7, Platelet Count 306, Mean Platelet Volume 4.9L, Neutrophils (%) (Auto) , Lymphocytes (%) ( Auto) , Monocytes (%) (Auto) , Eosinophils (%) (Auto) , Basophils (%) (Auto) , Differential Total Cells Counted 100, Neutrophils % (Manual) 83H, Lymphocytes % (Manual) 10L, Monocytes % (Manual) 4, Eosinophils % (Manual) 3, Basophils % ( Manual) 0, Band Neutrophils 0, Platelet Estimate Adequate, Platelet Morphology Normal, Hypochromasia 3+, Anisocytosis 1+, Sodium Level 144, Potassium Level 4.4 , Chloride Level 109H, Carbon Dioxide Level 29, Anion Gap 6, Blood Urea Nitrogen 45H, Creatinine 2.1H, Estimat Glomerular Filtration Rate 37.9, Glucose Level 121H, Calcium Level 9.2, Phosphorus Level 2.6, Magnesium Level 2.3 Current Medications Medications (Trade) Dose Ordered Sig/Kena Route PRN Reason Start Time Stop Time Status Last Admin Dose Admin Acetaminophen (Tylenol) 650 mg Q4H PRN ORAL Mild Pain (Pain Scale 1-3) 02/23/20 19:30 03/24/20 19:29 Acetaminophen (Tylenol) 650 mg Q4H PRN ORAL Temp >100.5 02/23/20 19:30 03/24/20 19:29 Al Hydroxide/Mg Hydroxide (Mylanta II) 30 ml Q6H PRN ORAL dyspepsia 02/23/20 19:30 03/24/20 19:29 Amiodarone HCl (Cordarone) 400 mg EVERY 12 HOURS ORAL 02/26/20 09:30 05/26/20 09:29 02/27/20 09:19 Carvedilol (Coreg) 3.125 mg EVERY 12 HOURS ORAL 02/26/20 21:00 03/27/20 20:59 02/27/20 08:51 Dextrose (Dextrose 50%) 25 ml Q30M PRN IV Hypoglycemia 02/23/20 19:30 05/23/20 19:29 Dextrose (Dextrose 50%) 50 ml Q30M PRN IV Hypoglycemia 02/23/20 19:30 05/23/20 19:29 Diphenhydramine HCl (Benadryl) 25 mg Q6H PRN ORAL Itching/Pruritis 02/23/20 19:30 03/24/20 19:29 Docusate Sodium (Colace) 100 mg TWICE A DAY ORAL 02/24/20 09:15 03/25/20 08:59 02/27/20 08:52 Furosemide (Lasix) 40 mg DAILY IV 02/26/20 09:00 03/24/20 19:29 02/27/20 08:51 Hydralazine HCl (Apresoline) 10 mg BID ORAL 02/26/20 18:00 05/26/20 17:59 02/27/20 08:52 Insulin Aspart (NovoLOG) BEFORE MEALS AND HS SUBQ 02/25/20 06:30 05/25/20 06:29 02/26/20 17:09 Isosorbide Dinitrate (Isordil) 10 mg BID ORAL 02/26/20 18:00 03/27/20 17:59 02/27/20 08:52 Lorazepam (Ativan) 1 mg Q8H PRN ORAL For Anxiety 02/27/20 08:59 03/05/20 08:58 02/27/20 09:03 Ondansetron HCl (Zofran) 4 mg Q6H PRN IVP Nausea & Vomiting 02/23/20 19:30 03/24/20 19:29 Pantoprazole (Protonix) 40 mg DAILY IV 02/24/20 09:00 03/25/20 08:59 02/27/20 08:52 Polyethylene Glycol (Miralax) 17 gm BEDTIME ORAL 02/27/20 21:00 03/28/20 20:59 Assessment/Plan Assessment/Plan ASSESSMENT Profound anemia, requiring blood transfusion 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 CHF with systolic and diastolic dysfunction Severe dilated CN /EF 15-20% Moderate pulmonary HTN COPD Hx of respiratory failure with trach( now closed) A fib with RVR, s/p ablation January 2020 Chronic anticoagulation with Eliquis Suspected COVID 19 infection HTN DM type 2 CKD Hx of cocaine abuse PLAN OF CARE tele Eliquis stopped for now O2 titrate to keep sat above 90% pulm toilet CXR stable dc isolation SARS COV 2 by PCR 02/22 and 02/25 not detected mild leukocytosis, likely reactive s/p total 4 u PRBC, Hgb 7/4, Hct 21.4 this am venous Duplex 02/18 with findings of possible large pseudoaneurysm of the right proximal SFA and some thrombus suspected to be present venous Duplex 02/22 NGT for acute DVT, no findings of pseudoaneurysm general surgeon seen and evaluated ; ? aneurysm rupture, elevate legs Arterial Duplex with likely small hematoma , given history of recent cardiac catheterization. No evidence of pseudoaneurysm vascular surgery eval and possible intervention pending upon transfer to [facility] now cancelled given results of Arterial Duplex PPI GI on board, stool OB GI procedures-per GI recs on hold guideline directed medical therapy for CHF monitor volumes and cardiorenal parameters , creat down to 2.1 this am nephro on board BS management with SSI case discussed and evaluated by supervising physician Sukhjinder Barcenas MD 6/10/20 1946: Subjective Allergies: Coded Allergies: No Known Allergies (Verified , 09/19/07) Assessment/Plan Assessment/Plan Patient seen and examined with MUSEUM GUIDE. Agree with above A&P as it reflects our joint deliberations. Tala Reyes NP Feb 27, 2020 15:13 Sukhjinder Barcenas MD Feb 27, 2020 19:46
--- NOTE | 2020-02-27 15:17 | General Progress Note ---
Assessment/Plan Problem List: (1) HTN (hypertension) ICD Codes: I10 - HTN (hypertension) SNOMED: 79911736 (2) CHF (congestive heart failure) ICD Codes: I50.9 - Congestive heart failure SNOMED: 54229924 (3) Ventricular arrhythmia ICD Codes: I49.9 - Cardiac arrhythmia, unspecified SNOMED: 84664770 Status: doing well, stable Assessment/Plan: Juan Monroe a 69 year oldmalewho presents with PMH of HTN,COPD, CHF s/p ICD( implanted at V by Dr Arreguin in [address] Jarvis), A. Fib and A Flutter s/p recent cardiac ablation at [facility] on 01/28/20, presented to ED admitted for severe anemia suspect 2/2 femoral artery bleed. #Atrial Flutter #Atrial Fibrillation #Acute on Chronic Systolic Heart Failure #Vtach s/p VT ablation #Hx of R groin hematoma #Acute blood loss anemia likely 2/2 R groin hematoma -Hemodynamically stable -TTE EF 15-20% -cont. lasix 40 IV daily -cont. isordil/hydral 10 BID given low EF -cont. coreg 3.125 BID -cont. amio 200 BID. -Holdhome Eliquis 2.5 mg PO BID. -Vascular US showing no pseudoaneurysm, likely old blood. -x-zaid to [facility] d/c'ed, given pt. likely can go home tmrw. -Unable to do CTA due to renal function -transfuse with goal HGB >7. 1u Prbc (02/24). -Cardiology consult appreciated -GI consulted -Surgery consulted (Dr. Abad) #CARMEN on CKD3 - improving #CKD3 -Cr 2.9 on admission. 2.1 today . -baseline 1.4~1.5 -Nephro consulted, recs appreciated -hold ACEi/ARB -Continue diuresis as above. -Trend BMP daily. -Avoid nephrotoxin medications #COPD -does not appear to be in COPD exacerbation at this time -pulmonary consult Dr. Tipton appreciated. #DMT2 -Holdhome sitagliptan -ISS, accuchecks qac/hs #HTN - -Hold hydralazine 50 mg PO BID, carvediolol- restart once BP improves -clonidine 0.1 PRN for SBP >160 Dispo: home with Reason for Continued Hospitalization: acute anemia 39 minutes spent on this encounter. Discussed with RN at bedside and consultants named above. 24 mins spent on counseling and care coordination, d/w RN, consultants Time of note may not reflect time patient was seen. Subjective Date patient seen: Feb 27, 2020 ROS Limited/Unobtainable: No Constitutional: Denies: no symptoms, chills, diaphoresis, fever, malaise, weakness, other HEENT: Denies: no symptoms, eye pain, blurred vision, tearing, double vision, ear pain, ear discharge, nose pain, nose congestion, throat pain, throat swelling, mouth pain, mouth swelling, other Cardiovascular: Denies: no symptoms, chest pain, edema, irregular heart rate, lightheadedness, palpitations, syncope, other Respiratory: Denies: no symptoms, cough, orthopnea, shortness of breath, SOB with excertion, SOB at rest, sputum, stridor, wheezing, other Gastrointestinal/Abdominal: Denies: no symptoms, abdomen distended, abdominal pain, black stools, tarry stools, blood in stool, constipated, diarrhea, difficulty swallowing, nausea, poor appetite, poor fluid intake, rectal bleeding , vomiting, other Genitourinary: Denies: no symptoms, burning, discharge, frequency, flank pain, hematuria, incontinence, pain, urgency, other Neurologic/Psychiatric: Denies: no symptoms, anxiety, depressed, emotional problems, headache, numbness, paresthesia, pre-existing deficit, seizure, tingling, tremors, weakness, other Endocrine: Denies: no symptoms, excessive sweating, flushing, intolerance to cold, intolerance to heat, increased hunger, increased thirst, increased urine, unexplained weight gain, unexplained weight loss, other Hematologic/Lymphatic: Denies: no symptoms, anemia, easy bleeding, easy bruising, other Allergies: Coded Allergies: No Known Allergies (Verified , 09/19/07) Subjective Swelling much improved, no pain. Wants to go home. Objective Last 24 Hour Vital Signs Date Time Temp Pulse Resp B/P (MAP) Pulse Ox O2 Delivery O2 Flow Rate FiO2 02/27/20 12:00 97.7 54 20 111/75 (87) 98 02/27/20 12:00 60 02/27/20 09:00 Room Air Room Air 02/27/20 08:52 123/88 02/27/20 08:52 123/88 02/27/20 08:51 62 123/88 02/27/20 08:00 98.2 62 19 123/88 (100) 98 02/27/20 08:00 62 02/27/20 04:00 56 02/27/20 04:00 98.0 60 18 110/61 (77) 97 02/27/20 00:00 64 02/27/20 00:00 99.0 57 20 106/69 (81) 98 02/26/20 21:00 Room Air Room Air 02/26/20 21:00 58 104/67 02/26/20 20:00 61 02/26/20 20:00 99.9 58 18 104/67 (79) 97 02/26/20 18:22 110/62 02/26/20 18:22 110/62 02/26/20 16:00 97.5 57 18 110/62 (78) 96 02/26/20 16:00 52 Intake and Output 02/26/20 02/27/20 19:00 07:00 Intake Total 360 ml Output Total 500 ml Balance -140 ml Intake Oral 360 ml Output Urine Total 500 ml # Voids 2 Laboratory Tests 02/27/20 05:40: White Blood Count 10.9H, Red Blood Count 2.46L, Hemoglobin 7.3L, Hematocrit 21.4L, Mean Corpuscular Volume 87, Mean Corpuscular Hemoglobin 29.5, Mean Corpuscular Hemoglobin Concent 34.0, Red Cell Distribution Width 14.5, Platelet Count 296, Mean Platelet Volume 5.2L, Neutrophils (%) (Auto) , Lymphocytes (%) ( Auto) , Monocytes (%) (Auto) , Eosinophils (%) (Auto) , Basophils (%) (Auto) , Differential Total Cells Counted 100, Neutrophils % (Manual) 81H, Lymphocytes % (Manual) 11L, Monocytes % (Manual) 6, Eosinophils % (Manual) 2, Basophils % ( Manual) 0, Band Neutrophils 0, Platelet Estimate Adequate, Platelet Morphology Normal, Hypochromasia 3+, Anisocytosis 1+, Spherocytes 2+ 02/27/20 09:00: White Blood Count 11.6H, Red Blood Count 2.70L, Hemoglobin 7.9L, Hematocrit 23.5L, Mean Corpuscular Volume 87, Mean Corpuscular Hemoglobin 29.2, Mean Corpuscular Hemoglobin Concent 33.5, Red Cell Distribution Width 14.7, Platelet Count 306, Mean Platelet Volume 4.9L, Neutrophils (%) (Auto) , Lymphocytes (%) ( Auto) , Monocytes (%) (Auto) , Eosinophils (%) (Auto) , Basophils (%) (Auto) , Differential Total Cells Counted 100, Neutrophils % (Manual) 83H, Lymphocytes % (Manual) 10L, Monocytes % (Manual) 4, Eosinophils % (Manual) 3, Basophils % ( Manual) 0, Band Neutrophils 0, Platelet Estimate Adequate, Platelet Morphology Normal, Hypochromasia 3+, Anisocytosis 1+, Sodium Level 144, Potassium Level 4.4 , Chloride Level 109H, Carbon Dioxide Level 29, Anion Gap 6, Blood Urea Nitrogen 45H, Creatinine 2.1H, Estimat Glomerular Filtration Rate 37.9, Glucose Level 121H, Calcium Level 9.2, Phosphorus Level 2.6, Magnesium Level 2.3 Height (Feet): 5 Height (Inches): 9.00 Weight (Pounds): 191 General Appearance: no apparent distress, alert EENT: PERRL/EOMI Neck: supple Cardiovascular: normal rate, regular rhythm Respiratory/Chest: lungs clear, normal breath sounds Abdomen: non tender, soft Edema: moderate edema - LLE, severe edema - RLE Neurologic: alert, oriented x 3 Sonu Ayoub MD Feb 27, 2020 15:17
[2020-02-27 16:00] VITALS: BP 109/73
--- NOTE | 2020-02-27 16:30 | NUR ---
*-*DISCHARGE PLANNING*-* PATIENT HAS BEEN REFERRED TO: [facility] P: [phone] F: [phone] Addendum: 02/27/20 at 1716 by LYNDSAY NIX CM *-*DISCHARGE PLANNED*-* PATIENT HAS BEEN ACCEPTED WITH: [facility] P: [phone] S/W SE[facility] GR SERVICE PATIENT UPON DISCHARGE.
--- NOTE | 2020-02-27 16:51 | NUR ---
*-* INSURANCE *-* UPDATED CLINICALS AND REVIEWS HAVE BEEN FAXED TO: [facility]: [facility] P:[phone] F:[phone]
--- NOTE | 2020-02-27 17:16 | NUR ---
*-*DISCHARGE PLANNED*-* PATIENT HAS BEEN ACCEPTED WITH: [facility] P: [phone] S/W SIMÓN, WILL SERVICE PATIENT UPON DISCHARGE.
[2020-02-27] MEDS ORDERED: Docusate 100mg cap ORAL SCH (18:00)
--- NOTE | 2020-02-27 19:15 | NUR ---
HAND-OFF: Report given to Mary GRISSOM. Patient in stable condition. On room air. Not in distress. Bed in lowest position and locked. Call light within reach. Endorsed plan of care. .
[2020-02-27 20:00] VITALS: BP 107/69
[2020-02-27] MEDS ORDERED: Miralax 17gm pkt ORAL SCH (21:00)
[2020-02-28] VITALS: BP 127/75
[2020-02-28 04:00] VITALS: BP 121/77
[2020-02-28] MEDS: NovoLOG Insulin Flexpen SUBQ SCH ×2 (06:30→11:30)
[2020-02-28 07:04] LABS: ANION GAP 5 mmol/L (5-15); BLOOD UREA NITROGEN 40 mg/dL (7-18); CARBON DIOXIDE 29 MMOL/L (21-32); CHLORIDE 109 MMOL/L (98-107); CREATININE 2.1 MG/DL (0.55-1.30); POTASSIUM 3.8 MMOL/L (3.5-5.1); SODIUM 143 MMOL/L (136-145)
[2020-02-28 07:17] LABS: HEMATOCRIT 22.9 % (42.0-52.0); HEMOGLOBIN 7.7 G/DL (14.2-18.0); MEAN CORPUSCULAR VOLUME 87 FL (80-99); PLATELET COUNT 317 K/UL (150-450); RED BLOOD COUNT 2.64 M/UL (4.70-6.10); RED CELL DISTRIBUTION WIDTH 15.1 % (11.6-14.8); WHITE BLOOD COUNT 10.9 K/UL (4.8-10.8)
--- NOTE | 2020-02-28 07:25 | NUR ---
NURSE NOTES: Patient received from Mary GRISSOM. Patient in stable condition. On room air. Not in distress. Bed in lowest position and locked. IV site patent and intact on Right forearm 22G saline lock. Vital signs stable. Will continue plan of care
--- NOTE | 2020-02-28 07:32 | NUR ---
HAND-OFF: Report given to Polly Artis RN. Pt in stable condition, denies pain. Will continue plan of care and monitoring.
[2020-02-28 08:00] VITALS: BP 112/81
[2020-02-28] MEDS: LORazepam 1mg tab ORAL PRN (08:21)
[2020-02-28] MEDS: Amiodarone 200mg tab ORAL SCH (08:21)
[2020-02-28] MEDS: Docusate 100mg cap ORAL SCH (08:24)
[2020-02-28] MEDS: HydrALAZINE 10mg Tab ORAL SCH (08:25)
[2020-02-28] MEDS: Pantoprazole Inj IV SCH (08:32)
--- NOTE | 2020-02-28 10:36 | NUR ---
NURSE NOTES: Patient has a discharge order but wont be able to leave within 2hour frame because the has the [place]inson and unable to pick him up before 1430.
--- NOTE | 2020-02-28 10:57 | NUR ---
DISCHARGE PLANNING FRAMING MECHANIC CALLED [facility] FRAMING MECHANIC, WILL, TO INFORM HIM OF DISCHARGE REQUESTED WILL ARRANGE F/U APPOINTMENT'S WITH A GI SPECIALIST AND PATIENT'S PCP WILL CONFIRMED THAT HE WILL ARRANGE APPOINTMENTS AND ALSO CONTACT THE PATIENT AT HOME
--- NOTE | 2020-02-28 11:05 | Pulmonology Progress Note ---
Tala Reyes GROUP RESERVATIONS COORDINATOR 02/28/20 1105: Subjective ROS Limited/Unobtainable: No Allergies: Coded Allergies: No Known Allergies (Verified , 09/19/07) Subjective remains afebrile, pulse ox stable on RA no CP, no SOB Objective Last 24 Hour Vital Signs Date Time Temp Pulse Resp B/P (MAP) Pulse Ox O2 Delivery O2 Flow Rate FiO2 02/28/20 09:00 Room Air Room Air 02/28/20 08:33 54 112/81 02/28/20 08:25 112/81 02/28/20 08:25 112/81 02/28/20 08:00 97.9 54 19 112/81 (91) 96 02/28/20 08:00 52 02/28/20 04:00 97.6 69 18 121/77 (92) 99 02/28/20 04:00 51 02/28/20 00:00 57 02/28/20 00:00 96.6 61 18 127/75 (92) 97 02/27/20 21:00 60 107/69 02/27/20 21:00 Room Air Room Air 02/27/20 20:00 51 02/27/20 20:00 97.9 51 18 107/69 (82) 97 02/27/20 17:18 109/73 02/27/20 17:18 109/73 02/27/20 16:00 50 02/27/20 16:00 98.6 51 21 109/73 (85) 95 02/27/20 12:00 97.7 54 20 111/75 (87) 98 02/27/20 12:00 60 Intake and Output 02/27/20 02/28/20 19:00 07:00 Intake Total 1460 ml 500 ml Output Total 2200 ml Balance -740 ml 500 ml Intake Oral 1460 ml 500 ml Output Urine Total 2200 ml # Voids 4 2 Objective General Appearance: WD/WN, no apparent distress, alert Lines, tubes and drains: peripheral HEENT: normocephalic, atraumatic, anicteric, mucous membranes moist, PERRL Neck: non-tender, supple Respiratory/Chest: lungs clear, no respiratory distress, no accessory muscle use Cardiovascular/Chest: normal rate Abdomen: normal bowel sounds, non tender, soft Extremities: BLE edema with R> >L +2, edema from thigh to foot, TTP and hard to touch , specially at the area of R inner thigh Skin Exam: normal pigmentation, warm/dry Neurologic: bed and breakfast operator II-XII grossly normal, no motor/sensory deficits, alert, oriented x 3, responsive Musculoskeletal: normal muscle bulk Microbiology Date/Time Source Procedure Growth Status 02/26/20 11:15 Nasopharynx Coronavirus COVID-19 PCR ([facility]) - Final Complete Laboratory Tests 02/28/20 05:50: White Blood Count 10.9H, Red Blood Count 2.64L, Hemoglobin 7.7L, Hematocrit 22.9L, Mean Corpuscular Volume 87, Mean Corpuscular Hemoglobin 29.2, Mean Corpuscular Hemoglobin Concent 33.6, Red Cell Distribution Width 15.1H, Platelet Count 317, Mean Platelet Volume 5.2L, Neutrophils (%) (Auto) , Lymphocytes (%) (Auto) , Monocytes (%) (Auto) , Eosinophils (%) (Auto) , Basophils (%) (Auto) , Differential Total Cells Counted 100, Neutrophils % ( Manual) 81H, Lymphocytes % (Manual) 13L, Monocytes % (Manual) 3, Eosinophils % ( Manual) 3, Basophils % (Manual) 0, Band Neutrophils 0, Platelet Estimate Adequate, Platelet Morphology Normal, Hypochromasia 3+, Anisocytosis 1+, Spherocytes 2+, Sodium Level 143, Potassium Level 3.8, Chloride Level 109H, Carbon Dioxide Level 29, Anion Gap 5, Blood Urea Nitrogen 40H, Creatinine 2.1H, Estimat Glomerular Filtration Rate 37.9, Glucose Level 109H, Calcium Level 9.0 Current Medications Medications (Trade) Dose Ordered Sig/Kena Route PRN Reason Start Time Stop Time Status Last Admin Dose Admin Acetaminophen (Tylenol) 650 mg Q4H PRN ORAL Mild Pain (Pain Scale 1-3) 02/23/20 19:30 03/24/20 19:29 Acetaminophen (Tylenol) 650 mg Q4H PRN ORAL Temp >100.5 02/23/20 19:30 03/24/20 19:29 Al Hydroxide/Mg Hydroxide (Mylanta II) 30 ml Q6H PRN ORAL dyspepsia 02/23/20 19:30 03/24/20 19:29 Amiodarone HCl (Cordarone) 400 mg EVERY 12 HOURS ORAL 02/26/20 09:30 05/26/20 09:29 02/28/20 08:21 Carvedilol (Coreg) 3.125 mg EVERY 12 HOURS ORAL 02/26/20 21:00 03/27/20 20:59 02/27/20 21:00 Dextrose (Dextrose 50%) 25 ml Q30M PRN IV Hypoglycemia 02/23/20 19:30 05/23/20 19:29 Dextrose (Dextrose 50%) 50 ml Q30M PRN IV Hypoglycemia 02/23/20 19:30 05/23/20 19:29 Diphenhydramine HCl (Benadryl) 25 mg Q6H PRN ORAL Itching/Pruritis 02/23/20 19:30 03/24/20 19:29 Docusate Sodium (Colace) 100 mg TWICE A DAY ORAL 02/24/20 09:15 03/25/20 08:59 02/28/20 08:24 Furosemide (Lasix) 40 mg DAILY IV 02/26/20 09:00 03/24/20 19:29 02/28/20 08:20 Hydralazine HCl (Apresoline) 10 mg BID ORAL 02/26/20 18:00 05/26/20 17:59 02/28/20 08:25 Insulin Aspart (NovoLOG) BEFORE MEALS AND HS SUBQ 02/25/20 06:30 05/25/20 06:29 02/26/20 17:09 Isosorbide Dinitrate (Isordil) 10 mg BID ORAL 02/26/20 18:00 03/27/20 17:59 02/28/20 08:25 Lorazepam (Ativan) 1 mg Q8H PRN ORAL For Anxiety 02/27/20 08:59 03/05/20 08:58 02/28/20 08:21 Ondansetron HCl (Zofran) 4 mg Q6H PRN IVP Nausea & Vomiting 02/23/20 19:30 03/24/20 19:29 Pantoprazole (Protonix) 40 mg DAILY IV 02/24/20 09:00 03/25/20 08:59 02/28/20 08:32 Polyethylene Glycol (Miralax) 17 gm BEDTIME ORAL 02/27/20 21:00 03/28/20 20:59 Assessment/Plan Assessment/Plan ASSESSMENT Profound anemia, requiring blood transfusion 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 CHF with systolic and diastolic dysfunction Severe dilated CN /EF 15-20% Moderate pulmonary HTN COPD Hx of respiratory failure with trach( now closed) A fib with RVR, s/p ablation January 2020 Chronic anticoagulation with Eliquis Suspected COVID 19 infection HTN DM type 2 CKD Hx of cocaine abuse PLAN OF CARE tele Eliquis stopped for now O2 titrate to keep sat above 90% pulm toilet CXR stable off isolation SARS COV 2 by PCR 02/22 and 02/25 not detected mild leukocytosis, likely reactive s/p total 4 u PRBC, Hgb 7/4, Hct 21.4 this am venous Duplex 02/18 with findings of possible large pseudoaneurysm of the right proximal SFA and some thrombus suspected to be present venous Duplex 02/22 NGT for acute DVT, no findings of pseudoaneurysm general surgeon seen and evaluated ; ? aneurysm rupture, elevate legs Arterial Duplex with likely small hematoma , given history of recent cardiac catheterization. No evidence of pseudoaneurysm vascular surgery eval and possible intervention pending upon transfer to [facility] now cancelled given results of Arterial Duplex PPI GI on board, stool OB GI procedures-per GI recs on hold guideline directed medical therapy for CHF monitor volumes and cardiorenal parameters , creat down to 2.1 this am nephro on board BS management with SSI dc plan home with [facility] for today case discussed and evaluated by supervising physician Sukhjinder Barcenas MD 02/28/20 2138: Subjective Allergies: Coded Allergies: No Known Allergies (Verified , 09/19/07) Assessment/Plan Assessment/Plan Patient seen and examined with GROUP RESERVATIONS COORDINATOR. Agree with above A&P as it reflects our joint deliberations. Tala Reyes NP Feb 28, 2020 11:05 Sukhjinder Barcenas MD Feb 28, 2020 21:38
--- NOTE | 2020-02-28 11:14 | Surgery Progress Note ---
Surgery Progress Note Subjective Additional Comments improved no n/v/f/c improving h/h stable renal stable ambulatory Objective Last 24 Hour Vital Signs Date Time Temp Pulse Resp B/P (MAP) Pulse Ox O2 Delivery O2 Flow Rate FiO2 02/28/20 09:00 Room Air Room Air 02/28/20 08:33 54 112/81 02/28/20 08:25 112/81 02/28/20 08:25 112/81 02/28/20 08:00 97.9 54 19 112/81 (91) 96 02/28/20 08:00 52 02/28/20 04:00 97.6 69 18 121/77 (92) 99 02/28/20 04:00 51 02/28/20 00:00 57 02/28/20 00:00 96.6 61 18 127/75 (92) 97 02/27/20 21:00 60 107/69 02/27/20 21:00 Room Air Room Air 02/27/20 20:00 51 02/27/20 20:00 97.9 51 18 107/69 (82) 97 02/27/20 17:18 109/73 02/27/20 17:18 109/73 02/27/20 16:00 50 02/27/20 16:00 98.6 51 21 109/73 (85) 95 02/27/20 12:00 97.7 54 20 111/75 (87) 98 02/27/20 12:00 60 I&O Intake and Output 02/27/20 02/28/20 19:00 07:00 Intake Total 1460 ml 500 ml Output Total 2200 ml Balance -740 ml 500 ml Intake Oral 1460 ml 500 ml Output Urine Total 2200 ml # Voids 4 2 Cardiovascular: RSR Respiratory: clear Abdomen: soft, flat, non-tender, present bowel sounds Extremities: edema, no tenderness, no cyanosis, pulses Laboratory Tests Test 02/28/20 05:50 White Blood Count 10.9 K/UL (4.8-10.8) H Red Blood Count 2.64 M/UL (4.70-6.10) L Hemoglobin 7.7 G/DL (14.2-18.0) L Hematocrit 22.9 % (42.0-52.0) L Mean Corpuscular Volume 87 FL (80-99) Mean Corpuscular Hemoglobin 29.2 PG (27.0-31.0) Mean Corpuscular Hemoglobin Concent 33.6 G/DL (32.0-36.0) Red Cell Distribution Width 15.1 % (11.6-14.8) H Platelet Count 317 K/UL (150-450) Mean Platelet Volume 5.2 FL (6.5-10.1) L Neutrophils (%) (Auto) % (45.0-75.0) Lymphocytes (%) (Auto) % (20.0-45.0) Monocytes (%) (Auto) % (1.0-10.0) Eosinophils (%) (Auto) % (0.0-3.0) Basophils (%) (Auto) % (0.0-2.0) Differential Total Cells Counted 100 Neutrophils % (Manual) 81 % (45-75) H Lymphocytes % (Manual) 13 % (20-45) L Monocytes % (Manual) 3 % (1-10) Eosinophils % (Manual) 3 % (0-3) Basophils % (Manual) 0 % (0-2) Band Neutrophils 0 % (0-8) Platelet Estimate Adequate Platelet Morphology Normal Hypochromasia 3+ Anisocytosis 1+ Spherocytes 2+ Sodium Level 143 MMOL/L (136-145) Potassium Level 3.8 MMOL/L (3.5-5.1) Chloride Level 109 MMOL/L (98-107) H Carbon Dioxide Level 29 MMOL/L (21-32) Anion Gap 5 mmol/L (5-15) Blood Urea Nitrogen 40 mg/dL (7-18) H Creatinine 2.1 MG/DL (0.55-1.30) H Estimat Glomerular Filtration Rate 37.9 mL/min (>60) Glucose Level 109 MG/DL (74-106) H Calcium Level 9.0 MG/DL (8.5-10.1) Plan Problems: (1) Edema (2) Pseudoaneurysm Assessment & Plan: Findings: In the right groin region, there is a hypoechoic area overlying the common femoral and proximal superficial femoral artery. There is no evidence of pseudoaneurysm. At all levels, Doppler waveforms are triphasic with sharp systolic peaks Impression: Right groin region hypoechoic area, may represent a small hematoma given history of recent cardiac catheterization. No evidence of pseudoaneurysm No evidence of significant right lower extremity arterial insufficiency (3) Cellulitis of right leg Assessment & Plan: 70-year-old male right lower extremity significant edema patient recently had cardiac interventional procedure access to right groin on Eliquis developed pseudoaneurysm left AMA prior treatment now returns with significant right lower extremity edema. Diffuse edema from the groin down to the foot. Mainly in the thigh region. Hemoglobin noted severely anemic. There is a possibility that the aneurysm ruptured but currently stable. There is a possibility of persistent bleed and this is diffuse hematoma. No localized fluid collection for drainage identified. Recommend arterial duplex ultrasound. CT scan angio will be discussed with team given renal function. keep leg elevated hold blood thinner is possible / safe keep flat will follow with exam an recs more ambulatory d/c planning outpt follow up needs referral from pcp noted ARTERIAL DUPLEX thank you Deep veins: Unremarkable. No DVT in the visualized common femoral, femoral, proximal deep femoral or popliteal veins. The veins demonstrate normal color flow, are normally compressible, with normal phasic flow and/or augmentation response. Superficial veins: Unremarkable. No thrombus in the visualized great saphenous vein. Soft tissues: Nonspecific edema involving the right lower extremity. No popliteal cyst. IMPRESSION: No ultrasonographic evidence of deep venous thrombosis involving the right lower extremity. Jim Abad Feb 28, 2020 11:14
--- NOTE | 2020-02-28 11:57 | Cardiac Electrophysiology PN ---
Assessment/Plan Assessment/Plan 1. S/P successful Typical isthmus dependent Right atrial flutter ablation on 04/2020 without recurrence. 2. Left atrial flutter as well as atrial fibrillation that was cardioverted. On amiodarone 400 bid. Hold off on Eliquis in view of severe anemia and hemoglobin was only 5 and Right thigh hematoma. 3. Recurrent ventricular tachycardia with multiple defibrillator shocks( [employer] ICD), status post ablation of three different ventricular tachycardia from left ventricular outflow tract and aortic valve by me on 01/28/2020 at [facility]. Has now only 3 sustained episodes since ablation. Was getting numerous shocks before ablation. On Amiodarone 400 bid 4. 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 On Coreg, hydralazine, Isordil, Lasix, and Aldactone. 5. Chronic kidney disease with creatinine around 2.5. Followup with Dr. Hdz. 6. Profound anemia. S/P blood transfusion. 7. History of small right femoral artery pseudoaneurysm at [facility] that was left alone per Vasc surgery for very small size. Venous duplex at [place] showed no DVT in the RLE. Arterial duplex no pseudo aneurysm. No surgery indicated at this time by Dr Jenniffer BIGGS RN Dr. Abad and Andreina DC home today pending Subjective Subjective Had VT and ICD shock 0n 02/26/20. ICD interrogation also showed 2 VT episodes that were ATP ed and had One shock also prior to admit Arterial Duplex however showed no psuedo aneurysm. Amiodarone resumed Objective Last 24 Hour Vital Signs Date Time Temp Pulse Resp B/P (MAP) Pulse Ox O2 Delivery O2 Flow Rate FiO2 02/28/20 09:00 Room Air Room Air 02/28/20 08:33 54 112/81 02/28/20 08:25 112/81 02/28/20 08:25 112/81 02/28/20 08:00 97.9 54 19 112/81 (91) 96 02/28/20 08:00 52 02/28/20 04:00 97.6 69 18 121/77 (92) 99 02/28/20 04:00 51 02/28/20 00:00 57 02/28/20 00:00 96.6 61 18 127/75 (92) 97 02/27/20 21:00 60 107/69 02/27/20 21:00 Room Air Room Air 02/27/20 20:00 51 02/27/20 20:00 97.9 51 18 107/69 (82) 97 02/27/20 17:18 109/73 02/27/20 17:18 109/73 02/27/20 16:00 50 02/27/20 16:00 98.6 51 21 109/73 (85) 95 02/27/20 12:00 97.7 54 20 111/75 (87) 98 02/27/20 12:00 60 Intake and Output 02/27/20 02/28/20 19:00 07:00 Intake Total 1460 ml 500 ml Output Total 2200 ml Balance -740 ml 500 ml Intake Oral 1460 ml 500 ml Output Urine Total 2200 ml # Voids 4 2 Laboratory Tests Test 02/28/20 05:50 White Blood Count 10.9 K/UL (4.8-10.8) H Red Blood Count 2.64 M/UL (4.70-6.10) L Hemoglobin 7.7 G/DL (14.2-18.0) L Hematocrit 22.9 % (42.0-52.0) L Mean Corpuscular Volume 87 FL (80-99) Mean Corpuscular Hemoglobin 29.2 PG (27.0-31.0) Mean Corpuscular Hemoglobin Concent 33.6 G/DL (32.0-36.0) Red Cell Distribution Width 15.1 % (11.6-14.8) H Platelet Count 317 K/UL (150-450) Mean Platelet Volume 5.2 FL (6.5-10.1) L Neutrophils (%) (Auto) % (45.0-75.0) Lymphocytes (%) (Auto) % (20.0-45.0) Monocytes (%) (Auto) % (1.0-10.0) Eosinophils (%) (Auto) % (0.0-3.0) Basophils (%) (Auto) % (0.0-2.0) Differential Total Cells Counted 100 Neutrophils % (Manual) 81 % (45-75) H Lymphocytes % (Manual) 13 % (20-45) L Monocytes % (Manual) 3 % (1-10) Eosinophils % (Manual) 3 % (0-3) Basophils % (Manual) 0 % (0-2) Band Neutrophils 0 % (0-8) Platelet Estimate Adequate Platelet Morphology Normal Hypochromasia 3+ Anisocytosis 1+ Spherocytes 2+ Sodium Level 143 MMOL/L (136-145) Potassium Level 3.8 MMOL/L (3.5-5.1) Chloride Level 109 MMOL/L (98-107) H Carbon Dioxide Level 29 MMOL/L (21-32) Anion Gap 5 mmol/L (5-15) Blood Urea Nitrogen 40 mg/dL (7-18) H Creatinine 2.1 MG/DL (0.55-1.30) H Estimat Glomerular Filtration Rate 37.9 mL/min (>60) Glucose Level 109 MG/DL (74-106) H Calcium Level 9.0 MG/DL (8.5-10.1) Microbiology Date/Time Source Procedure Growth Status 02/26/20 11:15 Nasopharynx Coronavirus COVID-19 PCR ([facility]) - Final Complete Objective HEAD AND NECK: Positive JVD. LUNGS: Clear. CARDIOVASCULAR: Regular S1 and S2 with no gallop or murmur.ICD left subclavian ABDOMEN: Soft. EXTREMITIES: Right thigh swollen/ hematoma unchanged. Cruz Donovan MD Feb 28, 2020 11:57
[2020-02-28 12:00] VITALS: BP 109/63
--- NOTE | 2020-02-28 12:12 | General Progress Note ---
Assessment/Plan Problem List: (1) CKD (chronic kidney disease) ICD Codes: N18.9 - Chronic kidney disease, unspecified SNOMED: 021973972 (2) HTN (hypertension) ICD Codes: I10 - HTN (hypertension) SNOMED: 27318273 (3) CHF (congestive heart failure) ICD Codes: I50.9 - Congestive heart failure SNOMED: 45889904 (4) Arrhythmia ICD Codes: I49.9 - Arrhythmia SNOMED: 25558923 (5) Profound anemia ICD Codes: D64.9 - Anemia, unspecified SNOMED: 328919845 Qualifiers: Qualified Codes: D64.9 - Anemia, unspecified (6) Pseudoaneurysm ICD Codes: I72.9 - Aneurysm of unspecified site SNOMED: 511934079, 11985283, 48264968 Status: doing well, stable Assessment/Plan: no active GIB bleeding most likely from right femoral artery pseudoaneurysm fu stool ob colace and miralax low EF of 15 % patient refusing EGD and colonoscopy will fu Subjective ROS Limited/Unobtainable: Yes Allergies: Coded Allergies: No Known Allergies (Verified , 09/19/07) Objective Last 24 Hour Vital Signs Date Time Temp Pulse Resp B/P (MAP) Pulse Ox O2 Delivery O2 Flow Rate FiO2 02/28/20 09:00 Room Air Room Air 02/28/20 08:33 54 112/81 02/28/20 08:25 112/81 02/28/20 08:25 112/81 02/28/20 08:00 97.9 54 19 112/81 (91) 96 02/28/20 08:00 52 02/28/20 04:00 97.6 69 18 121/77 (92) 99 02/28/20 04:00 51 02/28/20 00:00 57 02/28/20 00:00 96.6 61 18 127/75 (92) 97 02/27/20 21:00 60 107/69 02/27/20 21:00 Room Air Room Air 02/27/20 20:00 51 02/27/20 20:00 97.9 51 18 107/69 (82) 97 02/27/20 17:18 109/73 02/27/20 17:18 109/73 02/27/20 16:00 50 6/10/20 16:00 98.6 51 21 109/73 (85) 95 Intake and Output 02/27/20 02/28/20 19:00 07:00 Intake Total 1460 ml 500 ml Output Total 2200 ml Balance -740 ml 500 ml Intake Oral 1460 ml 500 ml Output Urine Total 2200 ml # Voids 4 2 Laboratory Tests 02/28/20 05:50: White Blood Count 10.9H, Red Blood Count 2.64L, Hemoglobin 7.7L, Hematocrit 22.9L, Mean Corpuscular Volume 87, Mean Corpuscular Hemoglobin 29.2, Mean Corpuscular Hemoglobin Concent 33.6, Red Cell Distribution Width 15.1H, Platelet Count 317, Mean Platelet Volume 5.2L, Neutrophils (%) (Auto) , Lymphocytes (%) (Auto) , Monocytes (%) (Auto) , Eosinophils (%) (Auto) , Basophils (%) (Auto) , Differential Total Cells Counted 100, Neutrophils % ( Manual) 81H, Lymphocytes % (Manual) 13L, Monocytes % (Manual) 3, Eosinophils % ( Manual) 3, Basophils % (Manual) 0, Band Neutrophils 0, Platelet Estimate Adequate, Platelet Morphology Normal, Hypochromasia 3+, Anisocytosis 1+, Spherocytes 2+, Sodium Level 143, Potassium Level 3.8, Chloride Level 109H, Carbon Dioxide Level 29, Anion Gap 5, Blood Urea Nitrogen 40H, Creatinine 2.1H, Estimat Glomerular Filtration Rate 37.9, Glucose Level 109H, Calcium Level 9.0 Height (Feet): 5 Height (Inches): 9.00 Weight (Pounds): 191 General Appearance: no apparent distress EENT: normal ENT inspection Neck: supple Cardiovascular: normal rate Respiratory/Chest: decreased breath sounds Abdomen: normal bowel sounds, non tender, soft Extremities: non-tender Silas Ramesh MD Feb 28, 2020 12:12
--- NOTE | 2020-02-28 12:48 | Discharge Summary ---
Discharge Summary Hospital Course Date of Admission Feb 23, 2020 at 21:09 Date of Discharge 02/28/2020 Admitting Diagnosis right thigh hematoma HPI Juan Rod is a 70 year old male who was admitted on Feb 23, 2020 at 21: 09 with acute right thigh swelling and pain, was noted to be anemic requiring pRBC in the ED. Consultations cardiology, general surgery, nephrology Hospital Course Juan Monroe a 69 year oldmalewho presents with PMH of HTN,COPD, CHF s/p ICD( implanted at [facility] by Dr Arreguin in [address] Jarvis), A. Fib and A Flutter s/p recent cardiac ablation at [facility] on 01/28/20, presented to ED admitted for severe anemia due to R groin hematoma from recent cath procedure. He was monitored closely with serial CBC's, transfusions, but has remained stable (last transfusion 02/24). He was also diuresed with IV lasix given swelling of left leg as well and CARMEN, both of which improved. He is being dc/' ed home today. Home eliquis being held until f/u with PCP, cardiology. #Atrial Flutter #Atrial Fibrillation #Acute on Chronic Systolic Heart Failure #Vtach s/p VT ablation #Hx of R groin hematoma #Acute blood loss anemia likely 2/2 R groin hematoma -Hemodynamically stable -TTE EF 15-20% -cont. lasix 40 IV daily -cont. isordil/hydral 10 BID given low EF -cont. coreg 3.125 BID -cont. amio 200 BID. -Holdhome Eliquis 2.5 mg PO BID. -Vascular US showing no pseudoaneurysm, likely old blood. -Unable to do CTA due to renal function -transfuse with goal HGB >7. 1u Prbc (02/24). -Cardiology consult appreciated -GI consulted -Surgery consulted (Dr. Abad) -home today with H&H and PT. #CARMEN on CKD3 - improving #CKD3 -Cr 2.9 on admission. 2.1 today . -baseline 1.4~1.5 -Nephro consulted, recs appreciated -hold ACEi/ARB -Continue diuresis as above. -Trend BMP daily. -Avoid nephrotoxin medications #COPD -does not appear to be in COPD exacerbation at this time -pulmonary consult Dr. Tipton appreciated. #DMT2 -Holdhome sitagliptan -ISS, accuchecks qac/hs #HTN - -Hold hydralazine 50 mg PO BID, carvediolol- restart once BP improves -clonidine 0.1 PRN for SBP >160 Dispo: home with hh today. 39 minutes spent on this encounter. Discussed with RN at bedside and consultants named above. 24 mins spent on counseling and care coordination, d/w RN, consultants, CM Time of note may not reflect time patient was seen. Discharge Discharge Vital Signs Last Vital Signs Date Time Temp Pulse Resp B/P (MAP) Pulse Ox O2 Delivery O2 Flow Rate FiO2 02/28/20 12:00 97.7 55 18 109/63 (78) 98 02/28/20 09:00 Room Air Room Air Discharge Disposition Patient was discharged to Sonu Ayoub MD Feb 28, 2020 12:48
--- NOTE | 2020-02-28 14:06 | Nephrology Progress Note ---
Assessment/Plan Plan #CARMEN on CKD- due to CRS1 and acute anemia #Acute blood loss anemia #HTN #COPD #CHF s/p ICD( implanted at [facility] by Dr Arreguin in [address] Jarvis) #A. Fib and A Flutter s/p recent cardiac ablation at [facility] on 01/28/20 - hemoglobin stable - Cr stable - monitor CBC - hold AC - cardiology eval - decrease lasix to 40 IV daily - monitor cr - GI eval - amiodarone 400mg BID - continue coreg - hyralazine 25mg BID - isordil 10mg TID - srtict I&Os - daily weights Subjective Subjective right swelling better hemoglobin stable Cr downtrending was shocked last night started on amiodarone Objective Objective Last 24 Hour Vital Signs Date Time Temp Pulse Resp B/P (MAP) Pulse Ox O2 Delivery O2 Flow Rate FiO2 02/28/20 12:00 97.7 55 18 109/63 (78) 98 02/28/20 09:00 Room Air Room Air 02/28/20 08:33 54 112/81 02/28/20 08:25 112/81 02/28/20 08:25 112/81 02/28/20 08:00 97.9 54 19 112/81 (91) 96 02/28/20 08:00 52 02/28/20 04:00 97.6 69 18 121/77 (92) 99 02/28/20 04:00 51 02/28/20 00:00 57 02/28/20 00:00 96.6 61 18 127/75 (92) 97 02/27/20 21:00 60 107/69 02/27/20 21:00 Room Air Room Air 02/27/20 20:00 51 02/27/20 20:00 97.9 51 18 107/69 (82) 97 02/27/20 17:18 109/73 02/27/20 17:18 109/73 02/27/20 16:00 50 02/27/20 16:00 98.6 51 21 109/73 (85) 95 Intake and Output 02/27/20 02/28/20 18:59 06:59 Intake Total 1460 ml 500 ml Output Total 2200 ml Balance -740 ml 500 ml Intake Oral 1460 ml 500 ml Output Urine Total 2200 ml # Voids 4 2 Laboratory Tests 02/28/20 05:50: White Blood Count 10.9H, Red Blood Count 2.64L, Hemoglobin 7.7L, Hematocrit 22.9L, Mean Corpuscular Volume 87, Mean Corpuscular Hemoglobin 29.2, Mean Corpuscular Hemoglobin Concent 33.6, Red Cell Distribution Width 15.1H, Platelet Count 317, Mean Platelet Volume 5.2L, Neutrophils (%) (Auto) , Lymphocytes (%) (Auto) , Monocytes (%) (Auto) , Eosinophils (%) (Auto) , Basophils (%) (Auto) , Differential Total Cells Counted 100, Neutrophils % ( Manual) 81H, Lymphocytes % (Manual) 13L, Monocytes % (Manual) 3, Eosinophils % ( Manual) 3, Basophils % (Manual) 0, Band Neutrophils 0, Platelet Estimate Adequate, Platelet Morphology Normal, Hypochromasia 3+, Anisocytosis 1+, Spherocytes 2+, Sodium Level 143, Potassium Level 3.8, Chloride Level 109H, Carbon Dioxide Level 29, Anion Gap 5, Blood Urea Nitrogen 40H, Creatinine 2.1H, Estimat Glomerular Filtration Rate 37.9, Glucose Level 109H, Calcium Level 9.0 Height (Feet): 5 Height (Inches): 9.00 Weight (Pounds): 191 Prateek Hdz M.D. Feb 28, 2020 14:06
--- NOTE | 2020-02-28 15:03 | NUR ---
NURSE NOTES: Discharge instruction given. Patient verbalized understanding. monitor car operator and IV removed. No distress no bleeding noted. Walker and belonging given to the patient upon discharge. Escorted downstairs via wheelchair. Patient left with the family via private vehicle.
--- NOTE | 2020-02-29 12:22 | NUR ---
*-* INSURANCE *-* DISCHARGE SUMMARY AND UPDATED HAVE BEEN FAXED TO: [facility]: SEAN P:[phone] F:[phone]
== END 2020-02-28 14:55 | disposition home health service (06) | DRG 919 ==
LOC: EDBD 16:22 → EMR 16:48 → EDBEDREQSVC 17:26 → EDBEDREQ 17:26 → 2E 21:09
PROC: 30233N1 Transfusion of Nonautologous Red Blood Cells into Peripheral Vein, Percutaneous Approach (ICD-10-PCS; principal; 2020-02-23)
DX: I97.638 Postprocedural hematoma of a circulatory system organ or structure following other circulatory system procedure (principal); I50.23 Acute on chronic systolic (congestive) heart failure; D62 Acute posthemorrhagic anemia; I48.92 Unspecified atrial flutter; I13.0 Hypertensive heart and chronic kidney disease with heart failure and stage 1 through stage 4 chronic kidney disease, or unspecified chronic kidney disease; N17.9 Acute kidney failure, unspecified; I42.8 Other cardiomyopathies; L03.115 Cellulitis of right lower limb; Y84.8 Other medical procedures as the cause of abnormal reaction of the patient, or of later complication, without mention of misadventure at the time of the procedure; I72.4 Aneurysm of artery of lower extremity; N18.3 Chronic kidney disease, stage 3 (moderate); I48.91 Unspecified atrial fibrillation; J44.9 Chronic obstructive pulmonary disease, unspecified; Z79.01 Long term (current) use of anticoagulants; I34.0 Nonrheumatic mitral (valve) insufficiency; I36.1 Nonrheumatic tricuspid (valve) insufficiency; E11.22 Type 2 diabetes mellitus with diabetic chronic kidney disease; F14.11 Cocaine abuse, in remission; Z95.810 Presence of automatic (implantable) cardiac defibrillator
CPT/HCPCS: 36415; 71045; 80048; 80053; 81003; 82962; 83735; 83880; 84100; 84484; 85007; 85025; 85610; 85730; 86140; 86850; 86900; 86901; 86920; 93005; 93926; 93971; 99291; J1815; J2405; J8499

== ENCOUNTER 2020-02-28 23:03 | Emergency (ER) | payer MEDICARE, MEDICAID ==
[~2020-02-28] VITALS: Ht 172.7 cm; Wt 83.0 kg
[~2020-02-28 23:03] MED LIST changes: +AMIODARONE HCL400 M1 ORAL; +COREG CR10 MG ORAL
--- NOTE | 2020-02-28 23:23 | Emergency Room Report ---
History of Present Illness General Chief Complaint: Chest Pain Source: Patient, Medical Record Present Illness HPI Is a 70-year-old male with a history of severe cardiomyopathy with atrial fibrillation a flutter. He has an AICD. He had a recent ablation at [facility]. He was just admitted here for anemia requiring blood transfusion. He had couple episodes of V. tach with his defibrillator going off. He was seen by Dr. Phipps school social worker while he was an inpatient here. He was just discharged today. He presents with chief complaint of defibrillator going off and chest pain. He said he was resting watching TV when it went off. He has the pain of only 2 out of 10. Denies any fever chills but no nausea no vomiting. No shortness of breath. Nothing made it better. Nothing made it worse. Allergies: Coded Allergies: No Known Allergies (Verified , 09/19/07) COVID-19 Screening Contact w/high risk pt: No Recent Travel to affected area: No Experienced COVID-19 symptoms?: No COVID-19 symptoms experienced: Shortness of Breath COVID-19 Testing performed CHRONOGRAPH OPERATOR: No Patient History Past Medical History: see triage record, old chart reviewed Past Surgical History: other Pertinent Family History: none Social History: Denies: smoking Immunizations: other Reviewed Nursing Documentation: PMH: Agreed; PSxH: Agreed Nursing Documentation-PMH Hx Cardiac Problems: Yes - CHF, ablation Hx Hypertension: Yes Hx Pacemaker: Yes - AICD 09/16/2014 Hx COPD: Yes Hx Diabetes: Yes Hx Cancer: No Hx Gastrointestinal Problems: Yes - ventral hernia (repaired) Hx Neurological Problems: Yes Hx Cerebrovascular Accident: Yes - POSSIBLE MILD STROKE Review of Systems Eye: Denies: eye pain, blurred vision ENT: Denies: ear pain, nose congestion, throat swelling Respiratory: Denies: cough, shortness of breath Cardiovascular: Reports: chest pain; Denies: palpitations Gastrointestinal: Denies: abdominal pain, diarrhea, nausea, vomiting Musculoskeletal: Denies: back pain, joint pain Skin: Denies: rash Neurological: Denies: headache, numbness Endocrine: Denies: increased thirst, increased urine Hematologic/Lymphatic: Denies: easy bruising All Other Systems: negative except mentioned in HPI Physical Exam Vital Signs Date Time Temp Pulse Resp B/P (MAP) Pulse Ox O2 Delivery O2 Flow Rate FiO2 02/28/20 23:03 98.4 60 16 137/91 (106) 98 Room Air Vitals normal Sp02 EP Interpretation: reviewed, normal General Appearance: well appearing, no apparent distress, alert Head: normocephalic, atraumatic Eyes: bilateral eye PERRL, bilateral eye EOMI ENT: hearing grossly normal, normal pharynx Neck: full range of motion, supple, no meningismus Respiratory: chest non-tender, lungs clear, normal breath sounds Cardiovascular #1: regular rate, rhythm, no murmur Gastrointestinal: normal bowel sounds, non tender, no mass, no organomegaly, no bruit, non-distended Musculoskeletal: back normal, normal range of motion, gait/station normal Psychiatric: mood/affect normal Medical Decision Making Diagnostic Impression: Primary Impression: AICD discharge ER Course Patient presents with AICD firing. This is a recurrent issue with him. He has severe nonischemic cardiopathy with ejection fraction of 15%. His AICD has been interrogated already. His symptom was very mild. He is taking his medication. His right groin hematoma is much improved. Will discharge home. He has an appointment with school social worker next week. EKG Diagnostic Results Rate: normal Rhythm: NSR ST Segments: other - NSST changes Rhythm Strip Diag. Results EP Interpretation: yes Rate: 75 Rhythm: NSR, no PVC's, no ectopy Last Vital Signs Date Time Temp Pulse Resp B/P (MAP) Pulse Ox O2 Delivery O2 Flow Rate FiO2 02/28/20 23:03 98.4 60 16 137/91 (106) 98 Room Air Status: improved Disposition: HOME, SELF-CARE Condition: Stable Additional Instructions: Follow-up with your school social worker as scheduled. Return if worsen. Sourav Kirk MD Feb 28, 2020 23:23
[2020-02-29 00:15] VITALS: BP 138/88
[2020-02-29 00:20] VITALS: BP 138/88
== END 2020-02-29 00:20 | disposition home or self-care (01) ==
LOC: EDBD 23:03 → EMR 23:55
DX: T82.897A Other specified complication of cardiac prosthetic devices, implants and grafts, initial encounter (principal); I11.0 Hypertensive heart disease with heart failure; I50.9 Heart failure, unspecified; J44.9 Chronic obstructive pulmonary disease, unspecified; E11.9 Type 2 diabetes mellitus without complications; I42.8 Other cardiomyopathies; X58.XXXA Exposure to other specified factors, initial encounter; Y92.9 Unspecified place or not applicable
CPT/HCPCS: 84484; 93005; 99283